=== PATIENT | female | born 1950 | race Caucasian/White ===

== ENCOUNTER 2017-05-14 08:37 | Day surgery (SDC) | payer MEDICARE, MEDICAID ==
[2017-05-14] MEDS ORDERED: Sodium Chloride 0.9% 10 ML Syringe FLUSH PRN (08:45)
[2017-05-14] MEDS ORDERED: Lactated Ringers 1,000 ML IV SCH (08:45)
[2017-05-14] MEDS ORDERED: Propofol 200 MG/20 ML SDV ONE ×2 (09:53→10:20)
[2017-05-14] MEDS ORDERED: fentaNYL 100 MCG/2 ML SDV ONE (09:53)
[2017-05-14] MEDS ORDERED: Midazolam 1 MG/ML 2 ML SDV ONE (09:53)
[2017-05-14 13:37] VITALS: BP 150/97
--- NOTE | 2017-05-14 14:32 | OR ---
Date of Procedure: 05/14/2017 PREOPERATIVE DIAGNOSIS: Hemoccult-positive stool. POSTOPERATIVE DIAGNOSES: 1. Hiatal hernia. 2. Sigmoid diverticulosis. PROCEDURES: 1. EGD. 2. Colonoscopy. ANESTHESIA: IV sedation. HISTORY: This patient was recently found to be Hemoccult positive and last colonoscopy was 10 years ago. She also has a history of GERD with esophageal strictures. She was initially scheduled for a colonoscopy; however, I told her that if the colonoscopy did not show a source of blood, we should proceed with an upper endoscopy and she is agreeable. DESCRIPTION OF PROCEDURE: The patient was brought to the procedure room, where she was placed on her left side and IV sedation administered. Digital rectal exam was performed, which was normal. Colonoscope was inserted and advanced to the level of the cecum with difficulty getting through the sigmoid colon, which was tortuous. This required changing to the supine position. I was then able to advance to the cecum, which was confirmed by identifying the appendiceal lumen and the ileocecal valve. Prep was good and surfaces were well visualized. Upon withdrawing the scope, the ascending, transverse, and descending colon were normal in appearance. Sigmoid colon was tortuous with multiple diverticula present. Rectum was normal and retroflexion was normal. Air was removed and the scope withdrawn. The patient tolerated this portion of the procedure well. Since no source of blood was identified, I proceeded with upper endoscopy after an oral bite block was placed. An upper endoscope was advanced into the esophagus under direct vision without difficulty. Vocal cords were viewed and were normal. The scope was advanced to the 3rd portion of the duodenum. The duodenum and pylorus were normal. Antrum and body of the stomach were normal. Retroflexion reveals a normal appearing fundus and a medium-sized regular sliding hiatal hernia. Squamocolumnar junction appears normal. There is no evidence of reflux esophagitis. No source of bleeding was identified. Air was removed from the stomach and the scope withdrawn through the remaining esophagus, which appears normal. The patient tolerated this portion of the procedure well and returned to recovery in stable condition. GENA CAN MD /[id number]
== END 2017-05-14 11:52 | disposition home or self-care (01) ==
LOC: LL.SDS 08:37
PROVIDERS: ATTEND Surgery
DX: Z12.11 Encounter for screening for malignant neoplasm of colon (principal); K57.30 Diverticulosis of large intestine without perforation or abscess without bleeding; K44.9 Diaphragmatic hernia without obstruction or gangrene; E78.00 Pure hypercholesterolemia, unspecified; K21.9 Gastro-esophageal reflux disease without esophagitis; F41.9 Anxiety disorder, unspecified; Z79.899 Other long term (current) drug therapy; Z98.890 Other specified postprocedural states; Z90.710 Acquired absence of both cervix and uterus; Z87.891 Personal history of nicotine dependence
CPT/HCPCS: 43235; G0121; J2250; J2704; J3010; J7120; 00810-QZ

== ENCOUNTER 2021-10-10 11:09 | Inpatient (IN) | payer MEDICARE, MEDICAID ==
[2021-10-10] MEDS ORDERED: Sodium Chloride 0.9% 10 ML Syringe FLUSH PRN (11:48)
[2021-10-10 11:58] LABS: CORONAVIRUS COVID-19 NAA NEGATIVE (NEGATIVE); RESPIRATORY SYNCYTIAL VIR NAA NEGATIVE (NEGATIVE)
[2021-10-10 12:41] LABS: CHLORIDE,CL 99 mmol/L (98-107); SODIUM,NA 134 mmol/L (136-145)
[2021-10-10] MEDS ORDERED: Polyethylene Glycol 3350 Powder 17 GM Packet PO PRN (14:04)
[2021-10-10] MEDS ORDERED: Ondansetron 4 MG/2 ML SDV IVPUSH PRN (15:00)
[2021-10-10] MEDS ORDERED: Acetaminophen 325 MG Tab PO PRN (15:00)
[2021-10-10] MEDS: Levofloxacin/Dextrose 5%-Water 750 MG in Premix Bag 1 BAG IV SCH (15:21)
[2021-10-10] MEDS: Enoxaparin 40 MG/0.4 ML Syringe SUBCUT SCH (15:21)
[2021-10-10] MEDS ORDERED: diphenhydrAMINE 25 MG Cap PO PRN (21:20)
[2021-10-10] MEDS: Melatonin 3 MG Tab PO PRN (21:31)
[2021-10-11] MEDS: Enoxaparin 40 MG/0.4 ML Syringe SUBCUT SCH (07:45)
[2021-10-11] MEDS: Calcium Carbonate/Vitamin D3 625 MG-125 Unit Tab PO SCH (07:45)
[2021-10-11] MEDS: Omeprazole 20 MG Cap.CR PO SCH (07:45)
[2021-10-11] MEDS: PARoxetine 20 MG Tab PO SCH (07:46)
[2021-10-11] MEDS ORDERED: Iopamidol 755 Mg/ML 100 ML Bottle IVPUSH STA (14:10)
[2021-10-11] MEDS ORDERED: Lactated Ringers 1,000 ML IV ONE (14:33)
[2021-10-11] MEDS: predniSONE 20 MG Tab PO SCH (14:59)
[2021-10-11] MEDS: Albuterol/Ipratropium 3.0-0.5 MG/3 ML Neb Soln NEB SCH ×2 (16:51→19:11)
[2021-10-11] MEDS: Levofloxacin/Dextrose 5%-Water 750 MG in Premix Bag 1 BAG IV SCH (17:20)
[2021-10-11] MEDS: Doxycycline Monohydrate 100 MG Cap PO SCH (17:51)
[2021-10-11] MEDS: Lactobacillus Rhamnosus GG (Probiotic) Cap PO SCH (17:51)
[2021-10-11] MEDS: Arformoterol 15 MCG/2 ML Neb Soln NEB SCH (19:11)
[2021-10-11] MEDS: Budesonide 0.5 MG/2 ML Neb Susp NEB SCH (19:11)
[2021-10-12] MEDS: Albuterol/Ipratropium 3.0-0.5 MG/3 ML Neb Soln NEB SCH ×3 (01:25→07:53)
[2021-10-12 07:50] LABS: CHLORIDE,CL 102 mmol/L (98-107); SODIUM,NA 135 mmol/L (136-145)
[2021-10-12 07:52] LABS: ANION GAP 10.4 meq/L (7-15)
[2021-10-12] MEDS: Enoxaparin 40 MG/0.4 ML Syringe SUBCUT SCH (07:58)
[2021-10-12] MEDS: Lactobacillus Rhamnosus GG (Probiotic) Cap PO SCH ×2 (07:58→17:44)
[2021-10-12] MEDS: Omeprazole 20 MG Cap.CR PO SCH (07:58)
[2021-10-12] MEDS: predniSONE 20 MG Tab PO SCH (07:58)
[2021-10-12] MEDS: Calcium Carbonate/Vitamin D3 625 MG-125 Unit Tab PO SCH (07:59)
[2021-10-12] MEDS: PARoxetine 20 MG Tab PO SCH (07:59)
[2021-10-12] MEDS: Budesonide 0.5 MG/2 ML Neb Susp NEB SCH ×2 (07:59→19:44)
[2021-10-12] MEDS: Arformoterol 15 MCG/2 ML Neb Soln NEB SCH ×2 (07:59→19:45)
[2021-10-12] MEDS: Doxycycline Monohydrate 100 MG Cap PO SCH ×2 (07:59→17:44)
[2021-10-12] MEDS ORDERED: Albuterol 0.083% 2.5 MG/3 ML Neb Soln NEB PRN (09:40)
[2021-10-12] MEDS: Ipratropium 0.02% 0.5 MG/2.5 ML Neb Soln NEB SCH ×2 (14:18→19:45)
[2021-10-13] MEDS: Ipratropium 0.02% 0.5 MG/2.5 ML Neb Soln NEB SCH ×4 (02:01→19:54)
[2021-10-13] MEDS: Budesonide 0.5 MG/2 ML Neb Susp NEB SCH ×2 (08:12→19:55)
[2021-10-13] MEDS: Enoxaparin 40 MG/0.4 ML Syringe SUBCUT SCH (08:12)
[2021-10-13] MEDS: predniSONE 20 MG Tab PO SCH (08:13)
[2021-10-13] MEDS: Omeprazole 20 MG Cap.CR PO SCH (08:13)
[2021-10-13] MEDS: Calcium Carbonate/Vitamin D3 625 MG-125 Unit Tab PO SCH (08:13)
[2021-10-13] MEDS: Arformoterol 15 MCG/2 ML Neb Soln NEB SCH ×2 (08:13→19:55)
[2021-10-13] MEDS: PARoxetine 20 MG Tab PO SCH (08:13)
[2021-10-13] MEDS: Lactobacillus Rhamnosus GG (Probiotic) Cap PO SCH ×2 (08:14→17:20)
[2021-10-13] MEDS: Doxycycline Monohydrate 100 MG Cap PO SCH ×2 (08:14→17:20)
[2021-10-13 08:29] LABS: CHLORIDE,CL 102 mmol/L (98-107); SODIUM,NA 135 mmol/L (136-145)
[2021-10-13 08:33] LABS: ANION GAP 10.1 meq/L (7-15)
[2021-10-13] MEDS: Melatonin 3 MG Tab PO PRN (19:55)
[2021-10-14] MEDS: Ipratropium 0.02% 0.5 MG/2.5 ML Neb Soln NEB SCH ×4 (02:14→19:57)
[2021-10-14] MEDS: Doxycycline Monohydrate 100 MG Cap PO SCH ×2 (07:52→17:20)
[2021-10-14] MEDS: Budesonide 0.5 MG/2 ML Neb Susp NEB SCH ×2 (07:52→19:58)
[2021-10-14] MEDS: Calcium Carbonate/Vitamin D3 625 MG-125 Unit Tab PO SCH (07:52)
[2021-10-14] MEDS: Enoxaparin 40 MG/0.4 ML Syringe SUBCUT SCH (07:52)
[2021-10-14] MEDS: Arformoterol 15 MCG/2 ML Neb Soln NEB SCH ×2 (07:52→19:58)
[2021-10-14] MEDS: Omeprazole 20 MG Cap.CR PO SCH (07:53)
[2021-10-14] MEDS: predniSONE 20 MG Tab PO SCH (07:53)
[2021-10-14] MEDS: PARoxetine 20 MG Tab PO SCH (07:53)
[2021-10-14] MEDS: Melatonin 3 MG Tab PO PRN (19:58)
[2021-10-15] MEDS: Ipratropium 0.02% 0.5 MG/2.5 ML Neb Soln NEB SCH ×3 (02:21→14:15)
[2021-10-15 07:48] VITALS: BP 110/79; PULSE 94
[2021-10-15] MEDS ORDERED: predniSONE 5 MG Tab PO SCH (08:00)
[2021-10-15] MEDS: Arformoterol 15 MCG/2 ML Neb Soln NEB SCH (08:22)
[2021-10-15] MEDS: Budesonide 0.5 MG/2 ML Neb Susp NEB SCH (08:22)
[2021-10-15] MEDS: PARoxetine 20 MG Tab PO SCH (08:24)
[2021-10-15] MEDS: Doxycycline Monohydrate 100 MG Cap PO SCH (08:24)
[2021-10-15] MEDS: Calcium Carbonate/Vitamin D3 625 MG-125 Unit Tab PO SCH (08:24)
[2021-10-15] MEDS: Enoxaparin 40 MG/0.4 ML Syringe SUBCUT SCH (08:25)
[2021-10-15] MEDS: Omeprazole 20 MG Cap.CR PO SCH (08:25)
[2021-10-27] MEDS ORDERED: Omeprazole 20 MG Cap.CR PO SCH (08:00)
== END 2021-10-15 16:10 | disposition swing bed (61) | DRG 196 ==
LOC: LL.ED 11:09 → LL.MS 13:15
PROVIDERS: ADMIT Hospitalist; ATTEND Hospitalist
DX: J84.10 Pulmonary fibrosis, unspecified (principal); J96.01 Acute respiratory failure with hypoxia; J18.9 Pneumonia, unspecified organism; J44.9 Chronic obstructive pulmonary disease, unspecified; Z99.81 Dependence on supplemental oxygen; Z79.899 Other long term (current) drug therapy; K57.90 Diverticulosis of intestine, part unspecified, without perforation or abscess without bleeding; N39.41 Urge incontinence; M19.90 Unspecified osteoarthritis, unspecified site; H54.7 Unspecified visual loss; E78.00 Pure hypercholesterolemia, unspecified; K21.9 Gastro-esophageal reflux disease without esophagitis; K44.9 Diaphragmatic hernia without obstruction or gangrene; R32 Unspecified urinary incontinence; M81.0 Age-related osteoporosis without current pathological fracture; F41.9 Anxiety disorder, unspecified; Z96.653 Presence of artificial knee joint, bilateral; Z90.710 Acquired absence of both cervix and uterus; Z20.822 Contact with and (suspected) exposure to COVID-19
CPT/HCPCS: 0241U; 36415; 71046; 71275; 80048; 80053; 83605; 83735; 83880; 84145; 84484; 85025; 85027; 85379; 86140; 87040; 87899; 93005; 94640; 94761; 99285-25; A9270-GY; J1650; J1956; J7120; J7512; J7613-GY; J7620-GY; Q9967

== ENCOUNTER 2021-10-15 14:43 | Inpatient (IN) | payer MEDICARE, MEDICAID ==
[2021-10-15] MEDS ORDERED: Albuterol 0.083% 2.5 MG/3 ML Neb Soln NEB PRN (17:44)
[2021-10-15] MEDS ORDERED: diphenhydrAMINE 25 MG Cap PO PRN (17:47)
[2021-10-15] MEDS ORDERED: Melatonin 3 MG Tab PO PRN (17:50)
[2021-10-15] MEDS: Doxycycline Monohydrate 100 MG Cap PO SCH (18:28)
[2021-10-15] MEDS: Calcium Carbonate/Vitamin D3 625 MG-125 Unit Tab PO SCH (18:28)
[2021-10-15] MEDS: Lactobacillus Rhamnosus GG (Probiotic) Cap PO SCH (18:28)
[2021-10-15] MEDS: Arformoterol 15 MCG/2 ML Neb Soln NEB SCH (19:46)
[2021-10-15] MEDS: Budesonide 0.25 MG/2 ML Neb Susp NEB SCH (19:47)
[2021-10-15] MEDS: Albuterol/Ipratropium 3.0-0.5 MG/3 ML Neb Soln NEB SCH ×2 (19:47→23:24)
[2021-10-15] MEDS: Ipratropium 0.02% 0.5 MG/2.5 ML Neb Soln NEB SCH (19:47)
[2021-10-16] MEDS: Ipratropium 0.02% 0.5 MG/2.5 ML Neb Soln NEB SCH ×4 (02:45→19:31)
[2021-10-16] MEDS: Albuterol/Ipratropium 3.0-0.5 MG/3 ML Neb Soln NEB SCH ×2 (03:02→07:45)
[2021-10-16] MEDS: Calcium Carbonate/Vitamin D3 625 MG-125 Unit Tab PO SCH ×2 (07:41→17:25)
[2021-10-16] MEDS: PARoxetine 20 MG Tab PO SCH (07:42)
[2021-10-16] MEDS: predniSONE 20 MG Tab PO SCH (07:43)
[2021-10-16] MEDS: Omeprazole 20 MG Cap.CR PO SCH (07:43)
[2021-10-16] MEDS: Doxycycline Monohydrate 100 MG Cap PO SCH (07:44)
[2021-10-16] MEDS: Enoxaparin 40 MG/0.4 ML Syringe SUBCUT SCH (07:44)
[2021-10-16] MEDS: Lactobacillus Rhamnosus GG (Probiotic) Cap PO SCH (07:44)
[2021-10-16] MEDS: Budesonide 0.25 MG/2 ML Neb Susp NEB SCH ×2 (07:45→19:31)
[2021-10-16] MEDS: Arformoterol 15 MCG/2 ML Neb Soln NEB SCH ×2 (07:45→19:31)
[2021-10-17] MEDS: Ipratropium 0.02% 0.5 MG/2.5 ML Neb Soln NEB SCH ×4 (02:57→19:59)
[2021-10-17] MEDS: Calcium Carbonate/Vitamin D3 625 MG-125 Unit Tab PO SCH ×2 (07:31→18:14)
[2021-10-17] MEDS: PARoxetine 20 MG Tab PO SCH (07:32)
[2021-10-17] MEDS: Omeprazole 20 MG Cap.CR PO SCH (07:33)
[2021-10-17] MEDS: predniSONE 20 MG Tab PO SCH (07:34)
[2021-10-17] MEDS: Enoxaparin 40 MG/0.4 ML Syringe SUBCUT SCH (07:34)
[2021-10-17] MEDS: Arformoterol 15 MCG/2 ML Neb Soln NEB SCH ×2 (07:35→19:59)
[2021-10-17] MEDS: Budesonide 0.25 MG/2 ML Neb Susp NEB SCH ×2 (07:35→19:59)
[2021-10-18] MEDS: Ipratropium 0.02% 0.5 MG/2.5 ML Neb Soln NEB SCH ×4 (01:14→20:04)
[2021-10-18] MEDS: Arformoterol 15 MCG/2 ML Neb Soln NEB SCH ×2 (07:40→20:13)
[2021-10-18] MEDS: Enoxaparin 40 MG/0.4 ML Syringe SUBCUT SCH (07:40)
[2021-10-18] MEDS: Budesonide 0.25 MG/2 ML Neb Susp NEB SCH ×2 (07:40→20:14)
[2021-10-18] MEDS: predniSONE 20 MG Tab PO SCH (07:40)
[2021-10-18] MEDS: PARoxetine 20 MG Tab PO SCH (07:40)
[2021-10-18] MEDS: Calcium Carbonate/Vitamin D3 625 MG-125 Unit Tab PO SCH ×2 (07:42→17:50)
[2021-10-18] MEDS: Omeprazole 20 MG Cap.CR PO SCH (07:42)
[2021-10-19] MEDS: Ipratropium 0.02% 0.5 MG/2.5 ML Neb Soln NEB SCH ×4 (02:09→19:14)
[2021-10-19] MEDS: Budesonide 0.25 MG/2 ML Neb Susp NEB SCH ×2 (08:00→19:28)
[2021-10-19] MEDS: Enoxaparin 40 MG/0.4 ML Syringe SUBCUT SCH (08:07)
[2021-10-19] MEDS: Arformoterol 15 MCG/2 ML Neb Soln NEB SCH ×2 (08:07→19:37)
[2021-10-19] MEDS: Omeprazole 20 MG Cap.CR PO SCH (08:08)
[2021-10-19] MEDS: PARoxetine 20 MG Tab PO SCH (08:09)
[2021-10-19] MEDS: predniSONE 20 MG Tab PO SCH (08:11)
[2021-10-19] MEDS: Calcium Carbonate/Vitamin D3 625 MG-125 Unit Tab PO SCH ×2 (08:40→17:14)
[2021-10-20] MEDS: Ipratropium 0.02% 0.5 MG/2.5 ML Neb Soln NEB SCH ×4 (01:45→19:11)
[2021-10-20] MEDS: Enoxaparin 40 MG/0.4 ML Syringe SUBCUT SCH (07:12)
[2021-10-20] MEDS: Budesonide 0.25 MG/2 ML Neb Susp NEB SCH ×2 (07:28→19:21)
[2021-10-20] MEDS: Arformoterol 15 MCG/2 ML Neb Soln NEB SCH ×2 (07:40→19:29)
[2021-10-20] MEDS: Calcium Carbonate/Vitamin D3 625 MG-125 Unit Tab PO SCH ×2 (07:41→17:12)
[2021-10-20] MEDS: Omeprazole 20 MG Cap.CR PO SCH (07:41)
[2021-10-20] MEDS: PARoxetine 20 MG Tab PO SCH (07:42)
[2021-10-20] MEDS: predniSONE 20 MG Tab PO SCH (07:43)
[2021-10-20] MEDS: Acetaminophen 325 MG Tab PO PRN (16:38)
[2021-10-21] MEDS: Ipratropium 0.02% 0.5 MG/2.5 ML Neb Soln NEB SCH ×4 (01:35→19:27)
[2021-10-21] MEDS: Enoxaparin 40 MG/0.4 ML Syringe SUBCUT SCH (07:23)
[2021-10-21] MEDS: Budesonide 0.25 MG/2 ML Neb Susp NEB SCH ×2 (07:36→19:34)
[2021-10-21] MEDS: Calcium Carbonate/Vitamin D3 625 MG-125 Unit Tab PO SCH ×2 (07:38→17:20)
[2021-10-21] MEDS: Omeprazole 20 MG Cap.CR PO SCH (07:38)
[2021-10-21] MEDS: PARoxetine 20 MG Tab PO SCH (07:39)
[2021-10-21] MEDS: predniSONE 20 MG Tab PO SCH (07:39)
[2021-10-21] MEDS: Polyethylene Glycol 3350 Powder 17 GM Packet PO PRN (07:42)
[2021-10-21] MEDS: Arformoterol 15 MCG/2 ML Neb Soln NEB SCH ×2 (07:53→19:40)
[2021-10-22] MEDS: Ipratropium 0.02% 0.5 MG/2.5 ML Neb Soln NEB SCH ×4 (01:44→20:17)
[2021-10-22] MEDS: Budesonide 0.25 MG/2 ML Neb Susp NEB SCH ×2 (08:09→20:18)
[2021-10-22] MEDS: Arformoterol 15 MCG/2 ML Neb Soln NEB SCH ×2 (08:10→20:21)
[2021-10-22] MEDS: Enoxaparin 40 MG/0.4 ML Syringe SUBCUT SCH (08:11)
[2021-10-22] MEDS: Omeprazole 20 MG Cap.CR PO SCH (08:12)
[2021-10-22] MEDS: Calcium Carbonate/Vitamin D3 625 MG-125 Unit Tab PO SCH ×2 (08:13→17:10)
[2021-10-22] MEDS: PARoxetine 20 MG Tab PO SCH (08:16)
[2021-10-22] MEDS: predniSONE 20 MG Tab PO SCH (08:20)
[2021-10-22] MEDS: Polyethylene Glycol 3350 Powder 17 GM Packet PO PRN (13:46)
[2021-10-23] MEDS: Ipratropium 0.02% 0.5 MG/2.5 ML Neb Soln NEB SCH ×4 (02:19→19:03)
[2021-10-23] MEDS: Enoxaparin 40 MG/0.4 ML Syringe SUBCUT SCH (07:33)
[2021-10-23] MEDS: Budesonide 0.25 MG/2 ML Neb Susp NEB SCH ×2 (07:46→19:24)
[2021-10-23] MEDS: Calcium Carbonate/Vitamin D3 625 MG-125 Unit Tab PO SCH ×2 (07:47→17:32)
[2021-10-23] MEDS: Omeprazole 20 MG Cap.CR PO SCH (07:48)
[2021-10-23] MEDS: PARoxetine 20 MG Tab PO SCH (07:48)
[2021-10-23] MEDS: predniSONE 20 MG Tab PO SCH (07:49)
[2021-10-23] MEDS: Arformoterol 15 MCG/2 ML Neb Soln NEB SCH ×2 (07:51→19:29)
[2021-10-23] MEDS: Magnesium Hydroxide 400 MG/5 ML Susp 30 ML Cup PO PRN (13:29)
[2021-10-23] MEDS: AMOXICILLIN PO SCH (17:32)
[2021-10-23] MEDS: CLAVULANATE PO SCH (17:32)
[2021-10-24] MEDS: Ipratropium 0.02% 0.5 MG/2.5 ML Neb Soln NEB SCH ×4 (01:48→19:53)
[2021-10-24] MEDS: Enoxaparin 40 MG/0.4 ML Syringe SUBCUT SCH (07:27)
[2021-10-24] MEDS: Budesonide 0.25 MG/2 ML Neb Susp NEB SCH ×2 (07:45→19:54)
[2021-10-24] MEDS: Calcium Carbonate/Vitamin D3 625 MG-125 Unit Tab PO SCH ×2 (07:46→17:27)
[2021-10-24] MEDS: Omeprazole 20 MG Cap.CR PO SCH (07:47)
[2021-10-24] MEDS: CLAVULANATE PO SCH ×2 (07:47→17:27)
[2021-10-24] MEDS: AMOXICILLIN PO SCH ×2 (07:47→17:27)
[2021-10-24] MEDS: PARoxetine 20 MG Tab PO SCH (07:48)
[2021-10-24] MEDS: predniSONE 5 MG Tab PO SCH (07:49)
[2021-10-24] MEDS: Arformoterol 15 MCG/2 ML Neb Soln NEB SCH ×2 (07:50→19:54)
[2021-10-24] MEDS: Polyethylene Glycol 3350 Powder 17 GM Packet PO PRN (07:51)
[2021-10-24] MEDS: Bisacodyl 10 MG Supp RECTAL PRN (08:23)
[2021-10-24] MEDS: Acetaminophen 325 MG Tab PO PRN (11:16)
[2021-10-24] MEDS: Magnesium Hydroxide 400 MG/5 ML Susp 30 ML Cup PO PRN (13:20)
[2021-10-24] MEDS ORDERED: Glycerin Adult 2 GM Supp RECTAL ONE ×2 (13:56→14:09)
[2021-10-24] MEDS: Sennosides 8.6 MG Tab PO SCH (17:49)
[2021-10-24] MEDS ORDERED: Sennosides 8.6 MG Tab PO SCH (18:00)
[2021-10-25] MEDS: Ipratropium 0.02% 0.5 MG/2.5 ML Neb Soln NEB SCH ×4 (02:41→20:01)
[2021-10-25] MEDS: Polyethylene Glycol 3350 Powder 510 GM Bot PO SCH (07:28)
[2021-10-25] MEDS: Enoxaparin 40 MG/0.4 ML Syringe SUBCUT SCH (07:29)
[2021-10-25] MEDS: PARoxetine 20 MG Tab PO SCH (07:30)
[2021-10-25] MEDS: AMOXICILLIN PO SCH ×2 (07:32→17:34)
[2021-10-25] MEDS: CLAVULANATE PO SCH ×2 (07:32→17:34)
[2021-10-25] MEDS: predniSONE 5 MG Tab PO SCH (07:34)
[2021-10-25] MEDS: Omeprazole 20 MG Cap.CR PO SCH (07:35)
[2021-10-25] MEDS: Calcium Carbonate/Vitamin D3 625 MG-125 Unit Tab PO SCH ×2 (07:36→17:35)
[2021-10-25] MEDS: Budesonide 0.25 MG/2 ML Neb Susp NEB SCH ×2 (07:36→20:01)
[2021-10-25] MEDS: Sennosides 8.6 MG Tab PO SCH ×2 (07:37→17:35)
[2021-10-25] MEDS: Arformoterol 15 MCG/2 ML Neb Soln NEB SCH ×2 (08:20→20:02)
[2021-10-26] MEDS: Ipratropium 0.02% 0.5 MG/2.5 ML Neb Soln NEB SCH ×4 (02:19→20:01)
[2021-10-26] MEDS: Budesonide 0.25 MG/2 ML Neb Susp NEB SCH ×2 (07:03→20:05)
[2021-10-26] MEDS: Enoxaparin 40 MG/0.4 ML Syringe SUBCUT SCH (07:03)
[2021-10-26] MEDS: PARoxetine 20 MG Tab PO SCH (07:04)
[2021-10-26] MEDS: CLAVULANATE PO SCH ×2 (07:05→17:33)
[2021-10-26] MEDS: AMOXICILLIN PO SCH ×2 (07:05→17:33)
[2021-10-26] MEDS: Calcium Carbonate/Vitamin D3 625 MG-125 Unit Tab PO SCH ×2 (07:06→17:34)
[2021-10-26] MEDS: Omeprazole 20 MG Cap.CR PO SCH (07:06)
[2021-10-26] MEDS: predniSONE 5 MG Tab PO SCH (07:07)
[2021-10-26] MEDS: Polyethylene Glycol 3350 Powder 510 GM Bot PO SCH (07:08)
[2021-10-26] MEDS: Sennosides 8.6 MG Tab PO SCH ×2 (07:09→17:36)
[2021-10-26] MEDS: Arformoterol 15 MCG/2 ML Neb Soln NEB SCH ×2 (07:20→20:06)
[2021-10-26] MEDS: Magnesium Hydroxide 400 MG/5 ML Susp 30 ML Cup PO PRN (10:57)
[2021-10-27] MEDS: Ipratropium 0.02% 0.5 MG/2.5 ML Neb Soln NEB SCH ×4 (02:15→19:48)
[2021-10-27] MEDS: Polyethylene Glycol 3350 Powder 510 GM Bot PO SCH ×2 (08:16→10:37)
[2021-10-27] MEDS: Enoxaparin 40 MG/0.4 ML Syringe SUBCUT SCH (08:16)
[2021-10-27] MEDS: CLAVULANATE PO SCH ×2 (08:17→17:18)
[2021-10-27] MEDS: AMOXICILLIN PO SCH ×2 (08:17→17:18)
[2021-10-27] MEDS: Omeprazole 20 MG Cap.CR PO SCH (08:18)
[2021-10-27] MEDS: PARoxetine 20 MG Tab PO SCH (08:20)
[2021-10-27] MEDS: Budesonide 0.25 MG/2 ML Neb Susp NEB SCH ×2 (08:22→19:51)
[2021-10-27] MEDS: Arformoterol 15 MCG/2 ML Neb Soln NEB SCH ×2 (08:24→19:51)
[2021-10-27] MEDS: Sennosides 8.6 MG Tab PO SCH ×2 (08:25→17:19)
[2021-10-27] MEDS: Calcium Carbonate/Vitamin D3 625 MG-125 Unit Tab PO SCH ×2 (08:27→17:19)
[2021-10-28] MEDS: Ipratropium 0.02% 0.5 MG/2.5 ML Neb Soln NEB SCH ×4 (02:57→19:57)
[2021-10-28] MEDS: Budesonide 0.25 MG/2 ML Neb Susp NEB SCH ×2 (07:44→19:57)
[2021-10-28] MEDS: Enoxaparin 40 MG/0.4 ML Syringe SUBCUT SCH (07:44)
[2021-10-28] MEDS: CLAVULANATE PO SCH (07:44)
[2021-10-28] MEDS: AMOXICILLIN PO SCH (07:44)
[2021-10-28] MEDS: PARoxetine 20 MG Tab PO SCH (07:45)
[2021-10-28] MEDS: Omeprazole 20 MG Cap.CR PO SCH (07:47)
[2021-10-28] MEDS: Calcium Carbonate/Vitamin D3 625 MG-125 Unit Tab PO SCH ×2 (07:48→17:08)
[2021-10-28] MEDS: Sennosides 8.6 MG Tab PO SCH ×2 (07:49→17:07)
[2021-10-28] MEDS: Arformoterol 15 MCG/2 ML Neb Soln NEB SCH ×2 (07:50→19:58)
[2021-10-28] MEDS: Polyethylene Glycol 3350 Powder 510 GM Bot PO SCH (07:50)
[2021-10-28] MEDS: Magnesium Hydroxide 400 MG/5 ML Susp 30 ML Cup PO PRN (08:20)
[2021-10-28] MEDS: Bisacodyl 10 MG Supp RECTAL PRN (10:12)
[2021-10-29] MEDS: Ipratropium 0.02% 0.5 MG/2.5 ML Neb Soln NEB SCH ×4 (01:57→19:20)
[2021-10-29] MEDS: Enoxaparin 40 MG/0.4 ML Syringe SUBCUT SCH (07:11)
[2021-10-29] MEDS: Budesonide 0.25 MG/2 ML Neb Susp NEB SCH ×2 (07:25→19:24)
[2021-10-29] MEDS: Arformoterol 15 MCG/2 ML Neb Soln NEB SCH ×2 (08:07→19:25)
[2021-10-29] MEDS: Polyethylene Glycol 3350 Powder 510 GM Bot PO SCH (08:07)
[2021-10-29] MEDS: Calcium Carbonate/Vitamin D3 625 MG-125 Unit Tab PO SCH ×2 (08:08→17:15)
[2021-10-29] MEDS: Omeprazole 20 MG Cap.CR PO SCH (08:08)
[2021-10-29] MEDS: PARoxetine 20 MG Tab PO SCH (08:09)
[2021-10-29] MEDS: Sennosides 8.6 MG Tab PO SCH ×2 (08:10→17:16)
[2021-10-30] MEDS: Ipratropium 0.02% 0.5 MG/2.5 ML Neb Soln NEB SCH ×4 (01:14→20:02)
[2021-10-30] MEDS: Enoxaparin 40 MG/0.4 ML Syringe SUBCUT SCH (07:31)
[2021-10-30] MEDS: Budesonide 0.25 MG/2 ML Neb Susp NEB SCH ×2 (07:48→20:04)
[2021-10-30] MEDS: Polyethylene Glycol 3350 Powder 510 GM Bot PO SCH (08:19)
[2021-10-30] MEDS: Arformoterol 15 MCG/2 ML Neb Soln NEB SCH ×2 (08:19→20:04)
[2021-10-30] MEDS: Calcium Carbonate/Vitamin D3 625 MG-125 Unit Tab PO SCH ×2 (08:19→17:18)
[2021-10-30] MEDS: Omeprazole 20 MG Cap.CR PO SCH (08:20)
[2021-10-30] MEDS: PARoxetine 20 MG Tab PO SCH (08:20)
[2021-10-30] MEDS: Sennosides 8.6 MG Tab PO SCH ×2 (08:21→17:18)
[2021-10-31] MEDS: Ipratropium 0.02% 0.5 MG/2.5 ML Neb Soln NEB SCH ×4 (01:59→20:10)
[2021-10-31] MEDS: Omeprazole 20 MG Cap.CR PO SCH (07:39)
[2021-10-31] MEDS: Arformoterol 15 MCG/2 ML Neb Soln NEB SCH ×2 (07:39→20:16)
[2021-10-31] MEDS: PARoxetine 20 MG Tab PO SCH (07:39)
[2021-10-31] MEDS: Budesonide 0.25 MG/2 ML Neb Susp NEB SCH ×2 (07:39→20:16)
[2021-10-31] MEDS: Calcium Carbonate/Vitamin D3 625 MG-125 Unit Tab PO SCH ×2 (07:40→17:12)
[2021-10-31] MEDS: Sennosides 8.6 MG Tab PO SCH ×2 (07:40→17:12)
[2021-10-31] MEDS: Polyethylene Glycol 3350 Powder 510 GM Bot PO SCH (07:41)
[2021-10-31] MEDS: Enoxaparin 40 MG/0.4 ML Syringe SUBCUT SCH (07:41)
[2021-11-01] MEDS: Ipratropium 0.02% 0.5 MG/2.5 ML Neb Soln NEB SCH ×4 (02:55→19:51)
[2021-11-01] MEDS: Budesonide 0.25 MG/2 ML Neb Susp NEB SCH ×2 (07:32→19:52)
[2021-11-01] MEDS: Arformoterol 15 MCG/2 ML Neb Soln NEB SCH ×2 (07:42→19:51)
[2021-11-01] MEDS: Polyethylene Glycol 3350 Powder 510 GM Bot PO SCH (08:10)
[2021-11-01] MEDS: Sennosides 8.6 MG Tab PO SCH ×2 (08:11→17:26)
[2021-11-01] MEDS: Calcium Carbonate/Vitamin D3 625 MG-125 Unit Tab PO SCH ×2 (08:11→17:26)
[2021-11-01] MEDS: PAROXETINE 30 MG PO SCH (08:11)
[2021-11-01] MEDS: Omeprazole 20 MG Cap.CR PO SCH (08:11)
[2021-11-02] MEDS: Ipratropium 0.02% 0.5 MG/2.5 ML Neb Soln NEB SCH ×4 (02:22→20:24)
[2021-11-02] MEDS: Omeprazole 20 MG Cap.CR PO SCH (07:32)
[2021-11-02] MEDS: PAROXETINE 30 MG PO SCH (07:32)
[2021-11-02] MEDS: Arformoterol 15 MCG/2 ML Neb Soln NEB SCH ×2 (07:33→20:27)
[2021-11-02] MEDS: Polyethylene Glycol 3350 Powder 510 GM Bot PO SCH (07:33)
[2021-11-02] MEDS: Calcium Carbonate/Vitamin D3 625 MG-125 Unit Tab PO SCH ×2 (07:34→17:35)
[2021-11-02] MEDS: Sennosides 8.6 MG Tab PO SCH ×2 (07:35→17:35)
[2021-11-02] MEDS: Budesonide 0.25 MG/2 ML Neb Susp NEB SCH ×2 (07:36→20:27)
[2021-11-03] MEDS: Ipratropium 0.02% 0.5 MG/2.5 ML Neb Soln NEB SCH ×4 (02:06→20:12)
[2021-11-03] MEDS: Polyethylene Glycol 3350 Powder 510 GM Bot PO SCH (07:48)
[2021-11-03] MEDS: Arformoterol 15 MCG/2 ML Neb Soln NEB SCH ×2 (07:48→20:13)
[2021-11-03] MEDS: PAROXETINE 30 MG PO SCH (07:48)
[2021-11-03] MEDS: Omeprazole 20 MG Cap.CR PO SCH (07:48)
[2021-11-03] MEDS: Calcium Carbonate/Vitamin D3 625 MG-125 Unit Tab PO SCH ×2 (07:49→17:06)
[2021-11-03] MEDS: Budesonide 0.25 MG/2 ML Neb Susp NEB SCH ×2 (07:49→20:13)
[2021-11-03] MEDS: Sennosides 8.6 MG Tab PO SCH ×2 (07:50→17:06)
[2021-11-04] MEDS: Ipratropium 0.02% 0.5 MG/2.5 ML Neb Soln NEB SCH ×4 (02:06→20:22)
[2021-11-04] MEDS: Polyethylene Glycol 3350 Powder 510 GM Bot PO SCH (07:49)
[2021-11-04] MEDS: Arformoterol 15 MCG/2 ML Neb Soln NEB SCH ×2 (07:49→20:22)
[2021-11-04] MEDS: PAROXETINE 30 MG PO SCH (07:49)
[2021-11-04] MEDS: Omeprazole 20 MG Cap.CR PO SCH (07:49)
[2021-11-04] MEDS: Budesonide 0.25 MG/2 ML Neb Susp NEB SCH ×2 (07:50→20:23)
[2021-11-04] MEDS: Sennosides 8.6 MG Tab PO SCH ×2 (07:50→17:08)
[2021-11-04] MEDS: Calcium Carbonate/Vitamin D3 625 MG-125 Unit Tab PO SCH ×2 (07:50→17:08)
[2021-11-05] MEDS: Ipratropium 0.02% 0.5 MG/2.5 ML Neb Soln NEB SCH ×4 (02:15→20:06)
[2021-11-05] MEDS: Polyethylene Glycol 3350 Powder 510 GM Bot PO SCH (07:23)
[2021-11-05] MEDS: PAROXETINE 30 MG PO SCH (07:24)
[2021-11-05] MEDS: Omeprazole 20 MG Cap.CR PO SCH (07:24)
[2021-11-05] MEDS: Sennosides 8.6 MG Tab PO SCH ×2 (07:24→17:04)
[2021-11-05] MEDS: Calcium Carbonate/Vitamin D3 625 MG-125 Unit Tab PO SCH ×2 (07:24→17:04)
[2021-11-05] MEDS: Arformoterol 15 MCG/2 ML Neb Soln NEB SCH ×2 (07:25→20:06)
[2021-11-05] MEDS: Budesonide 0.25 MG/2 ML Neb Susp NEB SCH ×2 (07:25→20:06)
[2021-11-06] MEDS: Ipratropium 0.02% 0.5 MG/2.5 ML Neb Soln NEB SCH ×4 (02:25→19:46)
[2021-11-06] MEDS: Budesonide 0.25 MG/2 ML Neb Susp NEB SCH ×2 (07:38→19:47)
[2021-11-06] MEDS: Arformoterol 15 MCG/2 ML Neb Soln NEB SCH ×2 (07:39→19:47)
[2021-11-06] MEDS: PAROXETINE 30 MG PO SCH (07:40)
[2021-11-06] MEDS: Omeprazole 20 MG Cap.CR PO SCH (07:41)
[2021-11-06] MEDS: Polyethylene Glycol 3350 Powder 510 GM Bot PO SCH (07:41)
[2021-11-06] MEDS: Calcium Carbonate/Vitamin D3 625 MG-125 Unit Tab PO SCH ×2 (07:42→17:31)
[2021-11-06] MEDS: Sennosides 8.6 MG Tab PO SCH ×2 (07:43→17:31)
[2021-11-07] MEDS: Ipratropium 0.02% 0.5 MG/2.5 ML Neb Soln NEB SCH ×4 (02:09→20:15)
[2021-11-07] MEDS: Sennosides 8.6 MG Tab PO SCH ×2 (07:22→17:34)
[2021-11-07] MEDS: Budesonide 0.25 MG/2 ML Neb Susp NEB SCH ×2 (07:23→20:17)
[2021-11-07] MEDS: Polyethylene Glycol 3350 Powder 510 GM Bot PO SCH (07:24)
[2021-11-07] MEDS: Arformoterol 15 MCG/2 ML Neb Soln NEB SCH ×2 (07:24→20:17)
[2021-11-07] MEDS: Omeprazole 20 MG Cap.CR PO SCH (10:19)
[2021-11-07] MEDS: PAROXETINE 30 MG PO SCH (10:20)
[2021-11-07] MEDS: Calcium Carbonate/Vitamin D3 625 MG-125 Unit Tab PO SCH ×2 (10:20→17:33)
[2021-11-07] MEDS: Acetaminophen 325 MG Tab PO PRN (14:55)
[2021-11-07] MEDS: guaiFENesin 600 MG Tab.ER PO SCH (17:33)
[2021-11-08] MEDS: Ipratropium 0.02% 0.5 MG/2.5 ML Neb Soln NEB SCH ×4 (01:49→20:07)
[2021-11-08] MEDS: Omeprazole 20 MG Cap.CR PO SCH (08:02)
[2021-11-08] MEDS: PAROXETINE 30 MG PO SCH (08:02)
[2021-11-08] MEDS: Polyethylene Glycol 3350 Powder 510 GM Bot PO SCH (08:02)
[2021-11-08] MEDS: Arformoterol 15 MCG/2 ML Neb Soln NEB SCH ×2 (08:03→20:08)
[2021-11-08] MEDS: Budesonide 0.25 MG/2 ML Neb Susp NEB SCH ×2 (08:03→20:08)
[2021-11-08] MEDS: guaiFENesin 600 MG Tab.ER PO SCH ×2 (08:04→17:39)
[2021-11-08] MEDS: Calcium Carbonate/Vitamin D3 625 MG-125 Unit Tab PO SCH ×2 (08:05→17:39)
[2021-11-08] MEDS: Sennosides 8.6 MG Tab PO SCH ×2 (08:05→17:40)
[2021-11-08] MEDS ORDERED: Saliva Substitute Oral Spray 120 ML Bottle MUCMEM PRN (10:00)
[2021-11-08] MEDS: BUSPIRONE 7.5 MG PO SCH (17:39)
[2021-11-08] MEDS ORDERED: busPIRone 15 MG Tab PO SCH (18:00)
[2021-11-09] MEDS: Ipratropium 0.02% 0.5 MG/2.5 ML Neb Soln NEB SCH ×4 (01:51→20:16)
[2021-11-09] MEDS: Budesonide 0.25 MG/2 ML Neb Susp NEB SCH ×2 (07:46→20:17)
[2021-11-09] MEDS: Arformoterol 15 MCG/2 ML Neb Soln NEB SCH ×2 (08:11→20:16)
[2021-11-09] MEDS: Omeprazole 20 MG Cap.CR PO SCH (08:12)
[2021-11-09] MEDS: guaiFENesin 600 MG Tab.ER PO SCH ×2 (08:12→17:16)
[2021-11-09] MEDS: BUSPIRONE 7.5 MG PO SCH ×2 (08:12→17:17)
[2021-11-09] MEDS: Polyethylene Glycol 3350 Powder 510 GM Bot PO SCH (08:12)
[2021-11-09] MEDS: Sennosides 8.6 MG Tab PO SCH ×2 (08:13→17:17)
[2021-11-09] MEDS: Calcium Carbonate/Vitamin D3 625 MG-125 Unit Tab PO SCH ×2 (08:13→17:17)
[2021-11-09] MEDS: PARoxetine 20 MG Tab PO SCH (08:13)
[2021-11-10] MEDS: Ipratropium 0.02% 0.5 MG/2.5 ML Neb Soln NEB SCH ×4 (02:22→20:06)
[2021-11-10] MEDS: guaiFENesin 600 MG Tab.ER PO SCH ×2 (07:11→17:06)
[2021-11-10] MEDS: Polyethylene Glycol 3350 Powder 510 GM Bot PO SCH (07:11)
[2021-11-10] MEDS: Calcium Carbonate/Vitamin D3 625 MG-125 Unit Tab PO SCH ×2 (07:12→17:08)
[2021-11-10] MEDS: Omeprazole 20 MG Cap.CR PO SCH (07:12)
[2021-11-10] MEDS: BUSPIRONE 7.5 MG PO SCH ×2 (07:12→17:08)
[2021-11-10] MEDS: PARoxetine 20 MG Tab PO SCH (07:12)
[2021-11-10] MEDS: Sennosides 8.6 MG Tab PO SCH ×2 (07:13→17:08)
[2021-11-10] MEDS: Budesonide 0.25 MG/2 ML Neb Susp NEB SCH ×2 (07:47→20:08)
[2021-11-10] MEDS: Arformoterol 15 MCG/2 ML Neb Soln NEB SCH ×2 (07:52→20:09)
[2021-11-11] MEDS: Ipratropium 0.02% 0.5 MG/2.5 ML Neb Soln NEB SCH ×4 (02:13→19:42)
[2021-11-11] MEDS: Polyethylene Glycol 3350 Powder 510 GM Bot PO SCH (07:37)
[2021-11-11] MEDS: BUSPIRONE 7.5 MG PO SCH ×2 (07:38→17:14)
[2021-11-11] MEDS: Omeprazole 20 MG Cap.CR PO SCH (07:38)
[2021-11-11] MEDS: Calcium Carbonate/Vitamin D3 625 MG-125 Unit Tab PO SCH ×2 (07:38→17:14)
[2021-11-11] MEDS: guaiFENesin 600 MG Tab.ER PO SCH ×2 (07:38→17:14)
[2021-11-11] MEDS: PARoxetine 20 MG Tab PO SCH (07:39)
[2021-11-11] MEDS: Sennosides 8.6 MG Tab PO SCH ×2 (07:39→17:15)
[2021-11-11] MEDS: Budesonide 0.25 MG/2 ML Neb Susp NEB SCH ×2 (07:56→19:44)
[2021-11-11] MEDS: Arformoterol 15 MCG/2 ML Neb Soln NEB SCH ×2 (08:00→19:44)
[2021-11-12] MEDS: Ipratropium 0.02% 0.5 MG/2.5 ML Neb Soln NEB SCH ×4 (02:10→20:11)
[2021-11-12] MEDS: Omeprazole 20 MG Cap.CR PO SCH (07:35)
[2021-11-12] MEDS: PARoxetine 20 MG Tab PO SCH (07:35)
[2021-11-12] MEDS: BUSPIRONE 7.5 MG PO SCH ×2 (07:35→17:32)
[2021-11-12] MEDS: Arformoterol 15 MCG/2 ML Neb Soln NEB SCH ×2 (07:36→20:15)
[2021-11-12] MEDS: Budesonide 0.25 MG/2 ML Neb Susp NEB SCH ×2 (07:36→20:13)
[2021-11-12] MEDS: guaiFENesin 600 MG Tab.ER PO SCH ×2 (07:37→17:31)
[2021-11-12] MEDS: Calcium Carbonate/Vitamin D3 625 MG-125 Unit Tab PO SCH ×2 (07:37→17:31)
[2021-11-12] MEDS: Polyethylene Glycol 3350 Powder 510 GM Bot PO SCH (07:37)
[2021-11-12] MEDS: Sennosides 8.6 MG Tab PO SCH ×2 (07:38→17:32)
[2021-11-12] MEDS ORDERED: Sodium Chloride 0.65% Nasal Spray 45 ML Bottle NASBOTH PRN (14:44)
[2021-11-13] MEDS: Ipratropium 0.02% 0.5 MG/2.5 ML Neb Soln NEB SCH ×4 (02:02→20:23)
[2021-11-13] MEDS: Omeprazole 20 MG Cap.CR PO SCH (07:38)
[2021-11-13] MEDS: PARoxetine 20 MG Tab PO SCH (07:38)
[2021-11-13] MEDS: BUSPIRONE 7.5 MG PO SCH ×2 (07:38→17:48)
[2021-11-13] MEDS: guaiFENesin 600 MG Tab.ER PO SCH ×2 (07:39→17:48)
[2021-11-13] MEDS: Polyethylene Glycol 3350 Powder 510 GM Bot PO SCH (07:39)
[2021-11-13] MEDS: Calcium Carbonate/Vitamin D3 625 MG-125 Unit Tab PO SCH ×2 (07:39→17:48)
[2021-11-13] MEDS: Arformoterol 15 MCG/2 ML Neb Soln NEB SCH ×2 (07:40→20:28)
[2021-11-13] MEDS: Budesonide 0.25 MG/2 ML Neb Susp NEB SCH ×2 (07:40→20:30)
[2021-11-13] MEDS: Sennosides 8.6 MG Tab PO SCH ×2 (07:41→17:48)
[2021-11-14] MEDS: Ipratropium 0.02% 0.5 MG/2.5 ML Neb Soln NEB SCH ×4 (02:25→20:26)
[2021-11-14] MEDS: Omeprazole 20 MG Cap.CR PO SCH (07:15)
[2021-11-14] MEDS: BUSPIRONE 7.5 MG PO SCH ×2 (07:15→17:37)
[2021-11-14] MEDS: PARoxetine 20 MG Tab PO SCH (07:15)
[2021-11-14] MEDS: Arformoterol 15 MCG/2 ML Neb Soln NEB SCH ×2 (07:16→20:27)
[2021-11-14] MEDS: Polyethylene Glycol 3350 Powder 510 GM Bot PO SCH (07:17)
[2021-11-14] MEDS: guaiFENesin 600 MG Tab.ER PO SCH ×2 (07:17→17:36)
[2021-11-14] MEDS: Sennosides 8.6 MG Tab PO SCH ×2 (07:18→17:37)
[2021-11-14] MEDS: Calcium Carbonate/Vitamin D3 625 MG-125 Unit Tab PO SCH ×2 (07:18→17:37)
[2021-11-14] MEDS: Budesonide 0.25 MG/2 ML Neb Susp NEB SCH ×2 (08:13→20:26)
[2021-11-14] MEDS: LORazepam 0.5 MG Tab PO PRN (17:38)
[2021-11-15] MEDS: Ipratropium 0.02% 0.5 MG/2.5 ML Neb Soln NEB SCH ×4 (02:17→19:58)
[2021-11-15] MEDS: PARoxetine 20 MG Tab PO SCH (07:47)
[2021-11-15] MEDS: BUSPIRONE 7.5 MG PO SCH ×2 (07:47→17:31)
[2021-11-15] MEDS: Polyethylene Glycol 3350 Powder 510 GM Bot PO SCH (07:47)
[2021-11-15] MEDS: Omeprazole 20 MG Cap.CR PO SCH (07:47)
[2021-11-15] MEDS: guaiFENesin 600 MG Tab.ER PO SCH ×2 (07:48→17:31)
[2021-11-15] MEDS: Budesonide 0.25 MG/2 ML Neb Susp NEB SCH ×2 (07:49→19:59)
[2021-11-15] MEDS: Arformoterol 15 MCG/2 ML Neb Soln NEB SCH ×2 (07:49→19:59)
[2021-11-15] MEDS: Sennosides 8.6 MG Tab PO SCH ×2 (07:50→17:31)
[2021-11-15] MEDS: Calcium Carbonate/Vitamin D3 625 MG-125 Unit Tab PO SCH ×2 (07:50→17:31)
[2021-11-16] MEDS: Ipratropium 0.02% 0.5 MG/2.5 ML Neb Soln NEB SCH ×4 (02:09→20:07)
[2021-11-16] MEDS: Polyethylene Glycol 3350 Powder 510 GM Bot PO SCH (08:12)
[2021-11-16] MEDS: BUSPIRONE 7.5 MG PO SCH ×2 (08:20→17:42)
[2021-11-16] MEDS: Venlafaxine 37.5 MG Cap.ER PO SCH (08:20)
[2021-11-16] MEDS: PARoxetine 20 MG Tab PO SCH (08:20)
[2021-11-16] MEDS: Omeprazole 20 MG Cap.CR PO SCH (08:20)
[2021-11-16] MEDS: Arformoterol 15 MCG/2 ML Neb Soln NEB SCH ×2 (08:21→20:10)
[2021-11-16] MEDS: Budesonide 0.25 MG/2 ML Neb Susp NEB SCH ×2 (08:21→20:10)
[2021-11-16] MEDS: Sennosides 8.6 MG Tab PO SCH ×2 (08:22→17:43)
[2021-11-16] MEDS: Calcium Carbonate/Vitamin D3 625 MG-125 Unit Tab PO SCH ×2 (08:22→17:43)
[2021-11-16] MEDS: guaiFENesin 600 MG Tab.ER PO SCH ×2 (08:22→17:42)
[2021-11-16] MEDS: LORazepam 0.5 MG Tab PO PRN (12:00)
[2021-11-17] MEDS: Ipratropium 0.02% 0.5 MG/2.5 ML Neb Soln NEB SCH ×4 (02:04→20:06)
[2021-11-17] MEDS: Polyethylene Glycol 3350 Powder 510 GM Bot PO SCH (07:39)
[2021-11-17] MEDS: BUSPIRONE 7.5 MG PO SCH ×2 (07:39→17:06)
[2021-11-17] MEDS: Venlafaxine 37.5 MG Cap.ER PO SCH (07:40)
[2021-11-17] MEDS: Calcium Carbonate/Vitamin D3 625 MG-125 Unit Tab PO SCH ×2 (07:40→17:07)
[2021-11-17] MEDS: Sennosides 8.6 MG Tab PO SCH ×2 (07:40→17:07)
[2021-11-17] MEDS: PARoxetine 20 MG Tab PO SCH (07:40)
[2021-11-17] MEDS: Omeprazole 20 MG Cap.CR PO SCH (07:40)
[2021-11-17] MEDS: guaiFENesin 600 MG Tab.ER PO SCH ×2 (07:41→17:07)
[2021-11-17] MEDS: Budesonide 0.25 MG/2 ML Neb Susp NEB SCH ×2 (07:42→20:10)
[2021-11-17] MEDS: Arformoterol 15 MCG/2 ML Neb Soln NEB SCH ×2 (07:42→20:10)
[2021-11-17] MEDS: LORazepam 0.5 MG Tab PO PRN ×2 (07:43→20:05)
[2021-11-18] MEDS: Ipratropium 0.02% 0.5 MG/2.5 ML Neb Soln NEB SCH ×4 (03:06→20:12)
[2021-11-18] MEDS: Polyethylene Glycol 3350 Powder 510 GM Bot PO SCH (07:55)
[2021-11-18] MEDS: Sennosides 8.6 MG Tab PO SCH ×2 (07:56→17:12)
[2021-11-18] MEDS: BUSPIRONE 7.5 MG PO SCH ×2 (07:56→17:13)
[2021-11-18] MEDS: Venlafaxine 37.5 MG Cap.ER PO SCH (07:56)
[2021-11-18] MEDS: Calcium Carbonate/Vitamin D3 625 MG-125 Unit Tab PO SCH ×2 (07:56→17:12)
[2021-11-18] MEDS: Omeprazole 20 MG Cap.CR PO SCH (07:56)
[2021-11-18] MEDS: PARoxetine 20 MG Tab PO SCH (07:57)
[2021-11-18] MEDS: Budesonide 0.25 MG/2 ML Neb Susp NEB SCH ×2 (07:57→20:13)
[2021-11-18] MEDS: guaiFENesin 600 MG Tab.ER PO SCH ×2 (07:58→17:12)
[2021-11-18] MEDS: Arformoterol 15 MCG/2 ML Neb Soln NEB SCH ×2 (07:58→20:13)
[2021-11-18] MEDS: LORazepam 0.5 MG Tab PO PRN ×2 (08:00→20:14)
[2021-11-19] MEDS: Ipratropium 0.02% 0.5 MG/2.5 ML Neb Soln NEB SCH ×4 (02:01→20:04)
[2021-11-19] MEDS: Arformoterol 15 MCG/2 ML Neb Soln NEB SCH ×2 (08:57→20:08)
[2021-11-19] MEDS: Venlafaxine 37.5 MG Cap.ER PO SCH (09:00)
[2021-11-19] MEDS: Polyethylene Glycol 3350 Powder 510 GM Bot PO SCH (09:02)
[2021-11-19] MEDS: guaiFENesin 600 MG Tab.ER PO SCH ×2 (09:02→17:33)
[2021-11-19] MEDS: BUSPIRONE 7.5 MG PO SCH ×2 (09:03→17:34)
[2021-11-19] MEDS: Omeprazole 20 MG Cap.CR PO SCH (09:04)
[2021-11-19] MEDS: Calcium Carbonate/Vitamin D3 625 MG-125 Unit Tab PO SCH ×2 (09:06→17:35)
[2021-11-19] MEDS: PARoxetine 20 MG Tab PO SCH (09:07)
[2021-11-19] MEDS: Sennosides 8.6 MG Tab PO SCH ×2 (09:08→17:35)
[2021-11-19] MEDS: Budesonide 0.25 MG/2 ML Neb Susp NEB SCH ×2 (09:08→20:08)
[2021-11-19] MEDS: LORazepam 0.5 MG Tab PO PRN ×2 (09:10→20:04)
[2021-11-20] MEDS: Ipratropium 0.02% 0.5 MG/2.5 ML Neb Soln NEB SCH ×4 (02:13→19:35)
[2021-11-20] MEDS: Polyethylene Glycol 3350 Powder 510 GM Bot PO SCH (08:06)
[2021-11-20] MEDS: BUSPIRONE 7.5 MG PO SCH ×2 (08:06→17:31)
[2021-11-20] MEDS: Venlafaxine 37.5 MG Cap.ER PO SCH (08:06)
[2021-11-20] MEDS: Omeprazole 20 MG Cap.CR PO SCH (08:07)
[2021-11-20] MEDS: PARoxetine 20 MG Tab PO SCH (08:07)
[2021-11-20] MEDS: Calcium Carbonate/Vitamin D3 625 MG-125 Unit Tab PO SCH ×2 (08:07→17:29)
[2021-11-20] MEDS: guaiFENesin 600 MG Tab.ER PO SCH ×2 (08:08→17:30)
[2021-11-20] MEDS: Sennosides 8.6 MG Tab PO SCH ×2 (08:08→17:29)
[2021-11-20] MEDS: Budesonide 0.25 MG/2 ML Neb Susp NEB SCH ×2 (08:09→19:45)
[2021-11-20] MEDS: Arformoterol 15 MCG/2 ML Neb Soln NEB SCH ×2 (08:09→20:16)
[2021-11-20] MEDS: LORazepam 0.5 MG Tab PO PRN (08:18)
[2021-11-21] MEDS: Ipratropium 0.02% 0.5 MG/2.5 ML Neb Soln NEB SCH ×4 (01:19→20:35)
[2021-11-21] MEDS: Arformoterol 15 MCG/2 ML Neb Soln NEB SCH ×2 (08:33→20:35)
[2021-11-21] MEDS: Omeprazole 20 MG Cap.CR PO SCH (08:34)
[2021-11-21] MEDS: Venlafaxine 37.5 MG Cap.ER PO SCH (08:34)
[2021-11-21] MEDS: BUSPIRONE 7.5 MG PO SCH ×2 (08:34→20:34)
[2021-11-21] MEDS: guaiFENesin 600 MG Tab.ER PO SCH ×2 (08:35→20:34)
[2021-11-21] MEDS: Calcium Carbonate/Vitamin D3 625 MG-125 Unit Tab PO SCH ×2 (08:35→20:34)
[2021-11-21] MEDS: PARoxetine 20 MG Tab PO SCH (08:36)
[2021-11-21] MEDS: Sennosides 8.6 MG Tab PO SCH ×2 (08:36→20:34)
[2021-11-21] MEDS: Budesonide 0.25 MG/2 ML Neb Susp NEB SCH ×2 (08:37→20:35)
[2021-11-21] MEDS: Polyethylene Glycol 3350 Powder 510 GM Bot PO SCH (08:41)
[2021-11-21 10:35] VITALS: BP 98/65; PULSE 72
[2021-11-22] MEDS: Ipratropium 0.02% 0.5 MG/2.5 ML Neb Soln NEB SCH (03:58)
== END 2021-11-21 21:48 | DRG 947 ==
LOC: LL.MS 16:14 → LL.SWG 10-18 12:06
PROVIDERS: ADMIT Emergency Medicine; ATTEND Nurse Practitioner Family
DX: R53.81 Other malaise (principal); J96.01 Acute respiratory failure with hypoxia; N39.0 Urinary tract infection, site not specified; J44.9 Chronic obstructive pulmonary disease, unspecified; B96.20 Unspecified Escherichia coli [E. coli] as the cause of diseases classified elsewhere; K21.9 Gastro-esophageal reflux disease without esophagitis; M81.0 Age-related osteoporosis without current pathological fracture; E78.00 Pure hypercholesterolemia, unspecified; F41.0 Panic disorder [episodic paroxysmal anxiety]; N39.41 Urge incontinence; Z87.01 Personal history of pneumonia (recurrent)
CPT/HCPCS: 71046; 81001; 87086; 87088; 87186; 94640; 97110-GO; 97110-GP; 97112-GO; 97163-GP; 97164-GP; 97166-GO; 97530-GO; 97530-GP; 97535-GO; 99306; A9270-GY; J1650; J7512; J7620-GY

== ENCOUNTER 2021-11-26 15:05 | Inpatient (IN) | payer MEDICARE, MEDICAID ==
[2021-11-26] MEDS ORDERED: Acetaminophen 325 MG Tab PO PRN (16:24)
[2021-11-26] MEDS ORDERED: Sennosides 8.6 MG Tab PO PRN (16:24)
[2021-11-26] MEDS ORDERED: guaiFENesin 100 MG/5 ML Soln 10 ML UD Cup PO PRN (16:24)
[2021-11-26] MEDS ORDERED: Polyethylene Glycol 3350 Powder 17 GM Packet PO PRN (16:24)
[2021-11-26] MEDS ORDERED: Ondansetron 4 MG Tab.DIS PO PRN (16:24)
[2021-11-26] MEDS ORDERED: Polyvinyl Alcohol 1.4% Ophth Soln 15 ML Bottle EYEBOTH PRN (16:24)
[2021-11-26] MEDS ORDERED: hydrALAZINE 50 MG Tab PO PRN (17:13)
[2021-11-26 17:37] LABS: BASE EXCESS VENOUS 4 mmol/L ((-2)-3); BICARBONATE,VENOUS 32 mmol/L (23-28); O2 DELIVERY DEVICE NASAL CANNULA; O2 FLOW RATE 1 L/min; O2 SATURATION VENOUS 44 %; PCO2 VENOUS 57 mmHG (41-51); PH,VENOUS 7.36 (7.31-7.41); PO2 VENOUS 26 mmHG
[2021-11-26 17:46] LABS: CHLORIDE,CL 97 mmol/L (98-107); SODIUM,NA 134 mmol/L (136-145)
[2021-11-26 17:47] LABS: ANION GAP 10.5 meq/L (7-15)
[2021-11-26] MEDS: Escitalopram 20 MG Tab PO SCH (20:19)
[2021-11-26] MEDS: Melatonin 3 MG Tab PO SCH (20:19)
[2021-11-26] MEDS: Budesonide 0.5 MG/2 ML Neb Susp NEB SCH (20:20)
[2021-11-27] MEDS: Albuterol/Ipratropium 3.0-0.5 MG/3 ML Neb Soln NEB SCH ×3 (00:50→16:44)
[2021-11-27] MEDS: Budesonide 0.5 MG/2 ML Neb Susp NEB SCH ×2 (07:31→19:11)
[2021-11-27] MEDS: Omeprazole 20 MG Cap.CR PO SCH ×2 (07:32→16:44)
[2021-11-27] MEDS: predniSONE 20 MG Tab PO SCH (07:32)
[2021-11-27] MEDS ORDERED: Omeprazole 20 MG Cap.CR PO SCH (08:00)
[2021-11-27] MEDS ORDERED: cefTRIAXone 1 GM in Sodium Chloride 0.9% 100 ML IV ONE (09:00)
[2021-11-27] MEDS: Escitalopram 20 MG Tab PO SCH (19:09)
[2021-11-27] MEDS: Melatonin 3 MG Tab PO SCH (19:11)
[2021-11-28] MEDS: Albuterol/Ipratropium 3.0-0.5 MG/3 ML Neb Soln NEB SCH ×3 (00:35→19:27)
[2021-11-28] MEDS: Omeprazole 20 MG Cap.CR PO SCH ×2 (07:34→18:19)
[2021-11-28] MEDS: Budesonide 0.5 MG/2 ML Neb Susp NEB SCH ×2 (07:34→19:27)
[2021-11-28] MEDS: predniSONE 20 MG Tab PO SCH (07:34)
[2021-11-28] MEDS: busPIRone 15 MG Tab PO SCH (18:19)
[2021-11-28] MEDS: Melatonin 3 MG Tab PO SCH (19:27)
[2021-11-28] MEDS: Arformoterol 15 MCG/2 ML Neb Soln INH SCH (19:27)
[2021-11-28] MEDS: guaiFENesin 600 MG Tab.ER PO SCH (19:28)
[2021-11-28] MEDS: Escitalopram 20 MG Tab PO SCH (19:28)
[2021-11-29] MEDS: Albuterol/Ipratropium 3.0-0.5 MG/3 ML Neb Soln NEB SCH ×4 (04:24→20:23)
[2021-11-29] MEDS: Budesonide 0.5 MG/2 ML Neb Susp NEB SCH ×2 (08:15→20:24)
[2021-11-29] MEDS: predniSONE 20 MG Tab PO SCH (08:15)
[2021-11-29] MEDS: Arformoterol 15 MCG/2 ML Neb Soln INH SCH ×2 (08:15→20:23)
[2021-11-29] MEDS: busPIRone 15 MG Tab PO SCH ×2 (08:17→17:10)
[2021-11-29] MEDS: Omeprazole 20 MG Cap.CR PO SCH ×2 (08:17→17:10)
[2021-11-29] MEDS: guaiFENesin 600 MG Tab.ER PO SCH ×2 (08:18→20:26)
[2021-11-29] MEDS: LORazepam 0.5 MG Tab PO PRN (13:51)
[2021-11-29] MEDS: Escitalopram 20 MG Tab PO SCH (20:24)
[2021-11-29] MEDS: Melatonin 3 MG Tab PO SCH (20:26)
[2021-11-30] MEDS: Albuterol/Ipratropium 3.0-0.5 MG/3 ML Neb Soln NEB SCH ×4 (01:06→19:30)
[2021-11-30] MEDS: LORazepam 0.5 MG Tab PO PRN ×2 (01:41→19:39)
[2021-11-30] MEDS: Omeprazole 20 MG Cap.CR PO SCH ×2 (07:21→17:10)
[2021-11-30] MEDS: busPIRone 15 MG Tab PO SCH ×2 (07:21→17:09)
[2021-11-30] MEDS: guaiFENesin 600 MG Tab.ER PO SCH ×2 (07:22→19:36)
[2021-11-30] MEDS: Budesonide 0.5 MG/2 ML Neb Susp NEB SCH ×2 (07:39→19:36)
[2021-11-30] MEDS: Arformoterol 15 MCG/2 ML Neb Soln INH SCH ×2 (07:48→19:45)
[2021-11-30] MEDS: predniSONE 20 MG Tab PO SCH (08:25)
[2021-11-30] MEDS: Escitalopram 20 MG Tab PO SCH (19:34)
[2021-11-30] MEDS: Melatonin 3 MG Tab PO SCH (19:35)
[2021-12-01] MEDS: Albuterol/Ipratropium 3.0-0.5 MG/3 ML Neb Soln NEB SCH ×4 (02:59→19:22)
[2021-12-01] MEDS: Omeprazole 20 MG Cap.CR PO SCH ×2 (07:28→17:05)
[2021-12-01] MEDS: busPIRone 15 MG Tab PO SCH ×2 (07:29→17:06)
[2021-12-01] MEDS: guaiFENesin 600 MG Tab.ER PO SCH ×2 (07:30→19:26)
[2021-12-01] MEDS: predniSONE 20 MG Tab PO SCH (07:30)
[2021-12-01] MEDS: Budesonide 0.5 MG/2 ML Neb Susp NEB SCH ×2 (07:31→19:32)
[2021-12-01] MEDS: Arformoterol 15 MCG/2 ML Neb Soln INH SCH ×2 (07:39→19:45)
[2021-12-01] MEDS: Polyethylene Glycol 3350 Powder 17 GM Packet PO PRN (08:58)
[2021-12-01] MEDS: Escitalopram 20 MG Tab PO SCH (19:23)
[2021-12-01] MEDS: Melatonin 3 MG Tab PO SCH (19:25)
[2021-12-01] MEDS: LORazepam 0.5 MG Tab PO PRN (19:30)
[2021-12-02] MEDS: Albuterol/Ipratropium 3.0-0.5 MG/3 ML Neb Soln NEB SCH ×4 (03:25→19:45)
[2021-12-02] MEDS: Omeprazole 20 MG Cap.CR PO SCH ×2 (07:31→17:10)
[2021-12-02] MEDS: guaiFENesin 600 MG Tab.ER PO SCH ×2 (07:32→19:46)
[2021-12-02] MEDS: busPIRone 15 MG Tab PO SCH ×2 (07:32→17:11)
[2021-12-02] MEDS: predniSONE 20 MG Tab PO SCH (07:33)
[2021-12-02] MEDS: Budesonide 0.5 MG/2 ML Neb Susp NEB SCH ×2 (07:34→19:51)
[2021-12-02] MEDS: Arformoterol 15 MCG/2 ML Neb Soln INH SCH ×2 (07:43→20:02)
[2021-12-02] MEDS: Polyethylene Glycol 3350 Powder 17 GM Packet PO PRN (13:33)
[2021-12-02] MEDS: Melatonin 3 MG Tab PO SCH (19:46)
[2021-12-02] MEDS: Escitalopram 20 MG Tab PO SCH (19:46)
[2021-12-02] MEDS: LORazepam 0.5 MG Tab PO PRN (19:46)
[2021-12-03] MEDS: Albuterol/Ipratropium 3.0-0.5 MG/3 ML Neb Soln NEB SCH ×4 (02:26→20:15)
[2021-12-03] MEDS: Budesonide 0.5 MG/2 ML Neb Susp NEB SCH ×2 (07:16→20:15)
[2021-12-03] MEDS: Omeprazole 20 MG Cap.CR PO SCH ×2 (07:17→17:07)
[2021-12-03] MEDS: guaiFENesin 600 MG Tab.ER PO SCH ×2 (07:18→20:20)
[2021-12-03] MEDS: busPIRone 15 MG Tab PO SCH ×3 (07:18→17:07)
[2021-12-03] MEDS: predniSONE 20 MG Tab PO SCH (07:19)
[2021-12-03] MEDS: Arformoterol 15 MCG/2 ML Neb Soln INH SCH ×2 (07:21→20:15)
[2021-12-03] MEDS ORDERED: Polyethylene Glycol 3350 Powder 510 GM Bot PO PRN (09:27)
[2021-12-03] MEDS: Polyethylene Glycol 3350 Powder 510 GM Bot PO SCH (11:10)
[2021-12-03] MEDS: Escitalopram 20 MG Tab PO SCH (20:16)
[2021-12-03] MEDS: Melatonin 3 MG Tab PO SCH (20:19)
[2021-12-03] MEDS: LORazepam 0.5 MG Tab PO PRN (21:04)
[2021-12-04] MEDS: Albuterol/Ipratropium 3.0-0.5 MG/3 ML Neb Soln NEB SCH ×4 (02:19→19:36)
[2021-12-04] MEDS: Arformoterol 15 MCG/2 ML Neb Soln INH SCH ×2 (08:07→19:49)
[2021-12-04] MEDS: busPIRone 15 MG Tab PO SCH ×3 (08:07→17:23)
[2021-12-04] MEDS: Omeprazole 20 MG Cap.CR PO SCH ×2 (08:07→17:24)
[2021-12-04] MEDS: Budesonide 0.5 MG/2 ML Neb Susp NEB SCH ×2 (08:08→19:50)
[2021-12-04] MEDS: predniSONE 20 MG Tab PO SCH (08:09)
[2021-12-04] MEDS: guaiFENesin 600 MG Tab.ER PO SCH ×2 (08:10→19:53)
[2021-12-04] MEDS: Polyethylene Glycol 3350 Powder 510 GM Bot PO SCH (08:11)
[2021-12-04] MEDS: Escitalopram 20 MG Tab PO SCH (19:52)
[2021-12-04] MEDS: Melatonin 3 MG Tab PO SCH (19:52)
[2021-12-04] MEDS: LORazepam 0.5 MG Tab PO PRN (19:54)
[2021-12-05] MEDS: Albuterol/Ipratropium 3.0-0.5 MG/3 ML Neb Soln NEB SCH ×4 (02:35→19:56)
[2021-12-05] MEDS: busPIRone 15 MG Tab PO SCH ×3 (07:40→17:06)
[2021-12-05] MEDS: Omeprazole 20 MG Cap.CR PO SCH ×2 (07:40→17:05)
[2021-12-05] MEDS: guaiFENesin 600 MG Tab.ER PO SCH ×2 (07:41→19:59)
[2021-12-05] MEDS: predniSONE 20 MG Tab PO SCH (07:41)
[2021-12-05] MEDS: Polyethylene Glycol 3350 Powder 510 GM Bot PO SCH (07:41)
[2021-12-05] MEDS: Budesonide 0.5 MG/2 ML Neb Susp NEB SCH ×2 (07:43→19:56)
[2021-12-05] MEDS: Arformoterol 15 MCG/2 ML Neb Soln INH SCH ×2 (07:48→19:56)
[2021-12-05] MEDS: Escitalopram 20 MG Tab PO SCH (19:57)
[2021-12-05] MEDS: Melatonin 3 MG Tab PO SCH (19:59)
[2021-12-05] MEDS: LORazepam 0.5 MG Tab PO PRN (20:00)
[2021-12-06] MEDS: Albuterol/Ipratropium 3.0-0.5 MG/3 ML Neb Soln NEB SCH ×4 (03:03→20:22)
[2021-12-06] MEDS: Arformoterol 15 MCG/2 ML Neb Soln INH SCH ×2 (07:49→20:22)
[2021-12-06] MEDS: Budesonide 0.5 MG/2 ML Neb Susp NEB SCH ×2 (07:49→20:22)
[2021-12-06] MEDS: predniSONE 5 MG Tab PO SCH (07:51)
[2021-12-06] MEDS: busPIRone 15 MG Tab PO SCH ×3 (07:51→17:38)
[2021-12-06] MEDS: Omeprazole 20 MG Cap.CR PO SCH ×2 (07:51→17:38)
[2021-12-06] MEDS: guaiFENesin 600 MG Tab.ER PO SCH ×2 (07:52→20:27)
[2021-12-06] MEDS: Polyethylene Glycol 3350 Powder 510 GM Bot PO SCH (07:52)
[2021-12-06] MEDS: Escitalopram 20 MG Tab PO SCH (20:24)
[2021-12-06] MEDS: Melatonin 3 MG Tab PO SCH (20:26)
[2021-12-06] MEDS: LORazepam 0.5 MG Tab PO PRN (21:11)
[2021-12-07] MEDS: Albuterol/Ipratropium 3.0-0.5 MG/3 ML Neb Soln NEB SCH ×4 (02:29→20:03)
[2021-12-07] MEDS: Polyethylene Glycol 3350 Powder 510 GM Bot PO SCH (07:30)
[2021-12-07] MEDS: Omeprazole 20 MG Cap.CR PO SCH ×2 (07:31→17:11)
[2021-12-07] MEDS: busPIRone 15 MG Tab PO SCH ×3 (07:31→17:12)
[2021-12-07] MEDS: Arformoterol 15 MCG/2 ML Neb Soln INH SCH ×2 (07:33→20:08)
[2021-12-07] MEDS: predniSONE 5 MG Tab PO SCH (07:33)
[2021-12-07] MEDS: Budesonide 0.5 MG/2 ML Neb Susp NEB SCH ×2 (07:33→20:11)
[2021-12-07] MEDS: guaiFENesin 600 MG Tab.ER PO SCH ×2 (07:34→20:10)
[2021-12-07] MEDS: Escitalopram 20 MG Tab PO SCH (20:08)
[2021-12-07] MEDS: Melatonin 3 MG Tab PO SCH (20:10)
[2021-12-07] MEDS: LORazepam 0.5 MG Tab PO PRN (20:12)
[2021-12-08] MEDS: Albuterol/Ipratropium 3.0-0.5 MG/3 ML Neb Soln NEB SCH ×4 (02:18→19:54)
[2021-12-08] MEDS: Budesonide 0.5 MG/2 ML Neb Susp NEB SCH ×2 (07:50→19:55)
[2021-12-08] MEDS: Arformoterol 15 MCG/2 ML Neb Soln INH SCH ×2 (07:51→19:55)
[2021-12-08] MEDS: Omeprazole 20 MG Cap.CR PO SCH ×2 (07:53→17:17)
[2021-12-08] MEDS: busPIRone 15 MG Tab PO SCH ×3 (07:54→17:18)
[2021-12-08] MEDS: Polyethylene Glycol 3350 Powder 510 GM Bot PO SCH (07:56)
[2021-12-08] MEDS: guaiFENesin 600 MG Tab.ER PO SCH ×2 (07:56→19:58)
[2021-12-08] MEDS: predniSONE 5 MG Tab PO SCH (07:58)
[2021-12-08] MEDS: Oseltamivir 75 MG Cap PO SCH (12:04)
[2021-12-08] MEDS: Escitalopram 20 MG Tab PO SCH (19:56)
[2021-12-08] MEDS: Melatonin 3 MG Tab PO SCH (19:58)
[2021-12-08] MEDS: LORazepam 0.5 MG Tab PO PRN (20:08)
[2021-12-09] MEDS: Albuterol/Ipratropium 3.0-0.5 MG/3 ML Neb Soln NEB SCH ×4 (04:12→20:12)
[2021-12-09] MEDS: Budesonide 0.5 MG/2 ML Neb Susp NEB SCH ×2 (08:00→20:14)
[2021-12-09] MEDS: Arformoterol 15 MCG/2 ML Neb Soln INH SCH ×2 (08:03→20:14)
[2021-12-09] MEDS: busPIRone 15 MG Tab PO SCH ×3 (08:04→17:37)
[2021-12-09] MEDS: Polyethylene Glycol 3350 Powder 510 GM Bot PO SCH (08:05)
[2021-12-09] MEDS: Omeprazole 20 MG Cap.CR PO SCH ×2 (08:05→17:37)
[2021-12-09] MEDS: guaiFENesin 600 MG Tab.ER PO SCH ×2 (08:06→20:16)
[2021-12-09] MEDS: predniSONE 5 MG Tab PO SCH (08:06)
[2021-12-09] MEDS: Oseltamivir 75 MG Cap PO SCH (11:35)
[2021-12-09] MEDS: Escitalopram 20 MG Tab PO SCH (20:15)
[2021-12-09] MEDS: Melatonin 3 MG Tab PO SCH (20:16)
[2021-12-09] MEDS: LORazepam 0.5 MG Tab PO PRN (20:17)
[2021-12-10] MEDS: Albuterol/Ipratropium 3.0-0.5 MG/3 ML Neb Soln NEB SCH ×4 (01:59→19:48)
[2021-12-10] MEDS: Omeprazole 20 MG Cap.CR PO SCH ×2 (07:21→17:11)
[2021-12-10] MEDS: busPIRone 15 MG Tab PO SCH ×3 (07:21→17:12)
[2021-12-10] MEDS: Arformoterol 15 MCG/2 ML Neb Soln INH SCH ×2 (07:22→19:56)
[2021-12-10] MEDS: predniSONE 5 MG Tab PO SCH (07:24)
[2021-12-10] MEDS: guaiFENesin 600 MG Tab.ER PO SCH ×2 (07:25→19:59)
[2021-12-10] MEDS: Polyethylene Glycol 3350 Powder 510 GM Bot PO SCH (07:25)
[2021-12-10] MEDS: Budesonide 0.5 MG/2 ML Neb Susp NEB SCH ×2 (07:28→19:58)
[2021-12-10] MEDS: Oseltamivir 75 MG Cap PO SCH (13:21)
[2021-12-10] MEDS: Escitalopram 20 MG Tab PO SCH (19:50)
[2021-12-10] MEDS: Melatonin 3 MG Tab PO SCH (19:52)
[2021-12-10] MEDS: LORazepam 0.5 MG Tab PO PRN (19:55)
[2021-12-11] MEDS: Albuterol/Ipratropium 3.0-0.5 MG/3 ML Neb Soln NEB SCH ×4 (02:59→19:34)
[2021-12-11] MEDS: Omeprazole 20 MG Cap.CR PO SCH ×2 (07:20→17:37)
[2021-12-11] MEDS: guaiFENesin 600 MG Tab.ER PO SCH ×2 (07:21→19:37)
[2021-12-11] MEDS: busPIRone 15 MG Tab PO SCH ×3 (07:21→17:37)
[2021-12-11] MEDS: predniSONE 5 MG Tab PO SCH (07:22)
[2021-12-11] MEDS: Budesonide 0.5 MG/2 ML Neb Susp NEB SCH ×2 (07:23→19:40)
[2021-12-11] MEDS: Polyethylene Glycol 3350 Powder 510 GM Bot PO SCH (07:24)
[2021-12-11] MEDS: Arformoterol 15 MCG/2 ML Neb Soln INH SCH ×2 (07:36→19:48)
[2021-12-11] MEDS: Oseltamivir 75 MG Cap PO SCH (11:15)
[2021-12-11] MEDS: Escitalopram 20 MG Tab PO SCH (19:36)
[2021-12-11] MEDS: Melatonin 3 MG Tab PO SCH (19:37)
[2021-12-11] MEDS: LORazepam 0.5 MG Tab PO PRN (19:39)
[2021-12-12] MEDS: Albuterol/Ipratropium 3.0-0.5 MG/3 ML Neb Soln NEB SCH ×4 (03:10→20:07)
[2021-12-12] MEDS: Polyethylene Glycol 3350 Powder 510 GM Bot PO SCH (07:18)
[2021-12-12] MEDS: guaiFENesin 600 MG Tab.ER PO SCH ×2 (07:18→20:10)
[2021-12-12] MEDS: Omeprazole 20 MG Cap.CR PO SCH ×2 (07:19→17:16)
[2021-12-12] MEDS: Budesonide 0.5 MG/2 ML Neb Susp NEB SCH ×2 (07:19→20:07)
[2021-12-12] MEDS: busPIRone 15 MG Tab PO SCH ×3 (07:19→17:16)
[2021-12-12] MEDS: Arformoterol 15 MCG/2 ML Neb Soln INH SCH ×2 (07:27→20:04)
[2021-12-12] MEDS: Oseltamivir 75 MG Cap PO SCH (11:20)
[2021-12-12] MEDS: Escitalopram 20 MG Tab PO SCH (20:08)
[2021-12-12] MEDS: Melatonin 3 MG Tab PO SCH (20:10)
[2021-12-12] MEDS: LORazepam 0.5 MG Tab PO PRN (20:11)
[2021-12-13] MEDS: Albuterol/Ipratropium 3.0-0.5 MG/3 ML Neb Soln NEB SCH ×5 (03:11→20:13)
[2021-12-13] MEDS: busPIRone 15 MG Tab PO SCH ×3 (07:23→17:13)
[2021-12-13] MEDS: Omeprazole 20 MG Cap.CR PO SCH ×2 (07:23→17:12)
[2021-12-13] MEDS: Polyethylene Glycol 3350 Powder 510 GM Bot PO SCH (07:24)
[2021-12-13] MEDS: guaiFENesin 600 MG Tab.ER PO SCH ×2 (07:24→20:17)
[2021-12-13] MEDS: Budesonide 0.5 MG/2 ML Neb Susp NEB SCH ×2 (07:25→20:15)
[2021-12-13] MEDS: Arformoterol 15 MCG/2 ML Neb Soln INH SCH ×2 (07:38→20:15)
[2021-12-13] MEDS: Oseltamivir 75 MG Cap PO SCH (11:18)
[2021-12-13] MEDS: Melatonin 3 MG Tab PO SCH (20:15)
[2021-12-13] MEDS: Escitalopram 20 MG Tab PO SCH (20:16)
[2021-12-13] MEDS: LORazepam 0.5 MG Tab PO PRN (20:18)
[2021-12-14] MEDS: Albuterol/Ipratropium 3.0-0.5 MG/3 ML Neb Soln NEB SCH ×4 (03:19→20:10)
[2021-12-14] MEDS: Polyethylene Glycol 3350 Powder 510 GM Bot PO SCH (07:39)
[2021-12-14] MEDS: busPIRone 15 MG Tab PO SCH ×3 (07:40→17:10)
[2021-12-14] MEDS: Omeprazole 20 MG Cap.CR PO SCH ×2 (07:41→17:10)
[2021-12-14] MEDS: Budesonide 0.5 MG/2 ML Neb Susp NEB SCH ×2 (07:41→20:10)
[2021-12-14] MEDS: Arformoterol 15 MCG/2 ML Neb Soln INH SCH ×2 (07:42→20:10)
[2021-12-14] MEDS: guaiFENesin 600 MG Tab.ER PO SCH ×2 (07:43→20:14)
[2021-12-14] MEDS: Oseltamivir 75 MG Cap PO SCH (11:50)
[2021-12-14] MEDS: Escitalopram 20 MG Tab PO SCH (20:11)
[2021-12-14] MEDS: Melatonin 3 MG Tab PO SCH (20:13)
[2021-12-14] MEDS: LORazepam 0.5 MG Tab PO PRN (20:18)
[2021-12-15] MEDS: Albuterol/Ipratropium 3.0-0.5 MG/3 ML Neb Soln NEB SCH ×4 (02:35→19:48)
[2021-12-15] MEDS: Omeprazole 20 MG Cap.CR PO SCH ×2 (07:02→17:04)
[2021-12-15] MEDS: busPIRone 15 MG Tab PO SCH ×3 (07:02→17:04)
[2021-12-15] MEDS: Budesonide 0.5 MG/2 ML Neb Susp NEB SCH ×2 (07:03→19:48)
[2021-12-15] MEDS: Arformoterol 15 MCG/2 ML Neb Soln INH SCH ×2 (07:03→19:48)
[2021-12-15] MEDS: Polyethylene Glycol 3350 Powder 510 GM Bot PO SCH (07:03)
[2021-12-15] MEDS: guaiFENesin 600 MG Tab.ER PO SCH ×2 (07:04→19:53)
[2021-12-15] MEDS: LORazepam 0.5 MG Tab PO PRN ×2 (11:20→19:55)
[2021-12-15] MEDS: Menthol/Methyl Salicylate 85 GM Tube TOP PRN (11:28)
[2021-12-15] MEDS: Escitalopram 20 MG Tab PO SCH (19:51)
[2021-12-15] MEDS: Melatonin 3 MG Tab PO SCH (19:52)
[2021-12-16] MEDS: Albuterol/Ipratropium 3.0-0.5 MG/3 ML Neb Soln NEB SCH ×4 (02:17→20:04)
[2021-12-16] MEDS: busPIRone 15 MG Tab PO SCH ×3 (07:36→17:04)
[2021-12-16] MEDS: Omeprazole 20 MG Cap.CR PO SCH ×2 (07:36→17:04)
[2021-12-16] MEDS: Polyethylene Glycol 3350 Powder 510 GM Bot PO SCH (07:37)
[2021-12-16] MEDS: guaiFENesin 600 MG Tab.ER PO SCH ×2 (07:38→20:08)
[2021-12-16] MEDS: Budesonide 0.5 MG/2 ML Neb Susp NEB SCH ×2 (07:49→20:04)
[2021-12-16] MEDS: Arformoterol 15 MCG/2 ML Neb Soln INH SCH ×2 (07:58→20:04)
[2021-12-16] MEDS: Escitalopram 20 MG Tab PO SCH (20:06)
[2021-12-16] MEDS: Melatonin 3 MG Tab PO SCH (20:07)
[2021-12-16] MEDS: LORazepam 0.5 MG Tab PO PRN (20:10)
[2021-12-17] MEDS: Albuterol/Ipratropium 3.0-0.5 MG/3 ML Neb Soln NEB SCH ×4 (02:21→19:56)
[2021-12-17] MEDS: Omeprazole 20 MG Cap.CR PO SCH ×2 (08:22→17:29)
[2021-12-17] MEDS: busPIRone 15 MG Tab PO SCH ×3 (08:23→17:28)
[2021-12-17] MEDS: guaiFENesin 600 MG Tab.ER PO SCH ×2 (08:24→19:58)
[2021-12-17] MEDS: Polyethylene Glycol 3350 Powder 510 GM Bot PO SCH (08:25)
[2021-12-17] MEDS: Budesonide 0.5 MG/2 ML Neb Susp NEB SCH ×2 (08:25→19:55)
[2021-12-17] MEDS: Arformoterol 15 MCG/2 ML Neb Soln INH SCH ×2 (08:25→19:56)
[2021-12-17] MEDS: Menthol/Methyl Salicylate 85 GM Tube TOP PRN (13:35)
[2021-12-17] MEDS: Escitalopram 20 MG Tab PO SCH (19:56)
[2021-12-17] MEDS: Melatonin 3 MG Tab PO SCH (19:58)
[2021-12-17] MEDS: LORazepam 0.5 MG Tab PO PRN (19:59)
[2021-12-18] MEDS: Albuterol/Ipratropium 3.0-0.5 MG/3 ML Neb Soln NEB SCH ×4 (02:16→19:44)
[2021-12-18] MEDS: Omeprazole 20 MG Cap.CR PO SCH (07:22)
[2021-12-18] MEDS: busPIRone 15 MG Tab PO SCH ×3 (07:22→17:06)
[2021-12-18] MEDS: Budesonide 0.5 MG/2 ML Neb Susp NEB SCH ×2 (07:23→19:44)
[2021-12-18] MEDS: guaiFENesin 600 MG Tab.ER PO SCH ×2 (07:23→19:47)
[2021-12-18] MEDS: Polyethylene Glycol 3350 Powder 510 GM Bot PO SCH (07:23)
[2021-12-18] MEDS: Arformoterol 15 MCG/2 ML Neb Soln INH SCH ×2 (07:29→20:12)
[2021-12-18] MEDS: Escitalopram 20 MG Tab PO SCH (19:45)
[2021-12-18] MEDS: Melatonin 3 MG Tab PO SCH (19:47)
[2021-12-18] MEDS: LORazepam 0.5 MG Tab PO PRN (19:48)
[2021-12-19] MEDS: Albuterol/Ipratropium 3.0-0.5 MG/3 ML Neb Soln NEB SCH ×4 (01:05→19:47)
[2021-12-19] MEDS: guaiFENesin 600 MG Tab.ER PO SCH ×2 (08:29→19:54)
[2021-12-19] MEDS: Polyethylene Glycol 3350 Powder 510 GM Bot PO SCH (08:29)
[2021-12-19] MEDS: busPIRone 15 MG Tab PO SCH ×3 (08:29→18:16)
[2021-12-19] MEDS: Budesonide 0.5 MG/2 ML Neb Susp NEB SCH ×2 (08:30→19:46)
[2021-12-19] MEDS: Arformoterol 15 MCG/2 ML Neb Soln INH SCH ×2 (08:37→19:45)
[2021-12-19] MEDS: OMEPRAZOLE 40MG CAPS PO SCH (18:16)
[2021-12-19] MEDS: Melatonin 3 MG Tab PO SCH (19:53)
[2021-12-19] MEDS: Escitalopram 20 MG Tab PO SCH (19:53)
[2021-12-19] MEDS: LORazepam 0.5 MG Tab PO PRN (19:55)
[2021-12-20] MEDS: Albuterol/Ipratropium 3.0-0.5 MG/3 ML Neb Soln NEB SCH ×4 (02:20→19:55)
[2021-12-20] MEDS: Arformoterol 15 MCG/2 ML Neb Soln INH SCH ×2 (07:39→20:16)
[2021-12-20] MEDS: Budesonide 0.5 MG/2 ML Neb Susp NEB SCH ×2 (07:40→20:11)
[2021-12-20] MEDS: busPIRone 15 MG Tab PO SCH ×3 (07:41→17:31)
[2021-12-20] MEDS: guaiFENesin 600 MG Tab.ER PO SCH ×2 (07:42→20:13)
[2021-12-20] MEDS: Polyethylene Glycol 3350 Powder 510 GM Bot PO SCH (07:43)
[2021-12-20] MEDS: LORazepam 0.5 MG Tab PO PRN ×2 (11:53→23:42)
[2021-12-20] MEDS: OMEPRAZOLE 40MG CAPS PO SCH (17:31)
[2021-12-20] MEDS: Escitalopram 20 MG Tab PO SCH (20:12)
[2021-12-20] MEDS: Melatonin 3 MG Tab PO SCH (20:12)
[2021-12-21] MEDS: Albuterol/Ipratropium 3.0-0.5 MG/3 ML Neb Soln NEB SCH ×3 (03:15→13:23)
[2021-12-21] MEDS: busPIRone 15 MG Tab PO SCH ×2 (07:10→11:00)
[2021-12-21] MEDS: Polyethylene Glycol 3350 Powder 510 GM Bot PO SCH (07:11)
[2021-12-21] MEDS: Budesonide 0.5 MG/2 ML Neb Susp NEB SCH (07:12)
[2021-12-21] MEDS: guaiFENesin 600 MG Tab.ER PO SCH (07:12)
[2021-12-21] MEDS: Arformoterol 15 MCG/2 ML Neb Soln INH SCH (07:35)
[2021-12-21 08:36] VITALS: BP 117/72; PULSE 109
[2021-12-21] MEDS: LORazepam 0.5 MG Tab PO PRN (10:44)
== END 2021-12-21 11:15 | DRG 189 ==
LOC: LL.MS 16:04 → LL.SWG 11-29 16:25
PROVIDERS: ADMIT Student in an Organized Health Care Education/Training Program; ATTEND Nurse Practitioner Family
DX: J96.01 Acute respiratory failure with hypoxia (principal); J18.9 Pneumonia, unspecified organism; J44.0 Chronic obstructive pulmonary disease with (acute) lower respiratory infection; J96.02 Acute respiratory failure with hypercapnia; J47.9 Bronchiectasis, uncomplicated; J84.10 Pulmonary fibrosis, unspecified; K21.9 Gastro-esophageal reflux disease without esophagitis; K44.9 Diaphragmatic hernia without obstruction or gangrene; F39 Unspecified mood [affective] disorder; R53.81 Other malaise; H54.7 Unspecified visual loss; E78.00 Pure hypercholesterolemia, unspecified; K57.90 Diverticulosis of intestine, part unspecified, without perforation or abscess without bleeding; Z96.653 Presence of artificial knee joint, bilateral; F41.9 Anxiety disorder, unspecified; M81.0 Age-related osteoporosis without current pathological fracture; Z90.710 Acquired absence of both cervix and uterus; Z79.899 Other long term (current) drug therapy; Z79.52 Long term (current) use of systemic steroids
CPT/HCPCS: 36415; 71046; 80053; 82803; 83735; 85025; 86140; 93005; 94640; 97110-GO; 97110-GP; 97162-GP; 97535-GO; A9270-GY; J0696; J7512; J7620-GY

== ENCOUNTER 2021-12-31 12:19 | Inpatient (IN) | payer MEDICARE, MEDICAID ==
[2021-12-31] MEDS ORDERED: Polyethylene Glycol 3350 Powder 17 GM Packet PO PRN (15:44)
[2021-12-31] MEDS ORDERED: Denosumab 60 MG/1 ML Syringe SUBCUT SCH (15:45)
[2021-12-31] MEDS: Levalbuterol HCl 0.63 MG/3 ML Neb INH SCH ×2 (19:14)
[2021-12-31] MEDS: Ipratropium 0.02% 0.5 MG/2.5 ML Neb Soln INH SCH ×2 (19:14→19:54)
[2021-12-31] MEDS: Melatonin 3 MG Tab PO SCH (19:14)
[2021-12-31] MEDS: hydrOXYzine Pamoate 25 MG Cap PO SCH (19:15)
[2021-12-31] MEDS: Budesonide 0.5 MG/2 ML Neb Susp INH SCH (19:15)
[2021-12-31] MEDS: busPIRone 15 MG Tab PO SCH (19:16)
[2021-12-31] MEDS: Escitalopram 20 MG Tab PO SCH (19:16)
[2021-12-31] MEDS: Calcium Carbonate/Vitamin D3 625 MG-125 Unit Tab PO SCH (19:16)
[2021-12-31] MEDS: Sulfamethoxazole/Trimethoprim 800-160 MG Tab PO SCH (19:16)
[2021-12-31] MEDS: Propranolol 20 MG Tab PO SCH (19:17)
[2021-12-31] MEDS: LORazepam 0.5 MG Tab PO PRN (19:55)
[2021-12-31] MEDS ORDERED: Non-Formulary Medication 1 Each (Escitalopram [Lexapro] 10 MG Tablet) PO SCH (20:00)
[2022-01-01] MEDS: Levalbuterol HCl 0.63 MG/3 ML Neb INH SCH ×4 (07:30→20:55)
[2022-01-01] MEDS: Budesonide 0.5 MG/2 ML Neb Susp INH SCH ×2 (07:30→20:55)
[2022-01-01] MEDS: Omeprazole 20 MG Cap.CR PO SCH (07:31)
[2022-01-01] MEDS: predniSONE 20 MG Tab PO SCH (07:31)
[2022-01-01] MEDS: Sulfamethoxazole/Trimethoprim 800-160 MG Tab PO SCH ×2 (07:31→17:46)
[2022-01-01] MEDS: Ipratropium 0.02% 0.5 MG/2.5 ML Neb Soln INH SCH ×4 (07:31→20:55)
[2022-01-01] MEDS: hydrOXYzine Pamoate 25 MG Cap PO SCH ×3 (07:32→20:55)
[2022-01-01] MEDS: Propranolol 20 MG Tab PO SCH ×2 (07:32→17:45)
[2022-01-01] MEDS: busPIRone 15 MG Tab PO SCH ×3 (07:32→20:55)
[2022-01-01] MEDS: Calcium Carbonate/Vitamin D3 625 MG-125 Unit Tab PO SCH ×2 (07:32→17:46)
[2022-01-01] MEDS: Escitalopram 20 MG Tab PO SCH (07:33)
[2022-01-01] MEDS: Melatonin 3 MG Tab PO SCH (20:55)
[2022-01-02] MEDS: Propranolol 20 MG Tab PO SCH ×2 (07:50→17:36)
[2022-01-02] MEDS: Calcium Carbonate/Vitamin D3 625 MG-125 Unit Tab PO SCH ×2 (07:51→17:36)
[2022-01-02] MEDS: Omeprazole 20 MG Cap.CR PO SCH (07:51)
[2022-01-02] MEDS: Ipratropium 0.02% 0.5 MG/2.5 ML Neb Soln INH SCH ×4 (07:52→20:26)
[2022-01-02] MEDS: Budesonide 0.5 MG/2 ML Neb Susp INH SCH ×2 (07:52→20:26)
[2022-01-02] MEDS: hydrOXYzine Pamoate 25 MG Cap PO SCH ×3 (07:52→20:26)
[2022-01-02] MEDS: Escitalopram 20 MG Tab PO SCH (07:52)
[2022-01-02] MEDS: predniSONE 20 MG Tab PO SCH (07:52)
[2022-01-02] MEDS: busPIRone 15 MG Tab PO SCH ×3 (07:52→20:26)
[2022-01-02] MEDS: Sulfamethoxazole/Trimethoprim 800-160 MG Tab PO SCH ×2 (07:52→17:36)
[2022-01-02] MEDS: Levalbuterol HCl 0.63 MG/3 ML Neb INH SCH ×4 (07:53→20:26)
[2022-01-02] MEDS: Melatonin 3 MG Tab PO SCH (20:26)
[2022-01-02] MEDS: LORazepam 0.5 MG Tab PO PRN (20:26)
[2022-01-03] MEDS: Budesonide 0.5 MG/2 ML Neb Susp INH SCH ×2 (07:35→19:29)
[2022-01-03] MEDS: Ipratropium 0.02% 0.5 MG/2.5 ML Neb Soln INH SCH ×4 (07:35→19:29)
[2022-01-03] MEDS: Levalbuterol HCl 0.63 MG/3 ML Neb INH SCH ×4 (07:35→19:29)
[2022-01-03] MEDS: predniSONE 20 MG Tab PO SCH (07:36)
[2022-01-03] MEDS: Propranolol 20 MG Tab PO SCH ×2 (07:36→18:24)
[2022-01-03] MEDS: busPIRone 15 MG Tab PO SCH ×3 (07:36→19:29)
[2022-01-03] MEDS: Omeprazole 20 MG Cap.CR PO SCH (07:36)
[2022-01-03] MEDS: Sulfamethoxazole/Trimethoprim 800-160 MG Tab PO SCH ×2 (07:36→18:24)
[2022-01-03] MEDS: hydrOXYzine Pamoate 25 MG Cap PO SCH ×3 (07:36→19:29)
[2022-01-03] MEDS: Calcium Carbonate/Vitamin D3 625 MG-125 Unit Tab PO SCH ×2 (07:36→18:23)
[2022-01-03] MEDS: Escitalopram 20 MG Tab PO SCH (07:36)
[2022-01-03] MEDS: Melatonin 3 MG Tab PO SCH (19:29)
[2022-01-03] MEDS: LORazepam 0.5 MG Tab PO PRN (20:03)
[2022-01-04] MEDS: Budesonide 0.5 MG/2 ML Neb Susp INH SCH ×2 (07:23→20:04)
[2022-01-04] MEDS: Ipratropium 0.02% 0.5 MG/2.5 ML Neb Soln INH SCH ×4 (07:23→19:59)
[2022-01-04] MEDS: Levalbuterol HCl 0.63 MG/3 ML Neb INH SCH ×4 (07:23→20:06)
[2022-01-04] MEDS: Escitalopram 20 MG Tab PO SCH (07:24)
[2022-01-04] MEDS: Omeprazole 20 MG Cap.CR PO SCH (07:24)
[2022-01-04] MEDS: hydrOXYzine Pamoate 25 MG Cap PO SCH ×3 (07:24→20:05)
[2022-01-04] MEDS: busPIRone 15 MG Tab PO SCH ×3 (07:25→20:01)
[2022-01-04] MEDS: Calcium Carbonate/Vitamin D3 625 MG-125 Unit Tab PO SCH ×2 (07:25→17:22)
[2022-01-04] MEDS: predniSONE 20 MG Tab PO SCH (07:25)
[2022-01-04] MEDS: Sulfamethoxazole/Trimethoprim 800-160 MG Tab PO SCH ×2 (07:25→17:18)
[2022-01-04] MEDS: Propranolol 20 MG Tab PO SCH ×2 (07:26→17:15)
[2022-01-04] MEDS: Melatonin 3 MG Tab PO SCH (20:02)
[2022-01-04] MEDS: LORazepam 0.5 MG Tab PO PRN (20:08)
[2022-01-05] MEDS: Ipratropium 0.02% 0.5 MG/2.5 ML Neb Soln INH SCH ×4 (07:27→20:19)
[2022-01-05] MEDS: Propranolol 20 MG Tab PO SCH ×2 (07:28→17:11)
[2022-01-05] MEDS: busPIRone 15 MG Tab PO SCH ×3 (07:28→20:20)
[2022-01-05] MEDS: Escitalopram 20 MG Tab PO SCH (07:29)
[2022-01-05] MEDS: Omeprazole 20 MG Cap.CR PO SCH (07:29)
[2022-01-05] MEDS: Calcium Carbonate/Vitamin D3 625 MG-125 Unit Tab PO SCH ×2 (07:30→17:12)
[2022-01-05] MEDS: predniSONE 20 MG Tab PO SCH (07:30)
[2022-01-05] MEDS: hydrOXYzine Pamoate 25 MG Cap PO SCH ×3 (07:31→20:23)
[2022-01-05] MEDS: Sulfamethoxazole/Trimethoprim 800-160 MG Tab PO SCH ×2 (07:31→17:12)
[2022-01-05] MEDS: Budesonide 0.5 MG/2 ML Neb Susp INH SCH ×2 (07:32→20:22)
[2022-01-05] MEDS: Levalbuterol HCl 0.63 MG/3 ML Neb INH SCH ×4 (07:51→20:25)
[2022-01-05] MEDS: Melatonin 3 MG Tab PO SCH (20:21)
[2022-01-05] MEDS: LORazepam 0.5 MG Tab PO PRN (20:30)
[2022-01-06] MEDS: Ipratropium 0.02% 0.5 MG/2.5 ML Neb Soln INH SCH ×4 (07:09→20:05)
[2022-01-06] MEDS: busPIRone 15 MG Tab PO SCH ×3 (07:09→20:08)
[2022-01-06] MEDS: Propranolol 20 MG Tab PO SCH ×2 (07:10→17:17)
[2022-01-06] MEDS: Omeprazole 20 MG Cap.CR PO SCH (07:11)
[2022-01-06] MEDS: Escitalopram 20 MG Tab PO SCH (07:11)
[2022-01-06] MEDS: Calcium Carbonate/Vitamin D3 625 MG-125 Unit Tab PO SCH ×2 (07:12→17:17)
[2022-01-06] MEDS: predniSONE 20 MG Tab PO SCH (07:13)
[2022-01-06] MEDS: Sulfamethoxazole/Trimethoprim 800-160 MG Tab PO SCH ×2 (07:13→17:16)
[2022-01-06] MEDS: hydrOXYzine Pamoate 25 MG Cap PO SCH ×3 (07:14→20:10)
[2022-01-06] MEDS: Budesonide 0.5 MG/2 ML Neb Susp INH SCH ×2 (07:14→20:09)
[2022-01-06] MEDS: Levalbuterol HCl 0.63 MG/3 ML Neb INH SCH ×4 (07:31→20:11)
[2022-01-06] MEDS: Melatonin 3 MG Tab PO SCH (20:08)
[2022-01-06] MEDS: LORazepam 0.5 MG Tab PO PRN (20:13)
[2022-01-07] MEDS: Levalbuterol HCl 0.63 MG/3 ML Neb INH SCH ×4 (08:22→19:57)
[2022-01-07] MEDS: Ipratropium 0.02% 0.5 MG/2.5 ML Neb Soln INH SCH ×4 (08:22→19:56)
[2022-01-07] MEDS: Budesonide 0.5 MG/2 ML Neb Susp INH SCH ×2 (08:22→19:57)
[2022-01-07] MEDS: Omeprazole 20 MG Cap.CR PO SCH (08:22)
[2022-01-07] MEDS: busPIRone 15 MG Tab PO SCH ×3 (08:23→19:56)
[2022-01-07] MEDS: hydrOXYzine Pamoate 25 MG Cap PO SCH ×3 (08:23→19:58)
[2022-01-07] MEDS: Propranolol 20 MG Tab PO SCH ×2 (08:23→17:37)
[2022-01-07] MEDS: Sulfamethoxazole/Trimethoprim 800-160 MG Tab PO SCH ×2 (08:24→17:36)
[2022-01-07] MEDS: Escitalopram 20 MG Tab PO SCH (08:25)
[2022-01-07] MEDS: predniSONE 20 MG Tab PO SCH (08:25)
[2022-01-07] MEDS: Calcium Carbonate/Vitamin D3 625 MG-125 Unit Tab PO SCH ×2 (10:00→17:38)
[2022-01-07] MEDS: Melatonin 3 MG Tab PO SCH (19:56)
[2022-01-08] MEDS: Budesonide 0.5 MG/2 ML Neb Susp INH SCH ×2 (08:31→20:18)
[2022-01-08] MEDS: predniSONE 20 MG Tab PO SCH (08:31)
[2022-01-08] MEDS: Escitalopram 20 MG Tab PO SCH (08:31)
[2022-01-08] MEDS: hydrOXYzine Pamoate 25 MG Cap PO SCH ×3 (08:31→20:19)
[2022-01-08] MEDS: busPIRone 15 MG Tab PO SCH ×3 (08:32→20:16)
[2022-01-08] MEDS: Ipratropium 0.02% 0.5 MG/2.5 ML Neb Soln INH SCH ×4 (08:32→20:13)
[2022-01-08] MEDS: Levalbuterol HCl 0.63 MG/3 ML Neb INH SCH ×4 (08:32→20:21)
[2022-01-08] MEDS: Propranolol 20 MG Tab PO SCH ×2 (08:33→17:59)
[2022-01-08] MEDS: Sulfamethoxazole/Trimethoprim 800-160 MG Tab PO SCH ×2 (08:33→17:59)
[2022-01-08] MEDS: Omeprazole 20 MG Cap.CR PO SCH (08:33)
[2022-01-08] MEDS: Calcium Carbonate/Vitamin D3 625 MG-125 Unit Tab PO SCH ×2 (08:34→18:01)
[2022-01-08] MEDS: LORazepam 0.5 MG Tab PO PRN (15:50)
[2022-01-08] MEDS: Melatonin 3 MG Tab PO SCH (20:17)
[2022-01-09] MEDS: Ipratropium 0.02% 0.5 MG/2.5 ML Neb Soln INH SCH ×4 (08:15→19:57)
[2022-01-09] MEDS: Levalbuterol HCl 0.63 MG/3 ML Neb INH SCH ×4 (08:16→19:57)
[2022-01-09] MEDS: Budesonide 0.5 MG/2 ML Neb Susp INH SCH ×2 (08:16→19:58)
[2022-01-09] MEDS: hydrOXYzine Pamoate 25 MG Cap PO SCH ×3 (08:16→20:00)
[2022-01-09] MEDS: Propranolol 20 MG Tab PO SCH ×2 (08:17→16:59)
[2022-01-09] MEDS: Escitalopram 20 MG Tab PO SCH (08:17)
[2022-01-09] MEDS: Sulfamethoxazole/Trimethoprim 800-160 MG Tab PO SCH ×2 (08:18→17:00)
[2022-01-09] MEDS: busPIRone 15 MG Tab PO SCH ×3 (08:18→19:59)
[2022-01-09] MEDS: predniSONE 20 MG Tab PO SCH (08:19)
[2022-01-09] MEDS: Omeprazole 20 MG Cap.CR PO SCH (08:19)
[2022-01-09] MEDS: Calcium Carbonate/Vitamin D3 625 MG-125 Unit Tab PO SCH ×2 (08:20→17:01)
[2022-01-09] MEDS: Melatonin 3 MG Tab PO SCH (19:59)
[2022-01-09] MEDS: LORazepam 0.5 MG Tab PO PRN (20:01)
[2022-01-10] MEDS: Ipratropium 0.02% 0.5 MG/2.5 ML Neb Soln INH SCH ×4 (07:29→19:50)
[2022-01-10] MEDS: busPIRone 15 MG Tab PO SCH ×3 (07:35→19:50)
[2022-01-10] MEDS: Propranolol 20 MG Tab PO SCH ×2 (07:36→16:59)
[2022-01-10] MEDS: Omeprazole 20 MG Cap.CR PO SCH (07:37)
[2022-01-10] MEDS: Escitalopram 20 MG Tab PO SCH (07:37)
[2022-01-10] MEDS: Calcium Carbonate/Vitamin D3 625 MG-125 Unit Tab PO SCH ×2 (07:38→16:59)
[2022-01-10] MEDS: Sulfamethoxazole/Trimethoprim 800-160 MG Tab PO SCH ×2 (07:39→16:59)
[2022-01-10] MEDS: predniSONE 20 MG Tab PO SCH (07:39)
[2022-01-10] MEDS: Budesonide 0.5 MG/2 ML Neb Susp INH SCH ×2 (07:39→19:50)
[2022-01-10] MEDS: hydrOXYzine Pamoate 25 MG Cap PO SCH ×3 (07:40→19:51)
[2022-01-10] MEDS: Levalbuterol HCl 0.63 MG/3 ML Neb INH SCH ×4 (07:40→19:50)
[2022-01-10] MEDS: LORazepam 0.5 MG Tab PO PRN (16:45)
[2022-01-10] MEDS: Melatonin 3 MG Tab PO SCH (19:51)
[2022-01-11] MEDS: Ipratropium 0.02% 0.5 MG/2.5 ML Neb Soln INH SCH ×4 (07:07→19:23)
[2022-01-11] MEDS: Propranolol 20 MG Tab PO SCH ×2 (07:08→17:12)
[2022-01-11] MEDS: busPIRone 15 MG Tab PO SCH ×3 (07:08→19:52)
[2022-01-11] MEDS: Escitalopram 20 MG Tab PO SCH (07:09)
[2022-01-11] MEDS: Calcium Carbonate/Vitamin D3 625 MG-125 Unit Tab PO SCH ×2 (07:10→17:12)
[2022-01-11] MEDS: Omeprazole 20 MG Cap.CR PO SCH (07:10)
[2022-01-11] MEDS: predniSONE 20 MG Tab PO SCH (07:11)
[2022-01-11] MEDS: hydrOXYzine Pamoate 25 MG Cap PO SCH ×3 (07:12→19:53)
[2022-01-11] MEDS: Sulfamethoxazole/Trimethoprim 800-160 MG Tab PO SCH ×2 (07:12→17:13)
[2022-01-11] MEDS: Budesonide 0.5 MG/2 ML Neb Susp INH SCH ×2 (07:13→19:33)
[2022-01-11] MEDS: Levalbuterol HCl 0.63 MG/3 ML Neb INH SCH ×4 (07:15→19:42)
[2022-01-11 08:09] LABS: ANION GAP 5.5 meq/L (7-15); CHLORIDE,CL 101 mmol/L (98-107); ESTIMATED GFR > 60 mL/min; SODIUM,NA 138 mmol/L (136-145)
[2022-01-11] MEDS: Melatonin 3 MG Tab PO SCH (19:53)
[2022-01-12] MEDS: Budesonide 0.5 MG/2 ML Neb Susp INH SCH ×2 (08:34→19:47)
[2022-01-12] MEDS: Ipratropium 0.02% 0.5 MG/2.5 ML Neb Soln INH SCH ×4 (08:34→19:37)
[2022-01-12] MEDS: Levalbuterol HCl 0.63 MG/3 ML Neb INH SCH ×4 (08:34→19:56)
[2022-01-12] MEDS: Sulfamethoxazole/Trimethoprim 800-160 MG Tab PO SCH ×2 (08:35→17:43)
[2022-01-12] MEDS: Propranolol 20 MG Tab PO SCH ×2 (08:36→17:42)
[2022-01-12] MEDS: Escitalopram 20 MG Tab PO SCH (08:37)
[2022-01-12] MEDS: busPIRone 15 MG Tab PO SCH ×3 (08:38→19:59)
[2022-01-12] MEDS: predniSONE 20 MG Tab PO SCH (08:39)
[2022-01-12] MEDS: Omeprazole 20 MG Cap.CR PO SCH (08:40)
[2022-01-12] MEDS: hydrOXYzine Pamoate 25 MG Cap PO SCH ×3 (08:40→19:59)
[2022-01-12] MEDS: Calcium Carbonate/Vitamin D3 625 MG-125 Unit Tab PO SCH ×2 (08:43→17:43)
[2022-01-12] MEDS: Melatonin 3 MG Tab PO SCH (20:00)
[2022-01-13] MEDS: hydrOXYzine Pamoate 25 MG Cap PO SCH ×3 (08:02→19:58)
[2022-01-13] MEDS: Propranolol 20 MG Tab PO SCH ×2 (08:03→17:20)
[2022-01-13] MEDS: busPIRone 15 MG Tab PO SCH ×3 (08:03→19:58)
[2022-01-13] MEDS: Omeprazole 20 MG Cap.CR PO SCH (08:04)
[2022-01-13] MEDS: Escitalopram 20 MG Tab PO SCH (08:06)
[2022-01-13] MEDS: Sulfamethoxazole/Trimethoprim 800-160 MG Tab PO SCH ×2 (08:06→17:18)
[2022-01-13] MEDS: Budesonide 0.5 MG/2 ML Neb Susp INH SCH ×2 (08:06→19:43)
[2022-01-13] MEDS: Levalbuterol HCl 0.63 MG/3 ML Neb INH SCH ×4 (08:06→19:56)
[2022-01-13] MEDS: Ipratropium 0.02% 0.5 MG/2.5 ML Neb Soln INH SCH ×4 (08:06→19:37)
[2022-01-13] MEDS: predniSONE 20 MG Tab PO SCH (08:07)
[2022-01-13] MEDS: Calcium Carbonate/Vitamin D3 625 MG-125 Unit Tab PO SCH ×2 (08:08→17:21)
[2022-01-13] MEDS: LORazepam 0.5 MG Tab PO PRN (17:22)
[2022-01-13] MEDS: Melatonin 3 MG Tab PO SCH (19:58)
[2022-01-14] MEDS: Ipratropium 0.02% 0.5 MG/2.5 ML Neb Soln INH SCH ×4 (08:14→19:55)
[2022-01-14] MEDS: busPIRone 15 MG Tab PO SCH ×3 (08:15→19:56)
[2022-01-14] MEDS: Propranolol 20 MG Tab PO SCH ×2 (08:16→17:13)
[2022-01-14] MEDS: Escitalopram 20 MG Tab PO SCH (08:17)
[2022-01-14] MEDS: Omeprazole 20 MG Cap.CR PO SCH (08:18)
[2022-01-14] MEDS: Calcium Carbonate/Vitamin D3 625 MG-125 Unit Tab PO SCH ×2 (08:19→17:14)
[2022-01-14] MEDS: predniSONE 20 MG Tab PO SCH (08:20)
[2022-01-14] MEDS: Budesonide 0.5 MG/2 ML Neb Susp INH SCH ×2 (08:21→19:55)
[2022-01-14] MEDS: Sulfamethoxazole/Trimethoprim 800-160 MG Tab PO SCH ×2 (08:22→17:16)
[2022-01-14] MEDS: hydrOXYzine Pamoate 25 MG Cap PO SCH ×3 (08:24→19:57)
[2022-01-14] MEDS: Levalbuterol HCl 0.63 MG/3 ML Neb INH SCH ×4 (08:24→19:56)
[2022-01-14] MEDS: Melatonin 3 MG Tab PO SCH (19:57)
[2022-01-14] MEDS: LORazepam 0.5 MG Tab PO PRN (19:58)
[2022-01-15] MEDS: Ipratropium 0.02% 0.5 MG/2.5 ML Neb Soln INH SCH ×4 (07:17→19:10)
[2022-01-15] MEDS: busPIRone 15 MG Tab PO SCH ×3 (07:18→19:31)
[2022-01-15] MEDS: Omeprazole 20 MG Cap.CR PO SCH (07:19)
[2022-01-15] MEDS: Propranolol 20 MG Tab PO SCH ×2 (07:19→17:09)
[2022-01-15] MEDS: Escitalopram 20 MG Tab PO SCH (07:19)
[2022-01-15] MEDS: Calcium Carbonate/Vitamin D3 625 MG-125 Unit Tab PO SCH ×2 (07:20→17:10)
[2022-01-15] MEDS: predniSONE 20 MG Tab PO SCH (07:20)
[2022-01-15] MEDS: Sulfamethoxazole/Trimethoprim 800-160 MG Tab PO SCH ×2 (07:21→17:10)
[2022-01-15] MEDS: hydrOXYzine Pamoate 25 MG Cap PO SCH ×3 (07:21→19:31)
[2022-01-15] MEDS: Levalbuterol HCl 0.63 MG/3 ML Neb INH SCH ×4 (07:22→19:25)
[2022-01-15] MEDS: Budesonide 0.5 MG/2 ML Neb Susp INH SCH ×2 (07:27→19:16)
[2022-01-15] MEDS: Polyethylene Glycol 3350 Powder 510 GM Bot PO PRN (10:25)
[2022-01-15] MEDS: Melatonin 3 MG Tab PO SCH (19:32)
[2022-01-16] MEDS: Propranolol 20 MG Tab PO SCH ×2 (07:17→17:10)
[2022-01-16] MEDS: busPIRone 15 MG Tab PO SCH ×3 (07:17→21:43)
[2022-01-16] MEDS: Ipratropium 0.02% 0.5 MG/2.5 ML Neb Soln INH SCH ×4 (07:17→21:43)
[2022-01-16] MEDS: Omeprazole 20 MG Cap.CR PO SCH (07:18)
[2022-01-16] MEDS: Escitalopram 20 MG Tab PO SCH (07:18)
[2022-01-16] MEDS: Calcium Carbonate/Vitamin D3 625 MG-125 Unit Tab PO SCH ×2 (07:19→17:10)
[2022-01-16] MEDS: predniSONE 20 MG Tab PO SCH (07:19)
[2022-01-16] MEDS: hydrOXYzine Pamoate 25 MG Cap PO SCH ×3 (07:20→21:44)
[2022-01-16] MEDS: Sulfamethoxazole/Trimethoprim 800-160 MG Tab PO SCH ×2 (07:20→17:10)
[2022-01-16] MEDS: Levalbuterol HCl 0.63 MG/3 ML Neb INH SCH ×4 (07:20→21:44)
[2022-01-16] MEDS: Budesonide 0.5 MG/2 ML Neb Susp INH SCH ×2 (08:04→21:44)
[2022-01-16] MEDS: Melatonin 3 MG Tab PO SCH (21:43)
[2022-01-17] MEDS: Ipratropium 0.02% 0.5 MG/2.5 ML Neb Soln INH SCH ×4 (07:16→20:10)
[2022-01-17] MEDS: busPIRone 15 MG Tab PO SCH ×3 (07:22→20:12)
[2022-01-17] MEDS: Escitalopram 20 MG Tab PO SCH (07:23)
[2022-01-17] MEDS: Propranolol 20 MG Tab PO SCH ×2 (07:23→17:12)
[2022-01-17] MEDS: Calcium Carbonate/Vitamin D3 625 MG-125 Unit Tab PO SCH ×2 (07:24→17:12)
[2022-01-17] MEDS: Omeprazole 20 MG Cap.CR PO SCH (07:24)
[2022-01-17] MEDS: predniSONE 20 MG Tab PO SCH (07:24)
[2022-01-17] MEDS: Sulfamethoxazole/Trimethoprim 800-160 MG Tab PO SCH ×2 (07:25→17:13)
[2022-01-17] MEDS: hydrOXYzine Pamoate 25 MG Cap PO SCH ×3 (07:26→20:13)
[2022-01-17] MEDS: Levalbuterol HCl 0.63 MG/3 ML Neb INH SCH ×4 (07:26→20:15)
[2022-01-17] MEDS: Polyethylene Glycol 3350 Powder 510 GM Bot PO PRN (07:27)
[2022-01-17] MEDS: Budesonide 0.5 MG/2 ML Neb Susp INH SCH ×2 (07:30→20:13)
[2022-01-17] MEDS: Melatonin 3 MG Tab PO SCH (20:12)
[2022-01-18] MEDS: Ipratropium 0.02% 0.5 MG/2.5 ML Neb Soln INH SCH ×4 (07:36→20:02)
[2022-01-18] MEDS: Levalbuterol HCl 0.63 MG/3 ML Neb INH SCH ×4 (07:36→20:03)
[2022-01-18] MEDS: Propranolol 20 MG Tab PO SCH ×2 (07:37→17:11)
[2022-01-18] MEDS: Budesonide 0.5 MG/2 ML Neb Susp INH SCH ×2 (07:37→20:03)
[2022-01-18] MEDS: Sulfamethoxazole/Trimethoprim 800-160 MG Tab PO SCH ×2 (07:38→17:11)
[2022-01-18] MEDS: busPIRone 15 MG Tab PO SCH ×3 (07:38→20:03)
[2022-01-18] MEDS: predniSONE 20 MG Tab PO SCH (07:39)
[2022-01-18] MEDS: hydrOXYzine Pamoate 25 MG Cap PO SCH ×3 (07:39→20:04)
[2022-01-18] MEDS: Escitalopram 20 MG Tab PO SCH (07:40)
[2022-01-18] MEDS: Calcium Carbonate/Vitamin D3 625 MG-125 Unit Tab PO SCH ×2 (07:40→17:10)
[2022-01-18] MEDS: Omeprazole 20 MG Cap.CR PO SCH (07:40)
[2022-01-18] MEDS: Melatonin 3 MG Tab PO SCH (20:04)
[2022-01-18] MEDS: LORazepam 0.5 MG Tab PO PRN (20:05)
[2022-01-19] MEDS: Ipratropium 0.02% 0.5 MG/2.5 ML Neb Soln INH SCH ×4 (08:04→19:54)
[2022-01-19] MEDS: busPIRone 15 MG Tab PO SCH ×3 (08:05→19:55)
[2022-01-19] MEDS: Escitalopram 20 MG Tab PO SCH (08:06)
[2022-01-19] MEDS: Propranolol 20 MG Tab PO SCH ×2 (08:06→17:09)
[2022-01-19] MEDS: Omeprazole 20 MG Cap.CR PO SCH (08:07)
[2022-01-19] MEDS: Calcium Carbonate/Vitamin D3 625 MG-125 Unit Tab PO SCH ×2 (08:08→17:10)
[2022-01-19] MEDS: predniSONE 20 MG Tab PO SCH (08:09)
[2022-01-19] MEDS: Budesonide 0.5 MG/2 ML Neb Susp INH SCH ×2 (08:09→19:54)
[2022-01-19] MEDS: Levalbuterol HCl 0.63 MG/3 ML Neb INH SCH ×4 (08:10→19:54)
[2022-01-19] MEDS: Sulfamethoxazole/Trimethoprim 800-160 MG Tab PO SCH ×2 (08:10→17:09)
[2022-01-19] MEDS: hydrOXYzine Pamoate 25 MG Cap PO SCH ×3 (08:10→19:55)
[2022-01-19] MEDS: Melatonin 3 MG Tab PO SCH (19:56)
[2022-01-19] MEDS: LORazepam 0.5 MG Tab PO PRN (19:56)
[2022-01-20] MEDS: Levalbuterol HCl 0.63 MG/3 ML Neb INH SCH ×4 (07:47→19:42)
[2022-01-20] MEDS: Budesonide 0.5 MG/2 ML Neb Susp INH SCH ×2 (07:47→19:42)
[2022-01-20] MEDS: hydrOXYzine Pamoate 25 MG Cap PO SCH ×3 (07:47→19:43)
[2022-01-20] MEDS: Escitalopram 20 MG Tab PO SCH (07:47)
[2022-01-20] MEDS: Ipratropium 0.02% 0.5 MG/2.5 ML Neb Soln INH SCH ×4 (07:47→19:42)
[2022-01-20] MEDS: predniSONE 20 MG Tab PO SCH (07:47)
[2022-01-20] MEDS: Propranolol 20 MG Tab PO SCH ×2 (07:48→17:01)
[2022-01-20] MEDS: busPIRone 15 MG Tab PO SCH ×3 (07:48→19:43)
[2022-01-20] MEDS: Sulfamethoxazole/Trimethoprim 800-160 MG Tab PO SCH ×2 (07:48→17:02)
[2022-01-20] MEDS: Omeprazole 20 MG Cap.CR PO SCH (07:48)
[2022-01-20] MEDS: Calcium Carbonate/Vitamin D3 625 MG-125 Unit Tab PO SCH ×2 (07:49→17:01)
[2022-01-20] MEDS: Melatonin 3 MG Tab PO SCH (19:44)
[2022-01-20] MEDS: LORazepam 0.5 MG Tab PO PRN (19:45)
[2022-01-21] MEDS: Ipratropium 0.02% 0.5 MG/2.5 ML Neb Soln INH SCH ×4 (07:26→19:46)
[2022-01-21] MEDS: Propranolol 20 MG Tab PO SCH ×2 (07:28→17:11)
[2022-01-21] MEDS: busPIRone 15 MG Tab PO SCH ×3 (07:28→19:47)
[2022-01-21] MEDS: Omeprazole 20 MG Cap.CR PO SCH (07:29)
[2022-01-21] MEDS: Escitalopram 20 MG Tab PO SCH (07:29)
[2022-01-21] MEDS: predniSONE 20 MG Tab PO SCH (07:30)
[2022-01-21] MEDS: Calcium Carbonate/Vitamin D3 625 MG-125 Unit Tab PO SCH ×2 (07:30→17:12)
[2022-01-21] MEDS: hydrOXYzine Pamoate 25 MG Cap PO SCH ×3 (07:31→19:47)
[2022-01-21] MEDS: Sulfamethoxazole/Trimethoprim 800-160 MG Tab PO SCH ×2 (07:31→17:13)
[2022-01-21] MEDS: Levalbuterol HCl 0.63 MG/3 ML Neb INH SCH ×4 (07:32→19:46)
[2022-01-21] MEDS: Budesonide 0.5 MG/2 ML Neb Susp INH SCH ×2 (07:48→19:46)
[2022-01-21] MEDS: Polyethylene Glycol 3350 Powder 510 GM Bot PO PRN (08:14)
[2022-01-21] MEDS: Melatonin 3 MG Tab PO SCH (19:48)
[2022-01-21] MEDS: LORazepam 0.5 MG Tab PO PRN (19:48)
[2022-01-22] MEDS: Ipratropium 0.02% 0.5 MG/2.5 ML Neb Soln INH SCH ×4 (07:22→19:21)
[2022-01-22] MEDS: Propranolol 20 MG Tab PO SCH ×2 (07:30→17:05)
[2022-01-22] MEDS: busPIRone 15 MG Tab PO SCH ×3 (07:30→19:41)
[2022-01-22] MEDS: Omeprazole 20 MG Cap.CR PO SCH (07:31)
[2022-01-22] MEDS: Escitalopram 20 MG Tab PO SCH (07:31)
[2022-01-22] MEDS: Calcium Carbonate/Vitamin D3 625 MG-125 Unit Tab PO SCH ×2 (07:31→17:05)
[2022-01-22] MEDS: predniSONE 20 MG Tab PO SCH (07:32)
[2022-01-22] MEDS: Sulfamethoxazole/Trimethoprim 800-160 MG Tab PO SCH ×2 (07:32→17:06)
[2022-01-22] MEDS: hydrOXYzine Pamoate 25 MG Cap PO SCH ×3 (07:33→19:41)
[2022-01-22] MEDS: Levalbuterol HCl 0.63 MG/3 ML Neb INH SCH ×4 (07:33→19:38)
[2022-01-22] MEDS: Budesonide 0.5 MG/2 ML Neb Susp INH SCH ×2 (07:36→19:27)
[2022-01-22] MEDS: Acetaminophen 325 MG Tab PO PRN (15:26)
[2022-01-22] MEDS: Melatonin 3 MG Tab PO SCH (19:41)
[2022-01-23] MEDS: busPIRone 15 MG Tab PO SCH ×3 (08:21→20:00)
[2022-01-23] MEDS: Ipratropium 0.02% 0.5 MG/2.5 ML Neb Soln INH SCH ×4 (08:21→19:20)
[2022-01-23] MEDS: Propranolol 20 MG Tab PO SCH ×2 (08:22→18:01)
[2022-01-23] MEDS: Escitalopram 20 MG Tab PO SCH (08:23)
[2022-01-23] MEDS: Omeprazole 20 MG Cap.CR PO SCH (08:24)
[2022-01-23] MEDS: Calcium Carbonate/Vitamin D3 625 MG-125 Unit Tab PO SCH ×2 (08:25→18:01)
[2022-01-23] MEDS: predniSONE 20 MG Tab PO SCH (08:25)
[2022-01-23] MEDS: Budesonide 0.5 MG/2 ML Neb Susp INH SCH ×2 (08:26→19:31)
[2022-01-23] MEDS: Sulfamethoxazole/Trimethoprim 800-160 MG Tab PO SCH (08:27)
[2022-01-23] MEDS: hydrOXYzine Pamoate 25 MG Cap PO SCH ×3 (08:27→20:00)
[2022-01-23] MEDS: Levalbuterol HCl 0.63 MG/3 ML Neb INH SCH ×4 (08:29→19:39)
[2022-01-23] MEDS: Melatonin 3 MG Tab PO SCH (20:02)
[2022-01-24] MEDS: Ipratropium 0.02% 0.5 MG/2.5 ML Neb Soln INH SCH ×4 (07:37→19:52)
[2022-01-24] MEDS: busPIRone 15 MG Tab PO SCH ×3 (07:38→19:53)
[2022-01-24] MEDS: Propranolol 20 MG Tab PO SCH ×2 (07:38→17:12)
[2022-01-24] MEDS: Escitalopram 20 MG Tab PO SCH (07:39)
[2022-01-24] MEDS: predniSONE 20 MG Tab PO SCH (07:39)
[2022-01-24] MEDS: Calcium Carbonate/Vitamin D3 625 MG-125 Unit Tab PO SCH ×2 (07:39→17:12)
[2022-01-24] MEDS: OMEPRAZOLE 40MG CAPS PO SCH (07:39)
[2022-01-24] MEDS: Levalbuterol HCl 0.63 MG/3 ML Neb INH SCH ×4 (07:40→19:53)
[2022-01-24] MEDS: hydrOXYzine Pamoate 25 MG Cap PO SCH ×3 (07:40→19:53)
[2022-01-24] MEDS: Budesonide 0.5 MG/2 ML Neb Susp INH SCH ×2 (07:58→19:52)
[2022-01-24] MEDS: Melatonin 3 MG Tab PO SCH (19:54)
[2022-01-24] MEDS: LORazepam 0.5 MG Tab PO PRN (19:58)
[2022-01-25] MEDS: busPIRone 15 MG Tab PO SCH ×3 (08:02→19:54)
[2022-01-25] MEDS: Propranolol 20 MG Tab PO SCH ×2 (08:02→17:14)
[2022-01-25] MEDS: predniSONE 20 MG Tab PO SCH (08:02)
[2022-01-25] MEDS: hydrOXYzine Pamoate 25 MG Cap PO SCH ×3 (08:03→19:56)
[2022-01-25] MEDS: Escitalopram 20 MG Tab PO SCH (08:03)
[2022-01-25] MEDS: OMEPRAZOLE 40MG CAPS PO SCH (08:03)
[2022-01-25] MEDS: Budesonide 0.5 MG/2 ML Neb Susp INH SCH ×2 (08:04→19:56)
[2022-01-25] MEDS: Levalbuterol HCl 0.63 MG/3 ML Neb INH SCH ×4 (08:04→19:57)
[2022-01-25] MEDS: Calcium Carbonate/Vitamin D3 625 MG-125 Unit Tab PO SCH ×2 (08:05→17:15)
[2022-01-25] MEDS: Ipratropium 0.02% 0.5 MG/2.5 ML Neb Soln INH SCH ×4 (08:05→19:54)
[2022-01-25] MEDS: Melatonin 3 MG Tab PO SCH (19:55)
[2022-01-25] MEDS: LORazepam 0.5 MG Tab PO PRN (19:58)
[2022-01-26] MEDS: busPIRone 15 MG Tab PO SCH ×3 (07:49→19:54)
[2022-01-26] MEDS: predniSONE 20 MG Tab PO SCH (07:49)
[2022-01-26] MEDS: Propranolol 20 MG Tab PO SCH ×2 (07:49→17:13)
[2022-01-26] MEDS: Ipratropium 0.02% 0.5 MG/2.5 ML Neb Soln INH SCH ×4 (07:49→19:54)
[2022-01-26] MEDS: hydrOXYzine Pamoate 25 MG Cap PO SCH ×3 (07:50→19:56)
[2022-01-26] MEDS: Escitalopram 20 MG Tab PO SCH (07:50)
[2022-01-26] MEDS: OMEPRAZOLE 40MG CAPS PO SCH (07:50)
[2022-01-26] MEDS: Budesonide 0.5 MG/2 ML Neb Susp INH SCH ×2 (08:07→19:56)
[2022-01-26] MEDS: Calcium Carbonate/Vitamin D3 625 MG-125 Unit Tab PO SCH ×2 (08:07→17:14)
[2022-01-26] MEDS: Levalbuterol HCl 0.63 MG/3 ML Neb INH SCH ×4 (08:41→19:57)
[2022-01-26] MEDS: Melatonin 3 MG Tab PO SCH (19:55)
[2022-01-27] MEDS: predniSONE 20 MG Tab PO SCH (07:56)
[2022-01-27] MEDS: Propranolol 20 MG Tab PO SCH ×2 (07:57→17:30)
[2022-01-27] MEDS: Escitalopram 20 MG Tab PO SCH (07:57)
[2022-01-27] MEDS: OMEPRAZOLE 40MG CAPS PO SCH (07:57)
[2022-01-27] MEDS: hydrOXYzine Pamoate 25 MG Cap PO SCH ×3 (07:57→20:01)
[2022-01-27] MEDS: busPIRone 15 MG Tab PO SCH ×3 (07:57→19:58)
[2022-01-27] MEDS: Ipratropium 0.02% 0.5 MG/2.5 ML Neb Soln INH SCH ×4 (07:58→19:57)
[2022-01-27] MEDS: Calcium Carbonate/Vitamin D3 625 MG-125 Unit Tab PO SCH ×2 (07:58→17:30)
[2022-01-27] MEDS: Budesonide 0.5 MG/2 ML Neb Susp INH SCH ×2 (08:37→20:00)
[2022-01-27] MEDS: Levalbuterol HCl 0.63 MG/3 ML Neb INH SCH ×4 (08:46→20:02)
[2022-01-27] MEDS: Melatonin 3 MG Tab PO SCH (19:58)
[2022-01-28] MEDS: Budesonide 0.5 MG/2 ML Neb Susp INH SCH ×2 (08:11→20:06)
[2022-01-28] MEDS: Levalbuterol HCl 0.63 MG/3 ML Neb INH SCH ×4 (08:11→20:06)
[2022-01-28] MEDS: Propranolol 20 MG Tab PO SCH ×2 (08:12→17:34)
[2022-01-28] MEDS: predniSONE 20 MG Tab PO SCH (08:12)
[2022-01-28] MEDS: busPIRone 15 MG Tab PO SCH ×3 (08:12→20:02)
[2022-01-28] MEDS: Ipratropium 0.02% 0.5 MG/2.5 ML Neb Soln INH SCH ×4 (08:12→20:01)
[2022-01-28] MEDS: OMEPRAZOLE 40MG CAPS PO SCH (08:13)
[2022-01-28] MEDS: Escitalopram 20 MG Tab PO SCH (08:13)
[2022-01-28] MEDS: hydrOXYzine Pamoate 25 MG Cap PO SCH ×3 (08:13→20:07)
[2022-01-28] MEDS: Calcium Carbonate/Vitamin D3 625 MG-125 Unit Tab PO SCH ×2 (08:13→17:35)
[2022-01-28] MEDS: Melatonin 3 MG Tab PO SCH (20:04)
[2022-01-29] MEDS: Ipratropium 0.02% 0.5 MG/2.5 ML Neb Soln INH SCH ×4 (07:19→19:34)
[2022-01-29] MEDS: predniSONE 20 MG Tab PO SCH (07:21)
[2022-01-29] MEDS: busPIRone 15 MG Tab PO SCH ×3 (07:21→19:35)
[2022-01-29] MEDS: Escitalopram 20 MG Tab PO SCH (07:22)
[2022-01-29] MEDS: OMEPRAZOLE 40MG CAPS PO SCH (07:22)
[2022-01-29] MEDS: Propranolol 20 MG Tab PO SCH ×2 (07:22→17:13)
[2022-01-29] MEDS: Calcium Carbonate/Vitamin D3 625 MG-125 Unit Tab PO SCH ×2 (07:22→17:13)
[2022-01-29] MEDS: Budesonide 0.5 MG/2 ML Neb Susp INH SCH ×2 (07:23→19:33)
[2022-01-29] MEDS: hydrOXYzine Pamoate 25 MG Cap PO SCH ×3 (07:23→19:35)
[2022-01-29] MEDS: Levalbuterol HCl 0.63 MG/3 ML Neb INH SCH ×4 (07:36→19:34)
[2022-01-29] MEDS: Melatonin 3 MG Tab PO SCH (19:36)
[2022-01-29] MEDS: LORazepam 0.5 MG Tab PO PRN (19:37)
[2022-01-30] MEDS: Budesonide 0.5 MG/2 ML Neb Susp INH SCH ×2 (07:32→20:09)
[2022-01-30] MEDS: Ipratropium 0.02% 0.5 MG/2.5 ML Neb Soln INH SCH ×4 (07:32→20:07)
[2022-01-30] MEDS: Levalbuterol HCl 0.63 MG/3 ML Neb INH SCH ×4 (07:33→20:08)
[2022-01-30] MEDS: predniSONE 20 MG Tab PO SCH (07:34)
[2022-01-30] MEDS: hydrOXYzine Pamoate 25 MG Cap PO SCH ×3 (07:34→20:09)
[2022-01-30] MEDS: Escitalopram 20 MG Tab PO SCH (07:34)
[2022-01-30] MEDS: OMEPRAZOLE 40MG CAPS PO SCH (07:34)
[2022-01-30] MEDS: busPIRone 15 MG Tab PO SCH ×3 (07:34→20:07)
[2022-01-30] MEDS: Propranolol 20 MG Tab PO SCH ×2 (07:34→17:15)
[2022-01-30] MEDS: Calcium Carbonate/Vitamin D3 625 MG-125 Unit Tab PO SCH ×2 (07:36→17:15)
[2022-01-30] MEDS: Melatonin 3 MG Tab PO SCH (20:08)
[2022-01-31] MEDS: Ipratropium 0.02% 0.5 MG/2.5 ML Neb Soln INH SCH ×4 (07:20→19:42)
[2022-01-31] MEDS: Propranolol 20 MG Tab PO SCH ×2 (07:21→17:09)
[2022-01-31] MEDS: Escitalopram 20 MG Tab PO SCH (07:21)
[2022-01-31] MEDS: busPIRone 15 MG Tab PO SCH ×3 (07:21→19:41)
[2022-01-31] MEDS: Calcium Carbonate/Vitamin D3 625 MG-125 Unit Tab PO SCH ×2 (07:22→17:10)
[2022-01-31] MEDS: hydrOXYzine Pamoate 25 MG Cap PO SCH ×3 (07:22→19:43)
[2022-01-31] MEDS: predniSONE 20 MG Tab PO SCH (07:22)
[2022-01-31] MEDS: OMEPRAZOLE 40MG CAPS PO SCH (07:22)
[2022-01-31] MEDS: Levalbuterol HCl 0.63 MG/3 ML Neb INH SCH ×4 (07:23→19:41)
[2022-01-31] MEDS: Budesonide 0.5 MG/2 ML Neb Susp INH SCH ×2 (07:26→19:42)
[2022-01-31] MEDS: Melatonin 3 MG Tab PO SCH (19:42)
[2022-01-31] MEDS: LORazepam 0.5 MG Tab PO PRN (19:44)
[2022-02-01] MEDS: Ipratropium 0.02% 0.5 MG/2.5 ML Neb Soln INH SCH ×4 (08:10→19:32)
[2022-02-01] MEDS: Budesonide 0.5 MG/2 ML Neb Susp INH SCH ×2 (08:11→19:40)
[2022-02-01] MEDS: Levalbuterol HCl 0.63 MG/3 ML Neb INH SCH ×4 (08:11→19:51)
[2022-02-01] MEDS: Escitalopram 20 MG Tab PO SCH (08:12)
[2022-02-01] MEDS: OMEPRAZOLE 40MG CAPS PO SCH (08:12)
[2022-02-01] MEDS: predniSONE 20 MG Tab PO SCH (08:12)
[2022-02-01] MEDS: Propranolol 20 MG Tab PO SCH ×2 (08:12→17:28)
[2022-02-01] MEDS: hydrOXYzine Pamoate 25 MG Cap PO SCH ×3 (08:13→19:51)
[2022-02-01] MEDS: Calcium Carbonate/Vitamin D3 625 MG-125 Unit Tab PO SCH ×2 (08:14→17:28)
[2022-02-01] MEDS: busPIRone 15 MG Tab PO SCH ×3 (08:55→19:50)
[2022-02-01] MEDS: Melatonin 3 MG Tab PO SCH (19:50)
[2022-02-02] MEDS: Ipratropium 0.02% 0.5 MG/2.5 ML Neb Soln INH SCH ×4 (07:28→19:32)
[2022-02-02] MEDS: Calcium Carbonate/Vitamin D3 625 MG-125 Unit Tab PO SCH ×2 (07:29→17:07)
[2022-02-02] MEDS: OMEPRAZOLE 40MG CAPS PO SCH (07:29)
[2022-02-02] MEDS: busPIRone 15 MG Tab PO SCH ×3 (07:29→19:30)
[2022-02-02] MEDS: Propranolol 20 MG Tab PO SCH ×2 (07:29→17:06)
[2022-02-02] MEDS: Escitalopram 20 MG Tab PO SCH (07:29)
[2022-02-02] MEDS: Levalbuterol HCl 0.63 MG/3 ML Neb INH SCH ×4 (07:30→19:31)
[2022-02-02] MEDS: predniSONE 20 MG Tab PO SCH (07:30)
[2022-02-02] MEDS: hydrOXYzine Pamoate 25 MG Cap PO SCH ×3 (07:30→19:30)
[2022-02-02] MEDS: Budesonide 0.5 MG/2 ML Neb Susp INH SCH ×2 (07:37→19:19)
[2022-02-02] MEDS: Melatonin 3 MG Tab PO SCH (19:31)
[2022-02-03] MEDS: Propranolol 20 MG Tab PO SCH ×2 (07:33→17:14)
[2022-02-03] MEDS: Ipratropium 0.02% 0.5 MG/2.5 ML Neb Soln INH SCH ×4 (07:33→20:09)
[2022-02-03] MEDS: busPIRone 15 MG Tab PO SCH ×3 (07:33→20:10)
[2022-02-03] MEDS: Calcium Carbonate/Vitamin D3 625 MG-125 Unit Tab PO SCH ×2 (07:34→17:15)
[2022-02-03] MEDS: Escitalopram 20 MG Tab PO SCH (07:34)
[2022-02-03] MEDS: predniSONE 20 MG Tab PO SCH (07:34)
[2022-02-03] MEDS: OMEPRAZOLE 40MG CAPS PO SCH (07:34)
[2022-02-03] MEDS: hydrOXYzine Pamoate 25 MG Cap PO SCH ×3 (07:34→20:11)
[2022-02-03] MEDS: Levalbuterol HCl 0.63 MG/3 ML Neb INH SCH ×4 (07:35→20:12)
[2022-02-03] MEDS: Budesonide 0.5 MG/2 ML Neb Susp INH SCH ×2 (07:41→20:11)
[2022-02-03] MEDS: Melatonin 3 MG Tab PO SCH (20:10)
[2022-02-04] MEDS: Escitalopram 20 MG Tab PO SCH (07:30)
[2022-02-04] MEDS: busPIRone 15 MG Tab PO SCH ×3 (07:30→19:56)
[2022-02-04] MEDS: Ipratropium 0.02% 0.5 MG/2.5 ML Neb Soln INH SCH ×4 (07:30→19:56)
[2022-02-04] MEDS: Propranolol 20 MG Tab PO SCH ×2 (07:30→17:28)
[2022-02-04] MEDS: hydrOXYzine Pamoate 25 MG Cap PO SCH ×3 (07:31→19:58)
[2022-02-04] MEDS: predniSONE 20 MG Tab PO SCH (07:31)
[2022-02-04] MEDS: OMEPRAZOLE 40MG CAPS PO SCH (07:31)
[2022-02-04] MEDS: Calcium Carbonate/Vitamin D3 625 MG-125 Unit Tab PO SCH ×2 (07:31→17:28)
[2022-02-04] MEDS: Levalbuterol HCl 0.63 MG/3 ML Neb INH SCH ×4 (07:32→19:59)
[2022-02-04] MEDS: Budesonide 0.5 MG/2 ML Neb Susp INH SCH ×2 (07:36→19:58)
[2022-02-04] MEDS: Melatonin 3 MG Tab PO SCH (19:57)
[2022-02-05] MEDS: hydrOXYzine Pamoate 25 MG Cap PO SCH ×3 (08:00→19:54)
[2022-02-05] MEDS: predniSONE 20 MG Tab PO SCH (08:00)
[2022-02-05] MEDS: Propranolol 20 MG Tab PO SCH ×2 (08:00→17:15)
[2022-02-05] MEDS: OMEPRAZOLE 40MG CAPS PO SCH (08:00)
[2022-02-05] MEDS: Escitalopram 20 MG Tab PO SCH (08:00)
[2022-02-05] MEDS: busPIRone 15 MG Tab PO SCH ×3 (08:00→19:54)
[2022-02-05] MEDS: Ipratropium 0.02% 0.5 MG/2.5 ML Neb Soln INH SCH ×4 (08:01→19:54)
[2022-02-05] MEDS: Budesonide 0.5 MG/2 ML Neb Susp INH SCH ×2 (08:01→19:53)
[2022-02-05] MEDS: Calcium Carbonate/Vitamin D3 625 MG-125 Unit Tab PO SCH ×2 (08:01→17:16)
[2022-02-05] MEDS: Levalbuterol HCl 0.63 MG/3 ML Neb INH SCH ×4 (08:02→19:53)
[2022-02-05] MEDS: Melatonin 3 MG Tab PO SCH (19:55)
[2022-02-05] MEDS: LORazepam 0.5 MG Tab PO PRN (19:56)
[2022-02-06] MEDS: Budesonide 0.5 MG/2 ML Neb Susp INH SCH ×2 (07:38→19:32)
[2022-02-06] MEDS: Ipratropium 0.02% 0.5 MG/2.5 ML Neb Soln INH SCH ×4 (07:38→19:23)
[2022-02-06] MEDS: Levalbuterol HCl 0.63 MG/3 ML Neb INH SCH ×4 (07:38→19:42)
[2022-02-06] MEDS: Propranolol 20 MG Tab PO SCH ×2 (07:39→17:09)
[2022-02-06] MEDS: predniSONE 20 MG Tab PO SCH (07:39)
[2022-02-06] MEDS: Escitalopram 20 MG Tab PO SCH (07:39)
[2022-02-06] MEDS: OMEPRAZOLE 40MG CAPS PO SCH (07:39)
[2022-02-06] MEDS: busPIRone 15 MG Tab PO SCH ×3 (07:39→19:50)
[2022-02-06] MEDS: hydrOXYzine Pamoate 25 MG Cap PO SCH ×3 (07:39→19:50)
[2022-02-06] MEDS: Calcium Carbonate/Vitamin D3 625 MG-125 Unit Tab PO SCH ×2 (07:40→17:09)
[2022-02-06] MEDS: Melatonin 3 MG Tab PO SCH (19:51)
[2022-02-07] MEDS: Ipratropium 0.02% 0.5 MG/2.5 ML Neb Soln INH SCH ×4 (07:32→19:07)
[2022-02-07] MEDS: Levalbuterol HCl 0.63 MG/3 ML Neb INH SCH ×4 (07:39→19:46)
[2022-02-07] MEDS: busPIRone 15 MG Tab PO SCH ×3 (07:39→19:20)
[2022-02-07] MEDS: Calcium Carbonate/Vitamin D3 625 MG-125 Unit Tab PO SCH ×2 (07:40→17:12)
[2022-02-07] MEDS: hydrOXYzine Pamoate 25 MG Cap PO SCH ×3 (07:40→19:19)
[2022-02-07] MEDS: OMEPRAZOLE 40MG CAPS PO SCH (07:40)
[2022-02-07] MEDS: predniSONE 20 MG Tab PO SCH (07:40)
[2022-02-07] MEDS: Escitalopram 20 MG Tab PO SCH (07:40)
[2022-02-07] MEDS: Propranolol 20 MG Tab PO SCH ×2 (07:40→17:12)
[2022-02-07] MEDS: Budesonide 0.5 MG/2 ML Neb Susp INH SCH ×2 (07:41→19:21)
[2022-02-07] MEDS: Melatonin 3 MG Tab PO SCH (19:20)
[2022-02-08] MEDS: Budesonide 0.5 MG/2 ML Neb Susp INH SCH ×2 (07:45→19:18)
[2022-02-08] MEDS: Ipratropium 0.02% 0.5 MG/2.5 ML Neb Soln INH SCH ×4 (07:46→19:07)
[2022-02-08] MEDS: Levalbuterol HCl 0.63 MG/3 ML Neb INH SCH ×4 (07:46→19:26)
[2022-02-08] MEDS: OMEPRAZOLE 40MG CAPS PO SCH (07:47)
[2022-02-08] MEDS: busPIRone 15 MG Tab PO SCH ×3 (07:47→19:27)
[2022-02-08] MEDS: Escitalopram 20 MG Tab PO SCH (07:47)
[2022-02-08] MEDS: Propranolol 20 MG Tab PO SCH ×2 (07:47→17:19)
[2022-02-08] MEDS: predniSONE 20 MG Tab PO SCH (07:47)
[2022-02-08] MEDS: hydrOXYzine Pamoate 25 MG Cap PO SCH ×3 (07:48→19:27)
[2022-02-08] MEDS: Calcium Carbonate/Vitamin D3 625 MG-125 Unit Tab PO SCH ×2 (07:48→17:19)
[2022-02-08] MEDS: Melatonin 3 MG Tab PO SCH (19:28)
[2022-02-09] MEDS: Levalbuterol HCl 0.63 MG/3 ML Neb INH SCH ×4 (07:33→19:57)
[2022-02-09] MEDS: Ipratropium 0.02% 0.5 MG/2.5 ML Neb Soln INH SCH ×4 (07:34→19:33)
[2022-02-09] MEDS: Budesonide 0.5 MG/2 ML Neb Susp INH SCH ×2 (07:34→19:49)
[2022-02-09] MEDS: Escitalopram 20 MG Tab PO SCH (07:35)
[2022-02-09] MEDS: Propranolol 20 MG Tab PO SCH ×2 (07:35→17:23)
[2022-02-09] MEDS: OMEPRAZOLE 40MG CAPS PO SCH (07:35)
[2022-02-09] MEDS: predniSONE 20 MG Tab PO SCH (07:35)
[2022-02-09] MEDS: busPIRone 15 MG Tab PO SCH ×3 (07:35→19:57)
[2022-02-09] MEDS: Calcium Carbonate/Vitamin D3 625 MG-125 Unit Tab PO SCH ×2 (07:36→17:23)
[2022-02-09] MEDS: hydrOXYzine Pamoate 25 MG Cap PO SCH ×3 (07:36→19:57)
[2022-02-09] MEDS: Melatonin 3 MG Tab PO SCH (19:57)
[2022-02-10] MEDS: Ipratropium 0.02% 0.5 MG/2.5 ML Neb Soln INH SCH ×4 (07:50→19:47)
[2022-02-10] MEDS: Escitalopram 20 MG Tab PO SCH (07:51)
[2022-02-10] MEDS: Propranolol 20 MG Tab PO SCH ×2 (07:51→17:20)
[2022-02-10] MEDS: busPIRone 15 MG Tab PO SCH ×3 (07:51→19:48)
[2022-02-10] MEDS: OMEPRAZOLE 40MG CAPS PO SCH (07:52)
[2022-02-10] MEDS: Calcium Carbonate/Vitamin D3 625 MG-125 Unit Tab PO SCH ×2 (07:52→17:21)
[2022-02-10] MEDS: predniSONE 20 MG Tab PO SCH (07:53)
[2022-02-10] MEDS: Levalbuterol HCl 0.63 MG/3 ML Neb INH SCH ×4 (07:53→19:47)
[2022-02-10] MEDS: Budesonide 0.5 MG/2 ML Neb Susp INH SCH ×2 (07:54→19:47)
[2022-02-10] MEDS: hydrOXYzine Pamoate 25 MG Cap PO SCH ×3 (07:54→19:48)
[2022-02-10] MEDS: Melatonin 3 MG Tab PO SCH (19:48)
[2022-02-10] MEDS: LORazepam 0.5 MG Tab PO PRN (19:49)
[2022-02-11] MEDS: Budesonide 0.5 MG/2 ML Neb Susp INH SCH ×2 (08:02→19:53)
[2022-02-11] MEDS: Levalbuterol HCl 0.63 MG/3 ML Neb INH SCH ×4 (08:02→20:11)
[2022-02-11] MEDS: Ipratropium 0.02% 0.5 MG/2.5 ML Neb Soln INH SCH ×4 (08:02→19:44)
[2022-02-11] MEDS: hydrOXYzine Pamoate 25 MG Cap PO SCH ×3 (08:03→20:11)
[2022-02-11] MEDS: predniSONE 20 MG Tab PO SCH (08:03)
[2022-02-11] MEDS: Propranolol 20 MG Tab PO SCH ×2 (08:03→18:15)
[2022-02-11] MEDS: Escitalopram 20 MG Tab PO SCH (08:03)
[2022-02-11] MEDS: busPIRone 15 MG Tab PO SCH ×3 (08:03→20:11)
[2022-02-11] MEDS: OMEPRAZOLE 40MG CAPS PO SCH (08:03)
[2022-02-11] MEDS: Calcium Carbonate/Vitamin D3 625 MG-125 Unit Tab PO SCH ×2 (08:04→18:14)
[2022-02-11] MEDS: Melatonin 3 MG Tab PO SCH (20:11)
[2022-02-12] MEDS: Budesonide 0.5 MG/2 ML Neb Susp INH SCH ×2 (07:18→19:24)
[2022-02-12] MEDS: Ipratropium 0.02% 0.5 MG/2.5 ML Neb Soln INH SCH ×4 (07:18→19:12)
[2022-02-12] MEDS: Levalbuterol HCl 0.63 MG/3 ML Neb INH SCH ×4 (07:18→19:36)
[2022-02-12] MEDS: hydrOXYzine Pamoate 25 MG Cap PO SCH ×3 (07:20→19:33)
[2022-02-12] MEDS: Propranolol 20 MG Tab PO SCH ×2 (07:20→17:30)
[2022-02-12] MEDS: predniSONE 20 MG Tab PO SCH (07:20)
[2022-02-12] MEDS: Calcium Carbonate/Vitamin D3 625 MG-125 Unit Tab PO SCH ×2 (07:20→17:31)
[2022-02-12] MEDS: busPIRone 15 MG Tab PO SCH ×3 (07:20→19:33)
[2022-02-12] MEDS: OMEPRAZOLE 40MG CAPS PO SCH (07:20)
[2022-02-12] MEDS: Escitalopram 20 MG Tab PO SCH (07:20)
[2022-02-12] MEDS: Melatonin 3 MG Tab PO SCH (19:33)
[2022-02-13] MEDS: Levalbuterol HCl 0.63 MG/3 ML Neb INH SCH ×4 (07:19→19:48)
[2022-02-13] MEDS: Ipratropium 0.02% 0.5 MG/2.5 ML Neb Soln INH SCH ×4 (07:19→19:47)
[2022-02-13] MEDS: Budesonide 0.5 MG/2 ML Neb Susp INH SCH ×2 (07:19→19:47)
[2022-02-13] MEDS: Escitalopram 20 MG Tab PO SCH (07:20)
[2022-02-13] MEDS: predniSONE 20 MG Tab PO SCH (07:20)
[2022-02-13] MEDS: busPIRone 15 MG Tab PO SCH ×3 (07:20→19:48)
[2022-02-13] MEDS: Propranolol 20 MG Tab PO SCH ×2 (07:20→17:12)
[2022-02-13] MEDS: hydrOXYzine Pamoate 25 MG Cap PO SCH ×3 (07:20→19:48)
[2022-02-13] MEDS: OMEPRAZOLE 40MG CAPS PO SCH (07:20)
[2022-02-13] MEDS: Calcium Carbonate/Vitamin D3 625 MG-125 Unit Tab PO SCH ×2 (07:21→17:12)
[2022-02-13] MEDS: Melatonin 3 MG Tab PO SCH (19:49)
[2022-02-13] MEDS: LORazepam 0.5 MG Tab PO PRN (19:50)
[2022-02-14] MEDS: Escitalopram 20 MG Tab PO SCH (07:43)
[2022-02-14] MEDS: Ipratropium 0.02% 0.5 MG/2.5 ML Neb Soln INH SCH ×4 (07:43→19:23)
[2022-02-14] MEDS: OMEPRAZOLE 40MG CAPS PO SCH (07:43)
[2022-02-14] MEDS: Propranolol 20 MG Tab PO SCH ×2 (07:43→17:04)
[2022-02-14] MEDS: busPIRone 15 MG Tab PO SCH ×3 (07:43→19:25)
[2022-02-14] MEDS: hydrOXYzine Pamoate 25 MG Cap PO SCH ×3 (07:44→19:25)
[2022-02-14] MEDS: Budesonide 0.5 MG/2 ML Neb Susp INH SCH ×2 (07:44→19:24)
[2022-02-14] MEDS: predniSONE 20 MG Tab PO SCH (07:44)
[2022-02-14] MEDS: Calcium Carbonate/Vitamin D3 625 MG-125 Unit Tab PO SCH ×2 (07:44→17:04)
[2022-02-14] MEDS: Levalbuterol HCl 0.63 MG/3 ML Neb INH SCH ×4 (07:47→19:24)
[2022-02-14] MEDS: Melatonin 3 MG Tab PO SCH (19:25)
[2022-02-14] MEDS: LORazepam 0.5 MG Tab PO PRN (19:27)
[2022-02-15] MEDS: Ipratropium 0.02% 0.5 MG/2.5 ML Neb Soln INH SCH ×4 (07:27→19:45)
[2022-02-15] MEDS: predniSONE 20 MG Tab PO SCH (07:28)
[2022-02-15] MEDS: Escitalopram 20 MG Tab PO SCH (07:28)
[2022-02-15] MEDS: busPIRone 15 MG Tab PO SCH ×3 (07:28→19:45)
[2022-02-15] MEDS: Propranolol 20 MG Tab PO SCH ×2 (07:28→17:11)
[2022-02-15] MEDS: Calcium Carbonate/Vitamin D3 625 MG-125 Unit Tab PO SCH ×2 (07:28→17:11)
[2022-02-15] MEDS: OMEPRAZOLE 40MG CAPS PO SCH (07:28)
[2022-02-15] MEDS: Levalbuterol HCl 0.63 MG/3 ML Neb INH SCH ×4 (07:29→19:48)
[2022-02-15] MEDS: hydrOXYzine Pamoate 25 MG Cap PO SCH ×3 (07:29→19:47)
[2022-02-15] MEDS: Budesonide 0.5 MG/2 ML Neb Susp INH SCH ×2 (07:35→19:47)
[2022-02-15] MEDS: Melatonin 3 MG Tab PO SCH (19:46)
[2022-02-16] MEDS: Escitalopram 20 MG Tab PO SCH (07:15)
[2022-02-16] MEDS: busPIRone 15 MG Tab PO SCH ×3 (07:15→19:57)
[2022-02-16] MEDS: Ipratropium 0.02% 0.5 MG/2.5 ML Neb Soln INH SCH ×4 (07:15→19:57)
[2022-02-16] MEDS: Propranolol 20 MG Tab PO SCH ×2 (07:15→17:05)
[2022-02-16] MEDS: OMEPRAZOLE 40MG CAPS PO SCH (07:15)
[2022-02-16] MEDS: Calcium Carbonate/Vitamin D3 625 MG-125 Unit Tab PO SCH ×2 (07:16→17:05)
[2022-02-16] MEDS: Levalbuterol HCl 0.63 MG/3 ML Neb INH SCH ×4 (07:16→19:59)
[2022-02-16] MEDS: predniSONE 20 MG Tab PO SCH (07:16)
[2022-02-16] MEDS: hydrOXYzine Pamoate 25 MG Cap PO SCH ×3 (07:16→19:59)
[2022-02-16] MEDS: Budesonide 0.5 MG/2 ML Neb Susp INH SCH ×2 (07:23→19:59)
[2022-02-16] MEDS: Melatonin 3 MG Tab PO SCH (19:58)
[2022-02-17] MEDS: Escitalopram 20 MG Tab PO SCH (07:28)
[2022-02-17] MEDS: Propranolol 20 MG Tab PO SCH ×2 (07:28→17:11)
[2022-02-17] MEDS: Ipratropium 0.02% 0.5 MG/2.5 ML Neb Soln INH SCH ×4 (07:28→19:49)
[2022-02-17] MEDS: busPIRone 15 MG Tab PO SCH ×3 (07:28→19:49)
[2022-02-17] MEDS: OMEPRAZOLE 40MG CAPS PO SCH (07:28)
[2022-02-17] MEDS: Calcium Carbonate/Vitamin D3 625 MG-125 Unit Tab PO SCH ×2 (07:29→17:11)
[2022-02-17] MEDS: hydrOXYzine Pamoate 25 MG Cap PO SCH ×3 (07:29→19:50)
[2022-02-17] MEDS: Levalbuterol HCl 0.63 MG/3 ML Neb INH SCH ×4 (07:29→19:51)
[2022-02-17] MEDS: predniSONE 20 MG Tab PO SCH (07:29)
[2022-02-17] MEDS: Budesonide 0.5 MG/2 ML Neb Susp INH SCH ×2 (07:32→19:50)
[2022-02-17] MEDS: Melatonin 3 MG Tab PO SCH (19:49)
[2022-02-18] MEDS: Ipratropium 0.02% 0.5 MG/2.5 ML Neb Soln INH SCH ×4 (07:28→19:50)
[2022-02-18] MEDS: busPIRone 15 MG Tab PO SCH ×3 (07:29→19:51)
[2022-02-18] MEDS: Propranolol 20 MG Tab PO SCH ×2 (07:29→17:06)
[2022-02-18] MEDS: Calcium Carbonate/Vitamin D3 625 MG-125 Unit Tab PO SCH ×2 (07:29→17:07)
[2022-02-18] MEDS: OMEPRAZOLE 40MG CAPS PO SCH (07:29)
[2022-02-18] MEDS: Escitalopram 20 MG Tab PO SCH (07:29)
[2022-02-18] MEDS: hydrOXYzine Pamoate 25 MG Cap PO SCH ×3 (07:30→19:51)
[2022-02-18] MEDS: predniSONE 20 MG Tab PO SCH (07:30)
[2022-02-18] MEDS: Levalbuterol HCl 0.63 MG/3 ML Neb INH SCH ×4 (07:30→19:50)
[2022-02-18] MEDS: Budesonide 0.5 MG/2 ML Neb Susp INH SCH ×2 (07:36→19:50)
[2022-02-18] MEDS: Melatonin 3 MG Tab PO SCH (19:52)
[2022-02-19] MEDS: Ipratropium 0.02% 0.5 MG/2.5 ML Neb Soln INH SCH ×4 (07:37→19:42)
[2022-02-19] MEDS: Propranolol 20 MG Tab PO SCH ×2 (07:44→17:13)
[2022-02-19] MEDS: busPIRone 15 MG Tab PO SCH ×3 (07:44→19:43)
[2022-02-19] MEDS: Escitalopram 20 MG Tab PO SCH (07:44)
[2022-02-19] MEDS: predniSONE 20 MG Tab PO SCH (07:45)
[2022-02-19] MEDS: OMEPRAZOLE 40MG CAPS PO SCH (07:45)
[2022-02-19] MEDS: hydrOXYzine Pamoate 25 MG Cap PO SCH ×3 (07:45→19:43)
[2022-02-19] MEDS: Calcium Carbonate/Vitamin D3 625 MG-125 Unit Tab PO SCH ×2 (07:45→17:13)
[2022-02-19] MEDS: Levalbuterol HCl 0.63 MG/3 ML Neb INH SCH ×4 (07:46→19:43)
[2022-02-19] MEDS: Budesonide 0.5 MG/2 ML Neb Susp INH SCH ×2 (07:51→19:42)
[2022-02-19] MEDS: Melatonin 3 MG Tab PO SCH (19:44)
[2022-02-20] MEDS: Ipratropium 0.02% 0.5 MG/2.5 ML Neb Soln INH SCH ×4 (07:12→19:48)
[2022-02-20] MEDS: Calcium Carbonate/Vitamin D3 625 MG-125 Unit Tab PO SCH ×2 (07:19→16:59)
[2022-02-20] MEDS: OMEPRAZOLE 40MG CAPS PO SCH (07:19)
[2022-02-20] MEDS: busPIRone 15 MG Tab PO SCH ×3 (07:19→19:49)
[2022-02-20] MEDS: Propranolol 20 MG Tab PO SCH ×2 (07:19→16:59)
[2022-02-20] MEDS: Escitalopram 20 MG Tab PO SCH (07:19)
[2022-02-20] MEDS: Levalbuterol HCl 0.63 MG/3 ML Neb INH SCH ×4 (07:20→19:49)
[2022-02-20] MEDS: hydrOXYzine Pamoate 25 MG Cap PO SCH ×3 (07:20→19:49)
[2022-02-20] MEDS: predniSONE 20 MG Tab PO SCH (07:20)
[2022-02-20] MEDS: Budesonide 0.5 MG/2 ML Neb Susp INH SCH ×2 (07:23→19:48)
[2022-02-20] MEDS: Melatonin 3 MG Tab PO SCH (19:50)
[2022-02-21] MEDS: predniSONE 20 MG Tab PO SCH (09:34)
[2022-02-21] MEDS: hydrOXYzine Pamoate 25 MG Cap PO SCH ×3 (09:34→20:28)
[2022-02-21] MEDS: OMEPRAZOLE 40MG CAPS PO SCH (09:35)
[2022-02-21] MEDS: Escitalopram 20 MG Tab PO SCH (09:35)
[2022-02-21] MEDS: Calcium Carbonate/Vitamin D3 625 MG-125 Unit Tab PO SCH ×2 (09:37→17:59)
[2022-02-21] MEDS: busPIRone 15 MG Tab PO SCH ×3 (09:40→20:27)
[2022-02-21] MEDS: Propranolol 20 MG Tab PO SCH ×2 (09:40→17:58)
[2022-02-21] MEDS: Ipratropium 0.02% 0.5 MG/2.5 ML Neb Soln INH SCH ×4 (09:44→20:25)
[2022-02-21] MEDS: Levalbuterol HCl 0.63 MG/3 ML Neb INH SCH ×4 (09:47→20:29)
[2022-02-21] MEDS: Budesonide 0.5 MG/2 ML Neb Susp INH SCH ×2 (09:48→20:28)
[2022-02-21] MEDS: Melatonin 3 MG Tab PO SCH (20:27)
[2022-02-22] MEDS: Budesonide 0.5 MG/2 ML Neb Susp INH SCH ×2 (07:34→19:34)
[2022-02-22] MEDS: Ipratropium 0.02% 0.5 MG/2.5 ML Neb Soln INH SCH ×4 (07:35→19:25)
[2022-02-22] MEDS: Levalbuterol HCl 0.63 MG/3 ML Neb INH SCH ×4 (07:35→19:47)
[2022-02-22] MEDS: hydrOXYzine Pamoate 25 MG Cap PO SCH ×3 (07:36→19:46)
[2022-02-22] MEDS: Escitalopram 20 MG Tab PO SCH (07:36)
[2022-02-22] MEDS: OMEPRAZOLE 40MG CAPS PO SCH (07:36)
[2022-02-22] MEDS: busPIRone 15 MG Tab PO SCH ×3 (07:36→19:46)
[2022-02-22] MEDS: predniSONE 20 MG Tab PO SCH (07:36)
[2022-02-22] MEDS: Propranolol 20 MG Tab PO SCH ×2 (07:36→17:06)
[2022-02-22] MEDS: Calcium Carbonate/Vitamin D3 625 MG-125 Unit Tab PO SCH ×2 (09:00→17:06)
[2022-02-22] MEDS: Melatonin 3 MG Tab PO SCH (19:47)
[2022-02-23] MEDS: Ipratropium 0.02% 0.5 MG/2.5 ML Neb Soln INH SCH ×4 (07:43→19:09)
[2022-02-23] MEDS: busPIRone 15 MG Tab PO SCH ×3 (07:43→19:39)
[2022-02-23] MEDS: Escitalopram 20 MG Tab PO SCH (07:44)
[2022-02-23] MEDS: OMEPRAZOLE 40MG CAPS PO SCH (07:44)
[2022-02-23] MEDS: Propranolol 20 MG Tab PO SCH ×2 (07:44→17:51)
[2022-02-23] MEDS: predniSONE 20 MG Tab PO SCH (07:45)
[2022-02-23] MEDS: Calcium Carbonate/Vitamin D3 625 MG-125 Unit Tab PO SCH ×2 (07:45→17:51)
[2022-02-23] MEDS: Budesonide 0.5 MG/2 ML Neb Susp INH SCH ×2 (07:46→19:18)
[2022-02-23] MEDS: hydrOXYzine Pamoate 25 MG Cap PO SCH ×3 (07:46→19:39)
[2022-02-23] MEDS: Levalbuterol HCl 0.63 MG/3 ML Neb INH SCH ×4 (07:48→19:39)
[2022-02-23] MEDS: Melatonin 3 MG Tab PO SCH (19:39)
[2022-02-24] MEDS: Ipratropium 0.02% 0.5 MG/2.5 ML Neb Soln INH SCH ×4 (07:21→19:34)
[2022-02-24] MEDS: busPIRone 15 MG Tab PO SCH ×3 (07:21→20:11)
[2022-02-24] MEDS: Levalbuterol HCl 0.63 MG/3 ML Neb INH SCH ×4 (07:21→20:10)
[2022-02-24] MEDS: Budesonide 0.5 MG/2 ML Neb Susp INH SCH ×2 (07:21→19:56)
[2022-02-24] MEDS: Propranolol 20 MG Tab PO SCH ×2 (07:22→17:17)
[2022-02-24] MEDS: OMEPRAZOLE 40MG CAPS PO SCH (07:22)
[2022-02-24] MEDS: hydrOXYzine Pamoate 25 MG Cap PO SCH ×3 (07:22→20:11)
[2022-02-24] MEDS: Escitalopram 20 MG Tab PO SCH (07:22)
[2022-02-24] MEDS: predniSONE 20 MG Tab PO SCH (07:22)
[2022-02-24] MEDS: Calcium Carbonate/Vitamin D3 625 MG-125 Unit Tab PO SCH ×2 (07:23→17:18)
[2022-02-24] MEDS: Melatonin 3 MG Tab PO SCH (20:11)
[2022-02-25] MEDS: busPIRone 15 MG Tab PO SCH ×3 (07:55→20:02)
[2022-02-25] MEDS: Propranolol 20 MG Tab PO SCH ×2 (07:55→17:35)
[2022-02-25] MEDS: Levalbuterol HCl 0.63 MG/3 ML Neb INH SCH ×4 (08:00→20:05)
[2022-02-25] MEDS: Budesonide 0.5 MG/2 ML Neb Susp INH SCH ×2 (08:00→20:03)
[2022-02-25] MEDS: OMEPRAZOLE 40MG CAPS PO SCH (08:00)
[2022-02-25] MEDS: predniSONE 20 MG Tab PO SCH (08:00)
[2022-02-25] MEDS: Escitalopram 20 MG Tab PO SCH (08:00)
[2022-02-25] MEDS: Ipratropium 0.02% 0.5 MG/2.5 ML Neb Soln INH SCH ×4 (08:10→20:01)
[2022-02-25] MEDS: Calcium Carbonate/Vitamin D3 625 MG-125 Unit Tab PO SCH ×2 (08:55→17:36)
[2022-02-25] MEDS: hydrOXYzine Pamoate 25 MG Cap PO SCH ×3 (11:44→20:04)
[2022-02-25] MEDS: Melatonin 3 MG Tab PO SCH (20:02)
[2022-02-26] MEDS: Levalbuterol HCl 0.63 MG/3 ML Neb INH SCH ×4 (08:30→20:13)
[2022-02-26] MEDS: Ipratropium 0.02% 0.5 MG/2.5 ML Neb Soln INH SCH ×4 (08:30→20:10)
[2022-02-26] MEDS: Budesonide 0.5 MG/2 ML Neb Susp INH SCH ×2 (08:31→20:12)
[2022-02-26] MEDS: Escitalopram 20 MG Tab PO SCH (08:32)
[2022-02-26] MEDS: Propranolol 20 MG Tab PO SCH (08:32)
[2022-02-26] MEDS: predniSONE 20 MG Tab PO SCH (08:33)
[2022-02-26] MEDS: OMEPRAZOLE 40MG CAPS PO SCH (08:33)
[2022-02-26] MEDS: Calcium Carbonate/Vitamin D3 625 MG-125 Unit Tab PO SCH ×2 (08:33→17:55)
[2022-02-26] MEDS: busPIRone 15 MG Tab PO SCH ×3 (08:33→20:11)
[2022-02-26] MEDS: hydrOXYzine Pamoate 25 MG Cap PO SCH ×3 (08:33→20:12)
[2022-02-26] MEDS: PROPRANOLOL 10 MG PO SCH (17:54)
[2022-02-26] MEDS: Melatonin 3 MG Tab PO SCH (20:11)
[2022-02-27] MEDS: hydrOXYzine Pamoate 25 MG Cap PO SCH ×3 (08:41→20:05)
[2022-02-27] MEDS: predniSONE 20 MG Tab PO SCH (08:42)
[2022-02-27] MEDS: OMEPRAZOLE 40MG CAPS PO SCH (08:42)
[2022-02-27] MEDS: PROPRANOLOL 10 MG PO SCH ×2 (08:42→17:06)
[2022-02-27] MEDS: busPIRone 15 MG Tab PO SCH ×3 (08:42→20:05)
[2022-02-27] MEDS: Escitalopram 20 MG Tab PO SCH (08:42)
[2022-02-27] MEDS: Calcium Carbonate/Vitamin D3 625 MG-125 Unit Tab PO SCH ×2 (08:43→17:04)
[2022-02-27] MEDS: Ipratropium 0.02% 0.5 MG/2.5 ML Neb Soln INH SCH ×4 (08:44→19:43)
[2022-02-27] MEDS: Budesonide 0.5 MG/2 ML Neb Susp INH SCH ×2 (08:45→19:56)
[2022-02-27] MEDS: Levalbuterol HCl 0.63 MG/3 ML Neb INH SCH ×4 (08:45→20:06)
[2022-02-27] MEDS: Melatonin 3 MG Tab PO SCH (20:06)
[2022-02-28] MEDS: Ipratropium 0.02% 0.5 MG/2.5 ML Neb Soln INH SCH ×4 (07:38→19:45)
[2022-02-28] MEDS: Escitalopram 20 MG Tab PO SCH (07:39)
[2022-02-28] MEDS: OMEPRAZOLE 40MG CAPS PO SCH (07:39)
[2022-02-28] MEDS: busPIRone 15 MG Tab PO SCH ×3 (07:39→19:47)
[2022-02-28] MEDS: predniSONE 20 MG Tab PO SCH (07:40)
[2022-02-28] MEDS: Levalbuterol HCl 0.63 MG/3 ML Neb INH SCH ×4 (07:40→19:45)
[2022-02-28] MEDS: PROPRANOLOL 10 MG PO SCH ×2 (07:40→17:04)
[2022-02-28] MEDS: hydrOXYzine Pamoate 25 MG Cap PO SCH ×3 (07:40→19:46)
[2022-02-28] MEDS: Calcium Carbonate/Vitamin D3 625 MG-125 Unit Tab PO SCH ×2 (07:40→17:04)
[2022-02-28] MEDS: Budesonide 0.5 MG/2 ML Neb Susp INH SCH ×2 (07:44→19:45)
[2022-02-28] MEDS: Melatonin 3 MG Tab PO SCH (19:46)
[2022-02-28] MEDS: guaiFENesin 600 MG Tab.ER PO SCH (19:47)
[2022-02-28] MEDS: Acetaminophen 325 MG Tab PO PRN (20:11)
[2022-03-01] MEDS: OMEPRAZOLE 40MG CAPS PO SCH (08:25)
[2022-03-01] MEDS: predniSONE 20 MG Tab PO SCH (08:25)
[2022-03-01] MEDS: PROPRANOLOL 10 MG PO SCH ×2 (08:25→17:22)
[2022-03-01] MEDS: hydrOXYzine Pamoate 25 MG Cap PO SCH ×3 (08:25→19:54)
[2022-03-01] MEDS: Escitalopram 20 MG Tab PO SCH (08:26)
[2022-03-01] MEDS: busPIRone 15 MG Tab PO SCH ×3 (08:26→19:55)
[2022-03-01] MEDS: guaiFENesin 600 MG Tab.ER PO SCH ×2 (08:26→19:55)
[2022-03-01] MEDS: Calcium Carbonate/Vitamin D3 625 MG-125 Unit Tab PO SCH ×2 (08:27→17:23)
[2022-03-01] MEDS: Ipratropium 0.02% 0.5 MG/2.5 ML Neb Soln INH SCH ×4 (08:27→19:53)
[2022-03-01] MEDS: Levalbuterol HCl 0.63 MG/3 ML Neb INH SCH ×4 (08:28→19:54)
[2022-03-01] MEDS: Budesonide 0.5 MG/2 ML Neb Susp INH SCH ×2 (08:28→19:53)
[2022-03-01] MEDS: Melatonin 3 MG Tab PO SCH (19:55)
[2022-03-02] MEDS: PROPRANOLOL 10 MG PO SCH ×2 (07:18→17:09)
[2022-03-02] MEDS: hydrOXYzine Pamoate 25 MG Cap PO SCH ×3 (07:18→19:57)
[2022-03-02] MEDS: predniSONE 20 MG Tab PO SCH (07:18)
[2022-03-02] MEDS: OMEPRAZOLE 40MG CAPS PO SCH (07:18)
[2022-03-02] MEDS: guaiFENesin 600 MG Tab.ER PO SCH ×2 (07:19→21:09)
[2022-03-02] MEDS: busPIRone 15 MG Tab PO SCH ×3 (07:19→19:58)
[2022-03-02] MEDS: Escitalopram 20 MG Tab PO SCH (07:19)
[2022-03-02] MEDS: Calcium Carbonate/Vitamin D3 625 MG-125 Unit Tab PO SCH ×2 (07:20→17:09)
[2022-03-02] MEDS: Budesonide 0.5 MG/2 ML Neb Susp INH SCH ×2 (07:20→19:57)
[2022-03-02] MEDS: Ipratropium 0.02% 0.5 MG/2.5 ML Neb Soln INH SCH ×4 (07:20→19:57)
[2022-03-02] MEDS: Levalbuterol HCl 0.63 MG/3 ML Neb INH SCH ×4 (07:20→19:57)
[2022-03-02] MEDS: Melatonin 3 MG Tab PO SCH (19:58)
[2022-03-03] MEDS: hydrOXYzine Pamoate 25 MG Cap PO SCH ×3 (08:15→19:52)
[2022-03-03] MEDS: PROPRANOLOL 10 MG PO SCH ×2 (08:16→17:05)
[2022-03-03] MEDS: Escitalopram 20 MG Tab PO SCH (08:16)
[2022-03-03] MEDS: OMEPRAZOLE 40MG CAPS PO SCH (08:16)
[2022-03-03] MEDS: predniSONE 20 MG Tab PO SCH (08:16)
[2022-03-03] MEDS: busPIRone 15 MG Tab PO SCH ×3 (08:16→19:53)
[2022-03-03] MEDS: Levalbuterol HCl 0.63 MG/3 ML Neb INH SCH ×4 (08:17→19:52)
[2022-03-03] MEDS: Ipratropium 0.02% 0.5 MG/2.5 ML Neb Soln INH SCH ×4 (08:17→19:52)
[2022-03-03] MEDS: Budesonide 0.5 MG/2 ML Neb Susp INH SCH ×2 (08:17→19:52)
[2022-03-03] MEDS: Calcium Carbonate/Vitamin D3 625 MG-125 Unit Tab PO SCH ×2 (08:18→17:05)
[2022-03-03] MEDS: guaiFENesin 600 MG Tab.ER PO SCH ×2 (08:18→19:53)
[2022-03-03] MEDS: Acetaminophen 325 MG Tab PO PRN (08:19)
[2022-03-03] MEDS: Melatonin 3 MG Tab PO SCH (19:53)
[2022-03-04] MEDS: Ipratropium 0.02% 0.5 MG/2.5 ML Neb Soln INH SCH ×4 (07:17→19:11)
[2022-03-04] MEDS: Escitalopram 20 MG Tab PO SCH (07:24)
[2022-03-04] MEDS: busPIRone 15 MG Tab PO SCH ×3 (07:24→19:37)
[2022-03-04] MEDS: guaiFENesin 600 MG Tab.ER PO SCH ×2 (07:24→19:38)
[2022-03-04] MEDS: PROPRANOLOL 10 MG PO SCH ×2 (07:25→17:13)
[2022-03-04] MEDS: Calcium Carbonate/Vitamin D3 625 MG-125 Unit Tab PO SCH ×2 (07:25→17:13)
[2022-03-04] MEDS: hydrOXYzine Pamoate 25 MG Cap PO SCH ×3 (07:25→19:37)
[2022-03-04] MEDS: OMEPRAZOLE 40MG CAPS PO SCH (07:25)
[2022-03-04] MEDS: predniSONE 20 MG Tab PO SCH (07:25)
[2022-03-04] MEDS: Levalbuterol HCl 0.63 MG/3 ML Neb INH SCH ×4 (07:26→19:37)
[2022-03-04] MEDS: Budesonide 0.5 MG/2 ML Neb Susp INH SCH ×2 (07:31→19:21)
[2022-03-04 12:03] VITALS: BP 120/55; PULSE 96
[2022-03-04] MEDS: Melatonin 3 MG Tab PO SCH (19:38)
[2022-03-05] MEDS: busPIRone 15 MG Tab PO SCH ×3 (07:26→19:46)
[2022-03-05] MEDS: guaiFENesin 600 MG Tab.ER PO SCH ×2 (07:26→19:46)
[2022-03-05] MEDS: Escitalopram 20 MG Tab PO SCH (07:26)
[2022-03-05] MEDS: Ipratropium 0.02% 0.5 MG/2.5 ML Neb Soln INH SCH ×4 (07:26→19:42)
[2022-03-05] MEDS: Calcium Carbonate/Vitamin D3 625 MG-125 Unit Tab PO SCH ×2 (07:26→17:08)
[2022-03-05] MEDS: OMEPRAZOLE 40MG CAPS PO SCH (07:26)
[2022-03-05] MEDS: PROPRANOLOL 10 MG PO SCH ×2 (07:26→17:07)
[2022-03-05] MEDS: Levalbuterol HCl 0.63 MG/3 ML Neb INH SCH ×4 (07:27→19:43)
[2022-03-05] MEDS: hydrOXYzine Pamoate 25 MG Cap PO SCH ×3 (07:27→19:46)
[2022-03-05] MEDS: predniSONE 20 MG Tab PO SCH (07:27)
[2022-03-05] MEDS: Budesonide 0.5 MG/2 ML Neb Susp INH SCH ×2 (07:28→19:42)
[2022-03-05] MEDS: Melatonin 3 MG Tab PO SCH (19:45)
[2022-03-05] MEDS: Acetaminophen 325 MG Tab PO PRN (21:10)
[2022-03-06] MEDS: Ipratropium 0.02% 0.5 MG/2.5 ML Neb Soln INH SCH ×4 (07:31→19:27)
[2022-03-06] MEDS: busPIRone 15 MG Tab PO SCH ×3 (07:32→19:29)
[2022-03-06] MEDS: Escitalopram 20 MG Tab PO SCH (07:33)
[2022-03-06] MEDS: guaiFENesin 600 MG Tab.ER PO SCH ×2 (07:33→19:28)
[2022-03-06] MEDS: PROPRANOLOL 10 MG PO SCH ×2 (07:34→17:19)
[2022-03-06] MEDS: OMEPRAZOLE 40MG CAPS PO SCH (07:34)
[2022-03-06] MEDS: predniSONE 20 MG Tab PO SCH (07:34)
[2022-03-06] MEDS: Calcium Carbonate/Vitamin D3 625 MG-125 Unit Tab PO SCH ×2 (07:34→17:19)
[2022-03-06] MEDS: Levalbuterol HCl 0.63 MG/3 ML Neb INH SCH ×4 (07:35→19:27)
[2022-03-06] MEDS: hydrOXYzine Pamoate 25 MG Cap PO SCH ×3 (07:35→19:29)
[2022-03-06] MEDS: Budesonide 0.5 MG/2 ML Neb Susp INH SCH ×2 (07:36→19:28)
[2022-03-06] MEDS ORDERED: Trolamine Salicylate/Aloe Vera 10% Crm 85 GM Tube TOP PRN (16:38)
[2022-03-06] MEDS: Melatonin 3 MG Tab PO SCH (19:28)
[2022-03-07] MEDS: Levalbuterol HCl 0.63 MG/3 ML Neb INH SCH ×2 (07:18→11:29)
[2022-03-07] MEDS: Ipratropium 0.02% 0.5 MG/2.5 ML Neb Soln INH SCH ×2 (07:18→11:29)
[2022-03-07] MEDS: Budesonide 0.5 MG/2 ML Neb Susp INH SCH (07:18)
[2022-03-07] MEDS: OMEPRAZOLE 40MG CAPS PO SCH (07:19)
[2022-03-07] MEDS: busPIRone 15 MG Tab PO SCH (07:19)
[2022-03-07] MEDS: hydrOXYzine Pamoate 25 MG Cap PO SCH (07:19)
[2022-03-07] MEDS: Escitalopram 20 MG Tab PO SCH (07:19)
[2022-03-07] MEDS: predniSONE 20 MG Tab PO SCH (07:19)
[2022-03-07] MEDS: PROPRANOLOL 10 MG PO SCH (07:19)
[2022-03-07] MEDS: guaiFENesin 600 MG Tab.ER PO SCH (07:20)
[2022-03-07] MEDS: Calcium Carbonate/Vitamin D3 625 MG-125 Unit Tab PO SCH (07:20)
== END 2022-03-07 12:39 | disposition swing bed (61) | DRG 189 ==
LOC: LL.MS 12:45 → UNDOADMIN 12:45 → LL.MS 15:03 → LL.SWG 01-04 14:13 → LL.MS 03-05 10:24 → LL.SWG 03-05 10:31
PROVIDERS: ADMIT Nurse Practitioner Family; ATTEND Nurse Practitioner Family
DX: J96.21 Acute and chronic respiratory failure with hypoxia (principal); J15.9 Unspecified bacterial pneumonia; J69.0 Pneumonitis due to inhalation of food and vomit; J84.9 Interstitial pulmonary disease, unspecified; E44.0 Moderate protein-calorie malnutrition; J44.0 Chronic obstructive pulmonary disease with (acute) lower respiratory infection; J84.10 Pulmonary fibrosis, unspecified; K44.9 Diaphragmatic hernia without obstruction or gangrene; K21.9 Gastro-esophageal reflux disease without esophagitis; K22.2 Esophageal obstruction; M81.0 Age-related osteoporosis without current pathological fracture; F41.9 Anxiety disorder, unspecified; E87.5 Hyperkalemia; E83.52 Hypercalcemia; R00.0 Tachycardia, unspecified; H54.7 Unspecified visual loss; E78.00 Pure hypercholesterolemia, unspecified; K57.90 Diverticulosis of intestine, part unspecified, without perforation or abscess without bleeding; R32 Unspecified urinary incontinence; Z96.653 Presence of artificial knee joint, bilateral; Z79.899 Other long term (current) drug therapy; Z79.52 Long term (current) use of systemic steroids; Z90.710 Acquired absence of both cervix and uterus
CPT/HCPCS: 36415; 80048; 94640; 94761; 97110-GO; 97110-GP; 97163-GP; 97166-GO; 97530-GO; 97535-GO; A9270-GY; J7512; Q0177

== ENCOUNTER 2022-03-04 10:39 | Inpatient (IN) | payer MEDICARE, MEDICAID ==
[2022-03-07] MEDS ORDERED: Acetaminophen 325 MG Tab PO PRN (11:30)
[2022-03-07] MEDS ORDERED: Trolamine Salicylate/Aloe Vera 10% Crm 85 GM Tube TOP PRN (11:30)
[2022-03-07] MEDS: Levalbuterol HCl 0.63 MG/3 ML Neb INH SCH ×3 (14:01→19:30)
[2022-03-07] MEDS: Ipratropium 0.02% 0.5 MG/2.5 ML Neb Soln INH SCH ×3 (14:01→19:13)
[2022-03-07] MEDS: hydrOXYzine Pamoate 25 MG Cap PO SCH ×2 (17:07→19:32)
[2022-03-07] MEDS: busPIRone 15 MG Tab PO SCH ×2 (17:08→19:32)
[2022-03-07] MEDS: Calcium Carbonate/Vitamin D3 625 MG-125 Unit Tab PO SCH (17:52)
[2022-03-07] MEDS: PROPRANOLOL 10 MG PO SCH (17:52)
[2022-03-07] MEDS: Menthol 10%/Methyl Salicylate 15% 85 GM Tube TOP SCH (17:55)
[2022-03-07] MEDS: Budesonide 0.5 MG/2 ML Neb Susp INH SCH (19:24)
[2022-03-07] MEDS: Melatonin 3 MG Tab PO SCH (19:33)
[2022-03-07] MEDS: guaiFENesin 600 MG Tab.ER PO SCH (19:37)
[2022-03-08] MEDS: Budesonide 0.5 MG/2 ML Neb Susp INH SCH ×2 (07:18→20:06)
[2022-03-08] MEDS: Ipratropium 0.02% 0.5 MG/2.5 ML Neb Soln INH SCH ×4 (07:18→20:03)
[2022-03-08] MEDS: Levalbuterol HCl 0.63 MG/3 ML Neb INH SCH ×4 (07:19→20:07)
[2022-03-08] MEDS: busPIRone 15 MG Tab PO SCH ×3 (07:20→20:04)
[2022-03-08] MEDS: OMEPRAZOLE 40MG CAPS PO SCH (07:20)
[2022-03-08] MEDS: predniSONE 20 MG Tab PO SCH (07:21)
[2022-03-08] MEDS: Escitalopram 20 MG Tab PO SCH (07:21)
[2022-03-08] MEDS: hydrOXYzine Pamoate 25 MG Cap PO SCH ×3 (07:21→20:06)
[2022-03-08] MEDS: PROPRANOLOL 10 MG PO SCH ×2 (07:21→17:18)
[2022-03-08] MEDS: Calcium Carbonate/Vitamin D3 625 MG-125 Unit Tab PO SCH ×2 (07:22→17:18)
[2022-03-08] MEDS: guaiFENesin 600 MG Tab.ER PO SCH ×2 (07:22→20:05)
[2022-03-08] MEDS: Menthol 10%/Methyl Salicylate 15% 85 GM Tube TOP SCH ×2 (07:23→17:17)
[2022-03-08] MEDS: Melatonin 3 MG Tab PO SCH (20:04)
[2022-03-09] MEDS: Ipratropium 0.02% 0.5 MG/2.5 ML Neb Soln INH SCH ×4 (07:15→19:47)
[2022-03-09] MEDS: Budesonide 0.5 MG/2 ML Neb Susp INH SCH ×2 (07:15→19:49)
[2022-03-09] MEDS: Levalbuterol HCl 0.63 MG/3 ML Neb INH SCH ×4 (07:15→19:50)
[2022-03-09] MEDS: predniSONE 20 MG Tab PO SCH (07:16)
[2022-03-09] MEDS: hydrOXYzine Pamoate 25 MG Cap PO SCH ×3 (07:16→19:49)
[2022-03-09] MEDS: PROPRANOLOL 10 MG PO SCH ×2 (07:16→17:03)
[2022-03-09] MEDS: Escitalopram 20 MG Tab PO SCH (07:16)
[2022-03-09] MEDS: busPIRone 15 MG Tab PO SCH ×3 (07:16→19:47)
[2022-03-09] MEDS: OMEPRAZOLE 40MG CAPS PO SCH (07:17)
[2022-03-09] MEDS: guaiFENesin 600 MG Tab.ER PO SCH ×2 (07:18→19:48)
[2022-03-09] MEDS: Calcium Carbonate/Vitamin D3 625 MG-125 Unit Tab PO SCH ×2 (07:18→17:02)
[2022-03-09] MEDS: Menthol 10%/Methyl Salicylate 15% 85 GM Tube TOP SCH ×2 (07:18→17:01)
[2022-03-09] MEDS: Melatonin 3 MG Tab PO SCH (19:48)
[2022-03-10] MEDS: busPIRone 15 MG Tab PO SCH ×3 (07:38→19:45)
[2022-03-10] MEDS: hydrOXYzine Pamoate 25 MG Cap PO SCH ×3 (07:38→19:46)
[2022-03-10] MEDS: OMEPRAZOLE 40MG CAPS PO SCH (07:38)
[2022-03-10] MEDS: PROPRANOLOL 10 MG PO SCH ×2 (07:38→17:18)
[2022-03-10] MEDS: predniSONE 20 MG Tab PO SCH (07:38)
[2022-03-10] MEDS: Escitalopram 20 MG Tab PO SCH (07:38)
[2022-03-10] MEDS: Calcium Carbonate/Vitamin D3 625 MG-125 Unit Tab PO SCH ×2 (07:39→17:17)
[2022-03-10] MEDS: Menthol 10%/Methyl Salicylate 15% 85 GM Tube TOP SCH ×2 (07:39→17:17)
[2022-03-10] MEDS: guaiFENesin 600 MG Tab.ER PO SCH ×2 (07:39→19:46)
[2022-03-10] MEDS: Levalbuterol HCl 0.63 MG/3 ML Neb INH SCH ×4 (07:40→19:45)
[2022-03-10] MEDS: Ipratropium 0.02% 0.5 MG/2.5 ML Neb Soln INH SCH ×4 (07:40→19:25)
[2022-03-10] MEDS: Budesonide 0.5 MG/2 ML Neb Susp INH SCH ×2 (07:40→19:34)
[2022-03-10] MEDS: Melatonin 3 MG Tab PO SCH (19:47)
[2022-03-11] MEDS: Levalbuterol HCl 0.63 MG/3 ML Neb INH SCH ×4 (07:29→19:59)
[2022-03-11] MEDS: Ipratropium 0.02% 0.5 MG/2.5 ML Neb Soln INH SCH ×4 (07:29→19:56)
[2022-03-11] MEDS: PROPRANOLOL 10 MG PO SCH ×2 (07:30→17:21)
[2022-03-11] MEDS: predniSONE 20 MG Tab PO SCH (07:30)
[2022-03-11] MEDS: Budesonide 0.5 MG/2 ML Neb Susp INH SCH ×2 (07:30→19:58)
[2022-03-11] MEDS: busPIRone 15 MG Tab PO SCH ×3 (07:30→19:56)
[2022-03-11] MEDS: hydrOXYzine Pamoate 25 MG Cap PO SCH ×3 (07:30→19:58)
[2022-03-11] MEDS: Escitalopram 20 MG Tab PO SCH (07:30)
[2022-03-11] MEDS: guaiFENesin 600 MG Tab.ER PO SCH ×2 (07:31→19:57)
[2022-03-11] MEDS: OMEPRAZOLE 40MG CAPS PO SCH (07:31)
[2022-03-11] MEDS: Calcium Carbonate/Vitamin D3 625 MG-125 Unit Tab PO SCH ×2 (07:31→17:21)
[2022-03-11] MEDS: Menthol 10%/Methyl Salicylate 15% 85 GM Tube TOP SCH ×2 (07:32→17:21)
[2022-03-11] MEDS: Melatonin 3 MG Tab PO SCH (19:56)
[2022-03-12] MEDS: Ipratropium 0.02% 0.5 MG/2.5 ML Neb Soln INH SCH ×4 (07:36→19:39)
[2022-03-12] MEDS: busPIRone 15 MG Tab PO SCH ×3 (07:37→19:40)
[2022-03-12] MEDS: Escitalopram 20 MG Tab PO SCH (07:38)
[2022-03-12] MEDS: guaiFENesin 600 MG Tab.ER PO SCH ×2 (07:38→19:40)
[2022-03-12] MEDS: Menthol 10%/Methyl Salicylate 15% 85 GM Tube TOP SCH ×2 (07:40→17:29)
[2022-03-12] MEDS: predniSONE 20 MG Tab PO SCH (07:41)
[2022-03-12] MEDS: PROPRANOLOL 10 MG PO SCH ×2 (07:41→17:30)
[2022-03-12] MEDS: OMEPRAZOLE 40MG CAPS PO SCH (07:41)
[2022-03-12] MEDS: Calcium Carbonate/Vitamin D3 625 MG-125 Unit Tab PO SCH ×2 (07:41→17:30)
[2022-03-12] MEDS: hydrOXYzine Pamoate 25 MG Cap PO SCH ×3 (07:42→19:40)
[2022-03-12] MEDS: Levalbuterol HCl 0.63 MG/3 ML Neb INH SCH ×4 (07:42→19:39)
[2022-03-12] MEDS: Budesonide 0.5 MG/2 ML Neb Susp INH SCH ×2 (07:43→19:39)
[2022-03-12] MEDS: Melatonin 3 MG Tab PO SCH (19:41)
[2022-03-13] MEDS: Ipratropium 0.02% 0.5 MG/2.5 ML Neb Soln INH SCH ×4 (07:27→19:29)
[2022-03-13] MEDS: Menthol 10%/Methyl Salicylate 15% 85 GM Tube TOP SCH ×2 (07:27→17:01)
[2022-03-13] MEDS: Escitalopram 20 MG Tab PO SCH (07:28)
[2022-03-13] MEDS: busPIRone 15 MG Tab PO SCH ×3 (07:28→19:30)
[2022-03-13] MEDS: OMEPRAZOLE 40MG CAPS PO SCH (07:28)
[2022-03-13] MEDS: Budesonide 0.5 MG/2 ML Neb Susp INH SCH ×2 (07:28→19:29)
[2022-03-13] MEDS: Levalbuterol HCl 0.63 MG/3 ML Neb INH SCH ×4 (07:28→19:29)
[2022-03-13] MEDS: hydrOXYzine Pamoate 25 MG Cap PO SCH ×3 (07:29→19:30)
[2022-03-13] MEDS: PROPRANOLOL 10 MG PO SCH ×2 (07:29→17:01)
[2022-03-13] MEDS: predniSONE 20 MG Tab PO SCH (07:29)
[2022-03-13] MEDS: guaiFENesin 600 MG Tab.ER PO SCH ×2 (07:29→19:30)
[2022-03-13] MEDS: Calcium Carbonate/Vitamin D3 625 MG-125 Unit Tab PO SCH ×2 (07:29→17:01)
[2022-03-13] MEDS: Melatonin 3 MG Tab PO SCH (19:31)
[2022-03-14] MEDS: Ipratropium 0.02% 0.5 MG/2.5 ML Neb Soln INH SCH ×4 (07:22→19:35)
[2022-03-14] MEDS: Levalbuterol HCl 0.63 MG/3 ML Neb INH SCH ×4 (07:23→19:36)
[2022-03-14] MEDS: Budesonide 0.5 MG/2 ML Neb Susp INH SCH ×2 (07:23→19:35)
[2022-03-14] MEDS: OMEPRAZOLE 40MG CAPS PO SCH (07:23)
[2022-03-14] MEDS: hydrOXYzine Pamoate 25 MG Cap PO SCH ×3 (07:24→19:36)
[2022-03-14] MEDS: Escitalopram 20 MG Tab PO SCH (07:24)
[2022-03-14] MEDS: PROPRANOLOL 10 MG PO SCH ×2 (07:24→17:16)
[2022-03-14] MEDS: predniSONE 20 MG Tab PO SCH (07:24)
[2022-03-14] MEDS: Menthol 10%/Methyl Salicylate 15% 85 GM Tube TOP SCH ×2 (07:25→17:15)
[2022-03-14] MEDS: busPIRone 15 MG Tab PO SCH ×3 (07:25→19:36)
[2022-03-14] MEDS: Calcium Carbonate/Vitamin D3 625 MG-125 Unit Tab PO SCH ×2 (07:25→17:16)
[2022-03-14] MEDS: guaiFENesin 600 MG Tab.ER PO SCH ×2 (07:26→19:37)
[2022-03-14] MEDS: Melatonin 3 MG Tab PO SCH (19:37)
[2022-03-15] MEDS: Menthol 10%/Methyl Salicylate 15% 85 GM Tube TOP SCH ×2 (07:28→17:20)
[2022-03-15] MEDS: busPIRone 15 MG Tab PO SCH ×3 (07:29→19:45)
[2022-03-15] MEDS: Levalbuterol HCl 0.63 MG/3 ML Neb INH SCH ×4 (07:29→19:49)
[2022-03-15] MEDS: Escitalopram 20 MG Tab PO SCH (07:29)
[2022-03-15] MEDS: Ipratropium 0.02% 0.5 MG/2.5 ML Neb Soln INH SCH ×4 (07:29→19:44)
[2022-03-15] MEDS: Budesonide 0.5 MG/2 ML Neb Susp INH SCH ×2 (07:29→19:46)
[2022-03-15] MEDS: PROPRANOLOL 10 MG PO SCH ×2 (07:30→17:20)
[2022-03-15] MEDS: hydrOXYzine Pamoate 25 MG Cap PO SCH ×3 (07:30→19:46)
[2022-03-15] MEDS: OMEPRAZOLE 40MG CAPS PO SCH (07:30)
[2022-03-15] MEDS: predniSONE 20 MG Tab PO SCH (07:30)
[2022-03-15] MEDS: Calcium Carbonate/Vitamin D3 625 MG-125 Unit Tab PO SCH ×2 (07:31→17:20)
[2022-03-15] MEDS: guaiFENesin 600 MG Tab.ER PO SCH ×2 (07:31→19:46)
[2022-03-15] MEDS: Melatonin 3 MG Tab PO SCH (19:45)
[2022-03-16] MEDS: Ipratropium 0.02% 0.5 MG/2.5 ML Neb Soln INH SCH ×4 (08:09→19:52)
[2022-03-16] MEDS: Levalbuterol HCl 0.63 MG/3 ML Neb INH SCH ×4 (08:10→19:56)
[2022-03-16] MEDS: busPIRone 15 MG Tab PO SCH ×3 (08:10→19:52)
[2022-03-16] MEDS: Escitalopram 20 MG Tab PO SCH (08:10)
[2022-03-16] MEDS: Budesonide 0.5 MG/2 ML Neb Susp INH SCH ×2 (08:10→19:54)
[2022-03-16] MEDS: predniSONE 20 MG Tab PO SCH (08:11)
[2022-03-16] MEDS: hydrOXYzine Pamoate 25 MG Cap PO SCH ×3 (08:11→19:55)
[2022-03-16] MEDS: OMEPRAZOLE 40MG CAPS PO SCH (08:11)
[2022-03-16] MEDS: PROPRANOLOL 10 MG PO SCH ×2 (08:11→17:22)
[2022-03-16] MEDS: guaiFENesin 600 MG Tab.ER PO SCH ×2 (08:12→19:54)
[2022-03-16] MEDS: Calcium Carbonate/Vitamin D3 625 MG-125 Unit Tab PO SCH ×2 (08:12→17:23)
[2022-03-16] MEDS: Menthol 10%/Methyl Salicylate 15% 85 GM Tube TOP SCH ×2 (08:12→17:22)
[2022-03-16] MEDS: Melatonin 3 MG Tab PO SCH (19:53)
[2022-03-17] MEDS: Ipratropium 0.02% 0.5 MG/2.5 ML Neb Soln INH SCH ×4 (08:02→19:54)
[2022-03-17] MEDS: Levalbuterol HCl 0.63 MG/3 ML Neb INH SCH ×4 (08:03→19:57)
[2022-03-17] MEDS: Budesonide 0.5 MG/2 ML Neb Susp INH SCH ×2 (08:03→19:56)
[2022-03-17] MEDS: busPIRone 15 MG Tab PO SCH ×3 (08:03→19:54)
[2022-03-17] MEDS: OMEPRAZOLE 40MG CAPS PO SCH (08:04)
[2022-03-17] MEDS: Escitalopram 20 MG Tab PO SCH (08:04)
[2022-03-17] MEDS: predniSONE 20 MG Tab PO SCH (08:04)
[2022-03-17] MEDS: hydrOXYzine Pamoate 25 MG Cap PO SCH ×3 (08:04→19:56)
[2022-03-17] MEDS: PROPRANOLOL 10 MG PO SCH ×2 (08:04→17:04)
[2022-03-17] MEDS: Menthol 10%/Methyl Salicylate 15% 85 GM Tube TOP SCH ×2 (08:05→17:03)
[2022-03-17] MEDS: Calcium Carbonate/Vitamin D3 625 MG-125 Unit Tab PO SCH ×2 (08:05→17:04)
[2022-03-17] MEDS: guaiFENesin 600 MG Tab.ER PO SCH ×2 (08:05→19:55)
[2022-03-17] MEDS: Melatonin 3 MG Tab PO SCH (19:54)
[2022-03-18] MEDS: Ipratropium 0.02% 0.5 MG/2.5 ML Neb Soln INH SCH ×4 (08:38→19:40)
[2022-03-18] MEDS: Levalbuterol HCl 0.63 MG/3 ML Neb INH SCH ×4 (08:38→19:41)
[2022-03-18] MEDS: Budesonide 0.5 MG/2 ML Neb Susp INH SCH ×2 (08:38→19:41)
[2022-03-18] MEDS: predniSONE 20 MG Tab PO SCH (08:39)
[2022-03-18] MEDS: hydrOXYzine Pamoate 25 MG Cap PO SCH ×3 (08:39→19:40)
[2022-03-18] MEDS: PROPRANOLOL 10 MG PO SCH ×2 (08:39→17:02)
[2022-03-18] MEDS: busPIRone 15 MG Tab PO SCH ×3 (08:39→19:40)
[2022-03-18] MEDS: OMEPRAZOLE 40MG CAPS PO SCH (08:39)
[2022-03-18] MEDS: Escitalopram 20 MG Tab PO SCH (08:39)
[2022-03-18] MEDS: guaiFENesin 600 MG Tab.ER PO SCH ×2 (08:40→19:41)
[2022-03-18] MEDS: Calcium Carbonate/Vitamin D3 625 MG-125 Unit Tab PO SCH ×2 (08:40→17:03)
[2022-03-18] MEDS: Menthol 10%/Methyl Salicylate 15% 85 GM Tube TOP SCH ×2 (08:41→17:02)
[2022-03-18] MEDS: Melatonin 3 MG Tab PO SCH (19:42)
[2022-03-19] MEDS: Ipratropium 0.02% 0.5 MG/2.5 ML Neb Soln INH SCH ×4 (07:32→19:21)
[2022-03-19] MEDS: guaiFENesin 600 MG Tab.ER PO SCH ×2 (07:34→19:35)
[2022-03-19] MEDS: Menthol 10%/Methyl Salicylate 15% 85 GM Tube TOP SCH ×2 (07:34→17:21)
[2022-03-19] MEDS: Escitalopram 20 MG Tab PO SCH (07:34)
[2022-03-19] MEDS: busPIRone 15 MG Tab PO SCH ×3 (07:34→19:34)
[2022-03-19] MEDS: OMEPRAZOLE 40MG CAPS PO SCH (07:35)
[2022-03-19] MEDS: Calcium Carbonate/Vitamin D3 625 MG-125 Unit Tab PO SCH ×2 (07:35→17:21)
[2022-03-19] MEDS: PROPRANOLOL 10 MG PO SCH ×2 (07:35→17:21)
[2022-03-19] MEDS: predniSONE 20 MG Tab PO SCH (07:36)
[2022-03-19] MEDS: hydrOXYzine Pamoate 25 MG Cap PO SCH ×3 (07:36→19:34)
[2022-03-19] MEDS: Levalbuterol HCl 0.63 MG/3 ML Neb INH SCH ×4 (07:45→19:34)
[2022-03-19] MEDS: Budesonide 0.5 MG/2 ML Neb Susp INH SCH ×2 (07:56→19:10)
[2022-03-19] MEDS: Melatonin 3 MG Tab PO SCH (19:35)
[2022-03-20] MEDS: Ipratropium 0.02% 0.5 MG/2.5 ML Neb Soln INH SCH ×4 (07:33→19:52)
[2022-03-20] MEDS: guaiFENesin 600 MG Tab.ER PO SCH ×2 (07:34→19:53)
[2022-03-20] MEDS: Escitalopram 20 MG Tab PO SCH (07:34)
[2022-03-20] MEDS: busPIRone 15 MG Tab PO SCH ×3 (07:34→19:52)
[2022-03-20] MEDS: predniSONE 20 MG Tab PO SCH (07:35)
[2022-03-20] MEDS: PROPRANOLOL 10 MG PO SCH ×2 (07:35→17:24)
[2022-03-20] MEDS: Calcium Carbonate/Vitamin D3 625 MG-125 Unit Tab PO SCH ×2 (07:35→17:24)
[2022-03-20] MEDS: OMEPRAZOLE 40MG CAPS PO SCH (07:35)
[2022-03-20] MEDS: Menthol 10%/Methyl Salicylate 15% 85 GM Tube TOP SCH ×2 (07:35→17:23)
[2022-03-20] MEDS: hydrOXYzine Pamoate 25 MG Cap PO SCH ×3 (07:36→19:54)
[2022-03-20] MEDS: Levalbuterol HCl 0.63 MG/3 ML Neb INH SCH ×4 (07:50→19:55)
[2022-03-20] MEDS: Budesonide 0.5 MG/2 ML Neb Susp INH SCH ×2 (08:35→19:54)
[2022-03-20] MEDS: Melatonin 3 MG Tab PO SCH (19:53)
[2022-03-21] MEDS: Levalbuterol HCl 0.63 MG/3 ML Neb INH SCH ×4 (07:21→19:59)
[2022-03-21] MEDS: Ipratropium 0.02% 0.5 MG/2.5 ML Neb Soln INH SCH ×4 (07:22→19:55)
[2022-03-21] MEDS: Budesonide 0.5 MG/2 ML Neb Susp INH SCH ×2 (07:23→19:57)
[2022-03-21] MEDS: busPIRone 15 MG Tab PO SCH ×3 (07:24→19:55)
[2022-03-21] MEDS: PROPRANOLOL 10 MG PO SCH ×2 (07:25→17:02)
[2022-03-21] MEDS: OMEPRAZOLE 40MG CAPS PO SCH (07:25)
[2022-03-21] MEDS: predniSONE 20 MG Tab PO SCH (07:25)
[2022-03-21] MEDS: hydrOXYzine Pamoate 25 MG Cap PO SCH ×3 (07:25→19:57)
[2022-03-21] MEDS: Escitalopram 20 MG Tab PO SCH (07:25)
[2022-03-21] MEDS: Calcium Carbonate/Vitamin D3 625 MG-125 Unit Tab PO SCH ×2 (07:26→17:02)
[2022-03-21] MEDS: Menthol 10%/Methyl Salicylate 15% 85 GM Tube TOP SCH ×2 (07:26→17:01)
[2022-03-21] MEDS: guaiFENesin 600 MG Tab.ER PO SCH ×2 (07:26→19:56)
[2022-03-21] MEDS ORDERED: Denosumab 60 MG/1 ML Syringe SUBCUT SCH (14:00)
[2022-03-21] MEDS: Melatonin 3 MG Tab PO SCH (19:56)
[2022-03-22] MEDS: Budesonide 0.5 MG/2 ML Neb Susp INH SCH ×2 (07:53→19:42)
[2022-03-22] MEDS: Levalbuterol HCl 0.63 MG/3 ML Neb INH SCH ×4 (07:54→19:43)
[2022-03-22] MEDS: Ipratropium 0.02% 0.5 MG/2.5 ML Neb Soln INH SCH ×4 (07:54→19:42)
[2022-03-22] MEDS: busPIRone 15 MG Tab PO SCH ×3 (07:55→19:43)
[2022-03-22] MEDS: PROPRANOLOL 10 MG PO SCH ×2 (07:55→17:12)
[2022-03-22] MEDS: OMEPRAZOLE 40MG CAPS PO SCH (07:55)
[2022-03-22] MEDS: Escitalopram 20 MG Tab PO SCH (07:55)
[2022-03-22] MEDS: hydrOXYzine Pamoate 25 MG Cap PO SCH ×3 (07:56→19:43)
[2022-03-22] MEDS: predniSONE 20 MG Tab PO SCH (07:56)
[2022-03-22] MEDS: Calcium Carbonate/Vitamin D3 625 MG-125 Unit Tab PO SCH ×2 (07:57→17:12)
[2022-03-22] MEDS: guaiFENesin 600 MG Tab.ER PO SCH ×2 (07:57→19:44)
[2022-03-22] MEDS: Menthol 10%/Methyl Salicylate 15% 85 GM Tube TOP SCH ×2 (07:57→17:12)
[2022-03-22] MEDS: Melatonin 3 MG Tab PO SCH (19:44)
[2022-03-23] MEDS: Menthol 10%/Methyl Salicylate 15% 85 GM Tube TOP SCH ×2 (07:25→17:02)
[2022-03-23] MEDS: busPIRone 15 MG Tab PO SCH ×3 (07:25→19:24)
[2022-03-23] MEDS: Calcium Carbonate/Vitamin D3 625 MG-125 Unit Tab PO SCH ×2 (07:26→17:02)
[2022-03-23] MEDS: predniSONE 20 MG Tab PO SCH (07:26)
[2022-03-23] MEDS: hydrOXYzine Pamoate 25 MG Cap PO SCH ×3 (07:26→19:24)
[2022-03-23] MEDS: PROPRANOLOL 10 MG PO SCH ×2 (07:26→17:02)
[2022-03-23] MEDS: Escitalopram 20 MG Tab PO SCH (07:26)
[2022-03-23] MEDS: OMEPRAZOLE 40MG CAPS PO SCH (07:26)
[2022-03-23] MEDS: Budesonide 0.5 MG/2 ML Neb Susp INH SCH ×2 (07:27→19:23)
[2022-03-23] MEDS: Ipratropium 0.02% 0.5 MG/2.5 ML Neb Soln INH SCH ×4 (07:27→19:23)
[2022-03-23] MEDS: Levalbuterol HCl 0.63 MG/3 ML Neb INH SCH ×4 (07:27→19:23)
[2022-03-23] MEDS: guaiFENesin 600 MG Tab.ER PO SCH ×2 (07:27→19:25)
[2022-03-23] MEDS: Melatonin 3 MG Tab PO SCH (19:24)
[2022-03-24] MEDS: Menthol 10%/Methyl Salicylate 15% 85 GM Tube TOP SCH ×2 (07:38→17:13)
[2022-03-24] MEDS: Levalbuterol HCl 0.63 MG/3 ML Neb INH SCH ×4 (07:39→19:30)
[2022-03-24] MEDS: Budesonide 0.5 MG/2 ML Neb Susp INH SCH ×2 (07:39→19:31)
[2022-03-24] MEDS: Ipratropium 0.02% 0.5 MG/2.5 ML Neb Soln INH SCH ×4 (07:39→19:30)
[2022-03-24] MEDS: busPIRone 15 MG Tab PO SCH ×3 (07:44→19:31)
[2022-03-24] MEDS: Escitalopram 20 MG Tab PO SCH (07:44)
[2022-03-24] MEDS: predniSONE 20 MG Tab PO SCH (07:45)
[2022-03-24] MEDS: hydrOXYzine Pamoate 25 MG Cap PO SCH ×3 (07:45→19:32)
[2022-03-24] MEDS: PROPRANOLOL 10 MG PO SCH ×2 (07:45→17:12)
[2022-03-24] MEDS: OMEPRAZOLE 40MG CAPS PO SCH (07:45)
[2022-03-24] MEDS: Calcium Carbonate/Vitamin D3 625 MG-125 Unit Tab PO SCH ×2 (07:46→17:12)
[2022-03-24] MEDS: guaiFENesin 600 MG Tab.ER PO SCH ×2 (07:46→19:31)
[2022-03-24] MEDS: Melatonin 3 MG Tab PO SCH (19:32)
[2022-03-25] MEDS: Ipratropium 0.02% 0.5 MG/2.5 ML Neb Soln INH SCH ×4 (07:22→19:23)
[2022-03-25] MEDS: Levalbuterol HCl 0.63 MG/3 ML Neb INH SCH ×4 (07:22→19:51)
[2022-03-25] MEDS: busPIRone 15 MG Tab PO SCH ×3 (07:23→19:56)
[2022-03-25] MEDS: Budesonide 0.5 MG/2 ML Neb Susp INH SCH ×2 (07:23→19:37)
[2022-03-25] MEDS: guaiFENesin 600 MG Tab.ER PO SCH ×2 (07:23→19:57)
[2022-03-25] MEDS: predniSONE 20 MG Tab PO SCH (07:24)
[2022-03-25] MEDS: Escitalopram 20 MG Tab PO SCH (07:24)
[2022-03-25] MEDS: PROPRANOLOL 10 MG PO SCH ×2 (07:24→17:58)
[2022-03-25] MEDS: hydrOXYzine Pamoate 25 MG Cap PO SCH ×3 (07:24→19:56)
[2022-03-25] MEDS: OMEPRAZOLE 40MG CAPS PO SCH (07:24)
[2022-03-25] MEDS: Calcium Carbonate/Vitamin D3 625 MG-125 Unit Tab PO SCH ×2 (07:25→18:00)
[2022-03-25] MEDS: Menthol 10%/Methyl Salicylate 15% 85 GM Tube TOP SCH ×2 (07:25→17:59)
[2022-03-25] MEDS: Melatonin 3 MG Tab PO SCH (19:57)
[2022-03-26] MEDS: Ipratropium 0.02% 0.5 MG/2.5 ML Neb Soln INH SCH ×4 (07:26→19:07)
[2022-03-26] MEDS: guaiFENesin 600 MG Tab.ER PO SCH ×2 (07:38→19:28)
[2022-03-26] MEDS: busPIRone 15 MG Tab PO SCH ×3 (07:38→19:27)
[2022-03-26] MEDS: Escitalopram 20 MG Tab PO SCH (07:38)
[2022-03-26] MEDS: OMEPRAZOLE 40MG CAPS PO SCH (07:39)
[2022-03-26] MEDS: Calcium Carbonate/Vitamin D3 625 MG-125 Unit Tab PO SCH ×2 (07:39→17:06)
[2022-03-26] MEDS: PROPRANOLOL 10 MG PO SCH ×2 (07:39→17:06)
[2022-03-26] MEDS: Menthol 10%/Methyl Salicylate 15% 85 GM Tube TOP SCH ×2 (07:39→17:05)
[2022-03-26] MEDS: predniSONE 20 MG Tab PO SCH (07:40)
[2022-03-26] MEDS: hydrOXYzine Pamoate 25 MG Cap PO SCH ×3 (07:40→19:27)
[2022-03-26] MEDS: Levalbuterol HCl 0.63 MG/3 ML Neb INH SCH ×4 (07:40→19:28)
[2022-03-26] MEDS: Budesonide 0.5 MG/2 ML Neb Susp INH SCH ×2 (07:42→19:16)
[2022-03-26] MEDS: Melatonin 3 MG Tab PO SCH (19:28)
[2022-03-27] MEDS: Ipratropium 0.02% 0.5 MG/2.5 ML Neb Soln INH SCH ×4 (07:30→19:52)
[2022-03-27] MEDS: PROPRANOLOL 10 MG PO SCH ×2 (07:32→17:33)
[2022-03-27] MEDS: Escitalopram 20 MG Tab PO SCH (07:32)
[2022-03-27] MEDS: busPIRone 15 MG Tab PO SCH ×3 (07:32→19:54)
[2022-03-27] MEDS: OMEPRAZOLE 40MG CAPS PO SCH (07:32)
[2022-03-27] MEDS: hydrOXYzine Pamoate 25 MG Cap PO SCH ×3 (07:33→19:53)
[2022-03-27] MEDS: predniSONE 20 MG Tab PO SCH (07:33)
[2022-03-27] MEDS: Calcium Carbonate/Vitamin D3 625 MG-125 Unit Tab PO SCH ×2 (07:34→17:32)
[2022-03-27] MEDS: Menthol 10%/Methyl Salicylate 15% 85 GM Tube TOP SCH ×2 (07:35→17:30)
[2022-03-27] MEDS: guaiFENesin 600 MG Tab.ER PO SCH ×2 (07:35→19:54)
[2022-03-27] MEDS: Budesonide 0.5 MG/2 ML Neb Susp INH SCH ×2 (07:36→19:53)
[2022-03-27] MEDS: Levalbuterol HCl 0.63 MG/3 ML Neb INH SCH ×4 (07:37→19:53)
[2022-03-27] MEDS: Melatonin 3 MG Tab PO SCH (19:54)
[2022-03-28] MEDS: Escitalopram 20 MG Tab PO SCH (06:59)
[2022-03-28] MEDS: Ipratropium 0.02% 0.5 MG/2.5 ML Neb Soln INH SCH ×4 (06:59→19:34)
[2022-03-28] MEDS: busPIRone 15 MG Tab PO SCH ×3 (06:59→19:36)
[2022-03-28] MEDS: PROPRANOLOL 10 MG PO SCH ×2 (07:00→17:05)
[2022-03-28] MEDS: OMEPRAZOLE 40MG CAPS PO SCH (07:00)
[2022-03-28] MEDS: Menthol 10%/Methyl Salicylate 15% 85 GM Tube TOP SCH ×2 (07:00→17:05)
[2022-03-28] MEDS: guaiFENesin 600 MG Tab.ER PO SCH ×2 (07:00→19:35)
[2022-03-28] MEDS: Calcium Carbonate/Vitamin D3 625 MG-125 Unit Tab PO SCH ×2 (07:01→17:06)
[2022-03-28] MEDS: hydrOXYzine Pamoate 25 MG Cap PO SCH ×3 (07:01→19:36)
[2022-03-28] MEDS: predniSONE 20 MG Tab PO SCH (07:01)
[2022-03-28] MEDS: Budesonide 0.5 MG/2 ML Neb Susp INH SCH ×2 (07:02→19:35)
[2022-03-28] MEDS: Levalbuterol HCl 0.63 MG/3 ML Neb INH SCH ×4 (07:02→19:35)
[2022-03-28] MEDS: Melatonin 3 MG Tab PO SCH (19:35)
[2022-03-29] MEDS: busPIRone 15 MG Tab PO SCH ×3 (08:00→19:45)
[2022-03-29] MEDS: guaiFENesin 600 MG Tab.ER PO SCH ×2 (08:00→19:46)
[2022-03-29] MEDS: hydrOXYzine Pamoate 25 MG Cap PO SCH ×3 (08:00→19:47)
[2022-03-29] MEDS: predniSONE 20 MG Tab PO SCH (08:00)
[2022-03-29] MEDS: PROPRANOLOL 10 MG PO SCH ×2 (08:00→16:59)
[2022-03-29] MEDS: Menthol 10%/Methyl Salicylate 15% 85 GM Tube TOP SCH ×2 (08:00→16:59)
[2022-03-29] MEDS: OMEPRAZOLE 40MG CAPS PO SCH (08:00)
[2022-03-29] MEDS: Escitalopram 20 MG Tab PO SCH (08:00)
[2022-03-29] MEDS: Budesonide 0.5 MG/2 ML Neb Susp INH SCH ×2 (08:01→19:47)
[2022-03-29] MEDS: Ipratropium 0.02% 0.5 MG/2.5 ML Neb Soln INH SCH ×4 (08:01→19:44)
[2022-03-29] MEDS: Levalbuterol HCl 0.63 MG/3 ML Neb INH SCH ×4 (08:01→19:48)
[2022-03-29] MEDS: Calcium Carbonate/Vitamin D3 625 MG-125 Unit Tab PO SCH ×2 (08:01→16:59)
[2022-03-29] MEDS: Melatonin 3 MG Tab PO SCH (21:40)
[2022-03-30] MEDS: busPIRone 15 MG Tab PO SCH ×3 (07:41→19:49)
[2022-03-30] MEDS: predniSONE 20 MG Tab PO SCH (07:41)
[2022-03-30] MEDS: hydrOXYzine Pamoate 25 MG Cap PO SCH ×3 (07:41→19:50)
[2022-03-30] MEDS: PROPRANOLOL 10 MG PO SCH ×2 (07:41→17:15)
[2022-03-30] MEDS: OMEPRAZOLE 40MG CAPS PO SCH (07:41)
[2022-03-30] MEDS: Escitalopram 20 MG Tab PO SCH (07:41)
[2022-03-30] MEDS: Ipratropium 0.02% 0.5 MG/2.5 ML Neb Soln INH SCH ×4 (07:42→19:48)
[2022-03-30] MEDS: Calcium Carbonate/Vitamin D3 625 MG-125 Unit Tab PO SCH ×2 (07:42→17:15)
[2022-03-30] MEDS: Budesonide 0.5 MG/2 ML Neb Susp INH SCH ×2 (07:42→19:50)
[2022-03-30] MEDS: Levalbuterol HCl 0.63 MG/3 ML Neb INH SCH ×4 (07:42→19:51)
[2022-03-30] MEDS: guaiFENesin 600 MG Tab.ER PO SCH ×2 (07:42→19:49)
[2022-03-30] MEDS: Menthol 10%/Methyl Salicylate 15% 85 GM Tube TOP SCH ×2 (07:43→17:14)
[2022-03-30] MEDS: Melatonin 3 MG Tab PO SCH (19:49)
[2022-03-31] MEDS: OMEPRAZOLE 40MG CAPS PO SCH (07:16)
[2022-03-31] MEDS: Escitalopram 20 MG Tab PO SCH (07:16)
[2022-03-31] MEDS: busPIRone 15 MG Tab PO SCH ×3 (07:16→19:53)
[2022-03-31] MEDS: hydrOXYzine Pamoate 25 MG Cap PO SCH ×3 (07:16→19:55)
[2022-03-31] MEDS: PROPRANOLOL 10 MG PO SCH ×2 (07:16→17:10)
[2022-03-31] MEDS: predniSONE 20 MG Tab PO SCH (07:16)
[2022-03-31] MEDS: Ipratropium 0.02% 0.5 MG/2.5 ML Neb Soln INH SCH ×4 (07:17→19:53)
[2022-03-31] MEDS: Levalbuterol HCl 0.63 MG/3 ML Neb INH SCH ×4 (07:17→19:56)
[2022-03-31] MEDS: Budesonide 0.5 MG/2 ML Neb Susp INH SCH ×2 (07:17→19:55)
[2022-03-31] MEDS: Menthol 10%/Methyl Salicylate 15% 85 GM Tube TOP SCH ×2 (07:18→17:10)
[2022-03-31] MEDS: Calcium Carbonate/Vitamin D3 625 MG-125 Unit Tab PO SCH ×2 (07:18→17:11)
[2022-03-31] MEDS: guaiFENesin 600 MG Tab.ER PO SCH ×2 (07:18→19:54)
[2022-03-31] MEDS: Melatonin 3 MG Tab PO SCH (19:53)
[2022-04-01] MEDS: Levalbuterol HCl 0.63 MG/3 ML Neb INH SCH ×4 (07:17→19:47)
[2022-04-01] MEDS: Budesonide 0.5 MG/2 ML Neb Susp INH SCH ×2 (07:17→19:40)
[2022-04-01] MEDS: Ipratropium 0.02% 0.5 MG/2.5 ML Neb Soln INH SCH ×4 (07:17→19:33)
[2022-04-01] MEDS: busPIRone 15 MG Tab PO SCH ×3 (07:18→20:00)
[2022-04-01] MEDS: OMEPRAZOLE 40MG CAPS PO SCH (07:18)
[2022-04-01] MEDS: Escitalopram 20 MG Tab PO SCH (07:18)
[2022-04-01] MEDS: PROPRANOLOL 10 MG PO SCH ×2 (07:18→16:59)
[2022-04-01] MEDS: predniSONE 20 MG Tab PO SCH (07:19)
[2022-04-01] MEDS: hydrOXYzine Pamoate 25 MG Cap PO SCH ×3 (07:19→20:00)
[2022-04-01] MEDS: guaiFENesin 600 MG Tab.ER PO SCH ×2 (07:19→20:00)
[2022-04-01] MEDS: Menthol 10%/Methyl Salicylate 15% 85 GM Tube TOP SCH ×2 (07:20→16:59)
[2022-04-01] MEDS: Calcium Carbonate/Vitamin D3 625 MG-125 Unit Tab PO SCH ×2 (07:21→16:59)
[2022-04-01] MEDS: Melatonin 3 MG Tab PO SCH (20:01)
[2022-04-02] MEDS: Ipratropium 0.02% 0.5 MG/2.5 ML Neb Soln INH SCH ×4 (07:21→19:04)
[2022-04-02] MEDS: busPIRone 15 MG Tab PO SCH ×3 (07:21→19:22)
[2022-04-02] MEDS: guaiFENesin 600 MG Tab.ER PO SCH ×2 (07:21→19:23)
[2022-04-02] MEDS: Menthol 10%/Methyl Salicylate 15% 85 GM Tube TOP SCH ×2 (07:21→17:15)
[2022-04-02] MEDS: Escitalopram 20 MG Tab PO SCH (07:21)
[2022-04-02] MEDS: OMEPRAZOLE 40MG CAPS PO SCH (07:22)
[2022-04-02] MEDS: Calcium Carbonate/Vitamin D3 625 MG-125 Unit Tab PO SCH ×2 (07:22→17:16)
[2022-04-02] MEDS: PROPRANOLOL 10 MG PO SCH ×2 (07:22→17:16)
[2022-04-02] MEDS: Levalbuterol HCl 0.63 MG/3 ML Neb INH SCH ×4 (07:23→19:23)
[2022-04-02] MEDS: hydrOXYzine Pamoate 25 MG Cap PO SCH ×3 (07:23→19:22)
[2022-04-02] MEDS: Budesonide 0.5 MG/2 ML Neb Susp INH SCH ×2 (07:23→19:10)
[2022-04-02] MEDS: predniSONE 20 MG Tab PO SCH (07:23)
[2022-04-02] MEDS: Melatonin 3 MG Tab PO SCH (19:23)
[2022-04-03] MEDS: hydrOXYzine Pamoate 25 MG Cap PO SCH ×3 (08:06→20:04)
[2022-04-03] MEDS: busPIRone 15 MG Tab PO SCH ×3 (08:06→20:02)
[2022-04-03] MEDS: OMEPRAZOLE 40MG CAPS PO SCH (08:06)
[2022-04-03] MEDS: predniSONE 20 MG Tab PO SCH (08:06)
[2022-04-03] MEDS: Escitalopram 20 MG Tab PO SCH (08:06)
[2022-04-03] MEDS: PROPRANOLOL 10 MG PO SCH ×2 (08:06→17:22)
[2022-04-03] MEDS: guaiFENesin 600 MG Tab.ER PO SCH ×2 (08:08→20:03)
[2022-04-03] MEDS: Calcium Carbonate/Vitamin D3 625 MG-125 Unit Tab PO SCH ×2 (08:08→17:23)
[2022-04-03] MEDS: Menthol 10%/Methyl Salicylate 15% 85 GM Tube TOP SCH ×2 (08:09→17:23)
[2022-04-03] MEDS: Ipratropium 0.02% 0.5 MG/2.5 ML Neb Soln INH SCH ×4 (08:10→20:02)
[2022-04-03] MEDS: Budesonide 0.5 MG/2 ML Neb Susp INH SCH ×2 (08:10→20:03)
[2022-04-03] MEDS: Levalbuterol HCl 0.63 MG/3 ML Neb INH SCH ×4 (08:11→20:04)
[2022-04-03] MEDS: Melatonin 3 MG Tab PO SCH (20:02)
[2022-04-04] MEDS: Ipratropium 0.02% 0.5 MG/2.5 ML Neb Soln INH SCH ×4 (07:10→20:05)
[2022-04-04] MEDS: guaiFENesin 600 MG Tab.ER PO SCH ×2 (07:11→20:06)
[2022-04-04] MEDS: Menthol 10%/Methyl Salicylate 15% 85 GM Tube TOP SCH ×2 (07:11→17:29)
[2022-04-04] MEDS: busPIRone 15 MG Tab PO SCH ×3 (07:11→20:05)
[2022-04-04] MEDS: Escitalopram 20 MG Tab PO SCH (07:11)
[2022-04-04] MEDS: Calcium Carbonate/Vitamin D3 625 MG-125 Unit Tab PO SCH ×2 (07:12→17:30)
[2022-04-04] MEDS: OMEPRAZOLE 40MG CAPS PO SCH (07:12)
[2022-04-04] MEDS: PROPRANOLOL 10 MG PO SCH ×2 (07:12→17:30)
[2022-04-04] MEDS: predniSONE 20 MG Tab PO SCH (07:13)
[2022-04-04] MEDS: hydrOXYzine Pamoate 25 MG Cap PO SCH ×3 (07:13→20:07)
[2022-04-04] MEDS: Levalbuterol HCl 0.63 MG/3 ML Neb INH SCH ×4 (07:13→20:07)
[2022-04-04] MEDS: Budesonide 0.5 MG/2 ML Neb Susp INH SCH ×2 (07:14→20:06)
[2022-04-04] MEDS: Melatonin 3 MG Tab PO SCH (20:05)
[2022-04-05] MEDS: Ipratropium 0.02% 0.5 MG/2.5 ML Neb Soln INH SCH ×4 (07:01→19:17)
[2022-04-05] MEDS: Levalbuterol HCl 0.63 MG/3 ML Neb INH SCH ×4 (07:01→19:30)
[2022-04-05] MEDS: Budesonide 0.5 MG/2 ML Neb Susp INH SCH ×2 (07:03→19:23)
[2022-04-05] MEDS: Escitalopram 20 MG Tab PO SCH (07:03)
[2022-04-05] MEDS: busPIRone 15 MG Tab PO SCH ×3 (07:03→19:30)
[2022-04-05] MEDS: guaiFENesin 600 MG Tab.ER PO SCH ×2 (07:04→19:30)
[2022-04-05] MEDS: Menthol 10%/Methyl Salicylate 15% 85 GM Tube TOP SCH ×2 (07:04→17:22)
[2022-04-05] MEDS: OMEPRAZOLE 40MG CAPS PO SCH (07:05)
[2022-04-05] MEDS: predniSONE 20 MG Tab PO SCH (07:05)
[2022-04-05] MEDS: hydrOXYzine Pamoate 25 MG Cap PO SCH ×3 (07:05→19:29)
[2022-04-05] MEDS: PROPRANOLOL 10 MG PO SCH ×2 (07:05→17:23)
[2022-04-05] MEDS: Calcium Carbonate/Vitamin D3 625 MG-125 Unit Tab PO SCH ×2 (07:05→17:23)
[2022-04-05] MEDS: Melatonin 3 MG Tab PO SCH (19:30)
[2022-04-06] MEDS: Ipratropium 0.02% 0.5 MG/2.5 ML Neb Soln INH SCH ×4 (07:10→19:03)
[2022-04-06] MEDS: guaiFENesin 600 MG Tab.ER PO SCH ×2 (07:12→19:21)
[2022-04-06] MEDS: busPIRone 15 MG Tab PO SCH ×3 (07:12→19:20)
[2022-04-06] MEDS: Menthol 10%/Methyl Salicylate 15% 85 GM Tube TOP SCH ×2 (07:12→17:22)
[2022-04-06] MEDS: Escitalopram 20 MG Tab PO SCH (07:12)
[2022-04-06] MEDS: OMEPRAZOLE 40MG CAPS PO SCH (07:13)
[2022-04-06] MEDS: PROPRANOLOL 10 MG PO SCH ×2 (07:13→17:22)
[2022-04-06] MEDS: Calcium Carbonate/Vitamin D3 625 MG-125 Unit Tab PO SCH ×2 (07:13→17:22)
[2022-04-06] MEDS: predniSONE 20 MG Tab PO SCH (07:13)
[2022-04-06] MEDS: hydrOXYzine Pamoate 25 MG Cap PO SCH ×3 (07:13→19:20)
[2022-04-06] MEDS: Levalbuterol HCl 0.63 MG/3 ML Neb INH SCH ×4 (07:14→19:25)
[2022-04-06] MEDS: Budesonide 0.5 MG/2 ML Neb Susp INH SCH ×2 (07:14→19:18)
[2022-04-06] MEDS: Melatonin 3 MG Tab PO SCH (19:20)
[2022-04-07] MEDS: guaiFENesin 600 MG Tab.ER PO SCH ×2 (07:23→19:39)
[2022-04-07] MEDS: Menthol 10%/Methyl Salicylate 15% 85 GM Tube TOP SCH ×2 (07:23→17:06)
[2022-04-07] MEDS: busPIRone 15 MG Tab PO SCH ×3 (07:23→19:38)
[2022-04-07] MEDS: Escitalopram 20 MG Tab PO SCH (07:23)
[2022-04-07] MEDS: Ipratropium 0.02% 0.5 MG/2.5 ML Neb Soln INH SCH ×4 (07:23→19:03)
[2022-04-07] MEDS: Calcium Carbonate/Vitamin D3 625 MG-125 Unit Tab PO SCH ×2 (07:24→17:07)
[2022-04-07] MEDS: predniSONE 20 MG Tab PO SCH (07:24)
[2022-04-07] MEDS: PROPRANOLOL 10 MG PO SCH ×2 (07:24→17:07)
[2022-04-07] MEDS: OMEPRAZOLE 40MG CAPS PO SCH (07:24)
[2022-04-07] MEDS: hydrOXYzine Pamoate 25 MG Cap PO SCH ×3 (07:25→19:38)
[2022-04-07] MEDS: Budesonide 0.5 MG/2 ML Neb Susp INH SCH ×2 (07:26→19:22)
[2022-04-07] MEDS: Levalbuterol HCl 0.63 MG/3 ML Neb INH SCH ×4 (07:26→19:50)
[2022-04-07] MEDS: Melatonin 3 MG Tab PO SCH (19:40)
[2022-04-08] MEDS: Budesonide 0.5 MG/2 ML Neb Susp INH SCH ×2 (07:07→19:50)
[2022-04-08] MEDS: guaiFENesin 600 MG Tab.ER PO SCH ×2 (07:07→19:49)
[2022-04-08] MEDS: busPIRone 15 MG Tab PO SCH ×3 (07:07→19:48)
[2022-04-08] MEDS: Levalbuterol HCl 0.63 MG/3 ML Neb INH SCH ×4 (07:07→19:52)
[2022-04-08] MEDS: Escitalopram 20 MG Tab PO SCH (07:07)
[2022-04-08] MEDS: Ipratropium 0.02% 0.5 MG/2.5 ML Neb Soln INH SCH ×4 (07:07→19:48)
[2022-04-08] MEDS: Menthol 10%/Methyl Salicylate 15% 85 GM Tube TOP SCH ×2 (07:08→17:06)
[2022-04-08] MEDS: PROPRANOLOL 10 MG PO SCH ×2 (07:09→17:06)
[2022-04-08] MEDS: OMEPRAZOLE 40MG CAPS PO SCH (07:09)
[2022-04-08] MEDS: Calcium Carbonate/Vitamin D3 625 MG-125 Unit Tab PO SCH ×2 (07:09→17:07)
[2022-04-08] MEDS: predniSONE 20 MG Tab PO SCH (07:09)
[2022-04-08] MEDS: hydrOXYzine Pamoate 25 MG Cap PO SCH ×3 (07:09→19:50)
[2022-04-08] MEDS: Melatonin 3 MG Tab PO SCH (19:49)
[2022-04-09] MEDS: Levalbuterol HCl 0.63 MG/3 ML Neb INH SCH ×4 (07:49→19:34)
[2022-04-09] MEDS: Budesonide 0.5 MG/2 ML Neb Susp INH SCH ×2 (07:49→19:34)
[2022-04-09] MEDS: Ipratropium 0.02% 0.5 MG/2.5 ML Neb Soln INH SCH ×4 (07:49→19:34)
[2022-04-09] MEDS: hydrOXYzine Pamoate 25 MG Cap PO SCH ×3 (07:51→19:34)
[2022-04-09] MEDS: OMEPRAZOLE 40MG CAPS PO SCH (07:52)
[2022-04-09] MEDS: PROPRANOLOL 10 MG PO SCH ×2 (07:52→17:12)
[2022-04-09] MEDS: Escitalopram 20 MG Tab PO SCH (07:52)
[2022-04-09] MEDS: busPIRone 15 MG Tab PO SCH ×3 (07:52→19:34)
[2022-04-09] MEDS: predniSONE 20 MG Tab PO SCH (07:52)
[2022-04-09] MEDS: Calcium Carbonate/Vitamin D3 625 MG-125 Unit Tab PO SCH ×2 (07:53→17:13)
[2022-04-09] MEDS: Menthol 10%/Methyl Salicylate 15% 85 GM Tube TOP SCH ×2 (07:54→17:12)
[2022-04-09] MEDS: guaiFENesin 600 MG Tab.ER PO SCH ×2 (07:54→19:35)
[2022-04-09] MEDS: Melatonin 3 MG Tab PO SCH (19:35)
[2022-04-10] MEDS: Ipratropium 0.02% 0.5 MG/2.5 ML Neb Soln INH SCH ×4 (07:10→19:32)
[2022-04-10] MEDS: Budesonide 0.5 MG/2 ML Neb Susp INH SCH ×2 (07:19→19:39)
[2022-04-10] MEDS: guaiFENesin 600 MG Tab.ER PO SCH ×2 (07:21→19:47)
[2022-04-10] MEDS: busPIRone 15 MG Tab PO SCH ×3 (07:21→19:46)
[2022-04-10] MEDS: Escitalopram 20 MG Tab PO SCH (07:21)
[2022-04-10] MEDS: OMEPRAZOLE 40MG CAPS PO SCH (07:22)
[2022-04-10] MEDS: Menthol 10%/Methyl Salicylate 15% 85 GM Tube TOP SCH ×2 (07:22→17:04)
[2022-04-10] MEDS: Calcium Carbonate/Vitamin D3 625 MG-125 Unit Tab PO SCH ×2 (07:22→17:05)
[2022-04-10] MEDS: PROPRANOLOL 10 MG PO SCH ×2 (07:22→17:04)
[2022-04-10] MEDS: hydrOXYzine Pamoate 25 MG Cap PO SCH ×3 (07:23→19:46)
[2022-04-10] MEDS: predniSONE 20 MG Tab PO SCH (07:23)
[2022-04-10] MEDS: Levalbuterol HCl 0.63 MG/3 ML Neb INH SCH ×4 (08:26→19:43)
[2022-04-10] MEDS: Melatonin 3 MG Tab PO SCH (19:47)
[2022-04-11] MEDS: Levalbuterol HCl 0.63 MG/3 ML Neb INH SCH ×4 (07:29→19:35)
[2022-04-11] MEDS: Ipratropium 0.02% 0.5 MG/2.5 ML Neb Soln INH SCH ×4 (07:29→19:04)
[2022-04-11] MEDS: Budesonide 0.5 MG/2 ML Neb Susp INH SCH ×2 (07:29→19:27)
[2022-04-11] MEDS: predniSONE 20 MG Tab PO SCH (07:30)
[2022-04-11] MEDS: OMEPRAZOLE 40MG CAPS PO SCH (07:30)
[2022-04-11] MEDS: busPIRone 15 MG Tab PO SCH ×3 (07:30→19:30)
[2022-04-11] MEDS: Escitalopram 20 MG Tab PO SCH (07:30)
[2022-04-11] MEDS: PROPRANOLOL 10 MG PO SCH ×2 (07:30→17:38)
[2022-04-11] MEDS: hydrOXYzine Pamoate 25 MG Cap PO SCH ×3 (07:30→19:30)
[2022-04-11] MEDS: Menthol 10%/Methyl Salicylate 15% 85 GM Tube TOP SCH ×2 (07:31→17:37)
[2022-04-11] MEDS: guaiFENesin 600 MG Tab.ER PO SCH ×2 (07:32→19:30)
[2022-04-11] MEDS: Calcium Carbonate/Vitamin D3 625 MG-125 Unit Tab PO SCH ×2 (07:32→17:38)
[2022-04-11] MEDS: Melatonin 3 MG Tab PO SCH (19:31)
[2022-04-12] MEDS: Budesonide 0.5 MG/2 ML Neb Susp INH SCH ×2 (07:45→19:28)
[2022-04-12] MEDS: Ipratropium 0.02% 0.5 MG/2.5 ML Neb Soln INH SCH ×4 (07:45→19:28)
[2022-04-12] MEDS: busPIRone 15 MG Tab PO SCH ×3 (07:45→19:29)
[2022-04-12] MEDS: PROPRANOLOL 10 MG PO SCH ×2 (07:45→17:09)
[2022-04-12] MEDS: Levalbuterol HCl 0.63 MG/3 ML Neb INH SCH ×4 (07:45→19:28)
[2022-04-12] MEDS: Menthol 10%/Methyl Salicylate 15% 85 GM Tube TOP SCH ×2 (07:46→17:09)
[2022-04-12] MEDS: OMEPRAZOLE 40MG CAPS PO SCH (07:46)
[2022-04-12] MEDS: guaiFENesin 600 MG Tab.ER PO SCH ×2 (07:46→19:29)
[2022-04-12] MEDS: Escitalopram 20 MG Tab PO SCH (07:46)
[2022-04-12] MEDS: hydrOXYzine Pamoate 25 MG Cap PO SCH ×3 (07:47→19:30)
[2022-04-12] MEDS: Calcium Carbonate/Vitamin D3 625 MG-125 Unit Tab PO SCH ×2 (07:47→17:09)
[2022-04-12] MEDS: predniSONE 20 MG Tab PO SCH (07:47)
[2022-04-12] MEDS: Melatonin 3 MG Tab PO SCH (19:29)
[2022-04-13] MEDS: PROPRANOLOL 10 MG PO SCH ×2 (08:20→17:16)
[2022-04-13] MEDS: busPIRone 15 MG Tab PO SCH ×3 (08:20→19:48)
[2022-04-13] MEDS: Escitalopram 20 MG Tab PO SCH (08:20)
[2022-04-13] MEDS: OMEPRAZOLE 40MG CAPS PO SCH (08:20)
[2022-04-13] MEDS: hydrOXYzine Pamoate 25 MG Cap PO SCH ×3 (08:21→19:48)
[2022-04-13] MEDS: predniSONE 20 MG Tab PO SCH (08:21)
[2022-04-13] MEDS: guaiFENesin 600 MG Tab.ER PO SCH ×2 (08:22→19:49)
[2022-04-13] MEDS: Menthol 10%/Methyl Salicylate 15% 85 GM Tube TOP SCH ×2 (08:22→17:16)
[2022-04-13] MEDS: Calcium Carbonate/Vitamin D3 625 MG-125 Unit Tab PO SCH ×2 (08:23→17:16)
[2022-04-13] MEDS: Budesonide 0.5 MG/2 ML Neb Susp INH SCH ×2 (08:24→19:50)
[2022-04-13] MEDS: Ipratropium 0.02% 0.5 MG/2.5 ML Neb Soln INH SCH ×4 (08:24→19:48)
[2022-04-13] MEDS: Levalbuterol HCl 0.63 MG/3 ML Neb INH SCH ×4 (08:24→19:50)
[2022-04-13] MEDS: Melatonin 3 MG Tab PO SCH (19:49)
[2022-04-14] MEDS: Ipratropium 0.02% 0.5 MG/2.5 ML Neb Soln INH SCH ×4 (07:06→19:47)
[2022-04-14] MEDS: PROPRANOLOL 10 MG PO SCH ×2 (07:24→17:09)
[2022-04-14] MEDS: busPIRone 15 MG Tab PO SCH ×3 (07:24→19:48)
[2022-04-14] MEDS: OMEPRAZOLE 40MG CAPS PO SCH (07:24)
[2022-04-14] MEDS: Escitalopram 20 MG Tab PO SCH (07:24)
[2022-04-14] MEDS: hydrOXYzine Pamoate 25 MG Cap PO SCH ×3 (07:25→19:48)
[2022-04-14] MEDS: predniSONE 20 MG Tab PO SCH (07:25)
[2022-04-14] MEDS: Menthol 10%/Methyl Salicylate 15% 85 GM Tube TOP SCH ×2 (07:26→17:09)
[2022-04-14] MEDS: Calcium Carbonate/Vitamin D3 625 MG-125 Unit Tab PO SCH ×2 (07:27→17:09)
[2022-04-14] MEDS: guaiFENesin 600 MG Tab.ER PO SCH ×2 (07:27→19:49)
[2022-04-14] MEDS: Budesonide 0.5 MG/2 ML Neb Susp INH SCH ×2 (07:27→19:47)
[2022-04-14] MEDS: Levalbuterol HCl 0.63 MG/3 ML Neb INH SCH ×4 (08:13→19:48)
[2022-04-14] MEDS: Melatonin 3 MG Tab PO SCH (19:48)
[2022-04-15] MEDS: hydrOXYzine Pamoate 25 MG Cap PO SCH ×3 (08:32→20:02)
[2022-04-15] MEDS: PROPRANOLOL 10 MG PO SCH ×2 (08:32→17:10)
[2022-04-15] MEDS: predniSONE 20 MG Tab PO SCH (08:32)
[2022-04-15] MEDS: OMEPRAZOLE 40MG CAPS PO SCH (08:33)
[2022-04-15] MEDS: Escitalopram 20 MG Tab PO SCH (08:33)
[2022-04-15] MEDS: busPIRone 15 MG Tab PO SCH ×3 (08:33→20:02)
[2022-04-15] MEDS: Calcium Carbonate/Vitamin D3 625 MG-125 Unit Tab PO SCH ×2 (08:34→17:10)
[2022-04-15] MEDS: guaiFENesin 600 MG Tab.ER PO SCH ×2 (08:34→20:02)
[2022-04-15] MEDS: Menthol 10%/Methyl Salicylate 15% 85 GM Tube TOP SCH ×2 (08:36→17:10)
[2022-04-15] MEDS: Ipratropium 0.02% 0.5 MG/2.5 ML Neb Soln INH SCH ×4 (08:37→19:34)
[2022-04-15] MEDS: Budesonide 0.5 MG/2 ML Neb Susp INH SCH ×2 (08:37→20:01)
[2022-04-15] MEDS: Levalbuterol HCl 0.63 MG/3 ML Neb INH SCH ×4 (08:37→20:15)
[2022-04-15] MEDS: Melatonin 3 MG Tab PO SCH (20:02)
[2022-04-16] MEDS: Ipratropium 0.02% 0.5 MG/2.5 ML Neb Soln INH SCH ×4 (07:24→19:04)
[2022-04-16] MEDS: Budesonide 0.5 MG/2 ML Neb Susp INH SCH ×2 (07:25→19:19)
[2022-04-16] MEDS: busPIRone 15 MG Tab PO SCH ×3 (07:25→19:25)
[2022-04-16] MEDS: Levalbuterol HCl 0.63 MG/3 ML Neb INH SCH ×4 (07:25→19:26)
[2022-04-16] MEDS: Escitalopram 20 MG Tab PO SCH (07:26)
[2022-04-16] MEDS: guaiFENesin 600 MG Tab.ER PO SCH ×2 (07:26→19:26)
[2022-04-16] MEDS: OMEPRAZOLE 40MG CAPS PO SCH (07:27)
[2022-04-16] MEDS: predniSONE 20 MG Tab PO SCH (07:27)
[2022-04-16] MEDS: PROPRANOLOL 10 MG PO SCH ×2 (07:27→17:06)
[2022-04-16] MEDS: Calcium Carbonate/Vitamin D3 625 MG-125 Unit Tab PO SCH ×2 (07:27→17:06)
[2022-04-16] MEDS: Menthol 10%/Methyl Salicylate 15% 85 GM Tube TOP SCH ×2 (07:27→17:06)
[2022-04-16] MEDS: hydrOXYzine Pamoate 25 MG Cap PO SCH ×3 (07:28→19:25)
[2022-04-16] MEDS: Melatonin 3 MG Tab PO SCH (19:26)
[2022-04-17] MEDS: Ipratropium 0.02% 0.5 MG/2.5 ML Neb Soln INH SCH ×4 (07:28→19:00)
[2022-04-17] MEDS: Levalbuterol HCl 0.63 MG/3 ML Neb INH SCH ×4 (07:28→19:28)
[2022-04-17] MEDS: Budesonide 0.5 MG/2 ML Neb Susp INH SCH ×2 (07:28→19:11)
[2022-04-17] MEDS: guaiFENesin 600 MG Tab.ER PO SCH ×2 (07:34→19:13)
[2022-04-17] MEDS: Menthol 10%/Methyl Salicylate 15% 85 GM Tube TOP SCH (07:34)
[2022-04-17] MEDS: busPIRone 15 MG Tab PO SCH ×3 (07:34→19:12)
[2022-04-17] MEDS: Escitalopram 20 MG Tab PO SCH (07:34)
[2022-04-17] MEDS: OMEPRAZOLE 40MG CAPS PO SCH (07:35)
[2022-04-17] MEDS: predniSONE 20 MG Tab PO SCH (07:35)
[2022-04-17] MEDS: hydrOXYzine Pamoate 25 MG Cap PO SCH ×3 (07:35→19:12)
[2022-04-17] MEDS: PROPRANOLOL 10 MG PO SCH ×2 (07:35→17:39)
[2022-04-17] MEDS: Calcium Carbonate/Vitamin D3 625 MG-125 Unit Tab PO SCH ×2 (07:35→17:39)
[2022-04-17] MEDS: Melatonin 3 MG Tab PO SCH (19:13)
[2022-04-18] MEDS: Budesonide 0.5 MG/2 ML Neb Susp INH SCH ×2 (07:14→19:35)
[2022-04-18] MEDS: Ipratropium 0.02% 0.5 MG/2.5 ML Neb Soln INH SCH ×4 (07:14→19:33)
[2022-04-18] MEDS: Levalbuterol HCl 0.63 MG/3 ML Neb INH SCH ×4 (07:14→19:34)
[2022-04-18] MEDS: guaiFENesin 600 MG Tab.ER PO SCH ×2 (07:15→19:34)
[2022-04-18] MEDS: busPIRone 15 MG Tab PO SCH ×3 (07:15→19:33)
[2022-04-18] MEDS: OMEPRAZOLE 40MG CAPS PO SCH (07:15)
[2022-04-18] MEDS: Escitalopram 20 MG Tab PO SCH (07:15)
[2022-04-18] MEDS: PROPRANOLOL 10 MG PO SCH ×2 (07:16→17:18)
[2022-04-18] MEDS: hydrOXYzine Pamoate 25 MG Cap PO SCH ×3 (07:16→19:35)
[2022-04-18] MEDS: predniSONE 20 MG Tab PO SCH (07:16)
[2022-04-18] MEDS: Calcium Carbonate/Vitamin D3 625 MG-125 Unit Tab PO SCH ×2 (07:16→17:19)
[2022-04-18] MEDS: Melatonin 3 MG Tab PO SCH (19:34)
[2022-04-19] MEDS: Escitalopram 20 MG Tab PO SCH (07:28)
[2022-04-19] MEDS: OMEPRAZOLE 40MG CAPS PO SCH (07:28)
[2022-04-19] MEDS: busPIRone 15 MG Tab PO SCH ×3 (07:28→20:03)
[2022-04-19] MEDS: hydrOXYzine Pamoate 25 MG Cap PO SCH ×3 (07:29→20:05)
[2022-04-19] MEDS: predniSONE 20 MG Tab PO SCH (07:29)
[2022-04-19] MEDS: PROPRANOLOL 10 MG PO SCH ×2 (07:29→17:29)
[2022-04-19] MEDS: Ipratropium 0.02% 0.5 MG/2.5 ML Neb Soln INH SCH ×4 (07:30→20:02)
[2022-04-19] MEDS: Levalbuterol HCl 0.63 MG/3 ML Neb INH SCH ×4 (07:30→20:06)
[2022-04-19] MEDS: Budesonide 0.5 MG/2 ML Neb Susp INH SCH ×2 (07:31→20:04)
[2022-04-19] MEDS: guaiFENesin 600 MG Tab.ER PO SCH ×2 (07:33→20:03)
[2022-04-19] MEDS: Calcium Carbonate/Vitamin D3 625 MG-125 Unit Tab PO SCH ×2 (07:34→17:29)
[2022-04-19] MEDS: Melatonin 3 MG Tab PO SCH (20:03)
[2022-04-20] MEDS: Ipratropium 0.02% 0.5 MG/2.5 ML Neb Soln INH SCH ×4 (07:28→20:12)
[2022-04-20] MEDS: hydrOXYzine Pamoate 25 MG Cap PO SCH ×3 (07:30→20:15)
[2022-04-20] MEDS: predniSONE 20 MG Tab PO SCH (07:30)
[2022-04-20] MEDS: PROPRANOLOL 10 MG PO SCH ×2 (07:31→17:33)
[2022-04-20] MEDS: OMEPRAZOLE 40MG CAPS PO SCH (07:31)
[2022-04-20] MEDS: busPIRone 15 MG Tab PO SCH ×3 (07:31→20:13)
[2022-04-20] MEDS: Escitalopram 20 MG Tab PO SCH (07:31)
[2022-04-20] MEDS: guaiFENesin 600 MG Tab.ER PO SCH ×2 (07:32→20:14)
[2022-04-20] MEDS: Calcium Carbonate/Vitamin D3 625 MG-125 Unit Tab PO SCH ×2 (07:33→17:34)
[2022-04-20] MEDS: Budesonide 0.5 MG/2 ML Neb Susp INH SCH ×2 (07:34→20:15)
[2022-04-20] MEDS: Levalbuterol HCl 0.63 MG/3 ML Neb INH SCH ×4 (07:39→20:16)
[2022-04-20] MEDS: Melatonin 3 MG Tab PO SCH (20:13)
[2022-04-21] MEDS: Ipratropium 0.02% 0.5 MG/2.5 ML Neb Soln INH SCH ×4 (08:42→20:08)
[2022-04-21] MEDS: Escitalopram 20 MG Tab PO SCH (08:43)
[2022-04-21] MEDS: busPIRone 15 MG Tab PO SCH ×3 (08:43→20:09)
[2022-04-21] MEDS: hydrOXYzine Pamoate 25 MG Cap PO SCH ×3 (08:44→20:10)
[2022-04-21] MEDS: predniSONE 20 MG Tab PO SCH (08:44)
[2022-04-21] MEDS: OMEPRAZOLE 40MG CAPS PO SCH (08:44)
[2022-04-21] MEDS: PROPRANOLOL 10 MG PO SCH ×2 (08:44→17:20)
[2022-04-21] MEDS: Calcium Carbonate/Vitamin D3 625 MG-125 Unit Tab PO SCH ×2 (08:45→17:20)
[2022-04-21] MEDS: guaiFENesin 600 MG Tab.ER PO SCH ×2 (08:45→20:10)
[2022-04-21] MEDS: Budesonide 0.5 MG/2 ML Neb Susp INH SCH ×2 (08:46→20:10)
[2022-04-21] MEDS: Levalbuterol HCl 0.63 MG/3 ML Neb INH SCH ×4 (08:58→20:11)
[2022-04-21] MEDS: Melatonin 3 MG Tab PO SCH (20:09)
[2022-04-22] MEDS: busPIRone 15 MG Tab PO SCH ×3 (07:24→19:46)
[2022-04-22] MEDS: OMEPRAZOLE 40MG CAPS PO SCH (07:25)
[2022-04-22] MEDS: hydrOXYzine Pamoate 25 MG Cap PO SCH ×3 (07:25→19:46)
[2022-04-22] MEDS: Escitalopram 20 MG Tab PO SCH (07:25)
[2022-04-22] MEDS: predniSONE 20 MG Tab PO SCH (07:25)
[2022-04-22] MEDS: PROPRANOLOL 10 MG PO SCH ×2 (07:25→17:43)
[2022-04-22] MEDS: Budesonide 0.5 MG/2 ML Neb Susp INH SCH ×2 (07:26→19:46)
[2022-04-22] MEDS: Ipratropium 0.02% 0.5 MG/2.5 ML Neb Soln INH SCH ×4 (07:26→19:45)
[2022-04-22] MEDS: Levalbuterol HCl 0.63 MG/3 ML Neb INH SCH ×4 (07:27→19:46)
[2022-04-22] MEDS: guaiFENesin 600 MG Tab.ER PO SCH ×2 (07:27→19:48)
[2022-04-22] MEDS: Calcium Carbonate/Vitamin D3 625 MG-125 Unit Tab PO SCH ×2 (07:28→17:43)
[2022-04-22] MEDS: Melatonin 3 MG Tab PO SCH (19:48)
[2022-04-23] MEDS: predniSONE 20 MG Tab PO SCH (08:27)
[2022-04-23] MEDS: hydrOXYzine Pamoate 25 MG Cap PO SCH ×3 (08:28→19:21)
[2022-04-23] MEDS: Escitalopram 20 MG Tab PO SCH (08:28)
[2022-04-23] MEDS: OMEPRAZOLE 40MG CAPS PO SCH (08:28)
[2022-04-23] MEDS: PROPRANOLOL 10 MG PO SCH ×2 (08:28→17:55)
[2022-04-23] MEDS: Ipratropium 0.02% 0.5 MG/2.5 ML Neb Soln INH SCH ×4 (08:29→19:20)
[2022-04-23] MEDS: guaiFENesin 600 MG Tab.ER PO SCH ×2 (08:29→19:22)
[2022-04-23] MEDS: busPIRone 15 MG Tab PO SCH ×3 (08:29→19:21)
[2022-04-23] MEDS: Calcium Carbonate/Vitamin D3 625 MG-125 Unit Tab PO SCH ×2 (08:30→17:55)
[2022-04-23] MEDS: Levalbuterol HCl 0.63 MG/3 ML Neb INH SCH ×4 (08:41→19:22)
[2022-04-23] MEDS: Budesonide 0.5 MG/2 ML Neb Susp INH SCH ×2 (08:58→19:23)
[2022-04-23] MEDS: Melatonin 3 MG Tab PO SCH (19:22)
[2022-04-24] MEDS: PROPRANOLOL 10 MG PO SCH ×2 (07:19→17:11)
[2022-04-24] MEDS: predniSONE 20 MG Tab PO SCH (07:19)
[2022-04-24] MEDS: Ipratropium 0.02% 0.5 MG/2.5 ML Neb Soln INH SCH ×4 (07:20→19:30)
[2022-04-24] MEDS: Escitalopram 20 MG Tab PO SCH (07:20)
[2022-04-24] MEDS: busPIRone 15 MG Tab PO SCH ×3 (07:20→19:31)
[2022-04-24] MEDS: OMEPRAZOLE 40MG CAPS PO SCH (07:20)
[2022-04-24] MEDS: hydrOXYzine Pamoate 25 MG Cap PO SCH ×3 (07:20→19:32)
[2022-04-24] MEDS: Levalbuterol HCl 0.63 MG/3 ML Neb INH SCH ×4 (07:21→19:30)
[2022-04-24] MEDS: Budesonide 0.5 MG/2 ML Neb Susp INH SCH ×2 (07:21→19:31)
[2022-04-24] MEDS: Calcium Carbonate/Vitamin D3 625 MG-125 Unit Tab PO SCH ×2 (07:22→17:11)
[2022-04-24] MEDS: guaiFENesin 600 MG Tab.ER PO SCH ×2 (07:22→19:32)
[2022-04-24] MEDS: Melatonin 3 MG Tab PO SCH (19:31)
[2022-04-25] MEDS: guaiFENesin 600 MG Tab.ER PO SCH ×2 (07:33→19:55)
[2022-04-25] MEDS: Calcium Carbonate/Vitamin D3 625 MG-125 Unit Tab PO SCH ×2 (07:33→17:11)
[2022-04-25] MEDS: Escitalopram 20 MG Tab PO SCH (07:34)
[2022-04-25] MEDS: OMEPRAZOLE 40MG CAPS PO SCH (07:34)
[2022-04-25] MEDS: hydrOXYzine Pamoate 25 MG Cap PO SCH ×3 (07:34→19:55)
[2022-04-25] MEDS: PROPRANOLOL 10 MG PO SCH ×2 (07:34→17:11)
[2022-04-25] MEDS: Levalbuterol HCl 0.63 MG/3 ML Neb INH SCH ×4 (07:35→19:56)
[2022-04-25] MEDS: predniSONE 20 MG Tab PO SCH (07:35)
[2022-04-25] MEDS: Budesonide 0.5 MG/2 ML Neb Susp INH SCH ×2 (07:35→19:55)
[2022-04-25] MEDS: busPIRone 15 MG Tab PO SCH ×3 (07:35→19:54)
[2022-04-25] MEDS: Ipratropium 0.02% 0.5 MG/2.5 ML Neb Soln INH SCH ×4 (07:35→19:53)
[2022-04-25] MEDS: Melatonin 3 MG Tab PO SCH (19:54)
[2022-04-26] MEDS: Ipratropium 0.02% 0.5 MG/2.5 ML Neb Soln INH SCH ×4 (07:03→19:02)
[2022-04-26] MEDS: Levalbuterol HCl 0.63 MG/3 ML Neb INH SCH ×4 (07:15→19:35)
[2022-04-26] MEDS: guaiFENesin 600 MG Tab.ER PO SCH ×2 (07:16→19:30)
[2022-04-26] MEDS: busPIRone 15 MG Tab PO SCH ×3 (07:16→19:29)
[2022-04-26] MEDS: Escitalopram 20 MG Tab PO SCH (07:16)
[2022-04-26] MEDS: Budesonide 0.5 MG/2 ML Neb Susp INH SCH ×2 (07:16→19:20)
[2022-04-26] MEDS: OMEPRAZOLE 40MG CAPS PO SCH (07:17)
[2022-04-26] MEDS: Calcium Carbonate/Vitamin D3 625 MG-125 Unit Tab PO SCH ×2 (07:17→17:21)
[2022-04-26] MEDS: PROPRANOLOL 10 MG PO SCH ×2 (07:17→17:21)
[2022-04-26] MEDS: predniSONE 20 MG Tab PO SCH (07:17)
[2022-04-26] MEDS: hydrOXYzine Pamoate 25 MG Cap PO SCH ×3 (07:17→19:29)
[2022-04-26] MEDS: Melatonin 3 MG Tab PO SCH (19:30)
[2022-04-27] MEDS: Ipratropium 0.02% 0.5 MG/2.5 ML Neb Soln INH SCH ×4 (07:24→19:07)
[2022-04-27] MEDS: Budesonide 0.5 MG/2 ML Neb Susp INH SCH ×2 (07:24→19:23)
[2022-04-27] MEDS: Levalbuterol HCl 0.63 MG/3 ML Neb INH SCH ×4 (07:24→19:32)
[2022-04-27] MEDS: Escitalopram 20 MG Tab PO SCH (07:25)
[2022-04-27] MEDS: Calcium Carbonate/Vitamin D3 625 MG-125 Unit Tab PO SCH ×2 (07:25→17:14)
[2022-04-27] MEDS: PROPRANOLOL 10 MG PO SCH ×2 (07:25→17:14)
[2022-04-27] MEDS: guaiFENesin 600 MG Tab.ER PO SCH ×2 (07:25→19:29)
[2022-04-27] MEDS: OMEPRAZOLE 40MG CAPS PO SCH (07:25)
[2022-04-27] MEDS: busPIRone 15 MG Tab PO SCH ×3 (07:25→19:29)
[2022-04-27] MEDS: hydrOXYzine Pamoate 25 MG Cap PO SCH ×3 (07:26→19:29)
[2022-04-27] MEDS: predniSONE 20 MG Tab PO SCH (07:26)
[2022-04-27] MEDS: Melatonin 3 MG Tab PO SCH (19:30)
[2022-04-28] MEDS: Levalbuterol HCl 0.63 MG/3 ML Neb INH SCH ×4 (07:08→19:35)
[2022-04-28] MEDS: Ipratropium 0.02% 0.5 MG/2.5 ML Neb Soln INH SCH ×4 (07:08→19:07)
[2022-04-28] MEDS: Budesonide 0.5 MG/2 ML Neb Susp INH SCH ×2 (07:09→19:25)
[2022-04-28] MEDS: busPIRone 15 MG Tab PO SCH ×3 (07:09→19:27)
[2022-04-28] MEDS: OMEPRAZOLE 40MG CAPS PO SCH (07:10)
[2022-04-28] MEDS: Calcium Carbonate/Vitamin D3 625 MG-125 Unit Tab PO SCH ×2 (07:10→17:15)
[2022-04-28] MEDS: predniSONE 20 MG Tab PO SCH (07:10)
[2022-04-28] MEDS: PROPRANOLOL 10 MG PO SCH ×2 (07:10→17:15)
[2022-04-28] MEDS: Escitalopram 20 MG Tab PO SCH (07:10)
[2022-04-28] MEDS: guaiFENesin 600 MG Tab.ER PO SCH ×2 (07:10→19:27)
[2022-04-28] MEDS: hydrOXYzine Pamoate 25 MG Cap PO SCH ×3 (07:11→19:27)
[2022-04-28] MEDS: Melatonin 3 MG Tab PO SCH (19:28)
[2022-04-29] MEDS: Levalbuterol HCl 0.63 MG/3 ML Neb INH SCH ×4 (07:09→19:34)
[2022-04-29] MEDS: Ipratropium 0.02% 0.5 MG/2.5 ML Neb Soln INH SCH ×4 (07:09→19:34)
[2022-04-29] MEDS: Budesonide 0.5 MG/2 ML Neb Susp INH SCH ×2 (07:09→19:34)
[2022-04-29] MEDS: Escitalopram 20 MG Tab PO SCH (07:10)
[2022-04-29] MEDS: guaiFENesin 600 MG Tab.ER PO SCH ×2 (07:10→19:34)
[2022-04-29] MEDS: busPIRone 15 MG Tab PO SCH ×3 (07:10→19:35)
[2022-04-29] MEDS: OMEPRAZOLE 40MG CAPS PO SCH (07:10)
[2022-04-29] MEDS: Calcium Carbonate/Vitamin D3 625 MG-125 Unit Tab PO SCH ×2 (07:10→17:10)
[2022-04-29] MEDS: predniSONE 20 MG Tab PO SCH (07:11)
[2022-04-29] MEDS: hydrOXYzine Pamoate 25 MG Cap PO SCH ×3 (07:11→19:35)
[2022-04-29] MEDS: PROPRANOLOL 10 MG PO SCH ×2 (07:11→17:10)
[2022-04-29] MEDS: Melatonin 3 MG Tab PO SCH (19:35)
[2022-04-30] MEDS: Ipratropium 0.02% 0.5 MG/2.5 ML Neb Soln INH SCH ×4 (07:41→19:49)
[2022-04-30] MEDS: Escitalopram 20 MG Tab PO SCH (07:41)
[2022-04-30] MEDS: Levalbuterol HCl 0.63 MG/3 ML Neb INH SCH ×4 (07:41→19:49)
[2022-04-30] MEDS: busPIRone 15 MG Tab PO SCH ×3 (07:41→19:50)
[2022-04-30] MEDS: Budesonide 0.5 MG/2 ML Neb Susp INH SCH ×2 (07:41→19:50)
[2022-04-30] MEDS: OMEPRAZOLE 40MG CAPS PO SCH (07:42)
[2022-04-30] MEDS: PROPRANOLOL 10 MG PO SCH ×2 (07:42→17:08)
[2022-04-30] MEDS: predniSONE 20 MG Tab PO SCH (07:42)
[2022-04-30] MEDS: Calcium Carbonate/Vitamin D3 625 MG-125 Unit Tab PO SCH ×2 (07:42→17:08)
[2022-04-30] MEDS: hydrOXYzine Pamoate 25 MG Cap PO SCH ×3 (07:42→19:50)
[2022-04-30] MEDS: guaiFENesin 600 MG Tab.ER PO SCH ×2 (07:43→19:51)
[2022-04-30] MEDS: Melatonin 3 MG Tab PO SCH (19:51)
[2022-05-01] MEDS: Budesonide 0.5 MG/2 ML Neb Susp INH SCH ×2 (07:59→19:38)
[2022-05-01] MEDS: busPIRone 15 MG Tab PO SCH ×3 (07:59→19:39)
[2022-05-01] MEDS: Ipratropium 0.02% 0.5 MG/2.5 ML Neb Soln INH SCH ×4 (07:59→19:37)
[2022-05-01] MEDS: Levalbuterol HCl 0.63 MG/3 ML Neb INH SCH ×4 (07:59→19:37)
[2022-05-01] MEDS: PROPRANOLOL 10 MG PO SCH ×2 (08:00→17:26)
[2022-05-01] MEDS: Calcium Carbonate/Vitamin D3 625 MG-125 Unit Tab PO SCH ×2 (08:00→17:26)
[2022-05-01] MEDS: guaiFENesin 600 MG Tab.ER PO SCH ×2 (08:00→19:39)
[2022-05-01] MEDS: predniSONE 20 MG Tab PO SCH (08:00)
[2022-05-01] MEDS: OMEPRAZOLE 40MG CAPS PO SCH (08:00)
[2022-05-01] MEDS: Escitalopram 20 MG Tab PO SCH (08:00)
[2022-05-01] MEDS: hydrOXYzine Pamoate 25 MG Cap PO SCH ×3 (08:01→19:38)
[2022-05-01] MEDS: Melatonin 3 MG Tab PO SCH (19:39)
[2022-05-02] MEDS: LORazepam 0.5 MG Tab PO PRN ×2 (07:55→11:06)
[2022-05-02] MEDS: busPIRone 15 MG Tab PO SCH ×3 (07:56→19:28)
[2022-05-02] MEDS: Ipratropium 0.02% 0.5 MG/2.5 ML Neb Soln INH SCH ×4 (07:56→19:04)
[2022-05-02] MEDS: Budesonide 0.5 MG/2 ML Neb Susp INH SCH ×2 (07:56→19:18)
[2022-05-02] MEDS: OMEPRAZOLE 40MG CAPS PO SCH (07:56)
[2022-05-02] MEDS: Levalbuterol HCl 0.63 MG/3 ML Neb INH SCH ×4 (07:56→19:30)
[2022-05-02] MEDS: guaiFENesin 600 MG Tab.ER PO SCH ×2 (07:56→19:29)
[2022-05-02] MEDS: Escitalopram 20 MG Tab PO SCH (07:56)
[2022-05-02] MEDS: hydrOXYzine Pamoate 25 MG Cap PO SCH ×3 (07:57→19:28)
[2022-05-02] MEDS: Calcium Carbonate/Vitamin D3 625 MG-125 Unit Tab PO SCH ×2 (07:57→17:21)
[2022-05-02] MEDS: PROPRANOLOL 10 MG PO SCH (07:57)
[2022-05-02] MEDS: predniSONE 20 MG Tab PO SCH (07:57)
[2022-05-02] MEDS: Polyethylene Glycol 3350 Powder 510 GM Bot PO PRN (13:50)
[2022-05-02] MEDS ORDERED: Calcium Carbonate 750 MG Tab.Chew PO PRN (14:22)
[2022-05-02] MEDS: Melatonin 3 MG Tab PO SCH (19:29)
[2022-05-03] MEDS: Ipratropium 0.02% 0.5 MG/2.5 ML Neb Soln INH SCH ×4 (08:23→19:18)
[2022-05-03] MEDS: Budesonide 0.5 MG/2 ML Neb Susp INH SCH ×2 (08:23→19:37)
[2022-05-03] MEDS: Levalbuterol HCl 0.63 MG/3 ML Neb INH SCH ×4 (08:23→19:47)
[2022-05-03] MEDS: Atenolol 25 MG Tab PO SCH (08:24)
[2022-05-03] MEDS: busPIRone 15 MG Tab PO SCH ×3 (08:24→19:45)
[2022-05-03] MEDS: OMEPRAZOLE 40MG CAPS PO SCH (08:25)
[2022-05-03] MEDS: Escitalopram 20 MG Tab PO SCH (08:25)
[2022-05-03] MEDS: predniSONE 20 MG Tab PO SCH (08:25)
[2022-05-03] MEDS: guaiFENesin 600 MG Tab.ER PO SCH ×2 (08:25→19:46)
[2022-05-03] MEDS: Calcium Carbonate/Vitamin D3 625 MG-125 Unit Tab PO SCH ×2 (08:25→18:10)
[2022-05-03] MEDS: hydrOXYzine Pamoate 25 MG Cap PO SCH ×3 (08:26→19:45)
[2022-05-03] MEDS: Melatonin 3 MG Tab PO SCH (19:46)
[2022-05-04] MEDS: Budesonide 0.5 MG/2 ML Neb Susp INH SCH ×2 (07:38→19:32)
[2022-05-04] MEDS: Ipratropium 0.02% 0.5 MG/2.5 ML Neb Soln INH SCH ×4 (07:38→19:32)
[2022-05-04] MEDS: Levalbuterol HCl 0.63 MG/3 ML Neb INH SCH ×4 (07:38→19:32)
[2022-05-04] MEDS: OMEPRAZOLE 40MG CAPS PO SCH (07:39)
[2022-05-04] MEDS: busPIRone 15 MG Tab PO SCH ×3 (07:39→19:33)
[2022-05-04] MEDS: guaiFENesin 600 MG Tab.ER PO SCH ×2 (07:39→19:34)
[2022-05-04] MEDS: predniSONE 20 MG Tab PO SCH (07:39)
[2022-05-04] MEDS: Escitalopram 20 MG Tab PO SCH (07:39)
[2022-05-04] MEDS: Calcium Carbonate/Vitamin D3 625 MG-125 Unit Tab PO SCH ×2 (07:39→17:00)
[2022-05-04] MEDS: Atenolol 25 MG Tab PO SCH (07:40)
[2022-05-04] MEDS: hydrOXYzine Pamoate 25 MG Cap PO SCH ×3 (07:40→19:33)
[2022-05-04] MEDS: Melatonin 3 MG Tab PO SCH (19:34)
[2022-05-05] MEDS: Ipratropium 0.02% 0.5 MG/2.5 ML Neb Soln INH SCH ×4 (07:16→19:18)
[2022-05-05] MEDS: Levalbuterol HCl 0.63 MG/3 ML Neb INH SCH ×4 (07:16→19:18)
[2022-05-05] MEDS: busPIRone 15 MG Tab PO SCH ×3 (07:17→19:18)
[2022-05-05] MEDS: Budesonide 0.5 MG/2 ML Neb Susp INH SCH ×2 (07:17→19:19)
[2022-05-05] MEDS: Escitalopram 20 MG Tab PO SCH (07:18)
[2022-05-05] MEDS: Atenolol 25 MG Tab PO SCH (07:18)
[2022-05-05] MEDS: OMEPRAZOLE 40MG CAPS PO SCH (07:18)
[2022-05-05] MEDS: predniSONE 20 MG Tab PO SCH (07:18)
[2022-05-05] MEDS: guaiFENesin 600 MG Tab.ER PO SCH ×2 (07:19→19:19)
[2022-05-05] MEDS: hydrOXYzine Pamoate 25 MG Cap PO SCH ×3 (07:19→19:17)
[2022-05-05] MEDS: Calcium Carbonate/Vitamin D3 625 MG-125 Unit Tab PO SCH ×2 (07:19→17:03)
[2022-05-05] MEDS: Melatonin 3 MG Tab PO SCH (19:20)
[2022-05-06] MEDS: Escitalopram 20 MG Tab PO SCH (08:05)
[2022-05-06] MEDS: Ipratropium 0.02% 0.5 MG/2.5 ML Neb Soln INH SCH ×4 (08:05→19:02)
[2022-05-06] MEDS: Levalbuterol HCl 0.63 MG/3 ML Neb INH SCH ×4 (08:05→19:37)
[2022-05-06] MEDS: busPIRone 15 MG Tab PO SCH ×3 (08:05→19:35)
[2022-05-06] MEDS: Budesonide 0.5 MG/2 ML Neb Susp INH SCH ×2 (08:05→19:17)
[2022-05-06] MEDS: OMEPRAZOLE 40MG CAPS PO SCH (08:06)
[2022-05-06] MEDS: guaiFENesin 600 MG Tab.ER PO SCH ×2 (08:06→19:35)
[2022-05-06] MEDS: Calcium Carbonate/Vitamin D3 625 MG-125 Unit Tab PO SCH ×2 (08:06→17:08)
[2022-05-06] MEDS: predniSONE 20 MG Tab PO SCH (08:06)
[2022-05-06] MEDS: Atenolol 25 MG Tab PO SCH (08:07)
[2022-05-06] MEDS: hydrOXYzine Pamoate 25 MG Cap PO SCH ×3 (08:07→19:35)
[2022-05-06] MEDS: LORazepam 0.5 MG Tab PO PRN (15:28)
[2022-05-06] MEDS: Melatonin 3 MG Tab PO SCH (19:36)
[2022-05-06] MEDS: MUPIROCIN TOP SCH (19:37)
[2022-05-07] MEDS: MUPIROCIN TOP SCH ×2 (08:05→19:39)
[2022-05-07] MEDS: Budesonide 0.5 MG/2 ML Neb Susp INH SCH ×2 (08:05→19:19)
[2022-05-07] MEDS: Ipratropium 0.02% 0.5 MG/2.5 ML Neb Soln INH SCH ×4 (08:05→19:08)
[2022-05-07] MEDS: Levalbuterol HCl 0.63 MG/3 ML Neb INH SCH ×4 (08:05→19:38)
[2022-05-07] MEDS: Calcium Carbonate/Vitamin D3 625 MG-125 Unit Tab PO SCH ×2 (08:06→17:05)
[2022-05-07] MEDS: guaiFENesin 600 MG Tab.ER PO SCH ×2 (08:06→19:39)
[2022-05-07] MEDS: OMEPRAZOLE 40MG CAPS PO SCH (08:06)
[2022-05-07] MEDS: Escitalopram 20 MG Tab PO SCH (08:06)
[2022-05-07] MEDS: busPIRone 15 MG Tab PO SCH ×3 (08:06→19:38)
[2022-05-07] MEDS: predniSONE 20 MG Tab PO SCH (08:07)
[2022-05-07] MEDS: hydrOXYzine Pamoate 25 MG Cap PO SCH ×3 (08:07→19:38)
[2022-05-07] MEDS: Cholecalciferol (Vitamin D3) 5,000 UNIT Tab PO SCH (08:09)
[2022-05-07] MEDS: Melatonin 3 MG Tab PO SCH (19:38)
[2022-05-08] MEDS: OMEPRAZOLE 40MG CAPS PO SCH (08:58)
[2022-05-08] MEDS: busPIRone 15 MG Tab PO SCH ×3 (08:58→19:17)
[2022-05-08] MEDS: MUPIROCIN TOP SCH ×2 (08:58→19:16)
[2022-05-08] MEDS: guaiFENesin 600 MG Tab.ER PO SCH ×2 (08:58→19:21)
[2022-05-08] MEDS: predniSONE 20 MG Tab PO SCH (08:58)
[2022-05-08] MEDS: Ipratropium 0.02% 0.5 MG/2.5 ML Neb Soln INH SCH ×4 (08:58→19:15)
[2022-05-08] MEDS: Escitalopram 20 MG Tab PO SCH (08:58)
[2022-05-08] MEDS: Calcium Carbonate/Vitamin D3 625 MG-125 Unit Tab PO SCH ×2 (08:58→17:05)
[2022-05-08] MEDS: Levalbuterol HCl 0.63 MG/3 ML Neb INH SCH ×4 (08:59→19:15)
[2022-05-08] MEDS: Cholecalciferol (Vitamin D3) 5,000 UNIT Tab PO SCH (08:59)
[2022-05-08] MEDS: hydrOXYzine Pamoate 25 MG Cap PO SCH ×3 (08:59→19:17)
[2022-05-08] MEDS: Budesonide 0.5 MG/2 ML Neb Susp INH SCH ×2 (08:59→19:16)
[2022-05-08] MEDS: Melatonin 3 MG Tab PO SCH (19:21)
[2022-05-09] MEDS: Levalbuterol HCl 0.63 MG/3 ML Neb INH SCH ×4 (07:26→19:44)
[2022-05-09] MEDS: Ipratropium 0.02% 0.5 MG/2.5 ML Neb Soln INH SCH ×4 (07:27→19:45)
[2022-05-09] MEDS: Budesonide 0.5 MG/2 ML Neb Susp INH SCH ×2 (07:27→19:45)
[2022-05-09] MEDS: Escitalopram 20 MG Tab PO SCH (07:33)
[2022-05-09] MEDS: busPIRone 15 MG Tab PO SCH ×3 (07:33→19:45)
[2022-05-09] MEDS: hydrOXYzine Pamoate 25 MG Cap PO SCH ×3 (07:34→19:45)
[2022-05-09] MEDS: OMEPRAZOLE 40MG CAPS PO SCH (07:34)
[2022-05-09] MEDS: guaiFENesin 600 MG Tab.ER PO SCH ×2 (07:34→19:45)
[2022-05-09] MEDS: Calcium Carbonate/Vitamin D3 625 MG-125 Unit Tab PO SCH ×2 (07:34→17:23)
[2022-05-09] MEDS: predniSONE 20 MG Tab PO SCH (07:34)
[2022-05-09] MEDS: MUPIROCIN TOP SCH (07:36)
[2022-05-09] MEDS: Cholecalciferol (Vitamin D3) 5,000 UNIT Tab PO SCH (07:39)
[2022-05-09] MEDS: Nystatin Crm 30 GM Tube TOP SCH (17:21)
[2022-05-09] MEDS: AMOXICILLIN 500 MG PO SCH (19:47)
[2022-05-09] MEDS: Melatonin 3 MG Tab PO SCH (19:48)
[2022-05-10] MEDS: Levalbuterol HCl 0.63 MG/3 ML Neb INH SCH ×4 (08:00→20:06)
[2022-05-10] MEDS: Budesonide 0.5 MG/2 ML Neb Susp INH SCH ×2 (08:00→20:05)
[2022-05-10] MEDS: Ipratropium 0.02% 0.5 MG/2.5 ML Neb Soln INH SCH ×4 (08:00→20:03)
[2022-05-10] MEDS: busPIRone 15 MG Tab PO SCH ×3 (08:00→20:03)
[2022-05-10] MEDS: Escitalopram 20 MG Tab PO SCH (08:00)
[2022-05-10] MEDS: Calcium Carbonate/Vitamin D3 625 MG-125 Unit Tab PO SCH ×2 (08:01→17:14)
[2022-05-10] MEDS: predniSONE 20 MG Tab PO SCH (08:01)
[2022-05-10] MEDS: AMOXICILLIN 500 MG PO SCH ×2 (08:01→20:04)
[2022-05-10] MEDS: OMEPRAZOLE 40MG CAPS PO SCH (08:01)
[2022-05-10] MEDS: hydrOXYzine Pamoate 25 MG Cap PO SCH ×3 (08:01→20:05)
[2022-05-10] MEDS: Nystatin Crm 30 GM Tube TOP SCH ×2 (08:02→17:14)
[2022-05-10] MEDS: guaiFENesin 600 MG Tab.ER PO SCH ×2 (08:02→20:04)
[2022-05-10] MEDS: Cholecalciferol (Vitamin D3) 5,000 UNIT Tab PO SCH (08:03)
[2022-05-10] MEDS: Melatonin 3 MG Tab PO SCH (20:03)
[2022-05-11] MEDS: predniSONE 20 MG Tab PO SCH (07:30)
[2022-05-11] MEDS: hydrOXYzine Pamoate 25 MG Cap PO SCH ×3 (07:30→20:20)
[2022-05-11] MEDS: AMOXICILLIN 500 MG PO SCH ×2 (07:30→20:19)
[2022-05-11] MEDS: Escitalopram 20 MG Tab PO SCH (07:30)
[2022-05-11] MEDS: busPIRone 15 MG Tab PO SCH ×3 (07:30→20:18)
[2022-05-11] MEDS: OMEPRAZOLE 40MG CAPS PO SCH (07:30)
[2022-05-11] MEDS: guaiFENesin 600 MG Tab.ER PO SCH ×2 (07:31→20:19)
[2022-05-11] MEDS: Ipratropium 0.02% 0.5 MG/2.5 ML Neb Soln INH SCH ×4 (07:31→20:17)
[2022-05-11] MEDS: Nystatin Crm 30 GM Tube TOP SCH ×2 (07:32→17:27)
[2022-05-11] MEDS: Calcium Carbonate/Vitamin D3 625 MG-125 Unit Tab PO SCH ×2 (07:32→17:27)
[2022-05-11] MEDS: Budesonide 0.5 MG/2 ML Neb Susp INH SCH ×2 (07:33→20:20)
[2022-05-11] MEDS: Cholecalciferol (Vitamin D3) 5,000 UNIT Tab PO SCH (07:33)
[2022-05-11] MEDS: Levalbuterol HCl 0.63 MG/3 ML Neb INH SCH ×4 (07:34→20:21)
[2022-05-11] MEDS: Melatonin 3 MG Tab PO SCH (20:18)
[2022-05-12] MEDS: Ipratropium 0.02% 0.5 MG/2.5 ML Neb Soln INH SCH ×4 (07:28→19:24)
[2022-05-12] MEDS: predniSONE 20 MG Tab PO SCH (07:29)
[2022-05-12] MEDS: Escitalopram 20 MG Tab PO SCH (07:29)
[2022-05-12] MEDS: busPIRone 15 MG Tab PO SCH ×3 (07:29→19:25)
[2022-05-12] MEDS: hydrOXYzine Pamoate 25 MG Cap PO SCH ×3 (07:29→19:26)
[2022-05-12] MEDS: OMEPRAZOLE 40MG CAPS PO SCH (07:29)
[2022-05-12] MEDS: AMOXICILLIN 500 MG PO SCH ×2 (07:29→19:26)
[2022-05-12] MEDS: guaiFENesin 600 MG Tab.ER PO SCH ×2 (07:30→19:26)
[2022-05-12] MEDS: Nystatin Crm 30 GM Tube TOP SCH ×2 (07:32→17:12)
[2022-05-12] MEDS: Cholecalciferol (Vitamin D3) 5,000 UNIT Tab PO SCH (07:33)
[2022-05-12] MEDS: Levalbuterol HCl 0.63 MG/3 ML Neb INH SCH ×4 (07:33→19:25)
[2022-05-12] MEDS: Budesonide 0.5 MG/2 ML Neb Susp INH SCH ×2 (07:37→19:24)
[2022-05-12] MEDS: Calcium Carbonate/Vitamin D3 625 MG-125 Unit Tab PO SCH ×2 (07:39→17:13)
[2022-05-12] MEDS: Melatonin 3 MG Tab PO SCH (19:26)
[2022-05-13] MEDS: Levalbuterol HCl 0.63 MG/3 ML Neb INH SCH ×4 (07:33→19:37)
[2022-05-13] MEDS: Budesonide 0.5 MG/2 ML Neb Susp INH SCH ×2 (07:33→19:37)
[2022-05-13] MEDS: Ipratropium 0.02% 0.5 MG/2.5 ML Neb Soln INH SCH ×4 (07:33→19:37)
[2022-05-13] MEDS: busPIRone 15 MG Tab PO SCH ×3 (07:34→19:38)
[2022-05-13] MEDS: Escitalopram 20 MG Tab PO SCH (07:34)
[2022-05-13] MEDS: AMOXICILLIN 500 MG PO SCH ×2 (07:34→19:38)
[2022-05-13] MEDS: OMEPRAZOLE 40MG CAPS PO SCH (07:34)
[2022-05-13] MEDS: predniSONE 20 MG Tab PO SCH (07:34)
[2022-05-13] MEDS: hydrOXYzine Pamoate 25 MG Cap PO SCH ×3 (07:35→19:38)
[2022-05-13] MEDS: Calcium Carbonate/Vitamin D3 625 MG-125 Unit Tab PO SCH ×2 (07:35→17:07)
[2022-05-13] MEDS: Nystatin Crm 30 GM Tube TOP SCH ×2 (07:35→17:06)
[2022-05-13] MEDS: guaiFENesin 600 MG Tab.ER PO SCH ×2 (07:36→19:42)
[2022-05-13] MEDS: Cholecalciferol (Vitamin D3) 5,000 UNIT Tab PO SCH (07:36)
[2022-05-13] MEDS: Carbamide Peroxide 6.5% Otic Soln 15 ML Bottle EARBOTH SCH (19:40)
[2022-05-13] MEDS: Melatonin 3 MG Tab PO SCH (19:43)
[2022-05-14] MEDS: Levalbuterol HCl 0.63 MG/3 ML Neb INH SCH ×4 (07:33→19:46)
[2022-05-14] MEDS: Budesonide 0.5 MG/2 ML Neb Susp INH SCH ×2 (07:33→19:45)
[2022-05-14] MEDS: Ipratropium 0.02% 0.5 MG/2.5 ML Neb Soln INH SCH ×4 (07:33→19:43)
[2022-05-14] MEDS: Escitalopram 20 MG Tab PO SCH (07:34)
[2022-05-14] MEDS: busPIRone 15 MG Tab PO SCH ×3 (07:34→19:44)
[2022-05-14] MEDS: Carbamide Peroxide 6.5% Otic Soln 15 ML Bottle EARBOTH SCH ×2 (07:34→17:10)
[2022-05-14] MEDS: guaiFENesin 600 MG Tab.ER PO SCH ×2 (07:34→19:45)
[2022-05-14] MEDS: OMEPRAZOLE 40MG CAPS PO SCH (07:35)
[2022-05-14] MEDS: AMOXICILLIN 500 MG PO SCH (07:35)
[2022-05-14] MEDS: Nystatin Crm 30 GM Tube TOP SCH ×2 (07:35→17:08)
[2022-05-14] MEDS: Calcium Carbonate/Vitamin D3 625 MG-125 Unit Tab PO SCH ×2 (07:36→17:06)
[2022-05-14] MEDS: predniSONE 20 MG Tab PO SCH (07:37)
[2022-05-14] MEDS: hydrOXYzine Pamoate 25 MG Cap PO SCH ×3 (07:37→19:45)
[2022-05-14] MEDS: Cholecalciferol (Vitamin D3) 5,000 UNIT Tab PO SCH (07:38)
[2022-05-14] MEDS: Melatonin 3 MG Tab PO SCH (19:44)
[2022-05-15] MEDS: guaiFENesin 600 MG Tab.ER PO SCH ×2 (07:37→19:58)
[2022-05-15] MEDS: Carbamide Peroxide 6.5% Otic Soln 15 ML Bottle EARBOTH SCH ×2 (07:37→17:15)
[2022-05-15] MEDS: busPIRone 15 MG Tab PO SCH ×3 (07:38→19:57)
[2022-05-15] MEDS: Escitalopram 20 MG Tab PO SCH (07:38)
[2022-05-15] MEDS: Levalbuterol HCl 0.63 MG/3 ML Neb INH SCH ×4 (07:38→20:00)
[2022-05-15] MEDS: OMEPRAZOLE 40MG CAPS PO SCH (07:38)
[2022-05-15] MEDS: Ipratropium 0.02% 0.5 MG/2.5 ML Neb Soln INH SCH ×4 (07:38→19:56)
[2022-05-15] MEDS: Budesonide 0.5 MG/2 ML Neb Susp INH SCH ×2 (07:38→19:58)
[2022-05-15] MEDS: predniSONE 20 MG Tab PO SCH (07:39)
[2022-05-15] MEDS: Calcium Carbonate/Vitamin D3 625 MG-125 Unit Tab PO SCH ×2 (07:39→17:16)
[2022-05-15] MEDS: Nystatin Crm 30 GM Tube TOP SCH ×2 (07:39→17:15)
[2022-05-15] MEDS: hydrOXYzine Pamoate 25 MG Cap PO SCH ×3 (07:39→19:59)
[2022-05-15] MEDS: Cholecalciferol (Vitamin D3) 5,000 UNIT Tab PO SCH (07:40)
[2022-05-15] MEDS: Melatonin 3 MG Tab PO SCH (19:57)
[2022-05-16] MEDS: Ipratropium 0.02% 0.5 MG/2.5 ML Neb Soln INH SCH ×4 (08:02→19:43)
[2022-05-16] MEDS: Levalbuterol HCl 0.63 MG/3 ML Neb INH SCH ×4 (08:02→19:43)
[2022-05-16] MEDS: Budesonide 0.5 MG/2 ML Neb Susp INH SCH ×2 (08:02→19:42)
[2022-05-16] MEDS: Escitalopram 20 MG Tab PO SCH (08:05)
[2022-05-16] MEDS: predniSONE 20 MG Tab PO SCH (08:05)
[2022-05-16] MEDS: hydrOXYzine Pamoate 25 MG Cap PO SCH ×3 (08:05→19:43)
[2022-05-16] MEDS: busPIRone 15 MG Tab PO SCH ×3 (08:05→19:43)
[2022-05-16] MEDS: OMEPRAZOLE 40MG CAPS PO SCH (08:05)
[2022-05-16] MEDS: guaiFENesin 600 MG Tab.ER PO SCH ×2 (08:06→19:45)
[2022-05-16] MEDS: Nystatin Crm 30 GM Tube TOP SCH ×2 (08:06→17:14)
[2022-05-16] MEDS: Calcium Carbonate/Vitamin D3 625 MG-125 Unit Tab PO SCH ×2 (08:07→17:15)
[2022-05-16] MEDS: Carbamide Peroxide 6.5% Otic Soln 15 ML Bottle EARBOTH SCH (08:09)
[2022-05-16] MEDS: Cholecalciferol (Vitamin D3) 5,000 UNIT Tab PO SCH (08:10)
[2022-05-16] MEDS: Melatonin 3 MG Tab PO SCH (19:45)
[2022-05-17] MEDS: Ipratropium 0.02% 0.5 MG/2.5 ML Neb Soln INH SCH ×4 (07:28→19:06)
[2022-05-17] MEDS: Budesonide 0.5 MG/2 ML Neb Susp INH SCH ×2 (07:36→19:18)
[2022-05-17] MEDS: busPIRone 15 MG Tab PO SCH ×3 (07:37→19:50)
[2022-05-17] MEDS: Levalbuterol HCl 0.63 MG/3 ML Neb INH SCH ×4 (07:37→19:50)
[2022-05-17] MEDS: Calcium Carbonate/Vitamin D3 625 MG-125 Unit Tab PO SCH ×2 (07:38→17:21)
[2022-05-17] MEDS: Escitalopram 20 MG Tab PO SCH (07:38)
[2022-05-17] MEDS: OMEPRAZOLE 40MG CAPS PO SCH (07:38)
[2022-05-17] MEDS: guaiFENesin 600 MG Tab.ER PO SCH ×2 (07:38→19:49)
[2022-05-17] MEDS: Nystatin Crm 30 GM Tube TOP SCH ×2 (07:38→17:21)
[2022-05-17] MEDS: predniSONE 20 MG Tab PO SCH (07:39)
[2022-05-17] MEDS: hydrOXYzine Pamoate 25 MG Cap PO SCH ×3 (07:39→19:50)
[2022-05-17] MEDS: Cholecalciferol (Vitamin D3) 5,000 UNIT Tab PO SCH (07:39)
[2022-05-17] MEDS: Melatonin 3 MG Tab PO SCH (19:49)
[2022-05-18] MEDS: Budesonide 0.5 MG/2 ML Neb Susp INH SCH ×2 (07:40→19:15)
[2022-05-18] MEDS: busPIRone 15 MG Tab PO SCH ×3 (07:40→19:22)
[2022-05-18] MEDS: Escitalopram 20 MG Tab PO SCH (07:40)
[2022-05-18] MEDS: Ipratropium 0.02% 0.5 MG/2.5 ML Neb Soln INH SCH ×4 (07:40→19:04)
[2022-05-18] MEDS: Levalbuterol HCl 0.63 MG/3 ML Neb INH SCH ×4 (07:40→19:23)
[2022-05-18] MEDS: guaiFENesin 600 MG Tab.ER PO SCH ×2 (07:40→19:23)
[2022-05-18] MEDS: predniSONE 20 MG Tab PO SCH (07:41)
[2022-05-18] MEDS: OMEPRAZOLE 40MG CAPS PO SCH (07:41)
[2022-05-18] MEDS: Calcium Carbonate/Vitamin D3 625 MG-125 Unit Tab PO SCH ×2 (07:41→17:23)
[2022-05-18] MEDS: Nystatin Crm 30 GM Tube TOP SCH ×2 (07:41→17:23)
[2022-05-18] MEDS: hydrOXYzine Pamoate 25 MG Cap PO SCH ×3 (07:41→19:22)
[2022-05-18] MEDS: Cholecalciferol (Vitamin D3) 5,000 UNIT Tab PO SCH (07:42)
[2022-05-18] MEDS: Melatonin 3 MG Tab PO SCH (19:22)
[2022-05-19] MEDS: Levalbuterol HCl 0.63 MG/3 ML Neb INH SCH ×4 (07:17→19:45)
[2022-05-19] MEDS: Ipratropium 0.02% 0.5 MG/2.5 ML Neb Soln INH SCH ×4 (07:17→19:05)
[2022-05-19] MEDS: Budesonide 0.5 MG/2 ML Neb Susp INH SCH ×2 (07:17→19:19)
[2022-05-19] MEDS: OMEPRAZOLE 40MG CAPS PO SCH (07:18)
[2022-05-19] MEDS: guaiFENesin 600 MG Tab.ER PO SCH ×2 (07:18→19:38)
[2022-05-19] MEDS: Escitalopram 20 MG Tab PO SCH (07:18)
[2022-05-19] MEDS: busPIRone 15 MG Tab PO SCH ×3 (07:18→19:37)
[2022-05-19] MEDS: Nystatin Crm 30 GM Tube TOP SCH (07:18)
[2022-05-19] MEDS: Calcium Carbonate/Vitamin D3 625 MG-125 Unit Tab PO SCH ×2 (07:19→17:28)
[2022-05-19] MEDS: hydrOXYzine Pamoate 25 MG Cap PO SCH ×3 (07:19→19:37)
[2022-05-19] MEDS: predniSONE 20 MG Tab PO SCH (07:19)
[2022-05-19] MEDS: Cholecalciferol (Vitamin D3) 5,000 UNIT Tab PO SCH (07:20)
[2022-05-19] MEDS: Polyethylene Glycol 3350 Powder 510 GM Bot PO PRN (13:11)
[2022-05-19] MEDS: Melatonin 3 MG Tab PO SCH (19:37)
[2022-05-20] MEDS: Budesonide 0.5 MG/2 ML Neb Susp INH SCH ×2 (07:46→19:29)
[2022-05-20] MEDS: Escitalopram 20 MG Tab PO SCH (07:46)
[2022-05-20] MEDS: busPIRone 15 MG Tab PO SCH ×3 (07:46→19:29)
[2022-05-20] MEDS: Ipratropium 0.02% 0.5 MG/2.5 ML Neb Soln INH SCH ×4 (07:46→19:28)
[2022-05-20] MEDS: guaiFENesin 600 MG Tab.ER PO SCH ×2 (07:46→19:30)
[2022-05-20] MEDS: Levalbuterol HCl 0.63 MG/3 ML Neb INH SCH ×4 (07:46→19:28)
[2022-05-20] MEDS: hydrOXYzine Pamoate 25 MG Cap PO SCH ×3 (07:47→19:29)
[2022-05-20] MEDS: predniSONE 20 MG Tab PO SCH (07:47)
[2022-05-20] MEDS: Calcium Carbonate/Vitamin D3 625 MG-125 Unit Tab PO SCH ×2 (07:47→17:18)
[2022-05-20] MEDS: Cholecalciferol (Vitamin D3) 5,000 UNIT Tab PO SCH (07:47)
[2022-05-20] MEDS: OMEPRAZOLE 40MG CAPS PO SCH (07:47)
[2022-05-20] MEDS: Polyethylene Glycol 3350 Powder 510 GM Bot PO PRN (15:43)
[2022-05-20] MEDS: Melatonin 3 MG Tab PO SCH (19:30)
[2022-05-20] MEDS: LORazepam 0.5 MG Tab PO PRN (19:35)
[2022-05-21] MEDS: Budesonide 0.5 MG/2 ML Neb Susp INH SCH ×2 (07:26→19:30)
[2022-05-21] MEDS: Levalbuterol HCl 0.63 MG/3 ML Neb INH SCH ×4 (07:26→19:31)
[2022-05-21] MEDS: Ipratropium 0.02% 0.5 MG/2.5 ML Neb Soln INH SCH ×4 (07:26→19:28)
[2022-05-21] MEDS: hydrOXYzine Pamoate 25 MG Cap PO SCH ×3 (07:27→19:31)
[2022-05-21] MEDS: OMEPRAZOLE 40MG CAPS PO SCH (07:27)
[2022-05-21] MEDS: predniSONE 20 MG Tab PO SCH (07:27)
[2022-05-21] MEDS: busPIRone 15 MG Tab PO SCH ×3 (07:27→19:28)
[2022-05-21] MEDS: Escitalopram 20 MG Tab PO SCH (07:27)
[2022-05-21] MEDS: guaiFENesin 600 MG Tab.ER PO SCH ×2 (07:28→19:29)
[2022-05-21] MEDS: Calcium Carbonate/Vitamin D3 625 MG-125 Unit Tab PO SCH ×2 (07:28→17:03)
[2022-05-21] MEDS: Cholecalciferol (Vitamin D3) 5,000 UNIT Tab PO SCH (07:28)
[2022-05-21] MEDS: Melatonin 3 MG Tab PO SCH (19:29)
[2022-05-22] MEDS: Escitalopram 20 MG Tab PO SCH (07:48)
[2022-05-22] MEDS: busPIRone 15 MG Tab PO SCH ×3 (07:48→19:54)
[2022-05-22] MEDS: Ipratropium 0.02% 0.5 MG/2.5 ML Neb Soln INH SCH ×4 (07:48→19:54)
[2022-05-22] MEDS: Levalbuterol HCl 0.63 MG/3 ML Neb INH SCH ×4 (07:48→19:56)
[2022-05-22] MEDS: Budesonide 0.5 MG/2 ML Neb Susp INH SCH ×2 (07:48→19:55)
[2022-05-22] MEDS: guaiFENesin 600 MG Tab.ER PO SCH ×2 (07:48→19:55)
[2022-05-22] MEDS: hydrOXYzine Pamoate 25 MG Cap PO SCH ×3 (07:49→19:56)
[2022-05-22] MEDS: predniSONE 20 MG Tab PO SCH (07:49)
[2022-05-22] MEDS: OMEPRAZOLE 40MG CAPS PO SCH (07:49)
[2022-05-22] MEDS: Calcium Carbonate/Vitamin D3 625 MG-125 Unit Tab PO SCH ×2 (07:49→17:11)
[2022-05-22] MEDS: Cholecalciferol (Vitamin D3) 5,000 UNIT Tab PO SCH (07:50)
[2022-05-22] MEDS: Melatonin 3 MG Tab PO SCH (19:55)
[2022-05-23] MEDS: Escitalopram 20 MG Tab PO SCH (08:22)
[2022-05-23] MEDS: OMEPRAZOLE 40MG CAPS PO SCH (08:22)
[2022-05-23] MEDS: busPIRone 15 MG Tab PO SCH ×3 (08:22→19:20)
[2022-05-23] MEDS: hydrOXYzine Pamoate 25 MG Cap PO SCH ×3 (08:22→19:20)
[2022-05-23] MEDS: predniSONE 20 MG Tab PO SCH (08:22)
[2022-05-23] MEDS: Budesonide 0.5 MG/2 ML Neb Susp INH SCH ×2 (08:23→19:15)
[2022-05-23] MEDS: Ipratropium 0.02% 0.5 MG/2.5 ML Neb Soln INH SCH ×4 (08:24→19:01)
[2022-05-23] MEDS: Levalbuterol HCl 0.63 MG/3 ML Neb INH SCH ×4 (08:24→19:30)
[2022-05-23] MEDS: Calcium Carbonate/Vitamin D3 625 MG-125 Unit Tab PO SCH ×2 (08:25→17:25)
[2022-05-23] MEDS: guaiFENesin 600 MG Tab.ER PO SCH ×2 (08:25→19:20)
[2022-05-23] MEDS: Cholecalciferol (Vitamin D3) 5,000 UNIT Tab PO SCH (08:26)
[2022-05-23] MEDS: Melatonin 3 MG Tab PO SCH (19:21)
[2022-05-24] MEDS: Ipratropium 0.02% 0.5 MG/2.5 ML Neb Soln INH SCH ×4 (07:14→19:41)
[2022-05-24] MEDS: Budesonide 0.5 MG/2 ML Neb Susp INH SCH ×2 (07:14→19:42)
[2022-05-24] MEDS: Levalbuterol HCl 0.63 MG/3 ML Neb INH SCH ×4 (07:14→19:41)
[2022-05-24] MEDS: predniSONE 20 MG Tab PO SCH (07:15)
[2022-05-24] MEDS: hydrOXYzine Pamoate 25 MG Cap PO SCH ×3 (07:15→19:41)
[2022-05-24] MEDS: Escitalopram 20 MG Tab PO SCH (07:15)
[2022-05-24] MEDS: busPIRone 15 MG Tab PO SCH ×3 (07:15→19:41)
[2022-05-24] MEDS: OMEPRAZOLE 40MG CAPS PO SCH (07:15)
[2022-05-24] MEDS: guaiFENesin 600 MG Tab.ER PO SCH ×2 (07:16→19:41)
[2022-05-24] MEDS: Calcium Carbonate/Vitamin D3 625 MG-125 Unit Tab PO SCH ×2 (07:16→17:04)
[2022-05-24] MEDS: Cholecalciferol (Vitamin D3) 5,000 UNIT Tab PO SCH (07:16)
[2022-05-24] MEDS: Melatonin 3 MG Tab PO SCH (19:41)
[2022-05-24] MEDS: LORazepam 0.5 MG Tab PO PRN (20:35)
[2022-05-25] MEDS: Ipratropium 0.02% 0.5 MG/2.5 ML Neb Soln INH SCH ×4 (07:15→19:20)
[2022-05-25] MEDS: Levalbuterol HCl 0.63 MG/3 ML Neb INH SCH ×4 (07:15→19:21)
[2022-05-25] MEDS: Budesonide 0.5 MG/2 ML Neb Susp INH SCH ×2 (07:15→19:21)
[2022-05-25] MEDS: predniSONE 20 MG Tab PO SCH (07:16)
[2022-05-25] MEDS: Escitalopram 20 MG Tab PO SCH (07:16)
[2022-05-25] MEDS: OMEPRAZOLE 40MG CAPS PO SCH (07:16)
[2022-05-25] MEDS: hydrOXYzine Pamoate 25 MG Cap PO SCH ×3 (07:17→19:23)
[2022-05-25] MEDS: busPIRone 15 MG Tab PO SCH ×3 (07:17→19:23)
[2022-05-25] MEDS: guaiFENesin 600 MG Tab.ER PO SCH ×2 (07:17→19:23)
[2022-05-25] MEDS: Calcium Carbonate/Vitamin D3 625 MG-125 Unit Tab PO SCH ×2 (07:17→17:07)
[2022-05-25] MEDS: LORazepam 0.5 MG Tab PO PRN (07:18)
[2022-05-25] MEDS: Cholecalciferol (Vitamin D3) 5,000 UNIT Tab PO SCH (07:18)
[2022-05-25] MEDS: Melatonin 3 MG Tab PO SCH (19:22)
[2022-05-26] MEDS: Budesonide 0.5 MG/2 ML Neb Susp INH SCH ×2 (07:17→19:27)
[2022-05-26] MEDS: Escitalopram 20 MG Tab PO SCH (07:17)
[2022-05-26] MEDS: Levalbuterol HCl 0.63 MG/3 ML Neb INH SCH ×4 (07:17→19:28)
[2022-05-26] MEDS: Ipratropium 0.02% 0.5 MG/2.5 ML Neb Soln INH SCH ×4 (07:17→19:28)
[2022-05-26] MEDS: OMEPRAZOLE 40MG CAPS PO SCH (07:18)
[2022-05-26] MEDS: busPIRone 15 MG Tab PO SCH ×3 (07:18→19:28)
[2022-05-26] MEDS: predniSONE 20 MG Tab PO SCH (07:18)
[2022-05-26] MEDS: hydrOXYzine Pamoate 25 MG Cap PO SCH ×3 (07:18→19:29)
[2022-05-26] MEDS: guaiFENesin 600 MG Tab.ER PO SCH ×2 (07:19→19:29)
[2022-05-26] MEDS: Cholecalciferol (Vitamin D3) 5,000 UNIT Tab PO SCH (07:19)
[2022-05-26] MEDS: Calcium Carbonate/Vitamin D3 625 MG-125 Unit Tab PO SCH ×2 (07:19→17:23)
[2022-05-26] MEDS: LORazepam 0.5 MG Tab PO PRN ×2 (07:20→19:30)
[2022-05-26] MEDS: Melatonin 3 MG Tab PO SCH (19:29)
[2022-05-27] MEDS: Budesonide 0.5 MG/2 ML Neb Susp INH SCH ×2 (07:17→19:23)
[2022-05-27] MEDS: Ipratropium 0.02% 0.5 MG/2.5 ML Neb Soln INH SCH ×4 (07:17→19:01)
[2022-05-27] MEDS: Levalbuterol HCl 0.63 MG/3 ML Neb INH SCH ×4 (07:17→19:58)
[2022-05-27] MEDS: Escitalopram 20 MG Tab PO SCH (07:18)
[2022-05-27] MEDS: Calcium Carbonate/Vitamin D3 625 MG-125 Unit Tab PO SCH (07:18)
[2022-05-27] MEDS: OMEPRAZOLE 40MG CAPS PO SCH (07:18)
[2022-05-27] MEDS: busPIRone 15 MG Tab PO SCH ×3 (07:18→19:30)
[2022-05-27] MEDS: guaiFENesin 600 MG Tab.ER PO SCH ×2 (07:18→19:30)
[2022-05-27] MEDS: Cholecalciferol (Vitamin D3) 5,000 UNIT Tab PO SCH (07:19)
[2022-05-27] MEDS: hydrOXYzine Pamoate 25 MG Cap PO SCH ×3 (07:19→19:30)
[2022-05-27] MEDS: predniSONE 20 MG Tab PO SCH (07:19)
[2022-05-27] MEDS: LORazepam 0.5 MG Tab PO PRN (07:20)
[2022-05-27 11:06] LABS: CORONAVIRUS COVID-19 NAA NEGATIVE (NEGATIVE); RESPIRATORY SYNCYTIAL VIR NAA NEGATIVE (NEGATIVE)
[2022-05-27] MEDS ORDERED: predniSONE 20 MG Tab PO ONE (12:00)
[2022-05-27] MEDS: AMOXICILLIN PO SCH (17:40)
[2022-05-27] MEDS: CLAVULANATE PO SCH (17:40)
[2022-05-27] MEDS: Doxycycline Monohydrate 100 MG Cap PO SCH (17:40)
[2022-05-27] MEDS: Melatonin 3 MG Tab PO SCH (19:30)
[2022-05-28] MEDS: Ipratropium 0.02% 0.5 MG/2.5 ML Neb Soln INH SCH ×4 (07:36→19:07)
[2022-05-28] MEDS: Levalbuterol HCl 0.63 MG/3 ML Neb INH SCH ×4 (07:36→19:33)
[2022-05-28] MEDS: predniSONE 20 MG Tab PO SCH (07:36)
[2022-05-28] MEDS: Budesonide 0.5 MG/2 ML Neb Susp INH SCH ×2 (07:36→19:18)
[2022-05-28] MEDS: AMOXICILLIN PO SCH ×3 (07:37→17:45)
[2022-05-28] MEDS: busPIRone 15 MG Tab PO SCH ×3 (07:37→19:29)
[2022-05-28] MEDS: Doxycycline Monohydrate 100 MG Cap PO SCH ×2 (07:37→17:45)
[2022-05-28] MEDS: CLAVULANATE PO SCH ×3 (07:37→17:45)
[2022-05-28] MEDS: Escitalopram 20 MG Tab PO SCH (07:38)
[2022-05-28] MEDS: hydrOXYzine Pamoate 25 MG Cap PO SCH ×3 (07:38→19:29)
[2022-05-28] MEDS: Cholecalciferol (Vitamin D3) 5,000 UNIT Tab PO SCH (07:38)
[2022-05-28] MEDS: OMEPRAZOLE 40MG CAPS PO SCH (07:38)
[2022-05-28] MEDS: LORazepam 0.5 MG Tab PO PRN (07:39)
[2022-05-28] MEDS: guaiFENesin 600 MG Tab.ER PO SCH ×2 (07:49→19:30)
[2022-05-28] MEDS: Melatonin 3 MG Tab PO SCH (19:30)
[2022-05-29] MEDS: Ipratropium 0.02% 0.5 MG/2.5 ML Neb Soln INH SCH ×4 (07:34→19:24)
[2022-05-29] MEDS: predniSONE 20 MG Tab PO SCH (07:34)
[2022-05-29] MEDS: Budesonide 0.5 MG/2 ML Neb Susp INH SCH ×2 (07:34→19:25)
[2022-05-29] MEDS: Levalbuterol HCl 0.63 MG/3 ML Neb INH SCH ×4 (07:34→19:24)
[2022-05-29] MEDS: CLAVULANATE PO SCH ×3 (07:35→17:03)
[2022-05-29] MEDS: Escitalopram 20 MG Tab PO SCH (07:35)
[2022-05-29] MEDS: busPIRone 15 MG Tab PO SCH ×3 (07:35→19:25)
[2022-05-29] MEDS: hydrOXYzine Pamoate 25 MG Cap PO SCH ×3 (07:35→19:25)
[2022-05-29] MEDS: Doxycycline Monohydrate 100 MG Cap PO SCH ×2 (07:35→17:03)
[2022-05-29] MEDS: OMEPRAZOLE 40MG CAPS PO SCH (07:35)
[2022-05-29] MEDS: AMOXICILLIN PO SCH ×3 (07:35→17:03)
[2022-05-29] MEDS: guaiFENesin 600 MG Tab.ER PO SCH ×2 (07:36→19:26)
[2022-05-29] MEDS: Cholecalciferol (Vitamin D3) 5,000 UNIT Tab PO SCH (07:36)
[2022-05-29] MEDS: Melatonin 3 MG Tab PO SCH (19:25)
[2022-05-30] MEDS: Levalbuterol HCl 0.63 MG/3 ML Neb INH SCH ×4 (07:32→19:25)
[2022-05-30] MEDS: Ipratropium 0.02% 0.5 MG/2.5 ML Neb Soln INH SCH ×4 (07:32→19:25)
[2022-05-30] MEDS: busPIRone 15 MG Tab PO SCH ×3 (07:33→19:26)
[2022-05-30] MEDS: Escitalopram 20 MG Tab PO SCH (07:34)
[2022-05-30] MEDS: guaiFENesin 600 MG Tab.ER PO SCH ×2 (07:34→19:26)
[2022-05-30] MEDS: Doxycycline Monohydrate 100 MG Cap PO SCH ×2 (07:34→17:09)
[2022-05-30] MEDS: CLAVULANATE PO SCH ×3 (07:35→17:09)
[2022-05-30] MEDS: OMEPRAZOLE 40MG CAPS PO SCH (07:35)
[2022-05-30] MEDS: AMOXICILLIN PO SCH ×3 (07:35→17:09)
[2022-05-30] MEDS: Budesonide 0.5 MG/2 ML Neb Susp INH SCH ×2 (07:35→19:26)
[2022-05-30] MEDS: hydrOXYzine Pamoate 25 MG Cap PO SCH ×3 (07:35→19:26)
[2022-05-30] MEDS: predniSONE 20 MG Tab PO SCH (07:35)
[2022-05-30] MEDS: Cholecalciferol (Vitamin D3) 5,000 UNIT Tab PO SCH (07:36)
[2022-05-30] MEDS: Polyethylene Glycol 3350 Powder 510 GM Bot PO PRN (14:17)
[2022-05-30] MEDS: Melatonin 3 MG Tab PO SCH (19:27)
[2022-05-31] MEDS: Levalbuterol HCl 0.63 MG/3 ML Neb INH SCH ×4 (07:50→19:57)
[2022-05-31] MEDS: Ipratropium 0.02% 0.5 MG/2.5 ML Neb Soln INH SCH ×4 (07:50→19:54)
[2022-05-31] MEDS: Budesonide 0.5 MG/2 ML Neb Susp INH SCH ×2 (07:50→19:56)
[2022-05-31] MEDS: Doxycycline Monohydrate 100 MG Cap PO SCH ×2 (07:51→17:13)
[2022-05-31] MEDS: busPIRone 15 MG Tab PO SCH ×3 (07:51→19:55)
[2022-05-31] MEDS: guaiFENesin 600 MG Tab.ER PO SCH ×2 (07:51→19:55)
[2022-05-31] MEDS: Escitalopram 20 MG Tab PO SCH (07:51)
[2022-05-31] MEDS: CLAVULANATE PO SCH ×3 (07:52→17:14)
[2022-05-31] MEDS: hydrOXYzine Pamoate 25 MG Cap PO SCH ×3 (07:52→19:56)
[2022-05-31] MEDS: OMEPRAZOLE 40MG CAPS PO SCH (07:52)
[2022-05-31] MEDS: AMOXICILLIN PO SCH ×3 (07:52→17:14)
[2022-05-31] MEDS: predniSONE 20 MG Tab PO SCH (07:52)
[2022-05-31] MEDS: Cholecalciferol (Vitamin D3) 5,000 UNIT Tab PO SCH (07:52)
[2022-05-31] MEDS: Polyethylene Glycol 3350 Powder 510 GM Bot PO PRN (07:53)
[2022-05-31] MEDS: Melatonin 3 MG Tab PO SCH (19:55)
[2022-06-01] MEDS: Levalbuterol HCl 0.63 MG/3 ML Neb INH SCH ×4 (07:16→20:01)
[2022-06-01] MEDS: Ipratropium 0.02% 0.5 MG/2.5 ML Neb Soln INH SCH ×4 (07:16→19:58)
[2022-06-01] MEDS: Budesonide 0.5 MG/2 ML Neb Susp INH SCH ×2 (07:16→20:00)
[2022-06-01] MEDS: predniSONE 20 MG Tab PO SCH (07:23)
[2022-06-01] MEDS: busPIRone 15 MG Tab PO SCH ×3 (07:23→19:59)
[2022-06-01] MEDS: OMEPRAZOLE 40MG CAPS PO SCH (07:24)
[2022-06-01] MEDS: CLAVULANATE PO SCH ×3 (07:24→17:33)
[2022-06-01] MEDS: AMOXICILLIN PO SCH ×3 (07:24→17:33)
[2022-06-01] MEDS: hydrOXYzine Pamoate 25 MG Cap PO SCH ×3 (07:24→20:00)
[2022-06-01] MEDS: Escitalopram 20 MG Tab PO SCH (07:24)
[2022-06-01] MEDS: Doxycycline Monohydrate 100 MG Cap PO SCH ×2 (07:24→17:33)
[2022-06-01] MEDS: guaiFENesin 600 MG Tab.ER PO SCH ×2 (07:25→19:59)
[2022-06-01] MEDS: Cholecalciferol (Vitamin D3) 5,000 UNIT Tab PO SCH (07:28)
[2022-06-01] MEDS: Melatonin 3 MG Tab PO SCH (19:59)
[2022-06-02] MEDS: hydrOXYzine Pamoate 25 MG Cap PO SCH ×3 (07:45→20:08)
[2022-06-02] MEDS: AMOXICILLIN PO SCH ×3 (07:45→17:13)
[2022-06-02] MEDS: Escitalopram 20 MG Tab PO SCH (07:45)
[2022-06-02] MEDS: CLAVULANATE PO SCH ×3 (07:45→17:13)
[2022-06-02] MEDS: predniSONE 20 MG Tab PO SCH (07:45)
[2022-06-02] MEDS: Doxycycline Monohydrate 100 MG Cap PO SCH ×2 (07:45→17:13)
[2022-06-02] MEDS: busPIRone 15 MG Tab PO SCH ×3 (07:45→20:06)
[2022-06-02] MEDS: OMEPRAZOLE 40MG CAPS PO SCH (07:45)
[2022-06-02] MEDS: Ipratropium 0.02% 0.5 MG/2.5 ML Neb Soln INH SCH ×4 (07:46→20:06)
[2022-06-02] MEDS: Levalbuterol HCl 0.63 MG/3 ML Neb INH SCH ×4 (07:47→20:08)
[2022-06-02] MEDS: guaiFENesin 600 MG Tab.ER PO SCH ×2 (07:48→20:07)
[2022-06-02] MEDS: Cholecalciferol (Vitamin D3) 5,000 UNIT Tab PO SCH (07:48)
[2022-06-02] MEDS: Budesonide 0.5 MG/2 ML Neb Susp INH SCH ×2 (07:49→20:07)
[2022-06-02] MEDS: Melatonin 3 MG Tab PO SCH (20:06)
[2022-06-03] MEDS: Ipratropium 0.02% 0.5 MG/2.5 ML Neb Soln INH SCH ×4 (07:44→19:22)
[2022-06-03] MEDS: busPIRone 15 MG Tab PO SCH ×3 (07:45→19:22)
[2022-06-03] MEDS: Escitalopram 20 MG Tab PO SCH (07:46)
[2022-06-03] MEDS: CLAVULANATE PO SCH ×2 (07:46→11:02)
[2022-06-03] MEDS: AMOXICILLIN PO SCH ×2 (07:46→11:02)
[2022-06-03] MEDS: Doxycycline Monohydrate 100 MG Cap PO SCH (07:46)
[2022-06-03] MEDS: guaiFENesin 600 MG Tab.ER PO SCH ×2 (07:46→19:23)
[2022-06-03] MEDS: OMEPRAZOLE 40MG CAPS PO SCH (07:47)
[2022-06-03] MEDS: predniSONE 20 MG Tab PO SCH (07:48)
[2022-06-03] MEDS: Budesonide 0.5 MG/2 ML Neb Susp INH SCH ×2 (07:48→19:21)
[2022-06-03] MEDS: Levalbuterol HCl 0.63 MG/3 ML Neb INH SCH ×4 (07:48→19:21)
[2022-06-03] MEDS: Cholecalciferol (Vitamin D3) 5,000 UNIT Tab PO SCH (07:49)
[2022-06-03] MEDS: hydrOXYzine Pamoate 25 MG Cap PO SCH ×3 (07:49→19:22)
[2022-06-03] MEDS: Calcium Carbonate/Vitamin D3 625 MG-125 Unit Tab PO SCH (17:13)
[2022-06-03] MEDS: Melatonin 3 MG Tab PO SCH (19:23)
[2022-06-04] MEDS: hydrOXYzine Pamoate 25 MG Cap PO SCH ×3 (07:12→19:17)
[2022-06-04] MEDS: OMEPRAZOLE 40MG CAPS PO SCH (07:12)
[2022-06-04] MEDS: busPIRone 15 MG Tab PO SCH ×3 (07:12→19:17)
[2022-06-04] MEDS: Escitalopram 20 MG Tab PO SCH (07:12)
[2022-06-04] MEDS: predniSONE 20 MG Tab PO SCH (07:13)
[2022-06-04] MEDS: Calcium Carbonate/Vitamin D3 625 MG-125 Unit Tab PO SCH ×2 (07:13→17:06)
[2022-06-04] MEDS: guaiFENesin 600 MG Tab.ER PO SCH ×2 (07:14→19:17)
[2022-06-04] MEDS: Cholecalciferol (Vitamin D3) 5,000 UNIT Tab PO SCH (07:15)
[2022-06-04] MEDS: Ipratropium 0.02% 0.5 MG/2.5 ML Neb Soln INH SCH ×4 (07:15→19:15)
[2022-06-04] MEDS: Levalbuterol HCl 0.63 MG/3 ML Neb INH SCH ×4 (07:16→19:15)
[2022-06-04] MEDS: Budesonide 0.5 MG/2 ML Neb Susp INH SCH ×2 (07:16→19:15)
[2022-06-04] MEDS: Melatonin 3 MG Tab PO SCH (19:17)
[2022-06-05] MEDS: Ipratropium 0.02% 0.5 MG/2.5 ML Neb Soln INH SCH ×4 (07:28→19:27)
[2022-06-05] MEDS: busPIRone 15 MG Tab PO SCH ×3 (07:29→19:25)
[2022-06-05] MEDS: Escitalopram 20 MG Tab PO SCH (07:29)
[2022-06-05] MEDS: OMEPRAZOLE 40MG CAPS PO SCH (07:30)
[2022-06-05] MEDS: guaiFENesin 600 MG Tab.ER PO SCH ×2 (07:30→19:28)
[2022-06-05] MEDS: Calcium Carbonate/Vitamin D3 625 MG-125 Unit Tab PO SCH ×2 (07:31→17:29)
[2022-06-05] MEDS: hydrOXYzine Pamoate 25 MG Cap PO SCH ×3 (07:32→19:26)
[2022-06-05] MEDS: Budesonide 0.5 MG/2 ML Neb Susp INH SCH ×2 (07:32→19:26)
[2022-06-05] MEDS: Cholecalciferol (Vitamin D3) 5,000 UNIT Tab PO SCH (07:36)
[2022-06-05] MEDS: predniSONE 20 MG Tab PO SCH (09:02)
[2022-06-05] MEDS: Levalbuterol HCl 0.63 MG/3 ML Neb INH SCH ×4 (09:03→19:26)
[2022-06-05] MEDS: LORazepam 0.5 MG Tab PO PRN (12:42)
[2022-06-05] MEDS: Melatonin 3 MG Tab PO SCH (19:28)
[2022-06-06] MEDS: LORazepam 0.5 MG Tab PO PRN (07:31)
[2022-06-06] MEDS: Ipratropium 0.02% 0.5 MG/2.5 ML Neb Soln INH SCH ×4 (07:31→19:35)
[2022-06-06] MEDS: Budesonide 0.5 MG/2 ML Neb Susp INH SCH ×2 (07:31→19:37)
[2022-06-06] MEDS: Levalbuterol HCl 0.63 MG/3 ML Neb INH SCH ×4 (07:31→19:38)
[2022-06-06] MEDS: busPIRone 15 MG Tab PO SCH ×3 (07:32→19:36)
[2022-06-06] MEDS: OMEPRAZOLE 40MG CAPS PO SCH (07:32)
[2022-06-06] MEDS: Escitalopram 20 MG Tab PO SCH (07:32)
[2022-06-06] MEDS: guaiFENesin 600 MG Tab.ER PO SCH ×2 (07:32→19:37)
[2022-06-06] MEDS: hydrOXYzine Pamoate 25 MG Cap PO SCH ×3 (07:33→19:37)
[2022-06-06] MEDS: Calcium Carbonate/Vitamin D3 625 MG-125 Unit Tab PO SCH ×2 (07:33→17:02)
[2022-06-06] MEDS: Cholecalciferol (Vitamin D3) 5,000 UNIT Tab PO SCH (07:33)
[2022-06-06] MEDS: predniSONE 20 MG Tab PO SCH (07:33)
[2022-06-06] MEDS: Polyethylene Glycol 3350 Powder 510 GM Bot PO PRN (10:08)
[2022-06-06] MEDS: Melatonin 3 MG Tab PO SCH (19:36)
[2022-06-07] MEDS: Levalbuterol HCl 0.63 MG/3 ML Neb INH SCH ×4 (08:07→19:35)
[2022-06-07] MEDS: Ipratropium 0.02% 0.5 MG/2.5 ML Neb Soln INH SCH ×4 (08:07→19:12)
[2022-06-07] MEDS: Budesonide 0.5 MG/2 ML Neb Susp INH SCH ×2 (08:07→19:20)
[2022-06-07] MEDS: busPIRone 15 MG Tab PO SCH ×3 (08:10→19:36)
[2022-06-07] MEDS: Escitalopram 20 MG Tab PO SCH (08:10)
[2022-06-07] MEDS: OMEPRAZOLE 40MG CAPS PO SCH (08:11)
[2022-06-07] MEDS: hydrOXYzine Pamoate 25 MG Cap PO SCH ×3 (08:11→19:36)
[2022-06-07] MEDS: predniSONE 20 MG Tab PO SCH (08:11)
[2022-06-07] MEDS: Calcium Carbonate/Vitamin D3 625 MG-125 Unit Tab PO SCH ×2 (08:12→17:16)
[2022-06-07] MEDS: guaiFENesin 600 MG Tab.ER PO SCH ×2 (08:12→19:36)
[2022-06-07] MEDS: Cholecalciferol (Vitamin D3) 5,000 UNIT Tab PO SCH (08:12)
[2022-06-07] MEDS: LORazepam 0.5 MG Tab PO PRN (08:13)
[2022-06-07] MEDS: Melatonin 3 MG Tab PO SCH (19:36)
[2022-06-08] MEDS: Budesonide 0.5 MG/2 ML Neb Susp INH SCH ×2 (07:50→19:17)
[2022-06-08] MEDS: Levalbuterol HCl 0.63 MG/3 ML Neb INH SCH ×4 (07:50→19:31)
[2022-06-08] MEDS: Ipratropium 0.02% 0.5 MG/2.5 ML Neb Soln INH SCH ×4 (07:50→19:06)
[2022-06-08] MEDS: LORazepam 0.5 MG Tab PO PRN (07:51)
[2022-06-08] MEDS: busPIRone 15 MG Tab PO SCH ×3 (07:51→19:21)
[2022-06-08] MEDS: hydrOXYzine Pamoate 25 MG Cap PO SCH ×3 (07:52→19:21)
[2022-06-08] MEDS: guaiFENesin 600 MG Tab.ER PO SCH ×2 (07:52→19:22)
[2022-06-08] MEDS: OMEPRAZOLE 40MG CAPS PO SCH (07:52)
[2022-06-08] MEDS: Escitalopram 20 MG Tab PO SCH (07:52)
[2022-06-08] MEDS: predniSONE 20 MG Tab PO SCH (07:52)
[2022-06-08] MEDS: Calcium Carbonate/Vitamin D3 625 MG-125 Unit Tab PO SCH ×2 (07:52→17:29)
[2022-06-08] MEDS: Cholecalciferol (Vitamin D3) 5,000 UNIT Tab PO SCH (07:53)
[2022-06-08] MEDS: Polyethylene Glycol 3350 Powder 510 GM Bot PO PRN (08:27)
[2022-06-08] MEDS: Melatonin 3 MG Tab PO SCH (19:22)
[2022-06-09] MEDS: Ipratropium 0.02% 0.5 MG/2.5 ML Neb Soln INH SCH ×4 (07:27→19:02)
[2022-06-09] MEDS: Levalbuterol HCl 0.63 MG/3 ML Neb INH SCH ×4 (07:27→19:32)
[2022-06-09] MEDS: LORazepam 0.5 MG Tab PO PRN (07:28)
[2022-06-09] MEDS: Budesonide 0.5 MG/2 ML Neb Susp INH SCH ×2 (07:28→19:14)
[2022-06-09] MEDS: guaiFENesin 600 MG Tab.ER PO SCH ×2 (07:29→19:32)
[2022-06-09] MEDS: busPIRone 15 MG Tab PO SCH ×3 (07:29→19:31)
[2022-06-09] MEDS: Escitalopram 20 MG Tab PO SCH (07:29)
[2022-06-09] MEDS: Calcium Carbonate/Vitamin D3 625 MG-125 Unit Tab PO SCH ×2 (07:30→17:29)
[2022-06-09] MEDS: hydrOXYzine Pamoate 25 MG Cap PO SCH ×3 (07:30→19:30)
[2022-06-09] MEDS: OMEPRAZOLE 40MG CAPS PO SCH (07:30)
[2022-06-09] MEDS: predniSONE 20 MG Tab PO SCH (07:30)
[2022-06-09] MEDS: Cholecalciferol (Vitamin D3) 5,000 UNIT Tab PO SCH (07:31)
[2022-06-09] MEDS: Melatonin 3 MG Tab PO SCH (19:31)
[2022-06-10] MEDS: Calcium Carbonate/Vitamin D3 625 MG-125 Unit Tab PO SCH ×2 (08:00→18:00)
[2022-06-10] MEDS: Ipratropium 0.02% 0.5 MG/2.5 ML Neb Soln INH SCH ×4 (08:00→20:00)
[2022-06-10] MEDS: Cholecalciferol (Vitamin D3) 5,000 UNIT Tab PO SCH (08:00)
[2022-06-10] MEDS: busPIRone 15 MG Tab PO SCH ×3 (08:00→20:00)
[2022-06-10] MEDS: guaiFENesin 600 MG Tab.ER PO SCH ×2 (08:00→20:00)
[2022-06-10] MEDS: OMEPRAZOLE 40MG CAPS PO SCH (08:00)
[2022-06-10] MEDS: predniSONE 20 MG Tab PO SCH (08:00)
[2022-06-10] MEDS: hydrOXYzine Pamoate 25 MG Cap PO SCH ×3 (08:00→20:00)
[2022-06-10] MEDS: Budesonide 0.5 MG/2 ML Neb Susp INH SCH ×2 (08:00→20:00)
[2022-06-10] MEDS: Levalbuterol HCl 0.63 MG/3 ML Neb INH SCH ×4 (08:00→20:00)
[2022-06-10] MEDS: Escitalopram 20 MG Tab PO SCH (08:00)
[2022-06-10] MEDS: Melatonin 3 MG Tab PO SCH (20:00)
[2022-06-11] MEDS: guaiFENesin 600 MG Tab.ER PO SCH ×2 (02:00→08:00)
[2022-06-11] MEDS: Cholecalciferol (Vitamin D3) 5,000 UNIT Tab PO SCH (08:00)
[2022-06-11] MEDS: busPIRone 15 MG Tab PO SCH ×3 (08:00→20:00)
[2022-06-11] MEDS: predniSONE 20 MG Tab PO SCH (08:00)
[2022-06-11] MEDS: OMEPRAZOLE 40MG CAPS PO SCH (08:00)
[2022-06-11] MEDS: hydrOXYzine Pamoate 25 MG Cap PO SCH ×3 (08:00→20:00)
[2022-06-11] MEDS: Ipratropium 0.02% 0.5 MG/2.5 ML Neb Soln INH SCH ×4 (08:00→20:00)
[2022-06-11] MEDS: Escitalopram 20 MG Tab PO SCH (08:00)
[2022-06-11] MEDS: Budesonide 0.5 MG/2 ML Neb Susp INH SCH ×2 (08:00→20:00)
[2022-06-11] MEDS: Levalbuterol HCl 0.63 MG/3 ML Neb INH SCH ×4 (08:00→20:00)
[2022-06-11] MEDS: Calcium Carbonate/Vitamin D3 625 MG-125 Unit Tab PO SCH ×2 (08:00→18:00)
[2022-06-11] MEDS: Melatonin 3 MG Tab PO SCH (20:00)
[2022-06-12] MEDS: Melatonin 3 MG Tab PO SCH (02:00)
[2022-06-12] MEDS: hydrOXYzine Pamoate 25 MG Cap PO SCH ×3 (08:00→20:00)
[2022-06-12] MEDS: Budesonide 0.5 MG/2 ML Neb Susp INH SCH ×2 (08:00→20:00)
[2022-06-12] MEDS: Calcium Carbonate/Vitamin D3 625 MG-125 Unit Tab PO SCH ×2 (08:00→18:00)
[2022-06-12] MEDS: Cholecalciferol (Vitamin D3) 5,000 UNIT Tab PO SCH (08:00)
[2022-06-12] MEDS: guaiFENesin 600 MG Tab.ER PO SCH ×2 (08:00→20:00)
[2022-06-12] MEDS: Ipratropium 0.02% 0.5 MG/2.5 ML Neb Soln INH SCH ×4 (08:00→20:00)
[2022-06-12] MEDS: busPIRone 15 MG Tab PO SCH ×3 (08:00→20:00)
[2022-06-12] MEDS: Escitalopram 20 MG Tab PO SCH (08:00)
[2022-06-12] MEDS: predniSONE 20 MG Tab PO SCH (08:00)
[2022-06-12] MEDS: Levalbuterol HCl 0.63 MG/3 ML Neb INH SCH ×4 (08:00→20:00)
[2022-06-12] MEDS: OMEPRAZOLE 40MG CAPS PO SCH (08:00)
[2022-06-13] MEDS: Levalbuterol HCl 0.63 MG/3 ML Neb INH SCH ×4 (08:00→20:00)
[2022-06-13] MEDS: Cholecalciferol (Vitamin D3) 5,000 UNIT Tab PO SCH (08:00)
[2022-06-13] MEDS: Ipratropium 0.02% 0.5 MG/2.5 ML Neb Soln INH SCH ×4 (08:00→20:00)
[2022-06-13] MEDS: predniSONE 20 MG Tab PO SCH (08:00)
[2022-06-13] MEDS: Escitalopram 20 MG Tab PO SCH (08:00)
[2022-06-13] MEDS: busPIRone 15 MG Tab PO SCH ×3 (08:00→20:00)
[2022-06-13] MEDS: hydrOXYzine Pamoate 25 MG Cap PO SCH ×3 (08:00→20:00)
[2022-06-13] MEDS: Budesonide 0.5 MG/2 ML Neb Susp INH SCH ×2 (08:00→20:00)
[2022-06-13] MEDS: OMEPRAZOLE 40MG CAPS PO SCH (08:00)
[2022-06-13] MEDS: guaiFENesin 600 MG Tab.ER PO SCH ×2 (08:00→20:00)
[2022-06-13] MEDS: Calcium Carbonate/Vitamin D3 625 MG-125 Unit Tab PO SCH ×2 (08:00→20:00)
[2022-06-13] MEDS: Melatonin 3 MG Tab PO SCH (20:00)
[2022-06-14] MEDS: busPIRone 15 MG Tab PO SCH ×3 (08:00→20:00)
[2022-06-14] MEDS: Cholecalciferol (Vitamin D3) 5,000 UNIT Tab PO SCH (08:00)
[2022-06-14] MEDS: guaiFENesin 600 MG Tab.ER PO SCH ×2 (08:00→20:00)
[2022-06-14] MEDS: Budesonide 0.5 MG/2 ML Neb Susp INH SCH ×2 (08:00→20:00)
[2022-06-14] MEDS: Ipratropium 0.02% 0.5 MG/2.5 ML Neb Soln INH SCH ×4 (08:00→20:00)
[2022-06-14] MEDS: Levalbuterol HCl 0.63 MG/3 ML Neb INH SCH ×4 (08:00→20:00)
[2022-06-14] MEDS: Escitalopram 20 MG Tab PO SCH (08:00)
[2022-06-14] MEDS: predniSONE 20 MG Tab PO SCH (08:00)
[2022-06-14] MEDS: OMEPRAZOLE 40MG CAPS PO SCH (08:00)
[2022-06-14] MEDS: hydrOXYzine Pamoate 25 MG Cap PO SCH ×3 (08:00→20:00)
[2022-06-14] MEDS: Calcium Carbonate/Vitamin D3 625 MG-125 Unit Tab PO SCH ×2 (08:00→20:00)
[2022-06-14] MEDS: Melatonin 3 MG Tab PO SCH (20:00)
[2022-06-15] MEDS: busPIRone 15 MG Tab PO SCH ×3 (08:00→20:00)
[2022-06-15] MEDS: Budesonide 0.5 MG/2 ML Neb Susp INH SCH ×2 (08:00→20:00)
[2022-06-15] MEDS: Ipratropium 0.02% 0.5 MG/2.5 ML Neb Soln INH SCH ×4 (08:00→20:00)
[2022-06-15] MEDS: Calcium Carbonate/Vitamin D3 625 MG-125 Unit Tab PO SCH ×2 (08:00→20:00)
[2022-06-15] MEDS: hydrOXYzine Pamoate 25 MG Cap PO SCH ×3 (08:00→20:00)
[2022-06-15] MEDS: guaiFENesin 600 MG Tab.ER PO SCH ×2 (08:00→20:00)
[2022-06-15] MEDS: Escitalopram 20 MG Tab PO SCH (08:00)
[2022-06-15] MEDS: predniSONE 20 MG Tab PO SCH (08:00)
[2022-06-15] MEDS: Levalbuterol HCl 0.63 MG/3 ML Neb INH SCH ×4 (08:00→20:00)
[2022-06-15] MEDS: Cholecalciferol (Vitamin D3) 5,000 UNIT Tab PO SCH (08:00)
[2022-06-15] MEDS: OMEPRAZOLE 40MG CAPS PO SCH (08:00)
[2022-06-15] MEDS: Melatonin 3 MG Tab PO SCH (20:00)
[2022-06-16] MEDS: Escitalopram 20 MG Tab PO SCH (08:00)
[2022-06-16] MEDS: Calcium Carbonate/Vitamin D3 625 MG-125 Unit Tab PO SCH ×2 (08:00→18:00)
[2022-06-16] MEDS: Cholecalciferol (Vitamin D3) 5,000 UNIT Tab PO SCH (08:00)
[2022-06-16] MEDS: predniSONE 20 MG Tab PO SCH (08:00)
[2022-06-16] MEDS: OMEPRAZOLE 40MG CAPS PO SCH (08:00)
[2022-06-16] MEDS: guaiFENesin 600 MG Tab.ER PO SCH ×2 (08:00→20:00)
[2022-06-16] MEDS: Budesonide 0.5 MG/2 ML Neb Susp INH SCH ×2 (08:00→20:00)
[2022-06-16] MEDS: Melatonin 3 MG Tab PO SCH (20:00)
[2022-06-17] MEDS: Cholecalciferol (Vitamin D3) 5,000 UNIT Tab PO SCH (08:00)
[2022-06-17] MEDS: OMEPRAZOLE 40MG CAPS PO SCH (08:00)
[2022-06-17] MEDS: guaiFENesin 600 MG Tab.ER PO SCH ×2 (08:00→20:00)
[2022-06-17] MEDS: Budesonide 0.5 MG/2 ML Neb Susp INH SCH ×2 (08:00→20:00)
[2022-06-17] MEDS: Escitalopram 20 MG Tab PO SCH (08:00)
[2022-06-17] MEDS: Calcium Carbonate/Vitamin D3 625 MG-125 Unit Tab PO SCH ×2 (08:00→18:00)
[2022-06-17] MEDS: predniSONE 20 MG Tab PO SCH (08:00)
[2022-06-17] MEDS: Melatonin 3 MG Tab PO SCH (20:00)
[2022-06-25] MEDS: Ipratropium 0.02% 0.5 MG/2.5 ML Neb Soln INH SCH ×9 (14:22→22:09)
[2022-06-25] MEDS: busPIRone 15 MG Tab PO SCH ×9 (14:22→22:40)
[2022-06-25] MEDS: OMEPRAZOLE 40MG CAPS PO SCH ×5 (14:23→16:02)
[2022-06-25] MEDS: guaiFENesin 600 MG Tab.ER PO SCH ×7 (14:23→22:42)
[2022-06-25] MEDS: Escitalopram 20 MG Tab PO SCH ×5 (14:23→16:02)
[2022-06-25] MEDS: Calcium Carbonate/Vitamin D3 625 MG-125 Unit Tab PO SCH ×7 (14:24→17:32)
[2022-06-25] MEDS: hydrOXYzine Pamoate 25 MG Cap PO SCH ×11 (14:24→23:08)
[2022-06-25] MEDS: Budesonide 0.5 MG/2 ML Neb Susp INH SCH ×6 (14:24→22:43)
[2022-06-25] MEDS: predniSONE 20 MG Tab PO SCH ×6 (14:24→16:03)
[2022-06-25] MEDS: Cholecalciferol (Vitamin D3) 5,000 UNIT Tab PO SCH ×6 (14:25→16:04)
[2022-06-25] MEDS: Levalbuterol HCl 0.63 MG/3 ML Neb INH SCH ×10 (14:26→23:38)
[2022-06-25] MEDS: Melatonin 3 MG Tab PO SCH ×6 (14:26→22:41)
[2022-06-26] MEDS: predniSONE 20 MG Tab PO SCH (07:44)
[2022-06-26] MEDS: OMEPRAZOLE 40MG CAPS PO SCH (07:44)
[2022-06-26] MEDS: Ipratropium 0.02% 0.5 MG/2.5 ML Neb Soln INH SCH ×4 (07:45→19:21)
[2022-06-26] MEDS: busPIRone 15 MG Tab PO SCH ×3 (07:45→19:22)
[2022-06-26] MEDS: Escitalopram 20 MG Tab PO SCH (07:45)
[2022-06-26] MEDS: hydrOXYzine Pamoate 25 MG Cap PO SCH ×3 (07:45→19:22)
[2022-06-26] MEDS: Cholecalciferol (Vitamin D3) 5,000 UNIT Tab PO SCH (07:46)
[2022-06-26] MEDS: guaiFENesin 600 MG Tab.ER PO SCH ×2 (07:46→19:22)
[2022-06-26] MEDS: Levalbuterol HCl 0.63 MG/3 ML Neb INH SCH ×4 (07:47→19:21)
[2022-06-26] MEDS: Calcium Carbonate/Vitamin D3 625 MG-125 Unit Tab PO SCH ×2 (07:48→17:37)
[2022-06-26] MEDS: Budesonide 0.5 MG/2 ML Neb Susp INH SCH ×2 (07:48→19:21)
[2022-06-26] MEDS: LORazepam 0.5 MG Tab PO PRN (09:57)
[2022-06-26] MEDS: Melatonin 3 MG Tab PO SCH (19:22)
[2022-06-27] MEDS: predniSONE 20 MG Tab PO SCH (07:04)
[2022-06-27] MEDS: OMEPRAZOLE 40MG CAPS PO SCH (07:04)
[2022-06-27] MEDS: Escitalopram 20 MG Tab PO SCH (07:04)
[2022-06-27] MEDS: hydrOXYzine Pamoate 25 MG Cap PO SCH ×3 (07:05→19:31)
[2022-06-27] MEDS: busPIRone 15 MG Tab PO SCH ×3 (07:05→19:31)
[2022-06-27] MEDS: guaiFENesin 600 MG Tab.ER PO SCH ×2 (07:06→19:32)
[2022-06-27] MEDS: Ipratropium 0.02% 0.5 MG/2.5 ML Neb Soln INH SCH ×4 (07:07→19:30)
[2022-06-27] MEDS: Cholecalciferol (Vitamin D3) 5,000 UNIT Tab PO SCH (07:07)
[2022-06-27] MEDS: Calcium Carbonate/Vitamin D3 625 MG-125 Unit Tab PO SCH ×2 (07:09→17:44)
[2022-06-27] MEDS: Budesonide 0.5 MG/2 ML Neb Susp INH SCH ×2 (07:11→19:30)
[2022-06-27] MEDS: Levalbuterol HCl 0.63 MG/3 ML Neb INH SCH ×4 (07:27→19:30)
[2022-06-27] MEDS: LORazepam 0.5 MG Tab PO PRN ×2 (10:14→19:33)
[2022-06-27] MEDS: Melatonin 3 MG Tab PO SCH (19:31)
[2022-06-28] MEDS: LORazepam 0.5 MG Tab PO PRN (07:27)
[2022-06-28] MEDS: Ipratropium 0.02% 0.5 MG/2.5 ML Neb Soln INH SCH ×4 (07:27→19:00)
[2022-06-28] MEDS: Budesonide 0.5 MG/2 ML Neb Susp INH SCH ×2 (07:27→19:10)
[2022-06-28] MEDS: Levalbuterol HCl 0.63 MG/3 ML Neb INH SCH ×4 (07:27→19:30)
[2022-06-28] MEDS: Polyethylene Glycol 3350 Powder 510 GM Bot PO PRN (07:28)
[2022-06-28] MEDS: OMEPRAZOLE 40MG CAPS PO SCH (07:29)
[2022-06-28] MEDS: guaiFENesin 600 MG Tab.ER PO SCH ×2 (07:29→19:29)
[2022-06-28] MEDS: Escitalopram 20 MG Tab PO SCH (07:29)
[2022-06-28] MEDS: busPIRone 15 MG Tab PO SCH ×3 (07:29→19:29)
[2022-06-28] MEDS: Calcium Carbonate/Vitamin D3 625 MG-125 Unit Tab PO SCH ×2 (07:30→17:23)
[2022-06-28] MEDS: Cholecalciferol (Vitamin D3) 5,000 UNIT Tab PO SCH (07:30)
[2022-06-28] MEDS: predniSONE 20 MG Tab PO SCH (07:30)
[2022-06-28] MEDS: hydrOXYzine Pamoate 25 MG Cap PO SCH ×3 (07:30→19:29)
[2022-06-28] MEDS: Melatonin 3 MG Tab PO SCH (19:30)
[2022-06-29] MEDS: Levalbuterol HCl 0.63 MG/3 ML Neb INH SCH ×4 (07:53→19:23)
[2022-06-29] MEDS: Budesonide 0.5 MG/2 ML Neb Susp INH SCH ×2 (07:53→19:13)
[2022-06-29] MEDS: Ipratropium 0.02% 0.5 MG/2.5 ML Neb Soln INH SCH ×4 (07:53→19:06)
[2022-06-29] MEDS: LORazepam 0.5 MG Tab PO PRN (07:54)
[2022-06-29] MEDS: busPIRone 15 MG Tab PO SCH ×3 (07:54→19:21)
[2022-06-29] MEDS: guaiFENesin 600 MG Tab.ER PO SCH ×2 (07:55→19:22)
[2022-06-29] MEDS: Escitalopram 20 MG Tab PO SCH (07:55)
[2022-06-29] MEDS: Calcium Carbonate/Vitamin D3 625 MG-125 Unit Tab PO SCH ×2 (07:55→17:29)
[2022-06-29] MEDS: predniSONE 20 MG Tab PO SCH (07:55)
[2022-06-29] MEDS: OMEPRAZOLE 40MG CAPS PO SCH (07:55)
[2022-06-29] MEDS: hydrOXYzine Pamoate 25 MG Cap PO SCH ×3 (07:56→19:22)
[2022-06-29] MEDS: Cholecalciferol (Vitamin D3) 5,000 UNIT Tab PO SCH (07:56)
[2022-06-29] MEDS ORDERED: Denosumab 60 MG/1 ML Syringe SUBCUT SCH (15:45)
[2022-06-29] MEDS: Melatonin 3 MG Tab PO SCH (19:22)
[2022-06-30] MEDS: Levalbuterol HCl 0.63 MG/3 ML Neb INH SCH ×4 (07:44→19:24)
[2022-06-30] MEDS: Budesonide 0.5 MG/2 ML Neb Susp INH SCH ×2 (07:44→19:12)
[2022-06-30] MEDS: Ipratropium 0.02% 0.5 MG/2.5 ML Neb Soln INH SCH ×4 (07:44→19:01)
[2022-06-30] MEDS: Calcium Carbonate/Vitamin D3 625 MG-125 Unit Tab PO SCH ×2 (07:46→17:13)
[2022-06-30] MEDS: guaiFENesin 600 MG Tab.ER PO SCH ×2 (07:46→19:24)
[2022-06-30] MEDS: Escitalopram 20 MG Tab PO SCH (07:46)
[2022-06-30] MEDS: busPIRone 15 MG Tab PO SCH ×3 (07:46→19:23)
[2022-06-30] MEDS: OMEPRAZOLE 40MG CAPS PO SCH (07:46)
[2022-06-30] MEDS: hydrOXYzine Pamoate 25 MG Cap PO SCH ×3 (07:47→19:23)
[2022-06-30] MEDS: predniSONE 20 MG Tab PO SCH (07:47)
[2022-06-30] MEDS: Cholecalciferol (Vitamin D3) 5,000 UNIT Tab PO SCH (07:47)
[2022-06-30] MEDS: Melatonin 3 MG Tab PO SCH (19:24)
[2022-07-01] MEDS: Ipratropium 0.02% 0.5 MG/2.5 ML Neb Soln INH SCH ×4 (08:19→19:52)
[2022-07-01] MEDS: OMEPRAZOLE 40MG CAPS PO SCH (08:20)
[2022-07-01] MEDS: predniSONE 20 MG Tab PO SCH (08:20)
[2022-07-01] MEDS: busPIRone 15 MG Tab PO SCH ×3 (08:20→19:53)
[2022-07-01] MEDS: Escitalopram 20 MG Tab PO SCH (08:20)
[2022-07-01] MEDS: hydrOXYzine Pamoate 25 MG Cap PO SCH ×3 (08:20→19:55)
[2022-07-01] MEDS: Calcium Carbonate/Vitamin D3 625 MG-125 Unit Tab PO SCH ×2 (08:21→17:07)
[2022-07-01] MEDS: guaiFENesin 600 MG Tab.ER PO SCH ×2 (08:21→19:53)
[2022-07-01] MEDS: Cholecalciferol (Vitamin D3) 5,000 UNIT Tab PO SCH (08:22)
[2022-07-01] MEDS: Budesonide 0.5 MG/2 ML Neb Susp INH SCH ×2 (08:37→19:54)
[2022-07-01] MEDS: Levalbuterol HCl 0.63 MG/3 ML Neb INH SCH ×4 (08:50→19:56)
[2022-07-01] MEDS: LORazepam 0.5 MG Tab PO PRN (13:38)
[2022-07-01] MEDS: Melatonin 3 MG Tab PO SCH (19:53)
[2022-07-02] MEDS: Levalbuterol HCl 0.63 MG/3 ML Neb INH SCH ×4 (07:26→20:06)
[2022-07-02] MEDS: Ipratropium 0.02% 0.5 MG/2.5 ML Neb Soln INH SCH ×4 (07:26→20:02)
[2022-07-02] MEDS: Escitalopram 20 MG Tab PO SCH (07:28)
[2022-07-02] MEDS: OMEPRAZOLE 40MG CAPS PO SCH (07:28)
[2022-07-02] MEDS: guaiFENesin 600 MG Tab.ER PO SCH ×2 (07:28→20:03)
[2022-07-02] MEDS: busPIRone 15 MG Tab PO SCH ×3 (07:28→20:02)
[2022-07-02] MEDS: Budesonide 0.5 MG/2 ML Neb Susp INH SCH ×2 (07:29→20:04)
[2022-07-02] MEDS: Calcium Carbonate/Vitamin D3 625 MG-125 Unit Tab PO SCH ×2 (07:29→17:20)
[2022-07-02] MEDS: hydrOXYzine Pamoate 25 MG Cap PO SCH ×3 (07:29→20:04)
[2022-07-02] MEDS: predniSONE 20 MG Tab PO SCH (07:29)
[2022-07-02] MEDS: Cholecalciferol (Vitamin D3) 5,000 UNIT Tab PO SCH (07:32)
[2022-07-02] MEDS: Melatonin 3 MG Tab PO SCH (20:03)
[2022-07-03] MEDS: Levalbuterol HCl 0.63 MG/3 ML Neb INH SCH ×4 (07:27→19:12)
[2022-07-03] MEDS: Ipratropium 0.02% 0.5 MG/2.5 ML Neb Soln INH SCH ×4 (07:27→19:10)
[2022-07-03] MEDS: Budesonide 0.5 MG/2 ML Neb Susp INH SCH ×2 (07:27→19:15)
[2022-07-03] MEDS: busPIRone 15 MG Tab PO SCH ×3 (07:30→19:11)
[2022-07-03] MEDS: guaiFENesin 600 MG Tab.ER PO SCH ×2 (07:30→19:12)
[2022-07-03] MEDS: Escitalopram 20 MG Tab PO SCH (07:30)
[2022-07-03] MEDS: OMEPRAZOLE 40MG CAPS PO SCH (07:30)
[2022-07-03] MEDS: Calcium Carbonate/Vitamin D3 625 MG-125 Unit Tab PO SCH ×2 (07:30→17:17)
[2022-07-03] MEDS: predniSONE 20 MG Tab PO SCH (07:31)
[2022-07-03] MEDS: Cholecalciferol (Vitamin D3) 5,000 UNIT Tab PO SCH (07:31)
[2022-07-03] MEDS: hydrOXYzine Pamoate 25 MG Cap PO SCH ×3 (07:31→19:11)
[2022-07-03] MEDS: LORazepam 0.5 MG Tab PO PRN (13:56)
[2022-07-03] MEDS: Melatonin 3 MG Tab PO SCH (19:11)
[2022-07-04] MEDS: Levalbuterol HCl 0.63 MG/3 ML Neb INH SCH ×4 (07:25→20:42)
[2022-07-04] MEDS: Escitalopram 20 MG Tab PO SCH (07:25)
[2022-07-04] MEDS: Budesonide 0.5 MG/2 ML Neb Susp INH SCH ×2 (07:25→19:31)
[2022-07-04] MEDS: Ipratropium 0.02% 0.5 MG/2.5 ML Neb Soln INH SCH ×4 (07:25→19:12)
[2022-07-04] MEDS: busPIRone 15 MG Tab PO SCH ×3 (07:26→19:40)
[2022-07-04] MEDS: hydrOXYzine Pamoate 25 MG Cap PO SCH ×3 (07:26→19:40)
[2022-07-04] MEDS: OMEPRAZOLE 40MG CAPS PO SCH (07:26)
[2022-07-04] MEDS: predniSONE 20 MG Tab PO SCH (07:26)
[2022-07-04] MEDS: guaiFENesin 600 MG Tab.ER PO SCH ×2 (07:27→19:40)
[2022-07-04] MEDS: Calcium Carbonate/Vitamin D3 625 MG-125 Unit Tab PO SCH ×2 (07:27→17:58)
[2022-07-04] MEDS: Cholecalciferol (Vitamin D3) 5,000 UNIT Tab PO SCH (07:28)
[2022-07-04] MEDS: LORazepam 0.5 MG Tab PO PRN (07:33)
[2022-07-04] MEDS: Melatonin 3 MG Tab PO SCH (19:40)
[2022-07-04] MEDS: Nystatin Crm 30 GM Tube TOP SCH (20:41)
[2022-07-05] MEDS: Budesonide 0.5 MG/2 ML Neb Susp INH SCH ×2 (07:26→19:37)
[2022-07-05] MEDS: Levalbuterol HCl 0.63 MG/3 ML Neb INH SCH ×4 (07:26→19:37)
[2022-07-05] MEDS: Ipratropium 0.02% 0.5 MG/2.5 ML Neb Soln INH SCH ×4 (07:26→19:37)
[2022-07-05] MEDS: hydrOXYzine Pamoate 25 MG Cap PO SCH ×3 (07:27→19:37)
[2022-07-05] MEDS: Escitalopram 20 MG Tab PO SCH (07:27)
[2022-07-05] MEDS: busPIRone 15 MG Tab PO SCH ×3 (07:27→19:37)
[2022-07-05] MEDS: predniSONE 20 MG Tab PO SCH (07:27)
[2022-07-05] MEDS: OMEPRAZOLE 40MG CAPS PO SCH (07:27)
[2022-07-05] MEDS: guaiFENesin 600 MG Tab.ER PO SCH ×2 (07:28→19:38)
[2022-07-05] MEDS: Calcium Carbonate/Vitamin D3 625 MG-125 Unit Tab PO SCH ×2 (07:28→17:09)
[2022-07-05] MEDS: Nystatin Crm 30 GM Tube TOP SCH ×2 (07:28→17:09)
[2022-07-05] MEDS: Cholecalciferol (Vitamin D3) 5,000 UNIT Tab PO SCH (07:29)
[2022-07-05] MEDS: Melatonin 3 MG Tab PO SCH (19:38)
[2022-07-05] MEDS: LORazepam 0.5 MG Tab PO PRN (19:41)
[2022-07-06] MEDS: Budesonide 0.5 MG/2 ML Neb Susp INH SCH ×2 (07:37→19:23)
[2022-07-06] MEDS: Levalbuterol HCl 0.63 MG/3 ML Neb INH SCH ×4 (07:37→19:23)
[2022-07-06] MEDS: Ipratropium 0.02% 0.5 MG/2.5 ML Neb Soln INH SCH ×4 (07:37→19:23)
[2022-07-06] MEDS: Escitalopram 20 MG Tab PO SCH (07:38)
[2022-07-06] MEDS: OMEPRAZOLE 40MG CAPS PO SCH (07:38)
[2022-07-06] MEDS: predniSONE 20 MG Tab PO SCH (07:38)
[2022-07-06] MEDS: hydrOXYzine Pamoate 25 MG Cap PO SCH ×3 (07:38→19:24)
[2022-07-06] MEDS: busPIRone 15 MG Tab PO SCH ×3 (07:38→19:24)
[2022-07-06] MEDS: guaiFENesin 600 MG Tab.ER PO SCH ×2 (07:39→19:25)
[2022-07-06] MEDS: Nystatin Crm 30 GM Tube TOP SCH ×2 (07:39→17:06)
[2022-07-06] MEDS: Calcium Carbonate/Vitamin D3 625 MG-125 Unit Tab PO SCH ×2 (07:39→17:07)
[2022-07-06] MEDS: Cholecalciferol (Vitamin D3) 5,000 UNIT Tab PO SCH (07:39)
[2022-07-06] MEDS: LORazepam 0.5 MG Tab PO PRN ×2 (07:41→19:26)
[2022-07-06] MEDS: Melatonin 3 MG Tab PO SCH (19:23)
[2022-07-07] MEDS: guaiFENesin 600 MG Tab.ER PO SCH ×2 (07:28→19:26)
[2022-07-07] MEDS: busPIRone 15 MG Tab PO SCH ×3 (07:29→19:25)
[2022-07-07] MEDS: Levalbuterol HCl 0.63 MG/3 ML Neb INH SCH ×4 (07:29→19:25)
[2022-07-07] MEDS: Escitalopram 20 MG Tab PO SCH (07:29)
[2022-07-07] MEDS: Ipratropium 0.02% 0.5 MG/2.5 ML Neb Soln INH SCH ×4 (07:29→19:25)
[2022-07-07] MEDS: Budesonide 0.5 MG/2 ML Neb Susp INH SCH ×2 (07:29→19:25)
[2022-07-07] MEDS: Nystatin Crm 30 GM Tube TOP SCH ×2 (07:30→17:03)
[2022-07-07] MEDS: predniSONE 20 MG Tab PO SCH (07:30)
[2022-07-07] MEDS: OMEPRAZOLE 40MG CAPS PO SCH (07:30)
[2022-07-07] MEDS: hydrOXYzine Pamoate 25 MG Cap PO SCH ×3 (07:30→19:25)
[2022-07-07] MEDS: Cholecalciferol (Vitamin D3) 5,000 UNIT Tab PO SCH (07:31)
[2022-07-07] MEDS: Calcium Carbonate/Vitamin D3 625 MG-125 Unit Tab PO SCH ×2 (07:31→17:03)
[2022-07-07] MEDS: Melatonin 3 MG Tab PO SCH (19:26)
[2022-07-07] MEDS: LORazepam 0.5 MG Tab PO PRN (19:28)
[2022-07-08] MEDS: Ipratropium 0.02% 0.5 MG/2.5 ML Neb Soln INH SCH ×4 (07:32→19:38)
[2022-07-08] MEDS: Levalbuterol HCl 0.63 MG/3 ML Neb INH SCH ×4 (07:32→19:37)
[2022-07-08] MEDS: Budesonide 0.5 MG/2 ML Neb Susp INH SCH ×2 (07:32→19:37)
[2022-07-08] MEDS: LORazepam 0.5 MG Tab PO PRN ×2 (07:33→19:40)
[2022-07-08] MEDS: Escitalopram 20 MG Tab PO SCH (07:34)
[2022-07-08] MEDS: Nystatin Crm 30 GM Tube TOP SCH ×2 (07:34→19:39)
[2022-07-08] MEDS: busPIRone 15 MG Tab PO SCH ×3 (07:34→19:38)
[2022-07-08] MEDS: OMEPRAZOLE 40MG CAPS PO SCH (07:34)
[2022-07-08] MEDS: Calcium Carbonate/Vitamin D3 625 MG-125 Unit Tab PO SCH ×2 (07:35→17:18)
[2022-07-08] MEDS: Cholecalciferol (Vitamin D3) 5,000 UNIT Tab PO SCH (07:35)
[2022-07-08] MEDS: hydrOXYzine Pamoate 25 MG Cap PO SCH ×3 (07:35→19:38)
[2022-07-08] MEDS: predniSONE 20 MG Tab PO SCH (07:35)
[2022-07-08] MEDS: guaiFENesin 600 MG Tab.ER PO SCH ×2 (09:46→19:39)
[2022-07-08] MEDS: Melatonin 3 MG Tab PO SCH (19:39)
[2022-07-09] MEDS: LORazepam 0.5 MG Tab PO PRN (07:37)
[2022-07-09] MEDS: Ipratropium 0.02% 0.5 MG/2.5 ML Neb Soln INH SCH ×4 (07:37→19:01)
[2022-07-09] MEDS: OMEPRAZOLE 40MG CAPS PO SCH (07:38)
[2022-07-09] MEDS: Escitalopram 20 MG Tab PO SCH (07:38)
[2022-07-09] MEDS: guaiFENesin 600 MG Tab.ER PO SCH ×2 (07:38→19:37)
[2022-07-09] MEDS: busPIRone 15 MG Tab PO SCH ×3 (07:38→19:36)
[2022-07-09] MEDS: Cholecalciferol (Vitamin D3) 5,000 UNIT Tab PO SCH (07:40)
[2022-07-09] MEDS: Calcium Carbonate/Vitamin D3 625 MG-125 Unit Tab PO SCH ×2 (07:40→17:26)
[2022-07-09] MEDS: hydrOXYzine Pamoate 25 MG Cap PO SCH ×3 (07:40→19:35)
[2022-07-09] MEDS: predniSONE 20 MG Tab PO SCH (07:40)
[2022-07-09] MEDS: Levalbuterol HCl 0.63 MG/3 ML Neb INH SCH ×4 (07:40→19:38)
[2022-07-09] MEDS: Budesonide 0.5 MG/2 ML Neb Susp INH SCH ×2 (07:41→19:25)
[2022-07-09] MEDS: Nystatin Crm 30 GM Tube TOP SCH ×2 (07:43→19:36)
[2022-07-09] MEDS: Polyethylene Glycol 3350 Powder 510 GM Bot PO PRN (13:23)
[2022-07-09] MEDS: Melatonin 3 MG Tab PO SCH (19:37)
[2022-07-10] MEDS: Escitalopram 20 MG Tab PO SCH (07:37)
[2022-07-10] MEDS: busPIRone 15 MG Tab PO SCH ×3 (07:37→19:31)
[2022-07-10] MEDS: predniSONE 20 MG Tab PO SCH (07:37)
[2022-07-10] MEDS: OMEPRAZOLE 40MG CAPS PO SCH (07:37)
[2022-07-10] MEDS: hydrOXYzine Pamoate 25 MG Cap PO SCH ×3 (07:38→19:31)
[2022-07-10] MEDS: Budesonide 0.5 MG/2 ML Neb Susp INH SCH ×2 (07:38→19:29)
[2022-07-10] MEDS: Levalbuterol HCl 0.63 MG/3 ML Neb INH SCH ×4 (07:39→19:42)
[2022-07-10] MEDS: Ipratropium 0.02% 0.5 MG/2.5 ML Neb Soln INH SCH ×4 (07:39→19:21)
[2022-07-10] MEDS: guaiFENesin 600 MG Tab.ER PO SCH ×2 (07:40→19:32)
[2022-07-10] MEDS: Calcium Carbonate/Vitamin D3 625 MG-125 Unit Tab PO SCH ×2 (07:41→17:25)
[2022-07-10] MEDS: Cholecalciferol (Vitamin D3) 5,000 UNIT Tab PO SCH (07:42)
[2022-07-10] MEDS: Nystatin Crm 30 GM Tube TOP SCH ×2 (07:43→19:32)
[2022-07-10] MEDS: Melatonin 3 MG Tab PO SCH (19:31)
[2022-07-11] MEDS: predniSONE 20 MG Tab PO SCH (07:00)
[2022-07-11] MEDS: OMEPRAZOLE 40MG CAPS PO SCH (07:00)
[2022-07-11] MEDS: hydrOXYzine Pamoate 25 MG Cap PO SCH ×3 (07:00→19:33)
[2022-07-11] MEDS: Escitalopram 20 MG Tab PO SCH (07:00)
[2022-07-11] MEDS: busPIRone 15 MG Tab PO SCH ×3 (07:00→19:33)
[2022-07-11] MEDS: guaiFENesin 600 MG Tab.ER PO SCH ×2 (07:01→19:34)
[2022-07-11] MEDS: Calcium Carbonate/Vitamin D3 625 MG-125 Unit Tab PO SCH ×2 (07:02→17:00)
[2022-07-11] MEDS: Ipratropium 0.02% 0.5 MG/2.5 ML Neb Soln INH SCH ×4 (07:03→19:13)
[2022-07-11] MEDS: Cholecalciferol (Vitamin D3) 5,000 UNIT Tab PO SCH (07:03)
[2022-07-11] MEDS: Nystatin Crm 30 GM Tube TOP SCH ×2 (07:04→19:34)
[2022-07-11] MEDS: Levalbuterol HCl 0.63 MG/3 ML Neb INH SCH ×4 (07:16→19:46)
[2022-07-11] MEDS: Budesonide 0.5 MG/2 ML Neb Susp INH SCH ×2 (07:24→19:30)
[2022-07-11] MEDS: LORazepam 0.5 MG Tab PO PRN (10:29)
[2022-07-11] MEDS: Melatonin 3 MG Tab PO SCH (19:33)
[2022-07-12] MEDS: Ipratropium 0.02% 0.5 MG/2.5 ML Neb Soln INH SCH ×4 (07:15→19:33)
[2022-07-12] MEDS: LORazepam 0.5 MG Tab PO PRN (07:42)
[2022-07-12] MEDS: Levalbuterol HCl 0.63 MG/3 ML Neb INH SCH ×4 (07:42→19:39)
[2022-07-12] MEDS: busPIRone 15 MG Tab PO SCH ×3 (07:43→19:33)
[2022-07-12] MEDS: guaiFENesin 600 MG Tab.ER PO SCH ×2 (07:43→19:35)
[2022-07-12] MEDS: Escitalopram 20 MG Tab PO SCH (07:43)
[2022-07-12] MEDS: OMEPRAZOLE 40MG CAPS PO SCH (07:44)
[2022-07-12] MEDS: Nystatin Crm 30 GM Tube TOP SCH ×2 (07:44→19:35)
[2022-07-12] MEDS: Calcium Carbonate/Vitamin D3 625 MG-125 Unit Tab PO SCH ×2 (07:44→17:12)
[2022-07-12] MEDS: predniSONE 20 MG Tab PO SCH (07:44)
[2022-07-12] MEDS: Budesonide 0.5 MG/2 ML Neb Susp INH SCH ×2 (07:45→19:37)
[2022-07-12] MEDS: hydrOXYzine Pamoate 25 MG Cap PO SCH ×3 (07:45→19:37)
[2022-07-12] MEDS: Cholecalciferol (Vitamin D3) 5,000 UNIT Tab PO SCH (07:46)
[2022-07-12] MEDS: Melatonin 3 MG Tab PO SCH (19:34)
[2022-07-13] MEDS: Ipratropium 0.02% 0.5 MG/2.5 ML Neb Soln INH SCH ×4 (07:24→19:50)
[2022-07-13] MEDS: Levalbuterol HCl 0.63 MG/3 ML Neb INH SCH ×4 (07:24→19:55)
[2022-07-13] MEDS: busPIRone 15 MG Tab PO SCH ×3 (07:26→19:51)
[2022-07-13] MEDS: Escitalopram 20 MG Tab PO SCH (07:26)
[2022-07-13] MEDS: hydrOXYzine Pamoate 25 MG Cap PO SCH ×3 (07:26→19:54)
[2022-07-13] MEDS: OMEPRAZOLE 40MG CAPS PO SCH (07:26)
[2022-07-13] MEDS: predniSONE 20 MG Tab PO SCH (07:26)
[2022-07-13] MEDS: Calcium Carbonate/Vitamin D3 625 MG-125 Unit Tab PO SCH ×2 (07:27→17:11)
[2022-07-13] MEDS: guaiFENesin 600 MG Tab.ER PO SCH ×2 (07:27→19:52)
[2022-07-13] MEDS: Budesonide 0.5 MG/2 ML Neb Susp INH SCH ×2 (07:28→19:53)
[2022-07-13] MEDS: Cholecalciferol (Vitamin D3) 5,000 UNIT Tab PO SCH (07:28)
[2022-07-13] MEDS: Nystatin Crm 30 GM Tube TOP SCH ×2 (07:29→19:53)
[2022-07-13] MEDS: Melatonin 3 MG Tab PO SCH (19:52)
[2022-07-13] MEDS: LORazepam 0.5 MG Tab PO PRN (21:00)
[2022-07-14] MEDS: busPIRone 15 MG Tab PO SCH ×3 (07:10→20:04)
[2022-07-14] MEDS: predniSONE 20 MG Tab PO SCH (07:10)
[2022-07-14] MEDS: OMEPRAZOLE 40MG CAPS PO SCH (07:10)
[2022-07-14] MEDS: Escitalopram 20 MG Tab PO SCH (07:10)
[2022-07-14] MEDS: Budesonide 0.5 MG/2 ML Neb Susp INH SCH ×2 (07:11→20:06)
[2022-07-14] MEDS: hydrOXYzine Pamoate 25 MG Cap PO SCH ×3 (07:11→20:07)
[2022-07-14] MEDS: Levalbuterol HCl 0.63 MG/3 ML Neb INH SCH ×4 (07:11→20:08)
[2022-07-14] MEDS: Ipratropium 0.02% 0.5 MG/2.5 ML Neb Soln INH SCH ×4 (07:12→20:04)
[2022-07-14] MEDS: guaiFENesin 600 MG Tab.ER PO SCH ×2 (07:13→20:05)
[2022-07-14] MEDS: Calcium Carbonate/Vitamin D3 625 MG-125 Unit Tab PO SCH ×2 (07:14→17:33)
[2022-07-14] MEDS: Cholecalciferol (Vitamin D3) 5,000 UNIT Tab PO SCH (07:14)
[2022-07-14] MEDS: Nystatin Crm 30 GM Tube TOP SCH ×2 (07:15→20:06)
[2022-07-14] MEDS: LORazepam 0.5 MG Tab PO PRN (17:33)
[2022-07-14] MEDS: Melatonin 3 MG Tab PO SCH (20:05)
[2022-07-15] MEDS: Ipratropium 0.02% 0.5 MG/2.5 ML Neb Soln INH SCH ×4 (07:29→18:59)
[2022-07-15] MEDS: Levalbuterol HCl 0.63 MG/3 ML Neb INH SCH ×4 (07:30→18:59)
[2022-07-15] MEDS: Escitalopram 20 MG Tab PO SCH (07:31)
[2022-07-15] MEDS: busPIRone 15 MG Tab PO SCH ×3 (07:31→18:59)
[2022-07-15] MEDS: LORazepam 0.5 MG Tab PO PRN ×2 (07:31→19:00)
[2022-07-15] MEDS: OMEPRAZOLE 40MG CAPS PO SCH (07:32)
[2022-07-15] MEDS: guaiFENesin 600 MG Tab.ER PO SCH ×2 (07:32→19:00)
[2022-07-15] MEDS: Nystatin Crm 30 GM Tube TOP SCH ×2 (07:32→19:00)
[2022-07-15] MEDS: Budesonide 0.5 MG/2 ML Neb Susp INH SCH ×2 (07:33→18:59)
[2022-07-15] MEDS: Calcium Carbonate/Vitamin D3 625 MG-125 Unit Tab PO SCH ×2 (07:33→17:24)
[2022-07-15] MEDS: predniSONE 20 MG Tab PO SCH (07:33)
[2022-07-15] MEDS: hydrOXYzine Pamoate 25 MG Cap PO SCH ×3 (07:33→18:59)
[2022-07-15] MEDS: Cholecalciferol (Vitamin D3) 5,000 UNIT Tab PO SCH (07:34)
[2022-07-15] MEDS: Melatonin 3 MG Tab PO SCH (18:59)
[2022-07-16] MEDS: Ipratropium 0.02% 0.5 MG/2.5 ML Neb Soln INH SCH ×4 (07:12→18:59)
[2022-07-16] MEDS: guaiFENesin 600 MG Tab.ER PO SCH ×2 (07:13→18:59)
[2022-07-16] MEDS: LORazepam 0.5 MG Tab PO PRN ×2 (07:13→18:57)
[2022-07-16] MEDS: Calcium Carbonate/Vitamin D3 625 MG-125 Unit Tab PO SCH ×2 (07:13→17:29)
[2022-07-16] MEDS: busPIRone 15 MG Tab PO SCH ×3 (07:14→18:59)
[2022-07-16] MEDS: Escitalopram 20 MG Tab PO SCH (07:14)
[2022-07-16] MEDS: OMEPRAZOLE 40MG CAPS PO SCH (07:15)
[2022-07-16] MEDS: Nystatin Crm 30 GM Tube TOP SCH ×2 (07:15→18:59)
[2022-07-16] MEDS: hydrOXYzine Pamoate 25 MG Cap PO SCH ×3 (07:15→18:59)
[2022-07-16] MEDS: Levalbuterol HCl 0.63 MG/3 ML Neb INH SCH ×4 (07:15→18:59)
[2022-07-16] MEDS: predniSONE 20 MG Tab PO SCH (07:15)
[2022-07-16] MEDS: Cholecalciferol (Vitamin D3) 5,000 UNIT Tab PO SCH (07:16)
[2022-07-16] MEDS: Budesonide 0.5 MG/2 ML Neb Susp INH SCH ×2 (07:16→18:59)
[2022-07-16] MEDS: Melatonin 3 MG Tab PO SCH (18:59)
[2022-07-17] MEDS: OMEPRAZOLE 40MG CAPS PO SCH (07:17)
[2022-07-17] MEDS: Ipratropium 0.02% 0.5 MG/2.5 ML Neb Soln INH SCH ×4 (07:17→19:18)
[2022-07-17] MEDS: busPIRone 15 MG Tab PO SCH ×3 (07:17→19:19)
[2022-07-17] MEDS: Escitalopram 20 MG Tab PO SCH (07:17)
[2022-07-17] MEDS: predniSONE 20 MG Tab PO SCH (07:17)
[2022-07-17] MEDS: hydrOXYzine Pamoate 25 MG Cap PO SCH ×3 (07:18→19:19)
[2022-07-17] MEDS: Calcium Carbonate/Vitamin D3 625 MG-125 Unit Tab PO SCH ×2 (07:18→17:50)
[2022-07-17] MEDS: Nystatin Crm 30 GM Tube TOP SCH ×2 (07:19→19:20)
[2022-07-17] MEDS: guaiFENesin 600 MG Tab.ER PO SCH ×2 (07:19→19:20)
[2022-07-17] MEDS: Cholecalciferol (Vitamin D3) 5,000 UNIT Tab PO SCH (07:20)
[2022-07-17] MEDS: LORazepam 0.5 MG Tab PO PRN ×2 (07:30→19:22)
[2022-07-17] MEDS: Budesonide 0.5 MG/2 ML Neb Susp INH SCH ×2 (07:31→19:18)
[2022-07-17] MEDS: Levalbuterol HCl 0.63 MG/3 ML Neb INH SCH ×4 (07:48→19:18)
[2022-07-17] MEDS: Melatonin 3 MG Tab PO SCH (19:19)
[2022-07-18] MEDS: Ipratropium 0.02% 0.5 MG/2.5 ML Neb Soln INH SCH ×4 (07:55→19:00)
[2022-07-18] MEDS: LORazepam 0.5 MG Tab PO PRN ×2 (07:56→17:15)
[2022-07-18] MEDS: Escitalopram 20 MG Tab PO SCH (07:57)
[2022-07-18] MEDS: Nystatin Crm 30 GM Tube TOP SCH ×2 (07:57→19:01)
[2022-07-18] MEDS: OMEPRAZOLE 40MG CAPS PO SCH (07:57)
[2022-07-18] MEDS: busPIRone 15 MG Tab PO SCH ×3 (07:57→19:00)
[2022-07-18] MEDS: guaiFENesin 600 MG Tab.ER PO SCH ×2 (07:57→19:01)
[2022-07-18] MEDS: Calcium Carbonate/Vitamin D3 625 MG-125 Unit Tab PO SCH ×2 (07:58→17:14)
[2022-07-18] MEDS: predniSONE 20 MG Tab PO SCH (07:58)
[2022-07-18] MEDS: hydrOXYzine Pamoate 25 MG Cap PO SCH ×3 (07:58→19:00)
[2022-07-18] MEDS: Levalbuterol HCl 0.63 MG/3 ML Neb INH SCH ×4 (07:58→19:00)
[2022-07-18] MEDS: Cholecalciferol (Vitamin D3) 5,000 UNIT Tab PO SCH (07:59)
[2022-07-18] MEDS: Budesonide 0.5 MG/2 ML Neb Susp INH SCH ×2 (07:59→19:00)
[2022-07-18] MEDS: Melatonin 3 MG Tab PO SCH (19:01)
[2022-07-19] MEDS: Levalbuterol HCl 0.63 MG/3 ML Neb INH SCH ×4 (07:43→20:06)
[2022-07-19] MEDS: Ipratropium 0.02% 0.5 MG/2.5 ML Neb Soln INH SCH ×4 (07:44→19:15)
[2022-07-19] MEDS: Budesonide 0.5 MG/2 ML Neb Susp INH SCH ×2 (07:44→19:30)
[2022-07-19] MEDS: Escitalopram 20 MG Tab PO SCH (07:45)
[2022-07-19] MEDS: predniSONE 20 MG Tab PO SCH (07:45)
[2022-07-19] MEDS: OMEPRAZOLE 40MG CAPS PO SCH (07:45)
[2022-07-19] MEDS: hydrOXYzine Pamoate 25 MG Cap PO SCH ×3 (07:45→19:35)
[2022-07-19] MEDS: busPIRone 15 MG Tab PO SCH ×3 (07:45→19:35)
[2022-07-19] MEDS: guaiFENesin 600 MG Tab.ER PO SCH ×2 (07:46→19:36)
[2022-07-19] MEDS: Calcium Carbonate/Vitamin D3 625 MG-125 Unit Tab PO SCH ×2 (07:47→17:11)
[2022-07-19] MEDS: Cholecalciferol (Vitamin D3) 5,000 UNIT Tab PO SCH (07:48)
[2022-07-19] MEDS: LORazepam 0.5 MG Tab PO PRN (07:49)
[2022-07-19] MEDS: Nystatin Crm 30 GM Tube TOP SCH ×2 (08:55→19:36)
[2022-07-19] MEDS: Melatonin 3 MG Tab PO SCH (19:36)
[2022-07-20] MEDS: Levalbuterol HCl 0.63 MG/3 ML Neb INH SCH ×4 (07:06→19:47)
[2022-07-20] MEDS: Budesonide 0.5 MG/2 ML Neb Susp INH SCH ×2 (07:06→19:41)
[2022-07-20] MEDS: Ipratropium 0.02% 0.5 MG/2.5 ML Neb Soln INH SCH ×4 (07:06→19:18)
[2022-07-20] MEDS: Escitalopram 20 MG Tab PO SCH (07:10)
[2022-07-20] MEDS: busPIRone 15 MG Tab PO SCH ×3 (07:10→19:44)
[2022-07-20] MEDS: OMEPRAZOLE 40MG CAPS PO SCH (07:10)
[2022-07-20] MEDS: predniSONE 20 MG Tab PO SCH (07:10)
[2022-07-20] MEDS: hydrOXYzine Pamoate 25 MG Cap PO SCH ×3 (07:10→19:44)
[2022-07-20] MEDS: Nystatin Crm 30 GM Tube TOP SCH ×2 (07:11→19:45)
[2022-07-20] MEDS: Calcium Carbonate/Vitamin D3 625 MG-125 Unit Tab PO SCH ×2 (07:11→17:00)
[2022-07-20] MEDS: Cholecalciferol (Vitamin D3) 5,000 UNIT Tab PO SCH (07:12)
[2022-07-20] MEDS: guaiFENesin 600 MG Tab.ER PO SCH ×2 (07:12→19:45)
[2022-07-20] MEDS: Melatonin 3 MG Tab PO SCH (19:45)
[2022-07-21] MEDS: LORazepam 0.5 MG Tab PO PRN (07:52)
[2022-07-21] MEDS: Ipratropium 0.02% 0.5 MG/2.5 ML Neb Soln INH SCH ×4 (07:52→19:06)
[2022-07-21] MEDS: guaiFENesin 600 MG Tab.ER PO SCH ×2 (07:53→19:14)
[2022-07-21] MEDS: busPIRone 15 MG Tab PO SCH ×3 (07:53→19:14)
[2022-07-21] MEDS: Escitalopram 20 MG Tab PO SCH (07:53)
[2022-07-21] MEDS: Levalbuterol HCl 0.63 MG/3 ML Neb INH SCH ×4 (07:53→19:15)
[2022-07-21] MEDS: OMEPRAZOLE 40MG CAPS PO SCH (07:54)
[2022-07-21] MEDS: predniSONE 20 MG Tab PO SCH (07:54)
[2022-07-21] MEDS: hydrOXYzine Pamoate 25 MG Cap PO SCH ×3 (07:54→19:14)
[2022-07-21] MEDS: Nystatin Crm 30 GM Tube TOP SCH ×2 (07:54→19:14)
[2022-07-21] MEDS: Calcium Carbonate/Vitamin D3 625 MG-125 Unit Tab PO SCH ×2 (07:54→17:24)
[2022-07-21] MEDS: Budesonide 0.5 MG/2 ML Neb Susp INH SCH ×2 (07:55→19:11)
[2022-07-21] MEDS: Cholecalciferol (Vitamin D3) 5,000 UNIT Tab PO SCH (07:55)
[2022-07-21] MEDS: Melatonin 3 MG Tab PO SCH (19:14)
[2022-07-22] MEDS: LORazepam 0.5 MG Tab PO PRN (07:32)
[2022-07-22] MEDS: Nystatin Crm 30 GM Tube TOP SCH ×2 (07:34→19:18)
[2022-07-22] MEDS: busPIRone 15 MG Tab PO SCH ×3 (07:34→19:19)
[2022-07-22] MEDS: Escitalopram 20 MG Tab PO SCH (07:34)
[2022-07-22] MEDS: Ipratropium 0.02% 0.5 MG/2.5 ML Neb Soln INH SCH ×4 (07:34→19:20)
[2022-07-22] MEDS: guaiFENesin 600 MG Tab.ER PO SCH ×2 (07:34→19:20)
[2022-07-22] MEDS: OMEPRAZOLE 40MG CAPS PO SCH (07:34)
[2022-07-22] MEDS: predniSONE 20 MG Tab PO SCH (07:35)
[2022-07-22] MEDS: Calcium Carbonate/Vitamin D3 625 MG-125 Unit Tab PO SCH ×2 (07:35→17:20)
[2022-07-22] MEDS: Budesonide 0.5 MG/2 ML Neb Susp INH SCH ×2 (07:35→19:19)
[2022-07-22] MEDS: hydrOXYzine Pamoate 25 MG Cap PO SCH ×3 (07:35→19:19)
[2022-07-22] MEDS: Levalbuterol HCl 0.63 MG/3 ML Neb INH SCH ×4 (07:54→19:20)
[2022-07-22] MEDS: Cholecalciferol (Vitamin D3) 5,000 UNIT Tab PO SCH (07:54)
[2022-07-22] MEDS: Melatonin 3 MG Tab PO SCH (19:18)
[2022-07-23] MEDS: Budesonide 0.5 MG/2 ML Neb Susp INH SCH ×2 (07:12→21:01)
[2022-07-23] MEDS: Levalbuterol HCl 0.63 MG/3 ML Neb INH SCH ×4 (07:12→21:01)
[2022-07-23] MEDS: Ipratropium 0.02% 0.5 MG/2.5 ML Neb Soln INH SCH ×4 (07:13→21:00)
[2022-07-23] MEDS: busPIRone 15 MG Tab PO SCH ×3 (07:14→21:00)
[2022-07-23] MEDS: Escitalopram 20 MG Tab PO SCH (07:14)
[2022-07-23] MEDS: predniSONE 20 MG Tab PO SCH (07:15)
[2022-07-23] MEDS: OMEPRAZOLE 40MG CAPS PO SCH (07:15)
[2022-07-23] MEDS: hydrOXYzine Pamoate 25 MG Cap PO SCH ×3 (07:15→21:01)
[2022-07-23] MEDS: guaiFENesin 600 MG Tab.ER PO SCH ×2 (07:16→21:00)
[2022-07-23] MEDS: Calcium Carbonate/Vitamin D3 625 MG-125 Unit Tab PO SCH ×2 (07:16→17:15)
[2022-07-23] MEDS: Cholecalciferol (Vitamin D3) 5,000 UNIT Tab PO SCH (07:17)
[2022-07-23] MEDS: LORazepam 0.5 MG Tab PO PRN (07:18)
[2022-07-23] MEDS: Nystatin Crm 30 GM Tube TOP SCH ×2 (07:19→21:00)
[2022-07-23] MEDS: Melatonin 3 MG Tab PO SCH (21:00)
[2022-07-24] MEDS: Ipratropium 0.02% 0.5 MG/2.5 ML Neb Soln INH SCH ×4 (07:59→19:27)
[2022-07-24] MEDS: Levalbuterol HCl 0.63 MG/3 ML Neb INH SCH ×4 (08:01→19:29)
[2022-07-24] MEDS: Cholecalciferol (Vitamin D3) 5,000 UNIT Tab PO SCH (08:01)
[2022-07-24] MEDS: Escitalopram 20 MG Tab PO SCH (08:02)
[2022-07-24] MEDS: guaiFENesin 600 MG Tab.ER PO SCH ×2 (08:02→19:29)
[2022-07-24] MEDS: busPIRone 15 MG Tab PO SCH ×3 (08:02→19:27)
[2022-07-24] MEDS: Calcium Carbonate/Vitamin D3 625 MG-125 Unit Tab PO SCH ×2 (08:03→17:05)
[2022-07-24] MEDS: hydrOXYzine Pamoate 25 MG Cap PO SCH ×3 (08:03→19:27)
[2022-07-24] MEDS: predniSONE 20 MG Tab PO SCH (08:03)
[2022-07-24] MEDS: Nystatin Crm 30 GM Tube TOP SCH ×2 (08:03→19:28)
[2022-07-24] MEDS: OMEPRAZOLE 40MG CAPS PO SCH (08:03)
[2022-07-24] MEDS: Budesonide 0.5 MG/2 ML Neb Susp INH SCH ×2 (08:04→19:29)
[2022-07-24] MEDS: LORazepam 0.5 MG Tab PO PRN (08:05)
[2022-07-24] MEDS: Melatonin 3 MG Tab PO SCH (19:28)
[2022-07-25] MEDS: Levalbuterol HCl 0.63 MG/3 ML Neb INH SCH ×4 (07:57→19:21)
[2022-07-25] MEDS: Budesonide 0.5 MG/2 ML Neb Susp INH SCH ×2 (07:57→19:21)
[2022-07-25] MEDS: Ipratropium 0.02% 0.5 MG/2.5 ML Neb Soln INH SCH ×4 (07:57→19:21)
[2022-07-25] MEDS: hydrOXYzine Pamoate 25 MG Cap PO SCH ×3 (07:59→19:22)
[2022-07-25] MEDS: busPIRone 15 MG Tab PO SCH ×3 (07:59→19:22)
[2022-07-25] MEDS: predniSONE 20 MG Tab PO SCH (07:59)
[2022-07-25] MEDS: Escitalopram 20 MG Tab PO SCH (07:59)
[2022-07-25] MEDS: OMEPRAZOLE 40MG CAPS PO SCH (07:59)
[2022-07-25] MEDS: Cholecalciferol (Vitamin D3) 5,000 UNIT Tab PO SCH (08:00)
[2022-07-25] MEDS: Calcium Carbonate/Vitamin D3 625 MG-125 Unit Tab PO SCH ×2 (08:01→17:44)
[2022-07-25] MEDS: Nystatin Crm 30 GM Tube TOP SCH ×2 (08:01→19:23)
[2022-07-25] MEDS: guaiFENesin 600 MG Tab.ER PO SCH ×2 (08:05→19:22)
[2022-07-25] MEDS: LORazepam 0.5 MG Tab PO PRN (08:06)
[2022-07-25] MEDS: Melatonin 3 MG Tab PO SCH (19:22)
[2022-07-26] MEDS: busPIRone 15 MG Tab PO SCH ×3 (07:28→19:31)
[2022-07-26] MEDS: hydrOXYzine Pamoate 25 MG Cap PO SCH ×3 (07:28→19:31)
[2022-07-26] MEDS: Escitalopram 20 MG Tab PO SCH (07:28)
[2022-07-26] MEDS: OMEPRAZOLE 40MG CAPS PO SCH (07:28)
[2022-07-26] MEDS: Budesonide 0.5 MG/2 ML Neb Susp INH SCH ×2 (07:29→19:30)
[2022-07-26] MEDS: Ipratropium 0.02% 0.5 MG/2.5 ML Neb Soln INH SCH ×4 (07:29→19:30)
[2022-07-26] MEDS: Levalbuterol HCl 0.63 MG/3 ML Neb INH SCH ×4 (07:29→19:31)
[2022-07-26] MEDS: guaiFENesin 600 MG Tab.ER PO SCH ×2 (07:31→19:32)
[2022-07-26] MEDS: Nystatin Crm 30 GM Tube TOP SCH ×2 (07:31→19:32)
[2022-07-26] MEDS: Cholecalciferol (Vitamin D3) 5,000 UNIT Tab PO SCH (07:32)
[2022-07-26] MEDS: Calcium Carbonate/Vitamin D3 625 MG-125 Unit Tab PO SCH ×2 (07:32→17:48)
[2022-07-26] MEDS: predniSONE 20 MG Tab PO SCH (07:33)
[2022-07-26] MEDS: LORazepam 0.5 MG Tab PO PRN (07:34)
[2022-07-26] MEDS: Melatonin 3 MG Tab PO SCH (19:33)
[2022-07-27] MEDS: Levalbuterol HCl 0.63 MG/3 ML Neb INH SCH ×4 (07:55→19:20)
[2022-07-27] MEDS: Ipratropium 0.02% 0.5 MG/2.5 ML Neb Soln INH SCH ×4 (07:55→19:20)
[2022-07-27] MEDS: Budesonide 0.5 MG/2 ML Neb Susp INH SCH ×2 (07:55→19:20)
[2022-07-27] MEDS: OMEPRAZOLE 40MG CAPS PO SCH (07:57)
[2022-07-27] MEDS: hydrOXYzine Pamoate 25 MG Cap PO SCH ×3 (07:57→19:20)
[2022-07-27] MEDS: predniSONE 20 MG Tab PO SCH (07:57)
[2022-07-27] MEDS: busPIRone 15 MG Tab PO SCH ×3 (07:57→19:19)
[2022-07-27] MEDS: Escitalopram 20 MG Tab PO SCH (07:57)
[2022-07-27] MEDS: Nystatin Crm 30 GM Tube TOP SCH ×2 (07:58→19:21)
[2022-07-27] MEDS: guaiFENesin 600 MG Tab.ER PO SCH ×2 (07:58→19:19)
[2022-07-27] MEDS: Cholecalciferol (Vitamin D3) 5,000 UNIT Tab PO SCH (07:58)
[2022-07-27] MEDS: Calcium Carbonate/Vitamin D3 625 MG-125 Unit Tab PO SCH ×2 (07:58→17:14)
[2022-07-27] MEDS: LORazepam 0.5 MG Tab PO PRN ×2 (07:59→19:21)
[2022-07-27] MEDS: Melatonin 3 MG Tab PO SCH (19:19)
[2022-07-28] MEDS: Budesonide 0.5 MG/2 ML Neb Susp INH SCH ×2 (07:22→19:38)
[2022-07-28] MEDS: Levalbuterol HCl 0.63 MG/3 ML Neb INH SCH ×4 (07:22→19:39)
[2022-07-28] MEDS: Ipratropium 0.02% 0.5 MG/2.5 ML Neb Soln INH SCH ×4 (07:22→19:39)
[2022-07-28] MEDS: OMEPRAZOLE 40MG CAPS PO SCH (07:23)
[2022-07-28] MEDS: predniSONE 20 MG Tab PO SCH (07:23)
[2022-07-28] MEDS: hydrOXYzine Pamoate 25 MG Cap PO SCH ×3 (07:23→19:39)
[2022-07-28] MEDS: Escitalopram 20 MG Tab PO SCH (07:23)
[2022-07-28] MEDS: busPIRone 15 MG Tab PO SCH ×3 (07:23→19:39)
[2022-07-28] MEDS: guaiFENesin 600 MG Tab.ER PO SCH ×2 (07:24→19:39)
[2022-07-28] MEDS: Nystatin Crm 30 GM Tube TOP SCH ×2 (07:24→19:40)
[2022-07-28] MEDS: Calcium Carbonate/Vitamin D3 625 MG-125 Unit Tab PO SCH ×2 (07:24→17:09)
[2022-07-28] MEDS: Cholecalciferol (Vitamin D3) 5,000 UNIT Tab PO SCH (07:25)
[2022-07-28] MEDS: LORazepam 0.5 MG Tab PO PRN (07:25)
[2022-07-28] MEDS: Melatonin 3 MG Tab PO SCH (19:39)
[2022-07-29] MEDS: hydrOXYzine Pamoate 25 MG Cap PO SCH ×3 (07:39→19:43)
[2022-07-29] MEDS: predniSONE 20 MG Tab PO SCH (07:39)
[2022-07-29] MEDS: Ipratropium 0.02% 0.5 MG/2.5 ML Neb Soln INH SCH ×4 (07:39→19:03)
[2022-07-29] MEDS: Levalbuterol HCl 0.63 MG/3 ML Neb INH SCH ×4 (07:39→19:43)
[2022-07-29] MEDS: OMEPRAZOLE 40MG CAPS PO SCH (07:39)
[2022-07-29] MEDS: Budesonide 0.5 MG/2 ML Neb Susp INH SCH ×2 (07:39→19:28)
[2022-07-29] MEDS: busPIRone 15 MG Tab PO SCH ×3 (07:39→19:44)
[2022-07-29] MEDS: Escitalopram 20 MG Tab PO SCH (07:39)
[2022-07-29] MEDS: Cholecalciferol (Vitamin D3) 5,000 UNIT Tab PO SCH (07:41)
[2022-07-29] MEDS: Calcium Carbonate/Vitamin D3 625 MG-125 Unit Tab PO SCH ×2 (07:41→17:28)
[2022-07-29] MEDS: guaiFENesin 600 MG Tab.ER PO SCH ×2 (07:41→19:44)
[2022-07-29] MEDS: Nystatin Crm 30 GM Tube TOP SCH (07:42)
[2022-07-29] MEDS: LORazepam 0.5 MG Tab PO PRN (07:43)
[2022-07-29 18:02] VITALS: BP 116/67; PULSE 100
[2022-07-29] MEDS: Melatonin 3 MG Tab PO SCH (19:44)
[2022-07-30] MEDS: Ipratropium 0.02% 0.5 MG/2.5 ML Neb Soln INH SCH ×4 (07:48→19:38)
[2022-07-30] MEDS: LORazepam 0.5 MG Tab PO PRN (07:48)
[2022-07-30] MEDS: Escitalopram 20 MG Tab PO SCH (07:49)
[2022-07-30] MEDS: busPIRone 15 MG Tab PO SCH ×3 (07:49→19:39)
[2022-07-30] MEDS: guaiFENesin 600 MG Tab.ER PO SCH ×2 (07:49→19:40)
[2022-07-30] MEDS: Calcium Carbonate/Vitamin D3 625 MG-125 Unit Tab PO SCH ×2 (07:50→17:10)
[2022-07-30] MEDS: OMEPRAZOLE 40MG CAPS PO SCH (07:50)
[2022-07-30] MEDS: hydrOXYzine Pamoate 25 MG Cap PO SCH ×3 (07:50→19:39)
[2022-07-30] MEDS: predniSONE 20 MG Tab PO SCH (07:50)
[2022-07-30] MEDS: Levalbuterol HCl 0.63 MG/3 ML Neb INH SCH ×4 (07:50→19:38)
[2022-07-30] MEDS: Cholecalciferol (Vitamin D3) 5,000 UNIT Tab PO SCH (07:51)
[2022-07-30] MEDS: Budesonide 0.5 MG/2 ML Neb Susp INH SCH ×2 (07:51→19:38)
[2022-07-30] MEDS: Melatonin 3 MG Tab PO SCH (19:40)
[2022-07-31] MEDS: Escitalopram 20 MG Tab PO SCH (07:50)
[2022-07-31] MEDS: busPIRone 15 MG Tab PO SCH ×3 (07:50→20:10)
[2022-07-31] MEDS: Ipratropium 0.02% 0.5 MG/2.5 ML Neb Soln INH SCH ×4 (07:50→20:10)
[2022-07-31] MEDS: Levalbuterol HCl 0.63 MG/3 ML Neb INH SCH ×4 (07:51→20:13)
[2022-07-31] MEDS: OMEPRAZOLE 40MG CAPS PO SCH (07:51)
[2022-07-31] MEDS: guaiFENesin 600 MG Tab.ER PO SCH ×2 (07:51→20:11)
[2022-07-31] MEDS: predniSONE 20 MG Tab PO SCH (07:51)
[2022-07-31] MEDS: Calcium Carbonate/Vitamin D3 625 MG-125 Unit Tab PO SCH ×2 (07:51→17:12)
[2022-07-31] MEDS: Budesonide 0.5 MG/2 ML Neb Susp INH SCH ×2 (07:52→20:12)
[2022-07-31] MEDS: hydrOXYzine Pamoate 25 MG Cap PO SCH ×3 (07:52→20:12)
[2022-07-31] MEDS: Cholecalciferol (Vitamin D3) 5,000 UNIT Tab PO SCH (07:52)
[2022-07-31] MEDS: LORazepam 0.5 MG Tab PO PRN (07:53)
[2022-07-31] MEDS: Melatonin 3 MG Tab PO SCH (20:11)
== END 2022-08-01 00:05 | DRG 189 ==
LOC: LL.SWG 03-07 12:42
PROVIDERS: ADMIT Nurse Practitioner Family; ATTEND Nurse Practitioner Family
DX: J96.11 Chronic respiratory failure with hypoxia (principal); J84.9 Interstitial pulmonary disease, unspecified; J44.9 Chronic obstructive pulmonary disease, unspecified; F41.9 Anxiety disorder, unspecified; K44.9 Diaphragmatic hernia without obstruction or gangrene; Z66 Do not resuscitate; M81.0 Age-related osteoporosis without current pathological fracture; E78.00 Pure hypercholesterolemia, unspecified; K21.9 Gastro-esophageal reflux disease without esophagitis; R32 Unspecified urinary incontinence; Z96.653 Presence of artificial knee joint, bilateral; Z90.710 Acquired absence of both cervix and uterus; H54.7 Unspecified visual loss; Z79.52 Long term (current) use of systemic steroids; Z79.899 Other long term (current) drug therapy; Z20.822 Contact with and (suspected) exposure to COVID-19
CPT/HCPCS: 0241U; 36415; 71046; 77063; 77067; 83605; 85025; 87070; 87186; 87205; 90662; 94640; 97110-GP; 97140-GP; 97162-GP; 97530-GP; A9270-GY; G0008; J0897; J7512; Q0177

== ENCOUNTER 2022-07-31 20:33 | Emergency (ER) | payer MEDICARE, MEDICAID ==
[2022-07-31] MEDS ORDERED: Sodium Chloride 0.9% 10 ML Syringe FLUSH PRN (20:35)
[2022-07-31] MEDS ORDERED: Sodium Chloride 0.9% 1,000 ML IV ONE ×2 (20:45→21:33)
[2022-07-31] MEDS ORDERED: Sodium Chloride 0.9% 250 ML IV SCH (20:45)
[2022-07-31 20:57] LABS: CHLORIDE,CL 98 mmol/L (98-107); ESTIMATED GFR 69 mL/min (>=60); SODIUM,NA 140 mmol/L (136-145)
[2022-07-31] MEDS ORDERED: LORazepam 0.5 MG Tab ONE (21:41)
[2022-07-31 23:34] VITALS: PULSE 120
[2022-08-01 00:24] VITALS: BP 110/81
== END 2022-08-01 00:05 ==
LOC: LL.ED 20:33
DX: K62.5 Hemorrhage of anus and rectum (principal); Z79.899 Other long term (current) drug therapy; Z90.710 Acquired absence of both cervix and uterus
CPT/HCPCS: 36415; 80053; 85025; 96360; 96361; 99283-25; A9270-GY; J7030

== ENCOUNTER 2022-08-07 12:25 | Inpatient (IN) | payer MEDICARE, MEDICAID ==
[2022-08-07] MEDS ORDERED: LORazepam 0.5 MG Tab PO PRN (14:15)
[2022-08-07] MEDS ORDERED: Polyethylene Glycol 3350 Powder 17 GM Packet PO PRN (14:15)
[2022-08-07] MEDS ORDERED: Acetaminophen 325 MG Tab PO PRN (14:15)
[2022-08-07] MEDS: Ipratropium 0.02% 0.5 MG/2.5 ML Neb Soln INH SCH ×2 (19:21→19:23)
[2022-08-07] MEDS: Calcium Carbonate/Vitamin D3 625 MG-125 Unit Tab PO SCH (19:22)
[2022-08-07] MEDS: Levalbuterol HCl 0.63 MG/3 ML Neb INH SCH ×2 (19:22→19:26)
[2022-08-07] MEDS: hydrOXYzine Pamoate 25 MG Cap PO SCH (19:24)
[2022-08-07] MEDS: busPIRone 15 MG Tab PO SCH (19:24)
[2022-08-07] MEDS: Melatonin 3 MG Tab PO SCH (19:25)
[2022-08-07] MEDS: guaiFENesin 600 MG Tab.ER PO SCH (19:25)
[2022-08-07] MEDS: Budesonide 0.5 MG/2 ML Neb Susp INH SCH (19:26)
[2022-08-08] MEDS: Levalbuterol HCl 0.63 MG/3 ML Neb INH SCH ×4 (07:29→19:47)
[2022-08-08] MEDS: predniSONE 20 MG Tab PO SCH (07:36)
[2022-08-08] MEDS: OMEPRAZOLE 40MG CAPS PO SCH (07:37)
[2022-08-08] MEDS: hydrOXYzine Pamoate 25 MG Cap PO SCH ×3 (07:37→19:48)
[2022-08-08] MEDS: Escitalopram 20 MG Tab PO SCH (07:37)
[2022-08-08] MEDS: busPIRone 15 MG Tab PO SCH ×3 (07:37→19:47)
[2022-08-08] MEDS: guaiFENesin 600 MG Tab.ER PO SCH ×2 (07:39→19:48)
[2022-08-08] MEDS: Calcium Carbonate/Vitamin D3 625 MG-125 Unit Tab PO SCH ×2 (07:40→18:02)
[2022-08-08] MEDS ORDERED: Cholecalciferol (Vitamin D3) 5,000 UNIT Tab PO SCH (08:00)
[2022-08-08] MEDS: Budesonide 0.5 MG/2 ML Neb Susp INH SCH ×2 (11:24→19:46)
[2022-08-08] MEDS: Ipratropium 0.02% 0.5 MG/2.5 ML Neb Soln INH SCH ×5 (11:24→20:00)
[2022-08-08] MEDS: Melatonin 3 MG Tab PO SCH (19:48)
[2022-08-08] MEDS: Morphine Oral Concentrate 20 MG/ML 30 ML Bottle BUCCAL SCH (20:23)
[2022-08-08] MEDS: LORazepam 0.5 MG Tab PO PRN (20:48)
[2022-08-08] MEDS ORDERED: Albuterol/Ipratropium 3.0-0.5 MG/3 ML Neb Soln NEB PRN (21:04)
[2022-08-08] MEDS ORDERED: Ondansetron 4 MG Tab.DIS PO PRN (21:07)
[2022-08-08] MEDS ORDERED: Haloperidol 1 MG Tab PO PRN (21:10)
[2022-08-09] MEDS: Morphine Oral Concentrate 20 MG/ML 30 ML Bottle BUCCAL SCH ×6 (00:41→19:31)
[2022-08-09] MEDS: Escitalopram 20 MG Tab PO SCH (07:57)
[2022-08-09] MEDS ORDERED: Polyethylene Glycol 3350 Powder 17 GM Packet PO SCH (08:00)
[2022-08-09] MEDS: guaiFENesin 600 MG Tab.ER PO SCH ×2 (08:00→19:34)
[2022-08-09] MEDS: OMEPRAZOLE 40MG CAPS PO SCH (08:00)
[2022-08-09] MEDS: predniSONE 20 MG Tab PO SCH (08:00)
[2022-08-09] MEDS: hydrOXYzine Pamoate 25 MG Cap PO SCH ×3 (08:01→19:34)
[2022-08-09] MEDS: Sulfamethoxazole/Trimethoprim 800-160 MG Tab PO SCH (08:01)
[2022-08-09] MEDS: busPIRone 15 MG Tab PO SCH ×2 (08:02→17:27)
[2022-08-09] MEDS: Albuterol/Ipratropium 3.0-0.5 MG/3 ML Neb Soln NEB SCH ×4 (09:45→19:31)
[2022-08-10] MEDS: Morphine Oral Concentrate 20 MG/ML 30 ML Bottle BUCCAL SCH ×6 (00:06→19:11)
[2022-08-10] MEDS: busPIRone 15 MG Tab PO SCH ×2 (08:09→17:09)
[2022-08-10] MEDS: Polyethylene Glycol 3350 Powder 510 GM Bot PO SCH (08:10)
[2022-08-10] MEDS: Escitalopram 20 MG Tab PO SCH (08:10)
[2022-08-10] MEDS: Albuterol/Ipratropium 3.0-0.5 MG/3 ML Neb Soln NEB SCH ×4 (08:10→19:10)
[2022-08-10] MEDS: predniSONE 20 MG Tab PO SCH (08:11)
[2022-08-10] MEDS: guaiFENesin 600 MG Tab.ER PO SCH ×2 (08:11→19:13)
[2022-08-10] MEDS: hydrOXYzine Pamoate 25 MG Cap PO SCH ×3 (08:11→19:12)
[2022-08-10] MEDS: OMEPRAZOLE 40MG CAPS PO SCH (08:11)
[2022-08-11] MEDS: Morphine Oral Concentrate 20 MG/ML 30 ML Bottle BUCCAL SCH ×6 (00:02→20:34)
[2022-08-11] MEDS: busPIRone 15 MG Tab PO SCH ×2 (07:41→17:18)
[2022-08-11] MEDS: Albuterol/Ipratropium 3.0-0.5 MG/3 ML Neb Soln NEB SCH ×4 (07:41→20:37)
[2022-08-11] MEDS: Escitalopram 20 MG Tab PO SCH (07:42)
[2022-08-11] MEDS: Polyethylene Glycol 3350 Powder 510 GM Bot PO SCH (07:42)
[2022-08-11] MEDS: guaiFENesin 600 MG Tab.ER PO SCH ×2 (07:43→20:38)
[2022-08-11] MEDS: OMEPRAZOLE 40MG CAPS PO SCH (07:43)
[2022-08-11] MEDS: predniSONE 20 MG Tab PO SCH (07:43)
[2022-08-11] MEDS: LORazepam 0.5 MG Tab PO PRN (07:44)
[2022-08-11] MEDS: hydrOXYzine Pamoate 25 MG Cap PO SCH ×3 (07:44→20:37)
[2022-08-11] MEDS ORDERED: Morphine Oral Concentrate 20 MG/ML 30 ML Bottle BUCCAL SCH (20:30)
[2022-08-12] MEDS: busPIRone 15 MG Tab PO SCH ×2 (07:41→17:32)
[2022-08-12] MEDS: Albuterol/Ipratropium 3.0-0.5 MG/3 ML Neb Soln NEB SCH ×2 (07:42→12:29)
[2022-08-12] MEDS: Polyethylene Glycol 3350 Powder 510 GM Bot PO SCH (07:43)
[2022-08-12] MEDS: Escitalopram 20 MG Tab PO SCH (07:43)
[2022-08-12] MEDS: predniSONE 20 MG Tab PO SCH (07:44)
[2022-08-12] MEDS: guaiFENesin 600 MG Tab.ER PO SCH ×2 (07:44→20:31)
[2022-08-12] MEDS: OMEPRAZOLE 40MG CAPS PO SCH (07:44)
[2022-08-12] MEDS: Sulfamethoxazole/Trimethoprim 800-160 MG Tab PO SCH (07:45)
[2022-08-12] MEDS: hydrOXYzine Pamoate 25 MG Cap PO SCH ×3 (07:45→20:32)
[2022-08-12] MEDS: Morphine Oral Concentrate 20 MG/ML 30 ML Bottle SL PRN (13:35)
[2022-08-12] MEDS ORDERED: Morphine Oral Concentrate 20 MG/ML 30 ML Bottle BUCCAL SCH (14:00)
[2022-08-12] MEDS ORDERED: Albuterol/Ipratropium 3.0-0.5 MG/3 ML Neb Soln NEB PRN (14:46)
[2022-08-12] MEDS: Levalbuterol HCl 0.63 MG/3 ML Neb NEB SCH ×2 (16:28→20:33)
[2022-08-12] MEDS: Ipratropium 0.02% 0.5 MG/2.5 ML Neb Soln NEB SCH ×2 (16:29→20:31)
[2022-08-13] MEDS: LORazepam 0.5 MG Tab PO PRN ×2 (02:41→15:07)
[2022-08-13] MEDS: Morphine Oral Concentrate 20 MG/ML 30 ML Bottle SL PRN ×3 (06:51→18:17)
[2022-08-13] MEDS: Escitalopram 20 MG Tab PO SCH (07:00)
[2022-08-13] MEDS: Ipratropium 0.02% 0.5 MG/2.5 ML Neb Soln NEB SCH ×4 (07:00→19:43)
[2022-08-13] MEDS: busPIRone 15 MG Tab PO SCH ×3 (07:00→17:39)
[2022-08-13] MEDS: guaiFENesin 600 MG Tab.ER PO SCH ×2 (07:01→19:43)
[2022-08-13] MEDS: OMEPRAZOLE 40MG CAPS PO SCH (07:01)
[2022-08-13] MEDS: predniSONE 20 MG Tab PO SCH (07:01)
[2022-08-13] MEDS: Polyethylene Glycol 3350 Powder 510 GM Bot PO SCH (07:01)
[2022-08-13] MEDS: hydrOXYzine Pamoate 25 MG Cap PO SCH ×3 (07:01→19:44)
[2022-08-13] MEDS: Levalbuterol HCl 0.63 MG/3 ML Neb NEB SCH ×4 (07:02→19:43)
[2022-08-13] MEDS: HALOPERIDOL 0.5 MG PO PRN (19:59)
[2022-08-13] MEDS ORDERED: Morphine Oral Concentrate 20 MG/ML 30 ML Bottle PO SCH (20:00)
[2022-08-14] MEDS: MORPHINE 20 MG/ML SL SCH ×5 (00:30→17:40)
[2022-08-14] MEDS: Ipratropium 0.02% 0.5 MG/2.5 ML Neb Soln NEB SCH ×4 (07:19→19:54)
[2022-08-14] MEDS: Polyethylene Glycol 3350 Powder 510 GM Bot PO SCH (07:19)
[2022-08-14] MEDS: Levalbuterol HCl 0.63 MG/3 ML Neb NEB SCH ×4 (07:19→20:03)
[2022-08-14] MEDS: LORazepam 0.5 MG Tab PO PRN (07:20)
[2022-08-14] MEDS: busPIRone 15 MG Tab PO SCH ×2 (07:21→17:39)
[2022-08-14] MEDS: Escitalopram 20 MG Tab PO SCH (07:21)
[2022-08-14] MEDS: guaiFENesin 600 MG Tab.ER PO SCH ×2 (07:21→20:08)
[2022-08-14] MEDS: OMEPRAZOLE 40MG CAPS PO SCH (07:21)
[2022-08-14] MEDS: hydrOXYzine Pamoate 25 MG Cap PO SCH ×3 (07:22→20:07)
[2022-08-14] MEDS: predniSONE 20 MG Tab PO SCH (07:22)
[2022-08-14] MEDS: Sulfamethoxazole/Trimethoprim 800-160 MG Tab PO SCH (10:03)
[2022-08-15] MEDS: MORPHINE 20 MG/ML SL SCH ×5 (00:39→23:59)
[2022-08-15] MEDS: Polyethylene Glycol 3350 Powder 510 GM Bot PO SCH ×2 (07:43→08:54)
[2022-08-15] MEDS: busPIRone 15 MG Tab PO SCH ×2 (07:44→17:25)
[2022-08-15] MEDS: Escitalopram 20 MG Tab PO SCH (07:45)
[2022-08-15] MEDS: OMEPRAZOLE 40MG CAPS PO SCH (07:45)
[2022-08-15] MEDS: PREDNISONE 10MG TABLETS PO SCH (07:46)
[2022-08-15] MEDS: hydrOXYzine Pamoate 25 MG Cap PO SCH ×3 (07:46→19:54)
[2022-08-15] MEDS: Ipratropium 0.02% 0.5 MG/2.5 ML Neb Soln NEB SCH ×4 (07:47→19:51)
[2022-08-15] MEDS: Levalbuterol HCl 0.63 MG/3 ML Neb NEB SCH ×4 (07:47→19:54)
[2022-08-15] MEDS: guaiFENesin 600 MG Tab.ER PO SCH ×2 (07:48→19:53)
[2022-08-16] MEDS: MORPHINE 20 MG/ML SL SCH ×4 (06:02→18:48)
[2022-08-16] MEDS: Ipratropium 0.02% 0.5 MG/2.5 ML Neb Soln NEB SCH ×4 (07:21→20:11)
[2022-08-16] MEDS: busPIRone 15 MG Tab PO SCH ×2 (07:23→18:45)
[2022-08-16] MEDS: Escitalopram 20 MG Tab PO SCH (07:24)
[2022-08-16] MEDS: OMEPRAZOLE 40MG CAPS PO SCH (07:25)
[2022-08-16] MEDS: guaiFENesin 600 MG Tab.ER PO SCH ×2 (07:25→20:11)
[2022-08-16] MEDS: Polyethylene Glycol 3350 Powder 510 GM Bot PO SCH (07:25)
[2022-08-16] MEDS: PREDNISONE 10MG TABLETS PO SCH (07:26)
[2022-08-16] MEDS: Sulfamethoxazole/Trimethoprim 800-160 MG Tab PO SCH (07:26)
[2022-08-16] MEDS: hydrOXYzine Pamoate 25 MG Cap PO SCH ×3 (07:26→20:12)
[2022-08-16] MEDS: Levalbuterol HCl 0.63 MG/3 ML Neb NEB SCH ×4 (07:28→20:11)
[2022-08-16] MEDS: HALOPERIDOL 0.5 MG PO PRN (11:30)
[2022-08-16] MEDS ORDERED: Menthol 10%/Methyl Salicylate 15% 85 GM Tube TOP PRN (17:51)
[2022-08-16] MEDS: LORazepam 0.5 MG Tab PO PRN (23:02)
[2022-08-17] MEDS: MORPHINE 20 MG/ML SL SCH ×4 (00:09→18:37)
[2022-08-17] MEDS: hydrOXYzine Pamoate 25 MG Cap PO SCH ×3 (08:43→19:52)
[2022-08-17] MEDS: busPIRone 15 MG Tab PO SCH ×2 (08:44→18:32)
[2022-08-17] MEDS: Escitalopram 20 MG Tab PO SCH (08:44)
[2022-08-17] MEDS: PREDNISONE 10MG TABLETS PO SCH (08:45)
[2022-08-17] MEDS: OMEPRAZOLE 40MG CAPS PO SCH (08:45)
[2022-08-17] MEDS: Levalbuterol HCl 0.63 MG/3 ML Neb NEB SCH ×4 (08:47→19:51)
[2022-08-17] MEDS: guaiFENesin 600 MG Tab.ER PO SCH ×2 (08:48→19:51)
[2022-08-17] MEDS: Ipratropium 0.02% 0.5 MG/2.5 ML Neb Soln NEB SCH ×4 (08:50→19:51)
[2022-08-17] MEDS: Polyethylene Glycol 3350 Powder 510 GM Bot PO SCH (10:46)
[2022-08-17] MEDS: LORazepam 0.5 MG Tab PO PRN (19:53)
[2022-08-18] MEDS: MORPHINE 20 MG/ML SL SCH ×4 (01:03→17:27)
[2022-08-18] MEDS: Ipratropium 0.02% 0.5 MG/2.5 ML Neb Soln NEB SCH ×4 (07:07→19:26)
[2022-08-18] MEDS: guaiFENesin 600 MG Tab.ER PO SCH ×2 (07:10→19:26)
[2022-08-18] MEDS: hydrOXYzine Pamoate 25 MG Cap PO SCH ×3 (07:10→19:26)
[2022-08-18] MEDS: busPIRone 15 MG Tab PO SCH ×2 (07:11→17:27)
[2022-08-18] MEDS: OMEPRAZOLE 40MG CAPS PO SCH (07:11)
[2022-08-18] MEDS: Escitalopram 20 MG Tab PO SCH (07:11)
[2022-08-18] MEDS: PREDNISONE 10MG TABLETS PO SCH (07:11)
[2022-08-18] MEDS: Polyethylene Glycol 3350 Powder 510 GM Bot PO SCH (07:12)
[2022-08-18] MEDS: Levalbuterol HCl 0.63 MG/3 ML Neb NEB SCH ×4 (07:12→19:25)
[2022-08-18] MEDS: LORazepam 0.5 MG Tab PO PRN (19:27)
[2022-08-19] MEDS: MORPHINE 20 MG/ML SL SCH ×4 (01:16→17:26)
[2022-08-19] MEDS: Polyethylene Glycol 3350 Powder 510 GM Bot PO SCH (07:43)
[2022-08-19] MEDS: Levalbuterol HCl 0.63 MG/3 ML Neb NEB SCH ×4 (07:43→19:34)
[2022-08-19] MEDS: Ipratropium 0.02% 0.5 MG/2.5 ML Neb Soln NEB SCH ×4 (07:43→19:34)
[2022-08-19] MEDS: guaiFENesin 600 MG Tab.ER PO SCH ×2 (07:44→19:34)
[2022-08-19] MEDS: busPIRone 15 MG Tab PO SCH ×2 (07:44→17:25)
[2022-08-19] MEDS: Escitalopram 20 MG Tab PO SCH (07:44)
[2022-08-19] MEDS: Sulfamethoxazole/Trimethoprim 800-160 MG Tab PO SCH (07:45)
[2022-08-19] MEDS: PREDNISONE 10MG TABLETS PO SCH (07:45)
[2022-08-19] MEDS: hydrOXYzine Pamoate 25 MG Cap PO SCH ×3 (07:45→19:35)
[2022-08-19] MEDS: OMEPRAZOLE 40MG CAPS PO SCH (07:45)
[2022-08-19] MEDS: LORazepam 0.5 MG Tab PO PRN (19:37)
[2022-08-20] MEDS: MORPHINE 20 MG/ML SL SCH ×3 (01:03→11:13)
[2022-08-20] MEDS: Ipratropium 0.02% 0.5 MG/2.5 ML Neb Soln NEB SCH ×4 (07:27→19:13)
[2022-08-20] MEDS: Levalbuterol HCl 0.63 MG/3 ML Neb NEB SCH ×4 (07:27→19:38)
[2022-08-20] MEDS: Polyethylene Glycol 3350 Powder 510 GM Bot PO SCH (07:27)
[2022-08-20] MEDS: busPIRone 15 MG Tab PO SCH ×2 (07:28→17:34)
[2022-08-20] MEDS: OMEPRAZOLE 40MG CAPS PO SCH (07:28)
[2022-08-20] MEDS: guaiFENesin 600 MG Tab.ER PO SCH ×2 (07:28→19:38)
[2022-08-20] MEDS: Escitalopram 20 MG Tab PO SCH (07:28)
[2022-08-20] MEDS: PREDNISONE 10MG TABLETS PO SCH (07:28)
[2022-08-20] MEDS: hydrOXYzine Pamoate 25 MG Cap PO SCH ×3 (07:29→19:38)
[2022-08-21] MEDS: Polyethylene Glycol 3350 Powder 510 GM Bot PO SCH (07:40)
[2022-08-21] MEDS: Ipratropium 0.02% 0.5 MG/2.5 ML Neb Soln NEB SCH ×4 (07:40→19:07)
[2022-08-21] MEDS: Levalbuterol HCl 0.63 MG/3 ML Neb NEB SCH ×4 (07:41→19:19)
[2022-08-21] MEDS: busPIRone 15 MG Tab PO SCH ×2 (07:41→17:29)
[2022-08-21] MEDS: OMEPRAZOLE 40MG CAPS PO SCH (07:42)
[2022-08-21] MEDS: guaiFENesin 600 MG Tab.ER PO SCH ×2 (07:42→19:18)
[2022-08-21] MEDS: Escitalopram 20 MG Tab PO SCH (07:42)
[2022-08-21] MEDS: Sulfamethoxazole/Trimethoprim 800-160 MG Tab PO SCH (07:43)
[2022-08-21] MEDS: hydrOXYzine Pamoate 25 MG Cap PO SCH ×3 (07:43→19:18)
[2022-08-21] MEDS: PREDNISONE 10MG TABLETS PO SCH (07:43)
[2022-08-22] MEDS: busPIRone 15 MG Tab PO SCH ×2 (07:32→17:46)
[2022-08-22] MEDS: PREDNISONE 10MG TABLETS PO SCH (07:33)
[2022-08-22] MEDS: Escitalopram 20 MG Tab PO SCH (07:33)
[2022-08-22] MEDS: OMEPRAZOLE 40MG CAPS PO SCH (07:33)
[2022-08-22] MEDS: hydrOXYzine Pamoate 25 MG Cap PO SCH ×3 (07:35→19:31)
[2022-08-22] MEDS: Levalbuterol HCl 0.63 MG/3 ML Neb NEB SCH ×4 (07:37→19:30)
[2022-08-22] MEDS: Ipratropium 0.02% 0.5 MG/2.5 ML Neb Soln NEB SCH ×4 (07:38→19:30)
[2022-08-22] MEDS: Polyethylene Glycol 3350 Powder 510 GM Bot PO SCH (07:39)
[2022-08-22] MEDS: guaiFENesin 600 MG Tab.ER PO SCH ×2 (07:40→19:31)
[2022-08-22] MEDS: LORazepam 0.5 MG Tab PO PRN (19:32)
[2022-08-23] MEDS: busPIRone 15 MG Tab PO SCH ×2 (08:07→17:36)
[2022-08-23] MEDS: PREDNISONE 10MG TABLETS PO SCH (08:08)
[2022-08-23] MEDS: OMEPRAZOLE 40MG CAPS PO SCH (08:08)
[2022-08-23] MEDS: Escitalopram 20 MG Tab PO SCH (08:08)
[2022-08-23] MEDS: Sulfamethoxazole/Trimethoprim 800-160 MG Tab PO SCH (08:09)
[2022-08-23] MEDS: hydrOXYzine Pamoate 25 MG Cap PO SCH ×3 (08:09→19:44)
[2022-08-23] MEDS: Levalbuterol HCl 0.63 MG/3 ML Neb NEB SCH ×4 (08:10→19:43)
[2022-08-23] MEDS: Ipratropium 0.02% 0.5 MG/2.5 ML Neb Soln NEB SCH ×4 (08:10→19:43)
[2022-08-23] MEDS: Polyethylene Glycol 3350 Powder 510 GM Bot PO SCH (08:10)
[2022-08-23] MEDS: guaiFENesin 600 MG Tab.ER PO SCH ×2 (08:11→19:44)
[2022-08-23] MEDS: LORazepam 0.5 MG Tab PO PRN (14:49)
[2022-08-23] MEDS: Morphine Oral Concentrate 20 MG/ML 30 ML Bottle SL PRN (17:36)
[2022-08-23] MEDS: Melatonin 3 MG Tab PO PRN (19:44)
[2022-08-24] MEDS: Ipratropium 0.02% 0.5 MG/2.5 ML Neb Soln NEB SCH ×4 (07:45→20:24)
[2022-08-24] MEDS: Levalbuterol HCl 0.63 MG/3 ML Neb NEB SCH (07:57)
[2022-08-24] MEDS: hydrOXYzine Pamoate 25 MG Cap PO SCH ×3 (08:12→20:21)
[2022-08-24] MEDS: OMEPRAZOLE 40MG CAPS PO SCH (08:13)
[2022-08-24] MEDS: Escitalopram 20 MG Tab PO SCH (08:13)
[2022-08-24] MEDS: PREDNISONE 10MG TABLETS PO SCH (08:13)
[2022-08-24] MEDS: busPIRone 15 MG Tab PO SCH ×2 (08:14→17:38)
[2022-08-24] MEDS: guaiFENesin 600 MG Tab.ER PO SCH ×2 (08:14→20:21)
[2022-08-24] MEDS: Polyethylene Glycol 3350 Powder 510 GM Bot PO SCH (08:15)
[2022-08-24] MEDS: Morphine Oral Concentrate 20 MG/ML 30 ML Bottle SL PRN ×2 (09:42→18:07)
[2022-08-24] MEDS ORDERED: Ipratropium 0.02% 0.5 MG/2.5 ML Neb Soln NEB PRN (10:00)
[2022-08-24] MEDS ORDERED: Levalbuterol HCl 0.63 MG/3 ML Neb NEB PRN (10:02)
[2022-08-24] MEDS ORDERED: LEVALBUTEROL HCL 0.63 MG/3 ML NEB PRN (10:57)
[2022-08-24] MEDS ORDERED: PREDNISONE 10 MG PO ONE (12:00)
[2022-08-24] MEDS: LEVALBUTEROL HCL 0.63 MG/3 ML NEB SCH ×3 (13:07→20:23)
[2022-08-24] MEDS: Melatonin 3 MG Tab PO PRN (20:39)
[2022-08-25] MEDS: Ipratropium 0.02% 0.5 MG/2.5 ML Neb Soln NEB SCH ×4 (08:51→19:47)
[2022-08-25] MEDS: LEVALBUTEROL HCL 0.63 MG/3 ML NEB SCH ×4 (09:04→19:47)
[2022-08-25] MEDS: OMEPRAZOLE 40MG CAPS PO SCH (09:07)
[2022-08-25] MEDS: busPIRone 15 MG Tab PO SCH ×2 (09:07→17:04)
[2022-08-25] MEDS: Escitalopram 20 MG Tab PO SCH (09:07)
[2022-08-25] MEDS: PREDNISONE 10 MG PO SCH (09:08)
[2022-08-25] MEDS: hydrOXYzine Pamoate 25 MG Cap PO SCH ×3 (09:08→19:48)
[2022-08-25] MEDS: guaiFENesin 600 MG Tab.ER PO SCH ×2 (09:12→19:48)
[2022-08-25] MEDS: Polyethylene Glycol 3350 Powder 510 GM Bot PO SCH (09:12)
[2022-08-25] MEDS: Morphine Oral Concentrate 20 MG/ML 30 ML Bottle SL PRN ×2 (09:43→14:08)
[2022-08-25] MEDS: Melatonin 3 MG Tab PO PRN (19:49)
[2022-08-25] MEDS: LORazepam 0.5 MG Tab PO PRN (19:49)
[2022-08-26] MEDS: LEVALBUTEROL HCL 0.63 MG/3 ML NEB SCH ×4 (07:53→19:40)
[2022-08-26] MEDS: Ipratropium 0.02% 0.5 MG/2.5 ML Neb Soln NEB SCH ×4 (07:54→19:41)
[2022-08-26] MEDS: busPIRone 15 MG Tab PO SCH ×2 (07:54→17:17)
[2022-08-26] MEDS: Escitalopram 20 MG Tab PO SCH (07:54)
[2022-08-26] MEDS: OMEPRAZOLE 40MG CAPS PO SCH (07:55)
[2022-08-26] MEDS: Polyethylene Glycol 3350 Powder 510 GM Bot PO SCH (07:55)
[2022-08-26] MEDS: guaiFENesin 600 MG Tab.ER PO SCH ×2 (07:55→19:41)
[2022-08-26] MEDS: Sulfamethoxazole/Trimethoprim 800-160 MG Tab PO SCH (07:58)
[2022-08-26] MEDS: hydrOXYzine Pamoate 25 MG Cap PO SCH ×3 (07:58→19:41)
[2022-08-26] MEDS: PREDNISONE 10 MG PO SCH (08:00)
[2022-08-26] MEDS: LORazepam 0.5 MG Tab PO PRN (15:22)
[2022-08-26] MEDS: Morphine Oral Concentrate 20 MG/ML 30 ML Bottle SL PRN (15:27)
[2022-08-26] MEDS: Melatonin 3 MG Tab PO PRN (19:42)
[2022-08-27] MEDS: LEVALBUTEROL HCL 0.63 MG/3 ML NEB SCH ×4 (07:51→19:56)
[2022-08-27] MEDS: Ipratropium 0.02% 0.5 MG/2.5 ML Neb Soln NEB SCH ×4 (07:51→19:56)
[2022-08-27] MEDS: Polyethylene Glycol 3350 Powder 510 GM Bot PO SCH (07:54)
[2022-08-27] MEDS: Escitalopram 20 MG Tab PO SCH (07:54)
[2022-08-27] MEDS: busPIRone 15 MG Tab PO SCH ×2 (07:54→18:11)
[2022-08-27] MEDS: OMEPRAZOLE 40MG CAPS PO SCH (07:55)
[2022-08-27] MEDS: guaiFENesin 600 MG Tab.ER PO SCH ×2 (07:55→19:57)
[2022-08-27] MEDS: PREDNISONE 10 MG PO SCH (07:55)
[2022-08-27] MEDS: hydrOXYzine Pamoate 25 MG Cap PO SCH ×3 (07:56→19:57)
[2022-08-27] MEDS: LORazepam 0.5 MG Tab PO PRN (14:17)
[2022-08-27] MEDS: Melatonin 3 MG Tab PO PRN (19:58)
[2022-08-28] MEDS: busPIRone 15 MG Tab PO SCH ×2 (08:05→17:36)
[2022-08-28] MEDS: Ipratropium 0.02% 0.5 MG/2.5 ML Neb Soln NEB SCH ×4 (08:05→19:41)
[2022-08-28] MEDS: OMEPRAZOLE 40MG CAPS PO SCH (08:06)
[2022-08-28] MEDS: Sulfamethoxazole/Trimethoprim 800-160 MG Tab PO SCH (08:06)
[2022-08-28] MEDS: Escitalopram 20 MG Tab PO SCH (08:06)
[2022-08-28] MEDS: hydrOXYzine Pamoate 25 MG Cap PO SCH ×3 (08:06→19:43)
[2022-08-28] MEDS: guaiFENesin 600 MG Tab.ER PO SCH ×2 (08:07→19:43)
[2022-08-28] MEDS: Carbamide Peroxide 6.5% Otic Soln 15 ML Bottle EARBOTH SCH ×2 (08:07→19:42)
[2022-08-28] MEDS: Polyethylene Glycol 3350 Powder 510 GM Bot PO SCH (08:07)
[2022-08-28] MEDS: LEVALBUTEROL HCL 0.63 MG/3 ML NEB SCH ×4 (08:08→19:44)
[2022-08-28] MEDS: PREDNISONE 10 MG PO SCH (08:12)
[2022-08-28] MEDS: LORazepam 0.5 MG Tab PO PRN (13:30)
[2022-08-28] MEDS: Melatonin 3 MG Tab PO PRN (20:12)
[2022-08-29] MEDS: Ipratropium 0.02% 0.5 MG/2.5 ML Neb Soln NEB SCH ×4 (07:53→19:20)
[2022-08-29] MEDS: LEVALBUTEROL HCL 0.63 MG/3 ML NEB SCH ×4 (07:53→19:21)
[2022-08-29] MEDS: Polyethylene Glycol 3350 Powder 510 GM Bot PO SCH (07:54)
[2022-08-29] MEDS: Escitalopram 20 MG Tab PO SCH (07:54)
[2022-08-29] MEDS: Carbamide Peroxide 6.5% Otic Soln 15 ML Bottle EARBOTH SCH ×2 (07:54→19:22)
[2022-08-29] MEDS: busPIRone 15 MG Tab PO SCH ×2 (07:54→17:36)
[2022-08-29] MEDS: OMEPRAZOLE 40MG CAPS PO SCH (07:55)
[2022-08-29] MEDS: PREDNISONE 10 MG PO SCH (07:55)
[2022-08-29] MEDS: hydrOXYzine Pamoate 25 MG Cap PO SCH ×3 (07:55→19:21)
[2022-08-29] MEDS: guaiFENesin 600 MG Tab.ER PO SCH ×2 (07:55→19:22)
[2022-08-29] MEDS: LORazepam 0.5 MG Tab PO PRN (10:40)
[2022-08-29] MEDS: Morphine Oral Concentrate 20 MG/ML 30 ML Bottle SL PRN (16:19)
[2022-08-30] MEDS: Ipratropium 0.02% 0.5 MG/2.5 ML Neb Soln NEB SCH ×4 (07:39→19:12)
[2022-08-30] MEDS: Carbamide Peroxide 6.5% Otic Soln 15 ML Bottle EARBOTH SCH ×2 (07:42→19:14)
[2022-08-30] MEDS: Escitalopram 20 MG Tab PO SCH (07:43)
[2022-08-30] MEDS: busPIRone 15 MG Tab PO SCH ×2 (07:43→18:08)
[2022-08-30] MEDS: Polyethylene Glycol 3350 Powder 510 GM Bot PO SCH (07:43)
[2022-08-30] MEDS: OMEPRAZOLE 40MG CAPS PO SCH (07:44)
[2022-08-30] MEDS: guaiFENesin 600 MG Tab.ER PO SCH ×2 (07:44→19:14)
[2022-08-30] MEDS: Sulfamethoxazole/Trimethoprim 800-160 MG Tab PO SCH (07:44)
[2022-08-30] MEDS: PREDNISONE 10 MG PO SCH (07:44)
[2022-08-30] MEDS: LEVALBUTEROL HCL 0.63 MG/3 ML NEB SCH ×4 (07:45→19:12)
[2022-08-30] MEDS: hydrOXYzine Pamoate 25 MG Cap PO SCH ×3 (07:45→19:13)
[2022-08-30] MEDS: LORazepam 0.5 MG Tab PO PRN (10:21)
[2022-08-30] MEDS: Morphine Oral Concentrate 20 MG/ML 30 ML Bottle SL PRN (15:30)
[2022-08-31] MEDS: Morphine Oral Concentrate 20 MG/ML 30 ML Bottle SL PRN ×6 (02:19→19:37)
[2022-08-31] MEDS: LORazepam 0.5 MG Tab PO PRN ×2 (02:20→15:25)
[2022-08-31] MEDS: busPIRone 15 MG Tab PO SCH ×2 (08:20→17:09)
[2022-08-31] MEDS: OMEPRAZOLE 40MG CAPS PO SCH (08:20)
[2022-08-31] MEDS: Escitalopram 20 MG Tab PO SCH (08:20)
[2022-08-31] MEDS: Ipratropium 0.02% 0.5 MG/2.5 ML Neb Soln NEB SCH ×4 (08:20→19:06)
[2022-08-31] MEDS: hydrOXYzine Pamoate 25 MG Cap PO SCH ×3 (08:21→19:20)
[2022-08-31] MEDS: PREDNISONE 10 MG PO SCH (08:22)
[2022-08-31] MEDS: guaiFENesin 600 MG Tab.ER PO SCH ×2 (08:22→19:20)
[2022-08-31] MEDS: Polyethylene Glycol 3350 Powder 510 GM Bot PO SCH (08:23)
[2022-08-31] MEDS: LEVALBUTEROL HCL 0.63 MG/3 ML NEB SCH ×4 (08:23→19:21)
[2022-08-31] MEDS: Hyoscyamine 0.125 MG Tab.SL SL PRN ×2 (08:35→15:37)
[2022-09-01] MEDS: Escitalopram 20 MG Tab PO SCH (07:47)
[2022-09-01] MEDS: OMEPRAZOLE 40MG CAPS PO SCH (07:47)
[2022-09-01] MEDS: busPIRone 15 MG Tab PO SCH ×2 (07:47→17:08)
[2022-09-01] MEDS: hydrOXYzine Pamoate 25 MG Cap PO SCH ×3 (07:48→19:19)
[2022-09-01] MEDS: PREDNISONE 10 MG PO SCH (07:48)
[2022-09-01] MEDS: LEVALBUTEROL HCL 0.63 MG/3 ML NEB SCH ×4 (07:49→19:20)
[2022-09-01] MEDS: guaiFENesin 600 MG Tab.ER PO SCH ×2 (07:49→19:19)
[2022-09-01] MEDS: Polyethylene Glycol 3350 Powder 510 GM Bot PO SCH (07:49)
[2022-09-01] MEDS: Ipratropium 0.02% 0.5 MG/2.5 ML Neb Soln NEB SCH ×4 (07:49→19:16)
[2022-09-01] MEDS: Morphine Oral Concentrate 20 MG/ML 30 ML Bottle SL PRN ×7 (07:50→21:12)
[2022-09-01] MEDS: LORazepam 0.5 MG Tab PO PRN (09:00)
[2022-09-01] MEDS: IPRATROPIUM NEB PRN (09:02)
[2022-09-01] MEDS: Hyoscyamine 0.125 MG Tab.SL SL PRN (15:31)
[2022-09-02] MEDS: Morphine Oral Concentrate 20 MG/ML 30 ML Bottle SL PRN ×7 (01:02→23:12)
[2022-09-02] MEDS: Ipratropium 0.02% 0.5 MG/2.5 ML Neb Soln NEB SCH ×4 (07:55→19:25)
[2022-09-02] MEDS: LEVALBUTEROL HCL 0.63 MG/3 ML NEB SCH ×4 (07:55→19:26)
[2022-09-02] MEDS: Polyethylene Glycol 3350 Powder 510 GM Bot PO SCH (07:57)
[2022-09-02] MEDS: guaiFENesin 600 MG Tab.ER PO SCH ×2 (07:57→19:25)
[2022-09-02] MEDS: busPIRone 15 MG Tab PO SCH ×2 (07:57→17:23)
[2022-09-02] MEDS: Escitalopram 20 MG Tab PO SCH (07:57)
[2022-09-02] MEDS: PREDNISONE 10 MG PO SCH (07:58)
[2022-09-02] MEDS: Sulfamethoxazole/Trimethoprim 800-160 MG Tab PO SCH (07:58)
[2022-09-02] MEDS: hydrOXYzine Pamoate 25 MG Cap PO SCH ×3 (07:58→19:25)
[2022-09-02] MEDS: OMEPRAZOLE 40MG CAPS PO SCH (07:58)
[2022-09-02] MEDS: LORazepam 0.5 MG Tab PO PRN ×2 (07:59→19:41)
[2022-09-02 09:40] VITALS: BP 100/66; PULSE 104
[2022-09-02] MEDS: Hyoscyamine 0.125 MG Tab.SL SL PRN (14:02)
[2022-09-02] MEDS: Melatonin 3 MG Tab PO PRN (19:42)
[2022-09-03] MEDS: Morphine Oral Concentrate 20 MG/ML 30 ML Bottle SL PRN ×5 (02:43→21:38)
[2022-09-03] MEDS: LORazepam 0.5 MG Tab PO PRN ×2 (06:09→13:52)
[2022-09-03] MEDS: LEVALBUTEROL HCL 0.63 MG/3 ML NEB SCH ×4 (07:09→19:34)
[2022-09-03] MEDS: Ipratropium 0.02% 0.5 MG/2.5 ML Neb Soln NEB SCH ×4 (07:53→19:31)
[2022-09-03] MEDS: Escitalopram 20 MG Tab PO SCH (07:54)
[2022-09-03] MEDS: busPIRone 15 MG Tab PO SCH ×2 (07:54→17:09)
[2022-09-03] MEDS: Polyethylene Glycol 3350 Powder 510 GM Bot PO SCH (07:55)
[2022-09-03] MEDS: guaiFENesin 600 MG Tab.ER PO SCH ×2 (07:55→19:33)
[2022-09-03] MEDS: OMEPRAZOLE 40MG CAPS PO SCH (07:55)
[2022-09-03] MEDS: PREDNISONE 10 MG PO SCH (07:56)
[2022-09-03] MEDS: hydrOXYzine Pamoate 25 MG Cap PO SCH ×3 (07:57→19:33)
[2022-09-03] MEDS: Hyoscyamine 0.125 MG Tab.SL SL PRN ×2 (13:28→22:12)
[2022-09-03] MEDS ORDERED: Haloperidol Lactate 2 MG/ML Oral Soln 15 ML Bottle PO PRN (16:15)
[2022-09-03] MEDS ORDERED: Haloperidol 1 MG Tab PO PRN ×2 (16:44→16:55)
[2022-09-03] MEDS ORDERED: HALOPERIDOL 0.5 MG PO PRN ×2 (17:03→17:15)
[2022-09-03] MEDS: HALOPERIDOL 2 MG/ML PO PRN ×3 (19:10→21:18)
[2022-09-03] MEDS: Melatonin 3 MG Tab PO PRN (20:40)
[2022-09-04] MEDS ORDERED: Morphine Oral Concentrate 20 MG/ML 30 ML Bottle PO SCH
[2022-09-04] MEDS ORDERED: Morphine Oral Concentrate 20 MG/ML 30 ML Bottle PO PRN
[2022-09-04] MEDS: Morphine Oral Concentrate 20 MG/ML 30 ML Bottle SL SCH ×6 (01:45→20:45)
[2022-09-04] MEDS ORDERED: Haloperidol Lactate 2 MG/ML Oral Soln 15 ML Bottle PO SCH (02:00)
[2022-09-04] MEDS: Haloperidol Lactate 2 MG/ML Oral Soln 15 ML Bottle SL SCH ×6 (02:44→20:45)
[2022-09-04] MEDS: LEVALBUTEROL HCL 0.63 MG/3 ML NEB SCH ×5 (07:57→20:31)
[2022-09-04] MEDS: Polyethylene Glycol 3350 Powder 510 GM Bot PO SCH (07:58)
[2022-09-04] MEDS: Ipratropium 0.02% 0.5 MG/2.5 ML Neb Soln NEB SCH ×5 (07:58→20:30)
[2022-09-04] MEDS: busPIRone 15 MG Tab PO SCH ×2 (07:58→17:10)
[2022-09-04] MEDS: Escitalopram 20 MG Tab PO SCH (07:58)
[2022-09-04] MEDS: PREDNISONE 10 MG PO SCH (07:59)
[2022-09-04] MEDS: guaiFENesin 600 MG Tab.ER PO SCH ×2 (07:59→19:47)
[2022-09-04] MEDS: OMEPRAZOLE 40MG CAPS PO SCH (07:59)
[2022-09-04] MEDS: Sulfamethoxazole/Trimethoprim 800-160 MG Tab PO SCH (08:00)
[2022-09-04] MEDS: hydrOXYzine Pamoate 25 MG Cap PO SCH ×4 (08:00→19:47)
[2022-09-04] MEDS: Melatonin 3 MG Tab PO PRN (20:43)
[2022-09-05] MEDS: Haloperidol Lactate 2 MG/ML Oral Soln 15 ML Bottle SL SCH ×6 (01:24→21:38)
[2022-09-05] MEDS: Morphine Oral Concentrate 20 MG/ML 30 ML Bottle SL SCH ×6 (01:26→21:38)
[2022-09-05] MEDS: Morphine Oral Concentrate 20 MG/ML 30 ML Bottle SL PRN ×2 (04:31→19:33)
[2022-09-05] MEDS: Polyethylene Glycol 3350 Powder 510 GM Bot PO SCH (08:30)
[2022-09-05] MEDS: Escitalopram 20 MG Tab PO SCH (08:45)
[2022-09-05] MEDS: LEVALBUTEROL HCL 0.63 MG/3 ML NEB SCH ×4 (08:45→19:34)
[2022-09-05] MEDS: busPIRone 15 MG Tab PO SCH ×2 (08:45→17:13)
[2022-09-05] MEDS: IPRATROPIUM NEB PRN ×2 (08:45→16:55)
[2022-09-05] MEDS: OMEPRAZOLE 40MG CAPS PO SCH (08:46)
[2022-09-05] MEDS: hydrOXYzine Pamoate 25 MG Cap PO SCH ×3 (08:47→19:42)
[2022-09-05] MEDS: Ipratropium 0.02% 0.5 MG/2.5 ML Neb Soln NEB SCH ×4 (09:12→19:16)
[2022-09-05] MEDS: guaiFENesin 600 MG Tab.ER PO SCH ×2 (09:13→19:41)
[2022-09-05] MEDS: PREDNISONE 10 MG PO SCH (09:13)
[2022-09-05] MEDS: Hyoscyamine 0.125 MG Tab.SL SL PRN (17:12)
[2022-09-06] MEDS: Morphine Oral Concentrate 20 MG/ML 30 ML Bottle SL SCH ×6 (01:37→20:46)
[2022-09-06] MEDS: Haloperidol Lactate 2 MG/ML Oral Soln 15 ML Bottle SL SCH ×6 (01:38→20:45)
[2022-09-06] MEDS: Morphine Oral Concentrate 20 MG/ML 30 ML Bottle SL PRN ×2 (08:15→23:14)
[2022-09-06] MEDS: Hyoscyamine 0.125 MG Tab.SL SL PRN (08:40)
[2022-09-06] MEDS: Escitalopram 20 MG Tab PO SCH (09:13)
[2022-09-06] MEDS: busPIRone 15 MG Tab PO SCH ×2 (09:13→17:43)
[2022-09-06] MEDS: OMEPRAZOLE 40MG CAPS PO SCH (09:14)
[2022-09-06] MEDS: guaiFENesin 600 MG Tab.ER PO SCH ×3 (09:14→22:43)
[2022-09-06] MEDS: Polyethylene Glycol 3350 Powder 510 GM Bot PO SCH (09:14)
[2022-09-06] MEDS: PREDNISONE 10 MG PO SCH (09:15)
[2022-09-06] MEDS: hydrOXYzine Pamoate 25 MG Cap PO SCH ×4 (09:15→22:42)
[2022-09-06] MEDS: Sulfamethoxazole/Trimethoprim 800-160 MG Tab PO SCH (09:15)
[2022-09-06] MEDS: LEVALBUTEROL HCL 0.63 MG/3 ML NEB SCH ×4 (10:07→20:45)
[2022-09-06] MEDS: Ipratropium 0.02% 0.5 MG/2.5 ML Neb Soln NEB SCH ×4 (10:07→20:44)
[2022-09-06] MEDS: Haloperidol Lactate 2 MG/ML Oral Soln 15 ML Bottle PO PRN (23:30)
[2022-09-07] MEDS: Hyoscyamine 0.125 MG Tab.SL SL PRN (00:07)
[2022-09-07] MEDS: Morphine Oral Concentrate 20 MG/ML 30 ML Bottle SL PRN (00:13)
[2022-09-07] MEDS: Morphine Oral Concentrate 20 MG/ML 30 ML Bottle SL SCH ×5 (00:56→19:34)
[2022-09-07] MEDS: Haloperidol Lactate 2 MG/ML Oral Soln 15 ML Bottle SL SCH ×6 (00:59→20:54)
[2022-09-07] MEDS ORDERED: LORazepam 0.5 MG Tab PO PRN (08:43)
[2022-09-07] MEDS ORDERED: LORazepam 0.5 MG Tab PO SCH (08:45)
[2022-09-07] MEDS ORDERED: Morphine Oral Concentrate 20 MG/ML 30 ML Bottle SL PRN (09:04)
[2022-09-07] MEDS: Polyethylene Glycol 3350 Powder 510 GM Bot PO SCH (09:25)
[2022-09-07] MEDS: guaiFENesin 600 MG Tab.ER PO SCH (09:26)
[2022-09-07] MEDS: OMEPRAZOLE 40MG CAPS PO SCH (09:26)
[2022-09-07] MEDS: PREDNISONE 10 MG PO SCH ×2 (09:27→10:12)
[2022-09-07] MEDS ORDERED: LORazepam Conc Solution 2 MG/ML 30 ML Bottle PO PRN (09:53)
[2022-09-07] MEDS: busPIRone 15 MG Tab PO SCH ×2 (10:17→17:49)
[2022-09-07] MEDS: hydrOXYzine Pamoate 25 MG Cap PO SCH ×3 (10:17→19:39)
[2022-09-07] MEDS: Escitalopram 20 MG Tab PO SCH (10:17)
[2022-09-07] MEDS: LORazepam Conc Solution 2 MG/ML 30 ML Bottle SL SCH ×3 (11:44→19:32)
[2022-09-08] MEDS: Morphine Oral Concentrate 20 MG/ML 30 ML Bottle SL SCH ×6 (00:06→19:50)
[2022-09-08] MEDS: LORazepam Conc Solution 2 MG/ML 30 ML Bottle SL SCH ×6 (00:08→19:53)
[2022-09-08] MEDS: Haloperidol Lactate 2 MG/ML Oral Soln 15 ML Bottle SL SCH ×6 (01:32→21:51)
[2022-09-08] MEDS: PREDNISONE 10 MG PO SCH (09:57)
[2022-09-08] MEDS: hydrOXYzine Pamoate 25 MG Cap PO SCH ×3 (09:57→19:54)
[2022-09-08] MEDS: Escitalopram 20 MG Tab PO SCH (09:57)
[2022-09-08] MEDS: busPIRone 15 MG Tab PO SCH (09:57)
[2022-09-08] MEDS ORDERED: Morphine Oral Concentrate 20 MG/ML 30 ML Bottle SL PRN (10:06)
[2022-09-08] MEDS ORDERED: Hyoscyamine 0.125 MG Tab.SL SL PRN (10:13)
[2022-09-08] MEDS: Hyoscyamine 0.125 MG Tab.SL SL SCH ×4 (11:32→21:54)
[2022-09-08] MEDS: Haloperidol Lactate 2 MG/ML Oral Soln 15 ML Bottle PO PRN (18:10)
[2022-09-09] MEDS: Morphine Oral Concentrate 20 MG/ML 30 ML Bottle SL SCH ×3 (00:09→08:15)
[2022-09-09] MEDS: LORazepam Conc Solution 2 MG/ML 30 ML Bottle SL SCH ×3 (00:12→08:15)
[2022-09-09] MEDS: Haloperidol Lactate 2 MG/ML Oral Soln 15 ML Bottle SL SCH ×2 (01:57→05:34)
[2022-09-09] MEDS: Hyoscyamine 0.125 MG Tab.SL SL SCH ×2 (01:58→05:35)
[2022-09-09] MEDS ORDERED: Morphine Oral Concentrate 20 MG/ML 30 ML Bottle SL SCH (04:00)
[2022-09-09] MEDS: hydrOXYzine Pamoate 25 MG Cap PO SCH (09:35)
[2022-09-23] MEDS ORDERED: Denosumab 60 MG/1 ML Syringe SUBCUT SCH (14:00)
== END 2022-09-09 10:00 | disposition expired | DRG 951 ==
LOC: LL.SWG 12:25
PROVIDERS: ADMIT Nurse Practitioner Family; ATTEND Nurse Practitioner Family
DX: Z51.5 Encounter for palliative care (principal); J84.9 Interstitial pulmonary disease, unspecified; D84.821 Immunodeficiency due to drugs; J96.11 Chronic respiratory failure with hypoxia; J96.12 Chronic respiratory failure with hypercapnia; K62.6 Ulcer of anus and rectum; K21.9 Gastro-esophageal reflux disease without esophagitis; K44.9 Diaphragmatic hernia without obstruction or gangrene; T38.0X5A Adverse effect of glucocorticoids and synthetic analogues, initial encounter; M81.0 Age-related osteoporosis without current pathological fracture; K22.2 Esophageal obstruction; H54.7 Unspecified visual loss; E78.00 Pure hypercholesterolemia, unspecified; K57.90 Diverticulosis of intestine, part unspecified, without perforation or abscess without bleeding; R33.9 Retention of urine, unspecified; F41.0 Panic disorder [episodic paroxysmal anxiety]; Z96.653 Presence of artificial knee joint, bilateral; N39.41 Urge incontinence; D64.9 Anemia, unspecified; Z79.52 Long term (current) use of systemic steroids; Z79.899 Other long term (current) drug therapy; Z79.51 Long term (current) use of inhaled steroids; Z90.710 Acquired absence of both cervix and uterus
CPT/HCPCS: 94640; 94761; A9270-GY; J7500; J7512; J7620-GY; Q0177